=== PATIENT | female | born 1940 | race Hispanic/Latino ===

== ENCOUNTER 2017-04-22 16:48 | Inpatient (IN) | payer MEDICARE, OTHER ==
--- NOTE | 2017-04-22 17:26 | RAD ---
PROCEDURE: CHEST RADIOGRAPH, 1 VIEW HISTORY: SOB COMPARISON: Comparison is made to 08/06/2016 FINDINGS: LUNGS: No evidence of new infiltrate or consolidation in the lungs PLEURA: No pneumothorax or pleural fluid seen. CARDIOVASCULAR: Normal. OSSEOUS STRUCTURES: No significant abnormalities. VISUALIZED UPPER ABDOMEN: Normal. OTHER FINDINGS: None. IMPRESSION: No active disease.
[2017-04-22 17:28] LABS: BASO % 0.3 % (0.0-2.0); EOS % 0.3 % (0.0-4.0); HEMOGLOBIN 12.5 g/dL (11.0-16.0); LYMPH # 1.1 K/uL (1.0-4.3); LYMPH % 18.1 % (20.0-40.0); MEAN CORPUSCULAR HEMOGLOBIN 31.9 pg (27.0-31.0); MEAN CORPUSCULAR HGB CONC 33.5 g/dL (33.0-37.0); MEAN PLATELET VOLUME 7.6 fL (7.2-11.7); MONO # 0.4 K/uL (0.0-0.8); MONO % 7.1 % (0.0-10.0); NEUT # 4.6 K/uL (1.8-7.0); NEUT % 74.2 % (50.0-75.0); RBC 3.92 Mil/uL (3.80-5.20); RED CELL DISTRIBUTION WIDTH 12.5 % (11.5-14.5); WHITE BLOOD COUNT 6.3 K/uL (4.8-10.8)
[2017-04-22 17:33] LABS: MEAN CELL VOLUME 95.2 fL (81.0-99.0)
[2017-04-22 17:39] LABS: GFR AFRICAN-AMERICAN > 60; GFR NON-AFRICAN AMERICAN > 60
[2017-04-22 17:40] LABS: ALB/GLOB RATIO 1.5 (1.0-2.1); ALT/SGPT 25 U/L (9-52); AST/SGOT 21 U/L (14-36); BLOOD UREA NITROGEN 20 mg/dL (7-17); CALCIUM 9.2 mg/dl (8.6-10.4)
[2017-04-22 17:40] LABS: SQUAMOUS EPITHIAL 5 /hpf (0-5); URINE BACTERIA MOD (<OCC)
[2017-04-22 17:41] LABS: URINE BILIRUBIN NEGATIVE (NEGATIVE); URINE CLARITY Hazy (Clear); URINE COLOR YELLOW (YELLOW); URINE GLUCOSE (UA) NEGATIVE (Normal)
[2017-04-22 17:42] LABS: URINE BLOOD SMALL (NEGATIVE); URINE LEUKOCYTE ESTERASE MODERATE Leu/uL (Negative); URINE NITRATE POSITIVE (NEGATIVE); URINE PROTEIN NEGATIVE (NEGATIVE); URINE UROBILINOGEN 0.2 mg/dL (0.2-1.0)
[2017-04-22 17:48] LABS: PARTIAL THROMBOPLASTIN TIME 32 SECONDS (21-34); PROTHROMBIN TIME 10.8 SECONDS (9.7-12.2)
[2017-04-22 17:49] LABS: B-TYPE NATRIURETIC PEPTIDE 110 pg/mL (0-900)
[2017-04-22 17:56] LABS: D DIMER < 200 ng/mlDDU (0-243)
--- NOTE | 2017-04-22 18:23 | C.PDOC ---
History Of Present Illness 76 year old female who presents to the ER with a complaint of palpitations overnight. Patient states she believed she was having a heart attack. Patient reports a Hx of paroxysmal a-fib and takes rate controlling medication but no anticoagulation medication. 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 Time Seen by Provider: 04/22/17 17:01 Chief Complaint (Nursing): Palpitations History Per: Patient History/Exam Limitations: no limitations Onset/Duration Of Symptoms: Hrs Current Symptoms Are (Timing): Still Present Associated Symptoms: denies: Chest Pain, Dyspnea, Dizziness, Headache Quality Of Symptoms: Asymptomatic Exacerbating Factor(s): Pos: None Recent travel outside of the [place]: No Past Medical History Reviewed: Historical Data, Nursing Documentation, Vital Signs Vital Signs: Last Vital Signs Temp 97.4 F L 04/22/17 18:51 Pulse 84 04/22/17 18:51 Resp 16 04/22/17 18:51 BP 147/73 04/22/17 18:51 Pulse Ox 97 04/22/17 18:51 - Medical History PMH: Arthritis, Cardia Arrhythmia ("Fast" - unsure DX - had ablation), HTN Surgical History: Cholecystectomy (1996) - [facility] Procedures EXCISION OF STOMACH, ENDO, DIAGN (04/03/16) INSPECTION OF LOWER INTESTINAL TRACT, ENDO (04/03/16) TRANSFUSE NONAUT RED BLOOD CELLS IN PERIPH VEIN, PERC (04/03/16) Family History: States: Unknown Family Hx - Social History Hx Tobacco Use: No Hx Alcohol Use: No Hx Substance Use: No - Immunization History Hx Tetanus Toxoid Vaccination: Yes Hx Influenza Vaccination: No Hx Pneumococcal Vaccination: Yes (2013) Review Of Systems Constitutional: Negative for: Fever, Chills Cardiovascular: Positive for: Palpitations Gastrointestinal: Negative for: Nausea, Vomiting, Diarrhea Physical Exam - Physical Exam Appears: Non-toxic, No Acute Distress Skin: Normal Color, Warm, Dry Head: Atraumatic, Normacephalic Oral Mucosa: Moist Chest: Symmetrical, No Tenderness Cardiovascular: Rhythm Regular, No Murmur Respiratory: Normal Breath Sounds, No Rales, No Rhonchi, No Wheezing Gastrointestinal/Abdominal: Soft, No Tenderness Neurological/Psych: Oriented x3, Normal Speech, Normal Cognition ED Course And Treatment - Laboratory Results Result Diagrams: 04/22/17 17:25 04/22/17 17:25 Lab Interpretation: Normal (d-dimer, trop, bnp neg.) ECG: Interpreted By Me ECG Rhythm: Sinus Rhythm ECG Interpretation: Normal Rate From EC O2 Sat by Pulse Oximetry: 96 Pulse Ox Interpretation: Normal - Radiology CXR: Interpreted by Me CXR Interpretation: Yes: No Acute Disease Progress Note: macrobid for UTI, Cardizem PO for suppression of palps. Reevaluation Time: 18:21 Reassessment Condition: Improved - Physician Consult Information Outcome Of Conversation: 1819: d/w Dr. 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 Medical Decision Making Medical Decision Making: palps overnight, ? PAF NSR and not tachy in ED Cardizem started. not anticuagulated for PAF, defer to cardio prn, but no AF now. Disposition Doctor Will See Patient In The: Hospital Counseled Patient/Family Regarding: Studies Performed, Diagnosis - Disposition Disposition: HOSPITALIZED Disposition Time: 18:24 Condition: GOOD - Clinical Impression Clinical Impression: Palpitations, UTI (urinary tract infection) - Scribe Statement The provider has reviewed the documentation as recorded by the Scribralph Clifton All medical record entries made by the Scribe were at my direction and personally dictated by me. I have reviewed the chart and agree that the record accurately reflects my personal performance of the history, physical exam, medical decision making, and the department course for this patient. I have also personally directed, reviewed, and agree with the discharge instructions and disposition.
--- NOTE | 2017-04-22 20:11 | CP.PCM.HP ---
Present on Admission - Present on Admission Any Indicators Present on Admission: No Past Patient History - Past Medical History & Family History Past Medical History?: Yes - Past Social History Smoking Status: Former Smoker - CARDIAC Hx Cardia Arrhythmia: Yes ("Fast" - unsure DX - had ablation) Hx Hypertension: Yes - PULMONARY Hx Respiratory Disorders: No - NEUROLOGICAL Hx Neurological Disorder: No - HEENT Hx HEENT Problems: No - RENAL Hx Chronic Kidney Disease: No - ENDOCRINE/METABOLIC Hx Endocrine Disorders: No - HEMATOLOGICAL/ONCOLOGICAL Hx Blood Disorders: No - INTEGUMENTARY Hx Dermatological Problems: No - MUSCULOSKELETAL/RHEUMATOLOGICAL Hx Arthritis: Yes - GASTROINTESTINAL Hx Gastrointestinal Disorders: No - GENITOURINARY/GYNECOLOGICAL Hx Genitourinary Disorders: No - PSYCHIATRIC Hx Substance Use: No - SURGICAL HISTORY Hx Cholecystectomy: Yes (1996) - ANESTHESIA Hx Anesthesia: Yes Hx Anesthesia Reactions: No Hx Malignant Hyperthermia: No Meds Allergies/Adverse Reactions: Allergies Allergy/AdvReac Type Severity Reaction Status Date / Time Penicillins Allergy RASH Verified 08/06/16 19:46 Results - Vital Signs Recent Vital Signs: Last Vital Signs Temp 97.8 F 04/22/17 19:57 Pulse 74 04/22/17 19:57 Resp 16 04/22/17 19:57 BP 163/73 H 04/22/17 19:57 Pulse Ox 95 04/22/17 19:57 - Labs Result Diagrams: 04/22/17 17:25 04/22/17 17:25
[2017-04-23 02:32] LABS: CK-MB 0.33 ng/mL (0.0-3.38)
[2017-04-23] MEDS: Pantoprazole 40 mg EC Tab PO SCH (09:18)
[2017-04-23] MEDS: Enoxaparin 40 mg Syringe SC SCH (09:19)
--- NOTE | 2017-04-23 11:42 | CP.PCM.PN ---
Subjective - Date & Time of Evaluation Date of Evaluation: 04/23/17 Time of Evaluation: 13:00 - Subjective Subjective: clinically same Objective - Vital Signs/Intake and Output Vital Signs (last 24 hours): Temp Pulse Resp BP Pulse Ox 97.7 F 85 18 153/69 H 94 L 04/23/17 09:02 04/23/17 09:02 04/23/17 09:02 04/23/17 09:02 04/23/17 09:02 - Medications Medications: Current Medications Acetaminophen (Tylenol 325mg Tab) 650 mg PO Q6 PRN PRN Reason: Pain, Mild (1-3) Last Admin: 04/23/17 11:30 Dose: 650 mg Aspirin (Aspirin) 325 mg PO DAILY [facility] Last Admin: 04/23/17 09:18 Dose: 325 mg Clopidogrel Bisulfate (Plavix) 75 mg PO DAILY [facility] Last Admin: 04/23/17 09:18 Dose: 75 mg Enoxaparin Sodium (Lovenox) 40 mg SC DAILY [facility] Last Admin: 04/23/17 09:19 Dose: 40 mg Pantoprazole Sodium (Protonix Ec Tab) 40 mg PO DAILY [facility] Last Admin: 04/23/17 09:18 Dose: 40 mg - Labs Labs: PT 10.8 SECONDS (9.7-12.2) 04/22/17 17:25 INR 1.0 04/22/17 17:25 APTT 32 SECONDS (21-34) 04/22/17 17:25 - Constitutional Appears: Well - Head Exam Head Exam: ATRAUMATIC, NORMAL INSPECTION, NORMOCEPHALIC - Eye Exam Eye Exam: EOMI, Normal appearance, PERRL Pupil Exam: NORMAL ACCOMODATION, PERRL - ENT Exam ENT Exam: Mucous Membranes Moist, Normal Exam - Neck Exam Neck Exam: Full ROM, Normal Inspection. absent: Lymphadenopathy - Respiratory Exam Respiratory Exam: Decreased Breath Sounds - GI/Abdominal Exam GI & Abdominal Exam: Soft, Diminished Bowel Sounds - Rectal Exam Rectal Exam: Deferred
[2017-04-23 12:10] LABS: CK-MB 0.27 ng/mL (0.0-3.38)
--- NOTE | 2017-04-23 13:26 | CARD ---
APPROVED REPORT EKG Measurement Heart [id number] <Conclusion> Normal sinus rhythm Normal ECG
[2017-04-23 14:02] LABS: BASO % 0.6 % (0.0-2.0); EOS % 0.4 % (0.0-4.0); HEMOGLOBIN 12.2 g/dL (11.0-16.0); LYMPH # 1.6 K/uL (1.0-4.3); LYMPH % 31.8 % (20.0-40.0); MEAN CELL VOLUME 96.1 fL (81.0-99.0); MEAN CORPUSCULAR HEMOGLOBIN 31.7 pg (27.0-31.0); MEAN PLATELET VOLUME 8.5 fL (7.2-11.7); MONO # 0.4 K/uL (0.0-0.8); MONO % 7.7 % (0.0-10.0); NEUT # 3.1 K/uL (1.8-7.0); NEUT % 59.5 % (50.0-75.0); RBC 3.84 Mil/uL (3.80-5.20); WHITE BLOOD COUNT 5.1 K/uL (4.8-10.8)
[2017-04-23 14:10] LABS: ALB/GLOB RATIO 1.4 (1.0-2.1); ALBUMIN 3.7 g/dL (3.5-5.0); ALT/SGPT 22 U/L (9-52); AST/SGOT 20 U/L (14-36); BLOOD UREA NITROGEN 18 mg/dL (7-17); CALCIUM 8.9 mg/dl (8.6-10.4); GFR AFRICAN-AMERICAN > 60; GFR NON-AFRICAN AMERICAN > 60
[2017-04-23] MEDS: Ciprofloxacin 400mg/200ml D5W 400 MG/200 ML BAG IVPB SCH (14:16)
[2017-04-23 15:40] VITALS: RESP 20
--- NOTE | 2017-04-23 15:40 | CP.PCM.CON ---
History of Present Illness - History of Present Illness History of Present Illness: CARDIOLOGY CONSULT NOTE Reason for consult: palpitations HPI: Patient is a 76 year old woman with history of probable SVT s/p ablation at [facility] 2-3 years ago (was not told anticoagulation was required so AFib or AFlutter is unlikely) who was in usual state of health until yesterday eventing whe she had severe sudden onset palpitations lasting for a few hours on the day of the admission yesterday. It was associated with dizziness. No syncope, SOB, chest pain. Her palpitations resolved by the time she arrived to the hospital. EKG showed sinus rhythm with otherwise normal tracing. She feels well now. Cardiology now consulted PMH: Probable SVT s/p ablation at [facility] 2-3 yrs ago, HTN, arthritis Surgical Hx: cholecystectomy ROS: as described in HPI, otherwise negative SH: no tobacc, no etoh, no drugs FH: no premature CAD or SCD Review of Systems - Review of Systems All systems: reviewed and no additional remarkable complaints except - Cardiovascular Cardiovascular: Palpitations Past Patient History - Past Medical History & Family History Past Medical History?: Yes - Past Social History Smoking Status: Former Smoker - CARDIAC Hx Hypertension: Yes - PULMONARY Hx Respiratory Disorders: No - NEUROLOGICAL Hx Neurological Disorder: No - HEENT Hx HEENT Problems: No - RENAL Hx Chronic Kidney Disease: No - ENDOCRINE/METABOLIC Hx Endocrine Disorders: No - HEMATOLOGICAL/ONCOLOGICAL Hx Blood Disorders: No - INTEGUMENTARY Hx Dermatological Problems: No - MUSCULOSKELETAL/RHEUMATOLOGICAL Hx Arthritis: Yes - GASTROINTESTINAL Hx Gastrointestinal Disorders: No - GENITOURINARY/GYNECOLOGICAL Hx Genitourinary Disorders: No - PSYCHIATRIC Hx Psychophysiologic Disorder: No Hx Substance Use: No - SURGICAL HISTORY Hx Surgeries: Yes Hx Cholecystectomy: Yes (1996) - ANESTHESIA Hx Anesthesia: Yes Hx Anesthesia Reactions: No Hx Malignant Hyperthermia: No Has any member of the family had a problem w/ anesthesia?: No Meds Allergies/Adverse Reactions: Allergies Allergy/AdvReac Type Severity Reaction Status Date / Time Penicillins Allergy RASH Verified 08/06/16 19:46 - Medications Medications: Current Medications Acetaminophen (Tylenol 325mg Tab) 650 mg PO Q6 PRN PRN Reason: Pain, Mild (1-3) Last Admin: 04/23/17 11:30 Dose: 650 mg Aspirin (Aspirin) 325 mg PO DAILY [facility] Last Admin: 04/23/17 09:18 Dose: 325 mg Clopidogrel Bisulfate (Plavix) 75 mg PO DAILY [facility] Last Admin: 04/23/17 09:18 Dose: 75 mg Enoxaparin Sodium (Lovenox) 40 mg SC DAILY [facility] Last Admin: 04/23/17 09:19 Dose: 40 mg Ciprofloxacin (Cipro 400mg/200ml Dsw) 400 mg in 200 mls @ 133 mls/hr IVPB Q12H [facility] Last Admin: 04/23/17 14:16 Dose: 133 mls/hr Pantoprazole Sodium (Protonix Ec Tab) 40 mg PO DAILY [facility] Last Admin: 04/23/17 09:18 Dose: 40 mg Physical Exam - Constitutional Appears: Well - Head Exam Head Exam: ATRAUMATIC - Eye Exam Eye Exam: Normal appearance - ENT Exam ENT Exam: Mucous Membranes Moist - Neck Exam Neck exam: Positive for: Normal Inspection - Respiratory Exam Respiratory Exam: Clear to Auscultation Bilateral, NORMAL BREATHING PATTERN - Cardiovascular Exam Cardiovascular Exam: REGULAR RHYTHM, +S2 - GI/Abdominal Exam GI & Abdominal Exam: Soft. absent: Tenderness - Extremities Exam Extremities exam: Negative for: pedal edema - Neurological Exam Neurological exam: Oriented x3 - Psychiatric Exam Psychiatric exam: Normal Affect - Skin Skin Exam: Warm Results - Vital Signs Recent Vital Signs: Last Vital Signs Temp 97.7 F 04/23/17 09:02 Pulse 85 04/23/17 09:02 Resp 18 04/23/17 09:02 BP 153/69 H 04/23/17 09:02 Pulse Ox 94 L 04/23/17 09:02 - Labs Result Diagrams: 04/23/17 13:44 04/23/17 13:44 Labs: Laboratory Results - last 24 hr 04/23/17 04/23/17 04/23/17 11:23 13:44 13:44 WBC 5.1 RBC 3.84 Hgb 12.2 Hct 36.9 MCV 96.1 MCH 31.7 H MCHC 33.0 RDW 13.0 Plt Count 222 MPV 8.5 Neut % (Auto) 59.5 Lymph % (Auto) 31.8 Alcorn % (Auto) 7.7 Eos % (Auto) 0.4 Baso % (Auto) 0.6 Neut # 3.1 Lymph # 1.6 Alcorn # 0.4 Eos # 0.0 Baso # 0.0 Sodium 136 Potassium 3.7 Chloride 101 Carbon Dioxide 23 Anion Gap 16 BUN 18 H Creatinine 0.8 Est GFR ( Amer) > 60 Est GFR (Non-Af Amer) > 60 Random Glucose 107 H Calcium 8.9 Total Bilirubin 0.6 AST 20 ALT 22 Alkaline Phosphatase 78 Total Creatine Kinase 38 CK-MB (Mass) 0.27 Troponin I, Quant < 0.0120 Total Protein 6.4 Albumin 3.7 Globulin 2.7 Albumin/Globulin Ratio 1.4 - Impressions Impression: sinus rhythm, normal tracing Assessment & Plan - Assessment and Plan (Free Text) Assessment: 1. Palpitations -- Now resolved. May represent SVT, especially since she has a history of it. Currently in sinus. Plan: * Patient needs echo and event monitor for 1 month, which can be done as an outpatient * Start Toprol XL 25mg daily Cardiovascularly stable for discharge Will follow up with me as outpatient in 1-2 weeks for further cardiac workup
[2017-04-23] MEDS: Metoprolol Succinate 25 mg XL Tab PO SCH (17:54)
[2017-04-24] MEDS: Ciprofloxacin 400mg/200ml D5W 400 MG/200 ML BAG IVPB SCH ×2 (00:28→11:12)
[2017-04-24 07:03] LABS: BASO % 0.6 % (0.0-2.0); EOS # 0.1 K/uL (0.0-0.7); EOS % 1.4 % (0.0-4.0); HEMOGLOBIN 11.9 g/dL (11.0-16.0); LYMPH # 1.8 K/uL (1.0-4.3); LYMPH % 27.3 % (20.0-40.0); MEAN CELL VOLUME 96.2 fL (81.0-99.0); MEAN CORPUSCULAR HEMOGLOBIN 31.6 pg (27.0-31.0); MEAN CORPUSCULAR HGB CONC 32.8 g/dL (33.0-37.0); MONO # 0.5 K/uL (0.0-0.8); MONO % 7.2 % (0.0-10.0); NEUT # 4.1 K/uL (1.8-7.0); NEUT % 63.5 % (50.0-75.0); RBC 3.79 Mil/uL (3.80-5.20); WHITE BLOOD COUNT 6.5 K/uL (4.8-10.8)
[2017-04-24 07:27] LABS: ALBUMIN 3.5 g/dL (3.5-5.0)
[2017-04-24 07:29] LABS: GFR AFRICAN-AMERICAN > 60; GFR NON-AFRICAN AMERICAN > 60
[2017-04-24 07:30] LABS: ALB/GLOB RATIO 1.5 (1.0-2.1); ALT/SGPT 23 U/L (9-52); AST/SGOT 17 U/L (14-36); BLOOD UREA NITROGEN 13 mg/dL (7-17)
[2017-04-24] MEDS: Pantoprazole 40 mg EC Tab PO SCH (09:50)
[2017-04-24] MEDS: Metoprolol Succinate 25 mg XL Tab PO SCH (09:50)
[2017-04-24] MEDS: Enoxaparin 40 mg Syringe SC SCH (09:50)
--- NOTE | 2017-04-24 12:28 | CP.PCM.PN ---
Subjective - Date & Time of Evaluation Date of Evaluation: 04/24/17 Time of Evaluation: 14:20 - Subjective Subjective: clinically same Objective - Vital Signs/Intake and Output Vital Signs (last 24 hours): Temp Pulse Resp BP Pulse Ox 97.5 F L 72 20 160/78 H 96 04/24/17 08:24 04/24/17 08:24 04/24/17 08:24 04/24/17 08:24 04/24/17 08:24 Intake and Output: 04/24/17 04/24/17 06:59 18:59 Intake Total 350 200 Balance 350 200 - Medications Medications: Current Medications Acetaminophen (Tylenol 325mg Tab) 650 mg PO Q6 PRN PRN Reason: Pain, Mild (1-3) Last Admin: 04/24/17 08:12 Dose: 650 mg Aspirin (Aspirin) 325 mg PO DAILY [facility] Last Admin: 04/24/17 09:50 Dose: 325 mg Clopidogrel Bisulfate (Plavix) 75 mg PO DAILY [facility] Last Admin: 04/24/17 09:50 Dose: 75 mg Enoxaparin Sodium (Lovenox) 40 mg SC DAILY [facility] Last Admin: 04/24/17 09:50 Dose: 40 mg Ciprofloxacin (Cipro 400mg/200ml Dsw) 400 mg in 200 mls @ 133 mls/hr IVPB Q12H [facility] Last Admin: 04/24/17 11:12 Dose: 133 mls/hr Metoprolol Succinate (Toprol Xl) 25 mg PO DAILY [facility] Last Admin: 04/24/17 09:50 Dose: 25 mg Pantoprazole Sodium (Protonix Ec Tab) 40 mg PO DAILY [facility] Last Admin: 04/24/17 09:50 Dose: 40 mg - Labs Labs: 04/24/17 06:54 04/24/17 06:54 PT 10.8 SECONDS (9.7-12.2) 04/22/17 17:25 INR 1.0 04/22/17 17:25 APTT 32 SECONDS (21-34) 04/22/17 17:25 - Constitutional Appears: Well - Head Exam Head Exam: ATRAUMATIC, NORMAL INSPECTION, NORMOCEPHALIC - Eye Exam Eye Exam: EOMI, Normal appearance, PERRL Pupil Exam: NORMAL ACCOMODATION, PERRL - ENT Exam ENT Exam: Mucous Membranes Moist, Normal Exam - Neck Exam Neck Exam: Full ROM, Normal Inspection. absent: Lymphadenopathy - Respiratory Exam Respiratory Exam: Decreased Breath Sounds - Cardiovascular Exam Cardiovascular Exam: REGULAR RHYTHM, +S1, +S2 - GI/Abdominal Exam GI & Abdominal Exam: Soft, Diminished Bowel Sounds - Rectal Exam Rectal Exam: Deferred
--- NOTE | 2017-04-24 14:48 | CP.PCM.PN ---
Subjective - Date & Time of Evaluation Date of Evaluation: 04/24/17 Time of Evaluation: 14:45 - Subjective Subjective: PT SEEN AND EXAMINED BY DR Soumya ERWIN, DENIES ANY CHEST PAIN, SOB, PALPITATION, DIZZINESS OR ANY OTHER COMPLAINTS, RESP EASY AND UNLABORED, NAD. Objective - Vital Signs/Intake and Output Vital Signs (last 24 hours): Temp Pulse Resp BP Pulse Ox 97.5 F L 72 20 160/78 H 96 04/24/17 08:24 04/24/17 08:24 04/24/17 08:24 04/24/17 08:24 04/24/17 08:24 Intake and Output: 04/24/17 04/24/17 06:59 18:59 Intake Total 350 200 Balance 350 200 - Medications Medications: Current Medications Acetaminophen (Tylenol 325mg Tab) 650 mg PO Q6 PRN PRN Reason: Pain, Mild (1-3) Last Admin: 04/24/17 08:12 Dose: 650 mg Aspirin (Aspirin) 325 mg PO DAILY [facility] Last Admin: 04/24/17 09:50 Dose: 325 mg Clopidogrel Bisulfate (Plavix) 75 mg PO DAILY [facility] Last Admin: 04/24/17 09:50 Dose: 75 mg Enoxaparin Sodium (Lovenox) 40 mg SC DAILY [facility] Last Admin: 04/24/17 09:50 Dose: 40 mg Ciprofloxacin (Cipro 400mg/200ml Dsw) 400 mg in 200 mls @ 133 mls/hr IVPB Q12H [facility] Last Admin: 04/24/17 11:12 Dose: 133 mls/hr Metoprolol Succinate (Toprol Xl) 25 mg PO DAILY [facility] Last Admin: 04/24/17 09:50 Dose: 25 mg Pantoprazole Sodium (Protonix Ec Tab) 40 mg PO DAILY [facility] Last Admin: 04/24/17 09:50 Dose: 40 mg - Labs Labs: 04/24/17 06:54 04/24/17 06:54 PT 10.8 SECONDS (9.7-12.2) 04/22/17 17:25 INR 1.0 04/22/17 17:25 APTT 32 SECONDS (21-34) 04/22/17 17:25 Assessment and Plan - Assessment and Plan (Free Text) Plan: 76 Y/O FEMALE WITH PMHX SVT S/P ABLATION AT [facility] 2-3 YRS AGO, HTN, ARTHRITIS ADMITTED FOR PALPITATIONS ASSOCIATED W/DIZZINESS EKG NSR, PLAPITATION -RESOLVED SEEN BY CARDIOLOGY ECHO AND EVENT MONITOR FOR 1 MONTH - OUTPT PER CARDIOLOGY STARTED TOPROL XL 25 MG PO DAILY F/U WITH CARDIOLOGY IN THE OFFICE IN 1-2 WEEKS RETURN TO ED IF ANY WORSENING S/S
[2017-04-24 15:45] VITALS: BP 155/71; PULSE 61; TEMP 98.1; O2SAT 95
== END 2017-04-24 18:42 | disposition home or self-care (01) | DRG 309 ==
LOC: C.ER 16:48 → C.9E 18:16 → C.6T 18:40 → OBSVTOIN 04-23 10:21
PROVIDERS: ADMIT Internal Medicine Nephrology; ATTEND Internal Medicine Nephrology
DX: I47.1 Supraventricular tachycardia (principal); N39.0 Urinary tract infection, site not specified; I10 Essential (primary) hypertension; Z87.891 Personal history of nicotine dependence; M19.90 Unspecified osteoarthritis, unspecified site; Z90.49 Acquired absence of other specified parts of digestive tract

== ENCOUNTER 2017-07-01 10:39 | Emergency (ER) | payer MEDICARE ==
--- NOTE | 2017-07-01 11:05 | C.PDOC ---
History Of Present Illness Patient is a 76 y/o female who presents to the ED with a complaint of a recurring right upper extremity tremor for the past 3 days. Patient experienced similar symptoms approximately 2 years ago; diagnosed as resting Parkinsons. Patient admits current tremor is worse than prior and describes it as constant but resolves with right hand use. Patient notes not taking HTN medication this morning due to experiencing nausea; patient also experiences questionable headache. No other physical complaints at this time. RECUR RUE TREMOR X 3 DAYS. HO PRIOR SIM SX 2 YRS AGO, DX "RESTING PARKINSONS". CURRENT TREMOR WORSE THAN PRIOR, CONSTANT BUT RESOLVES W RUE HAND USE. +NAUSEA. ?GARCIA. NO OTHER ASSOC SX PS DIDNT TAKE HTN MEDS THIS MORNING DUE TO NAUSEA EXAM NAD NEURO +RESTING TREMOR RUE, RESOLVES W INTENTION. 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 Time Seen by Provider: 07/01/17 10:48 Chief Complaint (Nursing): Upper Extremity Problem/Injury History Per: Patient History/Exam Limitations: no limitations Onset/Duration Of Symptoms: Days (3 days) Current Symptoms Are (Timing): Still Present Recent travel outside of the [place]: No Past Medical History Reviewed: Historical Data, Nursing Documentation, Vital Signs Vital Signs: Last Vital Signs Temp 98.0 F 07/01/17 10:45 Pulse 51 L 07/01/17 12:06 Resp 19 07/01/17 12:06 BP 179/89 H 07/01/17 12:06 Pulse Ox 96 07/01/17 12:06 - Medical History PMH: Arthritis, Cardia Arrhythmia ("Fast" - unsure DX - had ablation), HTN, Parkinson's Disease (Resting Parkinson's) Denies: Chronic Kidney Disease Surgical History: Cholecystectomy (1996) - [facility] Procedures EXCISION OF STOMACH, ENDO, DIAGN (04/03/16) INSPECTION OF LOWER INTESTINAL TRACT, ENDO (04/03/16) TRANSFUSE NONAUT RED BLOOD CELLS IN PERIPH VEIN, PERC (04/03/16) Family History: States: Unknown Family Hx - Social History Hx Tobacco Use: No Hx Alcohol Use: No Hx Substance Use: No - Immunization History Hx Tetanus Toxoid Vaccination: Yes Hx Influenza Vaccination: No Hx Pneumococcal Vaccination: Yes (2013) Review Of Systems Constitutional: Negative for: Fever, Chills Gastrointestinal: Positive for: Nausea Musculoskeletal: Positive for: Other (tremor to right upper extremity ) Neurological: Positive for: Headache (questionable) Physical Exam - Physical Exam Appears: Well, Non-toxic, No Acute Distress Skin: Normal Color, Warm, Dry Head: Atraumatic, Normacephalic Oral Mucosa: Moist Chest: Symmetrical Cardiovascular: Rhythm Regular, No Murmur Respiratory: Normal Breath Sounds, No Rales, No Rhonchi, No Wheezing Gastrointestinal/Abdominal: Soft, No Tenderness Neurological/Psych: Oriented x3, Normal Speech, Normal Cognition, Other ( positive resting tremor RUE; resolves with intention. No focal deficits. ) ED Course And Treatment - Laboratory Results Result Diagrams: 07/01/17 11:25 07/01/17 11:25 ECG: Interpreted By Me, Viewed By Me ECG Rhythm: Sinus Rhythm Rate From EC (bpm) O2 Sat by Pulse Oximetry: 96 (room air) Pulse Ox Interpretation: Normal Progress Note: CT head, EKG, and blood work ordered; Lopressor and Zofran administered. Reevaluation Time: 12:41 Reassessment Condition: Improved Disposition Counseled Patient/Family Regarding: Studies Performed, Diagnosis, Need For Followup - Disposition Referrals: David Brown MD [Staff Provider] - Disposition: HOME/ ROUTINE Disposition Time: 12:41 Condition: IMPROVED Instructions: Tremors (ED) Forms: [facility] (Uzbek) - Clinical Impression Clinical Impression: Resting tremor - Scribe Statement The provider has reviewed the documentation as recorded by the Scribe Dana Arechiga All medical record entries made by the Scribe were at my direction and personally dictated by me. I have reviewed the chart and agree that the record accurately reflects my personal performance of the history, physical exam, medical decision making, and the department course for this patient. I have also personally directed, reviewed, and agree with the discharge instructions and disposition.
[2017-07-01] MEDS ORDERED: Metoprolol Succinate 25 mg XL Tab PO ONE (11:09)
[2017-07-01] MEDS ORDERED: Metoprolol 1 mg/ml Inj IVP ONE ×2 (11:10→11:29)
[2017-07-01 11:29] LABS: BASO % 1.1 % (0.0-2.0); EOS % 0.4 % (0.0-4.0); HEMATOCRIT 37.6 % (34.0-47.0); LYMPH % 25.4 % (20.0-40.0); MEAN CORPUSCULAR HEMOGLOBIN 32.7 pg (27.0-31.0); MEAN CORPUSCULAR HGB CONC 33.7 g/dL (33.0-37.0); MEAN PLATELET VOLUME 7.8 fL (7.2-11.7); MONO # 0.4 K/uL (0.0-0.8); MONO % 9.2 % (0.0-10.0); NRBC % 0.1 % (0.0-2.0); RED CELL DISTRIBUTION WIDTH 14.4 % (11.5-14.5)
[2017-07-01 11:36] LABS: CHLORIDE 107 mmol/L (98-107); POTASSIUM 3.7 mmol/L (3.6-5.2); SODIUM 139 mmol/L (132-148)
[2017-07-01 11:39] LABS: CARBON DIOXIDE 21 mmol/L (22-30); GFR AFRICAN-AMERICAN > 60
[2017-07-01 11:40] LABS: BLOOD UREA NITROGEN 15 mg/dL (7-17); CALCIUM 8.4 mg/dl (8.6-10.4); GLUCOSE,RANDOM 87 mg/dL (65-105)
--- NOTE | 2017-07-01 12:16 | CT ---
PROCEDURE: CT HEAD WITHOUT CONTRAST. HISTORY: Right upper extremity tremor COMPARISON: CT scan dated 07/04/2016. TECHNIQUE: Axial computed tomography images were obtained through the head/brain without intravenous contrast. Radiation dose: Total exam DLP = 960 mGy-cm. This CT exam was performed using one or more of the following dose reduction techniques: Automated exposure control, adjustment of the mA and/or kV according to patient size, and/or use of iterative reconstruction technique. FINDINGS: HEMORRHAGE: No intracranial hemorrhage. BRAIN: Scattered focal lucencies in the subcortical and periventricular white matter suggestive for chronic microvascular ischemic change. Focal hypodensity in the left external capsule may represent chronic lacunar infarct as this was noted on the prior study. VENTRICLES: Unremarkable. No hydrocephalus. CALVARIUM: Unremarkable. PARANASAL SINUSES: Unremarkable as visualized. No significant inflammatory changes. MASTOID AIR CELLS: Unremarkable as visualized. No inflammatory changes. OTHER FINDINGS: Intracranial vascular calcifications. IMPRESSION: No acute intracranial abnormality. Chronic microvascular ischemic changes. Additional findings as above. If focal neurologic deficit persists, consider MRI.
[2017-07-01 13:01] VITALS: BP 154/68; PULSE 117; RESP 18; TEMP 98.1; O2SAT 95
== END 2017-07-01 13:17 | disposition home or self-care (01) ==
LOC: C.ER 10:39
DX: R25.1 Tremor, unspecified (principal)
CPT/HCPCS: 70450; 80048; 85025; 96374; 96375; 99285; J2405

== ENCOUNTER 2017-08-28 01:52 | Inpatient (IN) | payer MEDICARE ==
[2017-08-28 01:52] VITALS: BMI 22.6
[2017-08-28] MEDS ORDERED: Morphine 4 MG/ML VIAL IV ONE (02:21)
--- NOTE | 2017-08-28 02:21 | C.PDOC ---
History Of Present Illness patient states she tripped and fell coming out of the bathroom . denies LOC and remembers the event. No cp/palpitations. C/o of dull, throbbing right hip pain - HPI Time Seen by Provider: 08/28/17 02:21 Chief Complaint (Nursing): Trauma Past Medical History Reviewed: Historical Data, Nursing Documentation, Vital Signs Vital Signs: Last Vital Signs Temp 97.6 F 08/28/17 01:58 Pulse 56 L 08/28/17 01:58 Resp 20 08/28/17 01:58 BP 115/66 08/28/17 01:58 Pulse Ox 95 08/28/17 03:22 - Medical History PMH: Arthritis, Cardia Arrhythmia ("Fast" - unsure DX - had ablation), HTN, Parkinson's Disease (Resting Parkinson's), Seizures Denies: Chronic Kidney Disease Surgical History: Cholecystectomy (1996) - [facility] Procedures EXCISION OF STOMACH, ENDO, DIAGN (04/03/16) INSPECTION OF LOWER INTESTINAL TRACT, ENDO (04/03/16) TRANSFUSE NONAUT RED BLOOD CELLS IN PERIPH VEIN, PERC (04/03/16) Family History: States: No Known Family Hx - Social History Hx Tobacco Use: No Hx Alcohol Use: No Hx Substance Use: No - Immunization History Hx Tetanus Toxoid Vaccination: Yes Hx Influenza Vaccination: Yes Hx Pneumococcal Vaccination: Yes (2013) Review Of Systems Constitutional: Negative for: Fever, Chills Eyes: Negative for: Redness ENT: Negative for: Throat Pain Cardiovascular: Negative for: Chest Pain Respiratory: Negative for: Shortness of Breath Gastrointestinal: Negative for: Nausea, Vomiting, Abdominal Pain Genitourinary: Negative for: Dysuria Musculoskeletal: Positive for: Other (r hip pain). Negative for: Back Pain Skin: Negative for: Rash Neurological: Positive for: Other (resting tremor). Negative for: Weakness Psych: Negative for: Anxiety Physical Exam - Physical Exam Appears: Non-toxic Skin: Warm, Dry Head: Normacephalic Eye(s): bilateral: Normal Inspection Oral Mucosa: Moist Neck: Supple Chest: Symmetrical Cardiovascular: Rhythm Regular Respiratory: No Rales, No Rhonchi, No Wheezing Gastrointestinal/Abdominal: Soft, No Tenderness, No Distention Back: No CVA Tenderness Extremity: Tenderness (r hip), No Calf Tenderness, No Swelling Extremity: Right: Bony Point Tenderness (hip), Bilateral: Normal Color And Temperature Pulses: Left Dorsalis Pedis: Normal, Right Dorsalis Pedis: Normal Neurological/Psych: Oriented x3, Normal Speech, Normal Cognition, Other ( resting tremor) Gait: Unable To Assess ED Course And Treatment - Laboratory Results Result Diagrams: 08/28/17 02:33 08/28/17 02:33 ECG: Interpreted By Me, Viewed By Me ECG Rhythm: Sinus Rhythm (56), Nonspecific Changes O2 Sat by Pulse Oximetry: 95 Pulse Ox Interpretation: Normal - Radiology CXR: Interpreted by Me, Viewed By Me CXR Interpretation: No: Infiltrates, Fracture, Cardiomegaly, Pnemothorax Disposition Discussed With Dr.: Jann Morfin Comment: accepted the pt on his service and took over the care at 4:16 AM Doctor Will See Patient In The: Hospital Counseled Patient/Family Regarding: Studies Performed, Diagnosis - Disposition Disposition: HOSPITALIZED Disposition Time: 02:21 Condition: FAIR Forms: [facility] [employer] ([place]zeri) - POA Present On Arrival: Falls Or Trauma - Clinical Impression Clinical Impression: Fall, Intertrochanteric fracture of right femur Decision To Admit - Pt Status Changed To: Hospital Disposition Of: Inpatient - Admit Certification Admit to Inpatient:: After my assessment, the patient will require hospitalization for at least two midnights. This is because of the severity of symptoms shown, intensity of services needed, and/or the medical risk in this patient being treated as an outpatient. - InPatient: Physician Admission Certification: I certify that this patient requires 2 or more midnights of care for the following reason:: After my assessment, the patient will require hospitalization for at least two midnights. This is because of the severity of symptoms shown, intensity of services needed, and/or the medical risk in this patient being treated as an outpatient. - . Bed Request Type: Regular Admitting Physician: Jann Morfin Patient Diagnosis: Fall, Intertrochanteric fracture of right femur
[2017-08-28] MEDS ORDERED: Morphine 4 MG/ML VIAL ONE ×2 (02:33→07:00)
[2017-08-28 02:36] LABS: BASO # 0.1 K/uL (0.0-0.2); BASO % 0.5 % (0.0-2.0); EOS # 0.1 K/uL (0.0-0.7); EOS % 0.6 % (0.0-4.0); LYMPH # 1.3 K/uL (1.0-4.3); MEAN CELL VOLUME 95.2 fL (81.0-99.0); MEAN CORPUSCULAR HGB CONC 33.6 g/dL (33.0-37.0); MEAN PLATELET VOLUME 8.4 fL (7.2-11.7); MONO # 0.9 K/uL (0.0-0.8); MONO % 7.6 % (0.0-10.0); RED CELL DISTRIBUTION WIDTH 13.5 % (11.5-14.5); WHITE BLOOD COUNT 11.2 K/uL (4.8-10.8)
[2017-08-28 02:58] LABS: ALB/GLOB RATIO 1.7 (1.0-2.1); ALKALINE PHOSPHATASE 71 U/L (38-126); ALT/SGPT 30 U/L (9-52); AST/SGOT 23 U/L (14-36); BILIRUBIN,TOTAL 0.7 mg/dL (0.2-1.3); BLOOD UREA NITROGEN 17 mg/dL (7-17); CALCIUM 9.2 mg/dl (8.6-10.4); CARBON DIOXIDE 21 mmol/L (22-30); CHLORIDE 100 mmol/L (98-107); GFR AFRICAN-AMERICAN > 60; GLUCOSE,RANDOM 94 mg/dL (65-105); POTASSIUM 3.4 mmol/L (3.6-5.2); SODIUM 133 mmol/L (132-148); TOTAL PROTEIN 6.6 g/dL (6.3-8.3)
[2017-08-28] MEDS ORDERED: Oxycodone/Acetaminophen 5/325 mg Tab PO PRN (04:14)
[2017-08-28] MEDS ORDERED: Oxycodone/Acetaminophen 5/325 mg Tab ONE (06:11)
--- NOTE | 2017-08-28 08:33 | RAD ---
PROCEDURE: HISTORY: fall, r hip pain COMPARISON: 08/03/2017 TECHNIQUE: AP view of the pelvis and applicable frog leg views obtained. FINDINGS: There is an interval complete fracture of the right femoral neck with mild proximal migration of the distal fracture fragment. . Femoral head head remains in the acetabulum. Left hip arthroplasty and inferior lumbar senescent changes are similar. IMPRESSION: Interval right femoral neck fracture. ER physician aware -patient admitted
--- NOTE | 2017-08-28 08:40 | RAD ---
PROCEDURE: CHEST RADIOGRAPH, 1 VIEW HISTORY: Shortness of breath COMPARISON: None available. FINDINGS: LUNGS: Mild venous congestion. Right hilar prominence. Patchy increased markings in the medial right infrahilar region and left lung base. Clinical correlation. Upper lobe granulomatous changes. PLEURA: No pneumothorax or pleural fluid seen. CARDIOVASCULAR: Calcification at the aortic knob. OSSEOUS STRUCTURES: No significant abnormalities. VISUALIZED UPPER ABDOMEN: Normal. OTHER FINDINGS: None. IMPRESSION: Mild venous congestion. Right hilar prominence. Patchy increased markings in the medial right infrahilar region and left lung base. Clinical correlation. Upper lobe granulomatous changes.
[2017-08-28] MEDS: Carbidopa/Levodopa 25/250 PO SCH ×3 (10:37→17:26)
[2017-08-28] MEDS: Pantoprazole 40 mg EC Tab PO SCH (10:38)
[2017-08-28] MEDS: Morphine 4 MG/ML VIAL SC PRN ×3 (12:19→21:25)
--- NOTE | 2017-08-28 13:24 | CP.PCM.CON ---
History of Present Illness - History of Present Illness History of Present Illness: Ortho consultation Dr. eMndosa 77F fell at home going to bathroom and complains of right hip pain. She says she had surgery on her left hip 5 years ago but she doesnt remember where or the surgeon. She denies pain in other extremities at this time, denies neck or back pain. Denies CP/SOB. Past Patient History - Infectious Disease Hx of Infectious Diseases: None - Tetanus Immunizations Tetanus Immunization: Unknown - Past Medical History & Family History Past Medical History?: Yes - Past Social History Smoking Status: Former Smoker - CARDIAC Hx Atrial Fibrillation: Yes Hx Cardia Arrhythmia: Yes ("Fast" - unsure DX - had ablation) Hx Hypertension: Yes - PULMONARY Hx Respiratory Disorders: No Hx Pneumonia: Yes - NEUROLOGICAL HX Cerebrovascular Accident: Yes (pt states "mini stroke") Hx Parkinson's Disease: Yes (Resting Parkinson's) Hx Seizures: Yes - HEENT Hx HEENT Problems: No Hx Cataracts: Yes (B/L) - RENAL Hx Chronic Kidney Disease: No - ENDOCRINE/METABOLIC Hx Endocrine Disorders: No - HEMATOLOGICAL/ONCOLOGICAL Hx Blood Disorders: No - INTEGUMENTARY Hx Dermatological Problems: No - MUSCULOSKELETAL/RHEUMATOLOGICAL Hx Falls: Yes - GASTROINTESTINAL Hx Gastrointestinal Disorders: No Hx Constipation: Yes - GENITOURINARY/GYNECOLOGICAL Hx Genitourinary Disorders: No Hx Urinary Tract Infection: Yes - PSYCHIATRIC Hx Substance Use: No - SURGICAL HISTORY Hx Cholecystectomy: Yes (1996) Hx Open Reduction Internal Fixation: Yes (left hip) - ANESTHESIA Hx Anesthesia: Yes Hx Anesthesia Reactions: No Hx Malignant Hyperthermia: No Has any member of the family had a problem w/ anesthesia?: No Meds Allergies/Adverse Reactions: Allergies Allergy/AdvReac Type Severity Reaction Status Date / Time Penicillins Allergy RASH Verified 08/02/17 15:01 - Medications Medications: Current Medications Amlodipine Besylate (Norvasc) 10 mg PO DAILY [facility] Last Admin: 08/28/17 10:38 Dose: 10 mg Carbidopa/Levodopa (Sinemet) 1 tab PO TID [facility] Last Admin: 08/28/17 10:37 Dose: 1 tab Docusate Sodium (Colace) 100 mg PO TID [facility] Last Admin: 08/28/17 10:37 Dose: 100 mg Heparin Sodium (Porcine) (Heparin) 5,000 units SC Q8 [facility] Last Admin: 08/28/17 06:06 Dose: 5,000 units Levetiracetam (Keppra) 500 mg PO BID [facility] Last Admin: 08/28/17 10:38 Dose: 500 mg Metoprolol Tartrate (Lopressor) 25 mg PO BID [facility] Last Admin: 08/28/17 10:38 Dose: 25 mg Morphine Sulfate (Morphine) 4 mg SC Q6 PRN PRN Reason: Pain, moderate (4-7) Last Admin: 08/28/17 12:19 Dose: 4 mg Pantoprazole Sodium (Protonix Ec Tab) 40 mg PO DAILY [facility] Last Admin: 08/28/17 10:38 Dose: 40 mg Physical Exam - Constitutional Appears: Well, No Acute Distress - Extremities Exam Additional comments: full AROM BUE/LLE without pain no swelling deformity discoloration RLE: +ROM ankle/toes, sensation intact +DP/PT pulses, calves soft NT neg homans - Neurological Exam Neurological exam: Alert Additional comments: oriented to person only - Psychiatric Exam Psychiatric exam: Normal Affect, Normal Mood - Skin Skin Exam: Dry, Intact, Normal Color, Warm Results - Vital Signs Recent Vital Signs: Last Vital Signs Temp 98.3 F 08/28/17 08:38 Pulse 69 08/28/17 08:38 Resp 18 08/28/17 08:38 BP 150/68 08/28/17 10:38 Pulse Ox 96 08/28/17 08:38 - Labs Result Diagrams: 08/28/17 02:33 08/28/17 02:33 Labs: Laboratory Results - last 24 hr 08/28/17 08/28/17 08/28/17 02:33 02:33 02:33 WBC 11.2 H D RBC 4.41 Hgb 14.1 Hct 42.0 MCV 95.2 MCH 32.0 H MCHC 33.6 RDW 13.5 Plt Count 251 MPV 8.4 Neut % (Auto) 79.3 H Lymph % (Auto) 12.0 L Hitchcock % (Auto) 7.6 Eos % (Auto) 0.6 Baso % (Auto) 0.5 Neut # 8.9 H Lymph # 1.3 Hitchcock # 0.9 H Eos # 0.1 Baso # 0.1 PT 11.2 INR 1.0 APTT 30 Sodium 133 Potassium 3.4 L Chloride 100 Carbon Dioxide 21 L Anion Gap 16 BUN 17 Creatinine 0.7 Est GFR ( Amer) > 60 Est GFR (Non-Af Amer) > 60 Random Glucose 94 Calcium 9.2 Total Bilirubin 0.7 AST 23 ALT 30 Alkaline Phosphatase 71 Total Protein 6.6 Albumin 4.2 Globulin 2.4 Albumin/Globulin Ratio 1.7 Blood Type Antibody Screen 08/28/17 05:50 WBC RBC Hgb Hct MCV MCH MCHC RDW Plt Count MPV Neut % (Auto) Lymph % (Auto) Hitchcock % (Auto) Eos % (Auto) Baso % (Auto) Neut # Lymph # Hitchcock # Eos # Baso # PT INR APTT Sodium Potassium Chloride Carbon Dioxide Anion Gap BUN Creatinine Est GFR ( Amer) Est GFR (Non-Af Amer) Random Glucose Calcium Total Bilirubin AST ALT Alkaline Phosphatase Total Protein Albumin Globulin Albumin/Globulin Ratio Blood Type O POSITIVE Antibody Screen Negative Assessment & Plan (1) Displaced fracture of right femoral neck Assessment and Plan: Will need hemiarthroplasty vs total replacement when medically optimized, plan for 08/29 pm attempted to call son, no answer patient currently not oriented to place or time, but gives history of fall f/u u/a type and cross NPO heparin held after 2pm dose in anticipation for OR tomorrow f/u labs d/w Dr. Mendosa, agrees with above Status: Acute
--- NOTE | 2017-08-28 13:39 | CP.PCM.HP ---
History of Present Illness - History of Present Illness History of Present Illness: COMPREHENSIVE HISTORY & PHYSICAL EXAM [facility]PI [facility] FELL AND SUSTAIANED R. HIP FX. H/O LEFT HIP FX FEW YEARS AGO CURRENTLY IN PAIN , R. HIP PAST HIST. HTN/PARKINSONS DISEASE /CARDIAC ARRYTHMIA /ANXIETY PERSONAL HIST: Smoking. N Alcohol. N Allergy N Travel_- . FAMILY HIST : ROS : Constitutional: Negative for weight change, chills, night sweats PAIN R HIP Eyes: Negative for redness, swelling, itching, discharge, vision changes, blurry vision, double vision, glaucoma, cataracts, Ears: Negative for hearing loss, ringing, , tinnitus, vertigo Nose: Negative for rhinorrhea, stuffiness, sniffing, itching, postnasal drip, discoloration, nasal congestion and epistaxis. Throat: Negative for throat clearing, sore throat, hoarseness, difficulty swallowing and difficulty speaking. Respiratory: Negative for cough, , sputum production, chest tightness, wheezing, pleuritic chest pain ,daytime somnolence, chronic cough, hemoptysis, snoring at night, Cardiovascular: Negative for chest pain, palpitations, orthopnea, PND, Edema of legs, leg cramps, angina, claudication, , irregular heartbeat, Neurology: Negative for irritability, muscle weakness, numbness and tingling, seizures, tremors, migraines, slurred speech, syncope, memory loss, mood changes , recurrent headaches Gastrointestinal: Negative for difficulty swallowing, diarrhea, constipation, black stools, rectal bleeding, nausea, flatulence, reflux, poor appetite, changes in bowel habits, abdominal pain Genitourinary: Negative for frequent urination, hematuria, discharge, incontinence, urinary retention, frequent UTI, Psychiatric: Negative for depression, anxiety/panic, suicidal tendencies, Musculoskeletal: Negative for swollen joints, back pain, , neck pain, morning stiffness of joints, . Skin: Negative for rash, ulcers, itching, dry skin and pigmented lesions. P/E: Constitutional: Appears stated age and in no apparent distress. Head: Normocephalic. Ears: External ear canals patent without inflammation. Tympanic membranes intact with normal light reflex and landmark. Eyes: Pupils are central, bilaterally equal, symmetrical and reacts to light with normal movements and no icterus or pallor. Nose: External nares are patent. Mucosa is pink Mouth-Throat: Good general appearance and condition. No post-pharyngeal/oropharyngeal erythema and tonsillar hypertrophy. Good dental hygiene. Neck-Lymphatic: Neck is supple with normal ROM, no thyromegaly, lymph nodes or masses. JVD is normal with no carotid bruit. Lungs: Clear to percussion and auscultation with bilateral normal air entry. Cardiovascular: S1 and S2 are normal with no murmurs, gallops and rub. GI Exam: No hepatomegaly. Abdomen is soft and non-tender. No Organomegaly , masses or hernias are evident and bowel sounds are normal and active. Neurology: Higher function and all cranial nerves intact, with no gross motor or sensory deficit. Superficial and deep reflexes are normal with downwards planters. No cerebellar deficit with normal gait. Musculoskeletal PAINFUL RESTRICETED ROM R. HIP WITH SHORETENING Extremities: Homans sign absent. Intact pulses with no pitting edema, calf tenderness or skin color changes. Skin: No rash, eruptions or abnormal skin pigmentation LAB/RADIOLOGY: ASSESMENT : R. HIP FX ACUTE HTN PARKINSONS DISEASE PLAN: SEE ORDERS Present on Admission - Present on Admission Any Indicators Present on Admission: No Past Patient History - Infectious Disease Hx of Infectious Diseases: None - Tetanus Immunizations Tetanus Immunization: Unknown - Past Medical History & Family History Past Medical History?: Yes - Past Social History Smoking Status: Former Smoker - CARDIAC Hx Atrial Fibrillation: Yes Hx Cardia Arrhythmia: Yes ("Fast" - unsure DX - had ablation) Hx Hypertension: Yes - PULMONARY Hx Respiratory Disorders: No Hx Pneumonia: Yes - NEUROLOGICAL HX Cerebrovascular Accident: Yes (pt states "mini stroke") Hx Parkinson's Disease: Yes (Resting Parkinson's) Hx Seizures: Yes - HEENT Hx HEENT Problems: No Hx Cataracts: Yes (B/L) - RENAL Hx Chronic Kidney Disease: No - ENDOCRINE/METABOLIC Hx Endocrine Disorders: No - HEMATOLOGICAL/ONCOLOGICAL Hx Blood Disorders: No - INTEGUMENTARY Hx Dermatological Problems: No - MUSCULOSKELETAL/RHEUMATOLOGICAL Hx Falls: Yes - GASTROINTESTINAL Hx Gastrointestinal Disorders: No Hx Constipation: Yes - GENITOURINARY/GYNECOLOGICAL Hx Genitourinary Disorders: No Hx Urinary Tract Infection: Yes - PSYCHIATRIC Hx Substance Use: No - SURGICAL HISTORY Hx Cholecystectomy: Yes (1996) Hx Open Reduction Internal Fixation: Yes (left hip) - ANESTHESIA Hx Anesthesia: Yes Hx Anesthesia Reactions: No Hx Malignant Hyperthermia: No Has any member of the family had a problem w/ anesthesia?: No Meds Allergies/Adverse Reactions: Allergies Allergy/AdvReac Type Severity Reaction Status Date / Time Penicillins Allergy RASH Verified 08/02/17 15:01 Results - Vital Signs Recent Vital Signs: Last Vital Signs Temp 98.3 F 08/28/17 08:38 Pulse 69 08/28/17 08:38 Resp 18 08/28/17 08:38 BP 150/68 08/28/17 10:38 Pulse Ox 96 08/28/17 08:38 - Labs Result Diagrams: 08/28/17 02:33 08/28/17 02:33 Labs: Laboratory Results - last 24 hr 08/28/17 08/28/17 08/28/17 02:33 02:33 02:33 WBC 11.2 H D RBC 4.41 Hgb 14.1 Hct 42.0 MCV 95.2 MCH 32.0 H MCHC 33.6 RDW 13.5 Plt Count 251 MPV 8.4 Neut % (Auto) 79.3 H Lymph % (Auto) 12.0 L Waldo % (Auto) 7.6 Eos % (Auto) 0.6 Baso % (Auto) 0.5 Neut # 8.9 H Lymph # 1.3 Waldo # 0.9 H Eos # 0.1 Baso # 0.1 PT 11.2 INR 1.0 APTT 30 Sodium 133 Potassium 3.4 L Chloride 100 Carbon Dioxide 21 L Anion Gap 16 BUN 17 Creatinine 0.7 Est GFR ( Amer) > 60 Est GFR (Non-Af Amer) > 60 Random Glucose 94 Calcium 9.2 Total Bilirubin 0.7 AST 23 ALT 30 Alkaline Phosphatase 71 Total Protein 6.6 Albumin 4.2 Globulin 2.4 Albumin/Globulin Ratio 1.7 Blood Type Antibody Screen 08/28/17 05:50 WBC RBC Hgb Hct MCV MCH MCHC RDW Plt Count MPV Neut % (Auto) Lymph % (Auto) Waldo % (Auto) Eos % (Auto) Baso % (Auto) Neut # Lymph # Waldo # Eos # Baso # PT INR APTT Sodium Potassium Chloride Carbon Dioxide Anion Gap BUN Creatinine Est GFR ( Amer) Est GFR (Non-Af Amer) Random Glucose Calcium Total Bilirubin AST ALT Alkaline Phosphatase Total Protein Albumin Globulin Albumin/Globulin Ratio Blood Type O POSITIVE Antibody Screen Negative
--- NOTE | 2017-08-28 16:22 | CT ---
PROCEDURE: CT right hip HISTORY: right hip fracture COMPARISON: Not available TECHNIQUE: 2.5 mm contiguous axial sections were acquired through the right hip. Sagittal and coronal images were reformatted from the axial scan. FINDINGS: There is an oblique hazy cervical fracture of the right femoral neck. There is impaction of the fracture with mild superior migration of the proximal component along the femoral head. The femoral head is normally situated in the acetabulum. There is no other fracture identified. There is no pelvic fracture appreciated. There is no surrounding hematoma evident. IMPRESSION: Displaced right femoral neck fracture with impaction and proximal migration of the distal fragment no dislocation. No additional fracture.
--- NOTE | 2017-08-28 19:31 | CP.PCM.PN ---
Subjective - Date & Time of Evaluation Date of Evaluation: 08/28/17 Time of Evaluation: 19:30 - Subjective Subjective: AFTER REVIEWING CURRENT LABS AND IMAGING PATIENT IS MEDICALLY CLEARED FOR R. HIP SURGERY Objective - Vital Signs/Intake and Output Vital Signs (last 24 hours): Temp Pulse Resp BP Pulse Ox 98.3 F 69 18 128/51 L 96 08/28/17 08:38 08/28/17 08:38 08/28/17 08:38 08/28/17 17:26 08/28/17 08:38 Intake and Output: 08/28/17 08/28/17 11:59 23:59 Intake Total 120 Balance 120 - Medications Medications: Current Medications Amlodipine Besylate (Norvasc) 10 mg PO DAILY [facility] Carbidopa/Levodopa (Sinemet) 1 tab PO TID [facility] Last Admin: 08/28/17 17:26 Dose: 1 tab Docusate Sodium (Colace) 100 mg PO TID [facility] Last Admin: 08/28/17 17:26 Dose: 100 mg Heparin Sodium (Porcine) (Heparin) 5,000 units SC Q8 [facility] Last Admin: 08/28/17 14:15 Dose: 5,000 units Levetiracetam (Keppra) 500 mg PO BID [facility] Last Admin: 08/28/17 17:26 Dose: 500 mg Metoprolol Tartrate (Lopressor) 25 mg PO BID [facility] Last Admin: 08/28/17 17:26 Dose: 25 mg Morphine Sulfate (Morphine) 4 mg SC Q6 PRN PRN Reason: Pain, moderate (4-7) Last Admin: 08/28/17 17:33 Dose: 4 mg Pantoprazole Sodium (Protonix Ec Tab) 40 mg PO DAILY [facility] Last Admin: 08/28/17 10:38 Dose: 40 mg - Labs Labs: 08/28/17 02:33 08/28/17 02:33 PT 11.2 SECONDS (9.7-12.2) 08/28/17 02:33 INR 1.0 08/28/17 02:33 APTT 30 SECONDS (21-34) 08/28/17 02:33
--- NOTE | 2017-08-28 19:40 | CARD ---
APPROVED REPORT EKG Measurement Heart [id number] <Conclusion> Sinus bradycardia Septal infarct, age undetermined Abnormal ECG
--- NOTE | 2017-08-28 22:32 | CT ---
EXAM: CT Head Without Intravenous Contrast CLINICAL HISTORY: 77 years old, female; Injury or trauma; Fall; Initial encounter; Abrasion; Head, generalized; Additional info: R/O stroke TECHNIQUE: Axial computed tomography images of the head/brain without intravenous contrast. All CT scans at this facility use one or more dose reduction techniques, viz.: automated exposure control; ma/kV adjustment per patient size (including targeted exams where dose is matched to indication; i.e. head); or iterative reconstruction technique. Coronal and sagittal reformatted images were created and reviewed. COMPARISON: No relevant prior studies available. FINDINGS: Limitations: Motion artifact - mild. Brain: [id number] atrophy. No definite intracranial hemorrhage. No mass. Few scattered foci of decreased attenuation within periventricular/subcortical white matter. No definite edema. Ventricles: No hydrocephalus. Bones/joints: No acute fracture. Soft tissues: Unremarkable. Sinuses: No acute sinusitis. Mastoid air cells: No mastoid effusion. Orbits: Unremarkable as visualized. IMPRESSION: 1. No definite intracranial hemorrhage. 2. Nonspecific white matter changes. Acute infarction may be CT occult within first 24 hours. If a focal deficit persists, consider followup CT or MRI for further evaluation. 3. Incidental/non-acute findings are described above.
[2017-08-29 06:36] LABS: HEMATOCRIT 42.1 % (34.0-47.0); MEAN CELL VOLUME 95.1 fL (81.0-99.0); MEAN CORPUSCULAR HEMOGLOBIN 31.8 pg (27.0-31.0); MEAN CORPUSCULAR HGB CONC 33.4 g/dL (33.0-37.0); MEAN PLATELET VOLUME 8.9 fL (7.2-11.7); RED CELL DISTRIBUTION WIDTH 13.6 % (11.5-14.5)
[2017-08-29 06:57] LABS: BLOOD UREA NITROGEN 19 mg/dL (7-17); CALCIUM 8.8 mg/dl (8.6-10.4); CARBON DIOXIDE 21 mmol/L (22-30); CHLORIDE 100 mmol/L (98-107); GFR AFRICAN-AMERICAN > 60; GLUCOSE,RANDOM 92 mg/dL (65-105); POTASSIUM 4.1 mmol/L (3.6-5.2); SODIUM 133 mmol/L (132-148)
[2017-08-29] MEDS: Pantoprazole 40 mg EC Tab PO SCH (10:14)
[2017-08-29] MEDS: Carbidopa/Levodopa 25/250 PO SCH ×3 (10:14→22:24)
--- NOTE | 2017-08-29 10:53 | CP.PCM.PN ---
Subjective - Date & Time of Evaluation Date of Evaluation: 08/29/17 Time of Evaluation: 10:56 - Subjective Subjective: Patient comlainint of pain per RN, morphine IV ordrered Objective - Vital Signs/Intake and Output Vital Signs (last 24 hours): Temp Pulse Resp BP Pulse Ox 99.2 F 69 18 145/76 96 08/29/17 00:00 08/28/17 08:38 08/28/17 08:38 08/29/17 10:10 08/28/17 08:38 Intake and Output: 08/29/17 08/29/17 06:59 18:59 Intake Total 480 Output Total 0 Balance 480 - Medications Medications: Current Medications Amlodipine Besylate (Norvasc) 10 mg PO DAILY [facility] Last Admin: 08/29/17 10:10 Dose: 10 mg Carbidopa/Levodopa (Sinemet) 1 tab PO TID [facility] Last Admin: 08/29/17 10:14 Dose: Not Given Docusate Sodium (Colace) 100 mg PO TID [facility] Last Admin: 08/29/17 10:13 Dose: Not Given Heparin Sodium (Porcine) (Heparin) 5,000 units SC Q8 [facility] Last Admin: 08/28/17 14:15 Dose: 5,000 units Levetiracetam (Keppra) 750 mg PO BID [facility] Last Admin: 08/29/17 10:10 Dose: 750 mg Metoprolol Tartrate (Lopressor) 25 mg PO BID [facility] Last Admin: 08/29/17 10:10 Dose: 25 mg Morphine Sulfate (Morphine) 4 mg SC Q6 PRN PRN Reason: Pain, moderate (4-7) Last Admin: 08/28/17 21:25 Dose: 4 mg Morphine Sulfate (Morphine) 2 mg IVP Q6H PRN PRN Reason: Pain, severe (8-10) Pantoprazole Sodium (Protonix Ec Tab) 40 mg PO DAILY [facility] Last Admin: 08/29/17 10:14 Dose: Not Given - Labs Labs: 08/29/17 06:25 08/29/17 06:26 PT 11.2 SECONDS (9.7-12.2) 08/28/17 02:33 INR 1.0 08/28/17 02:33 APTT 30 SECONDS (21-34) 08/28/17 02:33 Assessment and Plan (1) Displaced fracture of right femoral neck Assessment & Plan: CT reviewed, no fracture hematoma evident. Xray appearance is unusual for acute fracture and ?subacute appearance. CT scan is consistent with this being subacute fracture. Patient has multiple recent falls, and last admission she had right hip xrays that are negative for obvious fracture, but suspect possibly fractured at that time (08/03/2017). 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 Sifuentes, agrees with above Status: Acute Radiology Interpretation - Radiology Interpretation #2 Interpretation: atient Name / ID : NATALIA ALLEN / [id number] Exam Date : 08/28/2017 15:36:35 ( Approved ) Study Comment : Sex / Age : F / 77Y Creator : Lauryn Padilla Dictator : Davonte Pires MD Steel Pan Form Placing Supervisor : Picking Machine Operator : Davonte Pires MD Approver2 : Report Date : 08/28/2017 15:49:48 My Comment : PROCEDURE: CT right hip HISTORY: right hip fracture COMPARISON: Not available TECHNIQUE: 2.5 mm contiguous axial sections were acquired through the right hip. Sagittal and coronal images were reformatted from the axial scan. FINDINGS: There is an oblique hazy cervical fracture of the right femoral neck. There is impaction of the fracture with mild superior migration of the proximal component along the femoral head. The femoral head is normally situated in the acetabulum. There is no other fracture identified. There is no pelvic fracture appreciated. There is no surrounding hematoma evident. IMPRESSION: Displaced right femoral neck fracture with impaction and proximal migration of the distal fragment no dislocation. No additional fracture.
--- NOTE | 2017-08-29 12:00 | CON ---
DATE: 08/29/2017 ATTENDING PHYSICIAN: Jann Morfin MD. LOCATION: The patient's room number, ICU bed 5. REASON FOR THE CONSULTATION: Uncontrolled tremor. CHIEF COMPLAINT: The patient was brought into [facility] following a fall at home. From neurological point of view, I was called in to evaluate her for further management on her Parkinson disease. HISTORY OF PRESENT ILLNESS: Ms. Mee Noel is a 77-year-old right-handed female, who is known to me from the previous admission, been involved on her change in mental status and Parkinson disease. During her workup, the patient did show posterior reversible cerebral encephalopathy syndrome, been resolved completely with MRI prior to the discharge and during her workup, the patient also showed evidence of abnormal EEG, been started on levetiracetam and increased her Sinemet dose for her Parkinson management. This current admission, from the fall, she broke her right intertrochanteric region. The patient is scheduled to have a surgery today. PAST MEDICAL HISTORY: Posterior reversible encephalopathy syndrome, history of atrial fibrillation, hypertension, dyslipidemia, Parkinson disease, seizures. PERSONAL HISTORY: Denies smoking or alcohol use. REVIEW OF SYSTEMS: Twelve-point systems had been reviewed. From neuro, abnormal arm movements. MEDICATION: Colace, heparin, Keppra, Lopressor, morphine, Norvasc, Protonix, carbidopa and levodopa. PHYSICAL EXAMINATION: VITAL SIGNS: Blood pressure 148/80, mean arterial pressure of 102, respiratory rate 16, temperature afebrile. NECK: Supple. No carotid bruit. HEART: Sounds irregular. EXTREMITIES: 1+ pitting edema. NEUROLOGICAL: Mental status examination: She is awake, alert, oriented to person, place and time. Speech is clear. Naming, repetition, fluency, comprehension all within normal. CRANIAL NERVE EXAMINATION: Visual field intact. Pupils react to light. Extraocular movement normal. No nystagmus. No facial sensory deficit. No facial asymmetry. Hearing is normal. Tongue is midline. Good gag. MOTOR EXAMINATION: She could be able to move both upper extremities against the gravity. Right arm shows a resting tremor, which is increased with her anxiety level. She was not able to move her both lower extremities. Right leg is pain restricted due to this fracture; however, she does not want to move her left leg. Tone is slightly increased on her left side. Coordination: Mild dysmetria on her left side on [id number]. Gait deferred at this time. WORKUP: CT of the head is requested. X-rays showed intertrochanteric fractures. BLOOD WORKUP: WBC 9.0, hemoglobin 14.1, hematocrit 42.9, platelet 257, PT 11.2, INR 1.0, PTT 38. Sodium 133, potassium 4.1, chloride 100, bicarbonate is 21, BUN 19, creatinine 0.7, GFR more than 60. CONCLUSION: Ms. Mee Noel had been presenting with status post fall-induced greater trochanteric fracture on the right side with history of Parkinson disease and seizures. RECOMMENDATION: 1. I would like to do the CT of the head without contrast to rule out any acute process prior to the surgery. 2. Keppra dose can be increased to 750 mg twice a day. 3. Continue Sinemet dose for now as recommended. Didier Mares MD
[2017-08-29 12:17] LABS: RBC URINE 13 /hpf (0-3); URINE BILIRUBIN NEGATIVE (NEGATIVE); URINE BLOOD 2+ (NEGATIVE); URINE COLOR Yellow (YELLOW); URINE GLUCOSE (UA) NORMAL (Normal); URINE KETONE 2+ mg/dL (NEGATIVE); URINE LEUKOCYTE ESTERASE NEG Leu/uL (Negative); URINE PROTEIN NEGATIVE (NEGATIVE); URINE UROBILINOGEN NORMAL mg/dL (0.2-1.0); WBC URINE 2 /hpf (0-5)
[2017-08-29] MEDS ORDERED: Bacitracin 150,000 UNIT in Sodium Chloride 0.9% Irrig 3,000 ML IR SCH (13:02)
[2017-08-29] MEDS ORDERED: Thrombin Topical 20,000 Intl Units Spray Kit TOP ONE (13:11)
[2017-08-29] MEDS ORDERED: Bacitracin Ointment 30 GM TUBE ONE (13:11)
[2017-08-29] MEDS ORDERED: Absorbable Gelatin Sponge Size 100 ONE (13:11)
[2017-08-29] MEDS ORDERED: Vancomycin 1 gm/D5W 200 ml 0 GM/0 ML BAG IVPB ONE (13:11)
--- NOTE | 2017-08-29 14:00 | CP.PCM.PN ---
Subjective - Date & Time of Evaluation Date of Evaluation: 08/29/17 Time of Evaluation: 13:53 - Subjective Subjective: FOR OR ? TODAY VS STABLE P/E SAME Objective - Vital Signs/Intake and Output Vital Signs (last 24 hours): Temp Pulse Resp BP Pulse Ox 98.8 F 82 18 137/68 98 08/29/17 12:00 08/29/17 12:00 08/29/17 12:00 08/29/17 12:00 08/29/17 12:00 Intake and Output: 08/29/17 08/29/17 11:59 23:59 Intake Total 580 Output Total 800 Balance -220 - Medications Medications: Current Medications Amlodipine Besylate (Norvasc) 10 mg PO DAILY [facility] Last Admin: 08/29/17 10:10 Dose: 10 mg Carbidopa/Levodopa (Sinemet) 1 tab PO TID [facility] Last Admin: 08/29/17 10:14 Dose: Not Given Docusate Sodium (Colace) 100 mg PO TID [facility] Last Admin: 08/29/17 10:13 Dose: Not Given Heparin Sodium (Porcine) (Heparin) 5,000 units SC Q8 [facility] Last Admin: 08/28/17 14:15 Dose: 5,000 units Bacitracin 150,000 unit/ (Sodium Chloride) 3,000 mls @ 3,000 mls/hr IR .Q1H [facility] Stop: 08/29/17 14:01 Levetiracetam (Keppra) 750 mg PO BID [facility] Last Admin: 08/29/17 10:10 Dose: 750 mg Metoprolol Tartrate (Lopressor) 25 mg PO BID [facility] Last Admin: 08/29/17 10:10 Dose: 25 mg Morphine Sulfate (Morphine) 4 mg SC Q6 PRN PRN Reason: Pain, moderate (4-7) Last Admin: 08/28/17 21:25 Dose: 4 mg Morphine Sulfate (Morphine) 2 mg IVP Q6H PRN PRN Reason: Pain, severe (8-10) Last Admin: 08/29/17 10:53 Dose: 2 mg Pantoprazole Sodium (Protonix Ec Tab) 40 mg PO DAILY [facility] Last Admin: 08/29/17 10:14 Dose: Not Given - Labs Labs: 08/29/17 06:25 08/29/17 06:26 PT 11.2 SECONDS (9.7-12.2) 08/28/17 02:33 INR 1.0 08/28/17 02:33 APTT 30 SECONDS (21-34) 08/28/17 02:33
[2017-08-29] MEDS ORDERED: Propofol 10 mg/ml Inj (20 ML) ONE (16:15)
[2017-08-29] MEDS ORDERED: Rocuronium 10 mg/ml (10 ml) ONE (16:23)
[2017-08-29] MEDS ORDERED: Phenylephrine 10 mg/ml Inj ONE (16:23)
[2017-08-29] MEDS ORDERED: Clindamycin 600mg/50ml NS 600 MG/50 ML BAG IVPB ONE (17:09)
[2017-08-29] MEDS ORDERED: Lactated Ringer's 1,000 ML IV ONE (18:40)
[2017-08-29] MEDS ORDERED: Sodium Chloride 0.9% 1,000 ML IV ONE (19:20)
[2017-08-29 19:22] LABS: HEMATOCRIT 37.2 % (34.0-47.0); MEAN CORPUSCULAR HEMOGLOBIN 31.5 pg (27.0-31.0); MEAN CORPUSCULAR HGB CONC 32.8 g/dL (33.0-37.0); MEAN PLATELET VOLUME 8.5 fL (7.2-11.7); RED CELL DISTRIBUTION WIDTH 13.5 % (11.5-14.5); WHITE BLOOD COUNT 12.1 K/uL (4.8-10.8)
[2017-08-29] MEDS ORDERED: Neostigmine Methylsulfate 3mg/3ml Syringe IV ONE (20:04)
--- NOTE | 2017-08-29 20:06 | PCM.SURG1 ---
Surgeon's Initial Post Op Note - Surgeon's Notes Surgeon: Deisy Mendosa MD Car Painter: Douglas KIM Type of Anesthesia: General Endo Anesthesia Administered By: Dr. Mayo Pre-Operative Diagnosis: Right hip femoral neck fx, displaced Operative Findings: same Post-Operative Diagnosis: same Operation Performed: Right total hip replacement, femoral neck osteotomy, arthrotomy, synovectomy, release iliopsoas tendon, autograft bone graft, computer navigation Specimen/Specimens Removed: femoral head Estimated Blood Loss: EBL {In ML}: 450 Blood Products Given: PRBC Drains Used: No Drains Post-Op Condition: Fair Date of Surgery/Procedure: 08/29/17 Time of Surgery/Procedure: 20:09
[2017-08-29] MEDS ORDERED: HYDROmorphone 0.5 mg/0.5 ml ISec IVP PRN (20:56)
[2017-08-29] MEDS: Sodium Chloride 0.9% 1,000 ML IV SCH (21:50)
--- NOTE | 2017-08-29 23:31 | CP.PCM.CON ---
History of Present Illness - History of Present Illness History of Present Illness: 77 F with h/o parkinson's disease, recent PRES, h/o seizures, htn was admitted to the hospital after a fall and fracture right femoral neck on 08/28, patient transferred to ICU post right total hip replacement for close post op monitoring. Approximate blood loss reported to me is about 450ml, patient received 2 units prbc, about 3.5lit of fluids, perioperative clindamycin, patient extubated in the recovery room, now sleeping, pleasantly confused knows in hospital for hip surgery but not the name of the place, not in distress and maintained vital signs. PMH/PSH as above, h/o left total hip replacement, arrhythmias Meds reviewed Allergies PCN Family history not contributory Social No h/o current smoking, alcohol, or drugs Review of Systems - Review of Systems All systems: reviewed and no additional remarkable complaints except (HPI) Past Patient History - Infectious Disease Hx of Infectious Diseases: None - Tetanus Immunizations Tetanus Immunization: Unknown - Past Medical History & Family History Past Medical History?: Yes - Past Social History Smoking Status: Former Smoker Alcohol: None Home Situation {Lives}: Long-Term - CARDIAC Hx Atrial Fibrillation: Yes Hx Cardia Arrhythmia: Yes ("Fast" - unsure DX - had ablation) Hx Hypertension: Yes - PULMONARY Hx Respiratory Disorders: No Hx Pneumonia: Yes - NEUROLOGICAL HX Cerebrovascular Accident: Yes (pt states "mini stroke") Hx Parkinson's Disease: Yes (Resting Parkinson's) Hx Seizures: Yes - HEENT Hx HEENT Problems: No Hx Cataracts: Yes (B/L) - RENAL Hx Chronic Kidney Disease: No - ENDOCRINE/METABOLIC Hx Endocrine Disorders: No - HEMATOLOGICAL/ONCOLOGICAL Hx Blood Disorders: No - INTEGUMENTARY Hx Dermatological Problems: No - MUSCULOSKELETAL/RHEUMATOLOGICAL Hx Falls: Yes - GASTROINTESTINAL Hx Gastrointestinal Disorders: No Hx Constipation: Yes - GENITOURINARY/GYNECOLOGICAL Hx Genitourinary Disorders: No Hx Urinary Tract Infection: Yes - PSYCHIATRIC Hx Substance Use: No - SURGICAL HISTORY Hx Cholecystectomy: Yes (1996) Hx Open Reduction Internal Fixation: Yes (left hip) - ANESTHESIA Hx Anesthesia: Yes Hx Anesthesia Reactions: No Hx Malignant Hyperthermia: No Has any member of the family had a problem w/ anesthesia?: No Meds Allergies/Adverse Reactions: Allergies Allergy/AdvReac Type Severity Reaction Status Date / Time Penicillins Allergy RASH Verified 08/02/17 15:01 - Medications Medications: Current Medications Amlodipine Besylate (Norvasc) 10 mg PO DAILY [facility] Last Admin: 08/29/17 10:10 Dose: 10 mg Carbidopa/Levodopa (Sinemet) 1 tab PO TID [facility] Last Admin: 08/29/17 22:24 Dose: 1 tab Docusate Sodium (Colace) 100 mg PO TID [facility] Last Admin: 08/29/17 22:24 Dose: 100 mg Enoxaparin Sodium (Lovenox) 40 mg SC Q24H [facility] Sodium Chloride (Sodium Chloride 0.9%) 1,000 mls @ 80 mls/hr IV .[id number] [facility] Last Admin: 08/29/17 21:50 Dose: 0 mls Levetiracetam (Keppra) 750 mg PO BID [facility] Last Admin: 08/29/17 22:24 Dose: 750 mg Metoprolol Tartrate (Lopressor) 25 mg PO BID [facility] Last Admin: 08/29/17 22:24 Dose: 25 mg Morphine Sulfate (Morphine) 4 mg SC Q6 PRN PRN Reason: Pain, moderate (4-7) Last Admin: 08/28/17 21:25 Dose: 4 mg Morphine Sulfate (Morphine) 2 mg IVP Q6H PRN PRN Reason: Pain, severe (8-10) Last Admin: 08/29/17 10:53 Dose: 2 mg Oxycodone/Acetaminophen (Percocet 5/325 Mg Tab) 1 tab PO Q4 PRN PRN Reason: Pain, Mild (1-3) Stop: 09/01/17 20:11 Pantoprazole Sodium (Protonix Ec Tab) 40 mg PO DAILY [facility] Last Admin: 08/29/17 10:14 Dose: Not Given Physical Exam - Additional Findings Additional findings: * HEENT about 4mm pupils reactive * Neck supple * CVS Regular * PA soft, nt, bs present, has azul, clear urine * Ext right hip dressing at the site of the surg, on xray raiza seen, b/l total hip replacement, peripheral pulses 1+ b/l * 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 Results - Vital Signs Recent Vital Signs: Last Vital Signs Temp 98.5 F 08/29/17 21:50 Pulse 71 08/29/17 22:06 Resp 17 08/29/17 22:06 BP 159/64 H 08/29/17 22:24 Pulse Ox 97 08/29/17 22:06 - Labs Result Diagrams: 08/29/17 19:18 08/29/17 06:26 Labs: Laboratory Results - last 24 hr 08/28/17 08/29/17 08/29/17 16:31 06:25 06:26 WBC 9.0 RBC 4.42 Hgb 14.1 Hct 42.1 MCV 95.1 MCH 31.8 H MCHC 33.4 RDW 13.6 Plt Count 227 MPV 8.9 Sodium 133 Potassium 4.1 Chloride 100 Carbon Dioxide 21 L Anion Gap 16 BUN 19 H Creatinine 0.7 Est GFR ( Amer) > 60 Est GFR (Non-Af Amer) > 60 Random Glucose 92 Calcium 8.8 Urine Color Urine Clarity Urine pH Ur Specific Randall Urine Protein Urine Glucose (UA) Urine Ketones Urine Blood Urine Nitrate Urine Bilirubin Urine Urobilinogen Ur Leukocyte Esterase Urine WBC (Auto) Urine RBC (Auto) Ur Squamous Epith Cells Blood Type O POSITIVE Antibody Screen Negative 08/29/17 08/29/17 12:04 19:18 WBC 12.1 H RBC 3.87 Hgb 12.2 Hct 37.2 MCV 96.0 MCH 31.5 H MCHC 32.8 L RDW 13.5 Plt Count 206 MPV 8.5 Sodium Potassium Chloride Carbon Dioxide Anion Gap BUN Creatinine Est GFR ( Amer) Est GFR (Non-Af Amer) Random Glucose Calcium Urine Color Yellow Urine Clarity Clear Urine pH 5.0 Ur Specific Randall 1.023 Urine Protein Negative Urine Glucose (UA) Normal Urine Ketones 2+ H Urine Blood 2+ H Urine Nitrate Negative Urine Bilirubin Negative Urine Urobilinogen Normal Ur Leukocyte Esterase Neg Urine WBC (Auto) 2 Urine RBC (Auto) 13 H Ur Squamous Epith Cells 3 Blood Type Antibody Screen Assessment & Plan - Assessment and Plan (Free Text) Assessment: * S/p right total hip replacement, after femoral neck fracture, about 450ml blood loss, 2units prbc * H/o parkinson's disease * H/o HTN * Recent h/o PRES * Seizure disorder Plan: * Supportive care * continuation of perioperative abx as per the surg team * DVT prophylaxis lovenox 40mg ordered from tomorrow * Pain control * Continue rest of the meds * See orders for detail.
[2017-08-30] MEDS: Oxycodone/Acetaminophen 5/325 mg Tab PO PRN (04:06)
[2017-08-30 06:33] LABS: HEMATOCRIT 37.1 % (34.0-47.0); MEAN CELL VOLUME 93.7 fL (81.0-99.0); MEAN CORPUSCULAR HEMOGLOBIN 31.8 pg (27.0-31.0); MEAN PLATELET VOLUME 9.4 fL (7.2-11.7); RED CELL DISTRIBUTION WIDTH 14.5 % (11.5-14.5); WHITE BLOOD COUNT 11.4 K/uL (4.8-10.8)
[2017-08-30 06:36] LABS: BLOOD UREA NITROGEN 17 mg/dL (7-17); CALCIUM 7.9 mg/dl (8.6-10.4); CARBON DIOXIDE 23 mmol/L (22-30); CHLORIDE 103 mmol/L (98-107); GFR AFRICAN-AMERICAN > 60; GLUCOSE,RANDOM 100 mg/dL (65-105); POTASSIUM 3.8 mmol/L (3.6-5.2); SODIUM 132 mmol/L (132-148)
[2017-08-30] MEDS: Sodium Chloride 0.9% 1,000 ML IV SCH ×2 (07:00→21:21)
[2017-08-30] MEDS: Carbidopa/Levodopa 25/250 PO SCH ×3 (09:55→17:49)
[2017-08-30] MEDS: Pantoprazole 40 mg EC Tab PO SCH (09:55)
--- NOTE | 2017-08-30 10:14 | RAD ---
PROCEDURE: AP pelvis and oblique right hip x-ray HISTORY: s/p right THR pt in PACU COMPARISON: Comparison is made to the previous study dated 08/28/2017 TECHNIQUE: AP view of the pelvis and oblique view of the right hip were obtained. FINDINGS: The patient is status post total right hip replacement/ arthroplasty since the previous exam due to previously seen right femoral neck fracture. The hardware are seen at appropriate position. No other significant interval change noted. IMPRESSION: Status post right hip arthroplasty since the previous exam.
--- NOTE | 2017-08-30 12:38 | CP.CCUPN ---
CCU Subjective - Physician Review Subjective (Free Text): 08/30/17 12:37 Patient seen and examiend at bedside. Patient s/p right total hip replacement admitted to ICU for 08/28. CCU Objective - Vital Signs / Intake & Output Vital Signs (Last 4 hours): Vital Signs Pulse Resp BP Pulse Ox 08/30/17 11:24 74 16 137/61 08/30/17 11:08 77 20 123/58 L 90 L 08/30/17 11:03 70 21 128/53 L 88 L 08/30/17 11:00 72 19 89 L 08/30/17 10:03 75 23 118/47 L 95 08/30/17 10:00 74 20 94 L 08/30/17 09:56 128/56 L 08/30/17 09:03 87 21 128/56 L 95 08/30/17 09:00 90 22 95 Intake and Output (Last 8hrs): Intake & Output 08/29/17 08/30/17 08/30/17 22:59 06:59 14:59 Intake Total 2650 990 850 Output Total 325 345 Balance 2325 645 850 Intake: IV 2000 Intake, IV Amount 640 400 Left Hand 640 400 Oral 350 450 Blood Product 650 Output: Urine 325 345 Urethral (Collado) 345 Other: # Voids Urine, Voided 0 # Bowel Movements 0 - Medications Active Medications: Active Medications Generic Name Dose Route Start Last Admin Trade Name Freq PRN Reason Stop Dose Admin Amlodipine Besylate 10 mg 08/29/17 10:00 08/30/17 09:56 Norvasc PO 10 mg DAILY [facility] Administration Carbidopa/Levodopa 1 tab 08/28/17 10:00 08/30/17 09:55 Sinemet PO 1 tab TID [facility] Administration Docusate Sodium 100 mg 08/28/17 10:00 08/30/17 09:56 Colace PO 100 mg TID [facility] Administration Enoxaparin Sodium 40 mg 08/30/17 20:15 Lovenox SC Q24H [facility] Sodium Chloride 1,000 mls @ 80 mls/hr 08/29/17 20:15 08/30/17 07:00 Sodium Chloride 0.9% IV 80 mls/hr .[id number] [facility] Administration Levetiracetam 750 mg 08/29/17 10:00 08/30/17 09:56 Keppra PO 750 mg BID [facility] Administration Metoprolol Tartrate 25 mg 08/28/17 10:00 08/30/17 09:56 Lopressor PO 25 mg BID [facility] Administration Morphine Sulfate 4 mg 08/28/17 06:53 08/28/17 21:25 Morphine SC 4 mg Q6 PRN Administration Pain, moderate (4-7) Morphine Sulfate 2 mg 08/29/17 10:42 08/30/17 08:39 Morphine IVP 2 mg Q6H PRN Administration Pain, severe (8-10) Oxycodone/Acetaminophen 1 tab 08/29/17 20:10 08/30/17 04:06 Percocet 5/325 Mg Tab PO 09/01/17 20:11 1 tab Q4 PRN Administration Pain, Mild (1-3) Pantoprazole Sodium 40 mg 08/28/17 10:00 08/30/17 09:55 Protonix Ec Tab PO 40 mg DAILY [facility] Administration - Patient Studies Lab Studies: Lab Studies 08/30/17 08/30/17 08/29/17 Range/Units 06:16 06:16 19:18 WBC 11.4 H 12.1 H (4.8-10.8) K/uL RBC 3.96 3.87 (3.80-5.20) Mil/uL Hgb 12.6 12.2 (11.0-16.0) g/dL Hct 37.1 37.2 (34.0-47.0) % MCV 93.7 D 96.0 (81.0-99.0) fL MCH 31.8 H 31.5 H (27.0-31.0) pg MCHC 34.0 32.8 L (33.0-37.0) g/dL RDW 14.5 13.5 (11.5-14.5) % Plt Count 177 206 (130-400) K/uL MPV 9.4 8.5 (7.2-11.7) fL Sodium 132 (132-148) mmol/L Potassium 3.8 (3.6-5.2) mmol/L Chloride 103 (98-107) mmol/L Carbon Dioxide 23 (22-30) mmol/L Anion Gap 10 (10-20) BUN 17 (7-17) mg/dL Creatinine 0.6 L (0.7-1.2) mg/dL Est GFR ( Amer) > 60 Est GFR (Non-Af Amer) > 60 Random Glucose 100 (65-105) mg/dL Calcium 7.9 L (8.6-10.4) mg/dl Blood Type Antibody Screen 08/28/17 Range/Units 16:31 WBC (4.8-10.8) K/uL RBC (3.80-5.20) Mil/uL Hgb (11.0-16.0) g/dL Hct (34.0-47.0) % MCV (81.0-99.0) fL MCH (27.0-31.0) pg MCHC (33.0-37.0) g/dL RDW (11.5-14.5) % Plt Count (130-400) K/uL MPV (7.2-11.7) fL Sodium (132-148) mmol/L Potassium (3.6-5.2) mmol/L Chloride (98-107) mmol/L Carbon Dioxide (22-30) mmol/L Anion Gap (10-20) BUN (7-17) mg/dL Creatinine (0.7-1.2) mg/dL Est GFR ( Amer) Est GFR (Non-Af Amer) Random Glucose (65-105) mg/dL Calcium (8.6-10.4) mg/dl Blood Type O POSITIVE Antibody Screen Negative Laboratory Results - last 24 hr 08/28/17 08/29/17 08/30/17 16:31 19:18 06:16 WBC 12.1 H 11.4 H RBC 3.87 3.96 Hgb 12.2 12.6 Hct 37.2 37.1 MCV 96.0 93.7 D MCH 31.5 H 31.8 H MCHC 32.8 L 34.0 RDW 13.5 14.5 Plt Count 206 177 MPV 8.5 9.4 Sodium Potassium Chloride Carbon Dioxide Anion Gap BUN Creatinine Est GFR ( Amer) Est GFR (Non-Af Amer) Random Glucose Calcium Blood Type O POSITIVE Antibody Screen Negative 08/30/17 06:16 WBC RBC Hgb Hct MCV MCH MCHC RDW Plt Count MPV Sodium 132 Potassium 3.8 Chloride 103 Carbon Dioxide 23 Anion Gap 10 BUN 17 Creatinine 0.6 L Est GFR ( Amer) > 60 Est GFR (Non-Af Amer) > 60 Random Glucose 100 Calcium 7.9 L Blood Type Antibody Screen Critical Care Progress Note - Nutrition Nutrition: Nutrition Category Date Time Status Heart Healthy Diet [DIET] Diets 08/29/17 Dinner Active Assessment/Plan - Assessment and Plan (Free Text) Plan: 77 F with h/o parkinson's disease, h/o PRES, h/o seizures, htn was admitted to the hospital after a fall and fracture right femoral neck on 08/28, patient transferred to ICU post right total hip replacement for close post op monitoring. Patient POD #1. -Hemodynamically stable. -please restart patient's home medications -incentive spirometry -PT/OT -continue DVT/PUD ppx
--- NOTE | 2017-08-30 16:02 | CP.PCM.PN ---
Subjective - Date & Time of Evaluation Date of Evaluation: 08/30/17 Time of Evaluation: 15:59 - Subjective Subjective: CHART REVIEWED S/P R HIP SURGERY POST OP ORDERS AWAITING NEURO Objective - Vital Signs/Intake and Output Vital Signs (last 24 hours): Temp Pulse Resp BP Pulse Ox 98.2 F 73 21 130/47 L 97 08/30/17 12:00 08/30/17 15:03 08/30/17 15:03 08/30/17 15:03 08/30/17 12:00 Intake and Output: 08/30/17 08/30/17 11:59 23:59 Intake Total 1660 320 Output Total 295 Balance 1365 320 - Medications Medications: Current Medications Amlodipine Besylate (Norvasc) 10 mg PO DAILY [facility] Last Admin: 08/30/17 09:56 Dose: 10 mg Carbidopa/Levodopa (Sinemet) 1 tab PO TID [facility] Last Admin: 08/30/17 13:32 Dose: 1 tab Docusate Sodium (Colace) 100 mg PO TID [facility] Last Admin: 08/30/17 13:32 Dose: 100 mg Enoxaparin Sodium (Lovenox) 40 mg SC Q24H [facility] Sodium Chloride (Sodium Chloride 0.9%) 1,000 mls @ 80 mls/hr IV .[id number] [facility] Last Admin: 08/30/17 07:00 Dose: 80 mls/hr Levetiracetam (Keppra) 750 mg PO BID [facility] Last Admin: 08/30/17 09:56 Dose: 750 mg Metoprolol Tartrate (Lopressor) 25 mg PO BID [facility] Last Admin: 08/30/17 09:56 Dose: 25 mg Morphine Sulfate (Morphine) 4 mg SC Q6 PRN PRN Reason: Pain, moderate (4-7) Last Admin: 08/28/17 21:25 Dose: 4 mg Morphine Sulfate (Morphine) 2 mg IVP Q6H PRN PRN Reason: Pain, severe (8-10) Last Admin: 08/30/17 08:39 Dose: 2 mg Oxycodone/Acetaminophen (Percocet 5/325 Mg Tab) 1 tab PO Q4 PRN PRN Reason: Pain, Mild (1-3) Stop: 09/01/17 20:11 Last Admin: 08/30/17 04:06 Dose: 1 tab Pantoprazole Sodium (Protonix Ec Tab) 40 mg PO DAILY [facility] Last Admin: 08/30/17 09:55 Dose: 40 mg - Labs Labs: 08/30/17 06:16 08/30/17 06:16 PT 11.2 SECONDS (9.7-12.2) 08/28/17 02:33 INR 1.0 08/28/17 02:33 APTT 30 SECONDS (21-34) 08/28/17 02:33
[2017-08-30] MEDS: Enoxaparin 40 mg Syringe SC SCH (21:21)
[2017-08-31] MEDS: Oxycodone/Acetaminophen 5/325 mg Tab PO PRN ×2 (03:46→20:59)
[2017-08-31 07:02] LABS: BLOOD UREA NITROGEN 15 mg/dL (7-17); CALCIUM 7.8 mg/dl (8.6-10.4); CARBON DIOXIDE 22 mmol/L (22-30); CHLORIDE 102 mmol/L (98-107); GFR AFRICAN-AMERICAN > 60; GLUCOSE,RANDOM 93 mg/dL (65-105); POTASSIUM 3.4 mmol/L (3.6-5.2); SODIUM 132 mmol/L (132-148)
[2017-08-31 08:21] LABS: LYMPH # 1.2 K/uL (1.0-4.3); WHITE BLOOD COUNT 9.7 K/uL (4.8-10.8)
[2017-08-31 08:31] LABS: BASO % 0.2 % (0.0-2.0); EOS % 0.1 % (0.0-4.0); HEMATOCRIT 29.9 % (34.0-47.0); LYMPH % 12.2 % (20.0-40.0); MEAN CELL VOLUME 93.8 fL (81.0-99.0); MEAN CORPUSCULAR HEMOGLOBIN 32.2 pg (27.0-31.0); MEAN CORPUSCULAR HGB CONC 34.3 g/dL (33.0-37.0); MEAN PLATELET VOLUME 9.1 fL (7.2-11.7); MONO # 1.3 K/uL (0.0-0.8); MONO % 13.3 % (0.0-10.0); RED CELL DISTRIBUTION WIDTH 14.2 % (11.5-14.5)
--- NOTE | 2017-08-31 10:23 | EEG ---
DATE: 08/29/17 This is a 16-channel electroencephalogram of awake and drowsy adult. During the study, photic stimulation was performed, hyperventilation was not performed. The resting electroencephalogram consists of diffuse 3 to 4 Hz high-amplitude theta activities noted superimposed with persistent muscle artifact. There is high-amplitude delta activity superimposed with low theta activities noted in bilateral cortical leads. The photic stimulation did not evoke driving response noted at 2 to 20 Hz. There is a rhythmic movement artifact noted mostly on left cortical leads. IMPRESSION: This is an abnormal electroencephalogram because of persistent slowing throughout the record suggestive of bilateral cerebral dysfunction. This is probably secondary to metabolic, vascular or degenerative process. However, during the study, neither electroencephalographic, paroxysmal activities nor focal slowing noted. Didier Mares MD
[2017-08-31] MEDS: Carbidopa/Levodopa 25/250 PO SCH ×3 (10:59→19:43)
[2017-08-31] MEDS: Pantoprazole 40 mg EC Tab PO SCH (11:00)
--- NOTE | 2017-08-31 12:14 | RAD ---
PROCEDURE: Intraoperative Fluoroscopy. HISTORY: RIGHT HIP FX FINDINGS: Fluoroscopic assistance was provided. 17.6 seconds fluoroscopy time utilized during this procedure. Radiation dose = 0.64 mGy
--- NOTE | 2017-08-31 13:39 | CP.PCM.PN ---
Subjective - Date & Time of Evaluation Date of Evaluation: 08/31/17 Time of Evaluation: 13:37 - Subjective Subjective: CHIEF COMPLAINTS TODAY : POST OP PAIN ROS. HEENT : N. Resp : No cough, wheezing ,pleuritic CP ,or hemoptysis Cardio : No anginal CP, PND, orthopnea, palpitation GI : No abd.pain, n/v ,diarrhea or GI bleeding . TRIM CARPENTER : No headache, vertigo, focal deficit. Musculoskel R. HIP PAIN Derm : No rash Psych : Normal affect. Ext : No swelling ,calf pain PE. Pt. is alert awake in no distress. V.S As noted in the chart Head ,ear nose,throat and eyes : Normal. Neck : Supple with normal carotids. Lungs: Clear air entry. Heart : S1 & S2 normal with S4. No murmur. Abd : Soft non tender with normal bowel sounds. Neuro : Moves all ext. with no localized deficit. Ext : No edema with intact pulses.Non tender calves R. HIP POST OP Derm : No rashes or decubitus ulcer. LABS/RADIOLOGY: LABS N ASSESSMENT/PLAN : CONT POST OP MANAGEMENT Objective - Vital Signs/Intake and Output Vital Signs (last 24 hours): Temp Pulse Resp BP Pulse Ox 98.2 F 87 24 148/51 L 94 L 08/31/17 12:00 08/31/17 12:03 08/31/17 12:03 08/31/17 12:03 08/31/17 12:03 Intake and Output: 08/31/17 08/31/17 11:59 23:59 Intake Total 1350 80 Output Total 950 50 Balance 400 30 - Medications Medications: Current Medications Amlodipine Besylate (Norvasc) 10 mg PO DAILY [facility] Last Admin: 08/31/17 11:00 Dose: 10 mg Carbidopa/Levodopa (Sinemet) 1 tab PO TID [facility] Last Admin: 08/31/17 10:59 Dose: 1 tab Docusate Sodium (Colace) 100 mg PO TID [facility] Last Admin: 08/31/17 11:00 Dose: 100 mg Enoxaparin Sodium (Lovenox) 40 mg SC Q24H [facility] Last Admin: 08/30/17 21:21 Dose: 40 mg Levetiracetam (Keppra) 750 mg PO BID [facility] Last Admin: 08/31/17 11:00 Dose: 750 mg Metoprolol Tartrate (Lopressor) 25 mg PO BID [facility] Last Admin: 08/31/17 10:59 Dose: 25 mg Morphine Sulfate (Morphine) 4 mg SC Q6 PRN PRN Reason: Pain, moderate (4-7) Last Admin: 08/28/17 21:25 Dose: 4 mg Morphine Sulfate (Morphine) 2 mg IVP Q6H PRN PRN Reason: Pain, severe (8-10) Last Admin: 08/31/17 09:30 Dose: 2 mg Oxycodone/Acetaminophen (Percocet 5/325 Mg Tab) 1 tab PO Q4 PRN PRN Reason: Pain, Mild (1-3) Stop: 09/01/17 20:11 Last Admin: 08/31/17 03:46 Dose: 1 tab Pantoprazole Sodium (Protonix Ec Tab) 40 mg PO DAILY [facility] Last Admin: 08/31/17 11:00 Dose: 40 mg - Labs Labs: 08/31/17 07:34 08/31/17 06:36 PT 11.2 SECONDS (9.7-12.2) 08/28/17 02:33 INR 1.0 08/28/17 02:33 APTT 30 SECONDS (21-34) 08/28/17 02:33
--- NOTE | 2017-08-31 15:37 | CP.CCUPN ---
<Zana Burrows - Last Filed: 08/31/17 15:34> CCU Subjective - Physician Review Subjective (Free Text): PGY1 ICU progress note for Dr. Anderson Patient seen and examined at bedside this morning. No acute events overnight. Patient is resting comfortably in no acute distress. s/p right total him replacement. Patient reports her pain is well controlled. Patient reports she has still not had a bowel movement. CCU Objective - Vital Signs / Intake & Output Vital Signs (Last 4 hours): Vital Signs Temp Pulse Resp BP Pulse Ox 08/31/17 15:03 84 23 127/40 L 93 L 08/31/17 14:03 74 19 138/41 L 97 08/31/17 13:03 81 22 127/61 94 L 08/31/17 12:03 87 24 148/51 L 94 L 08/31/17 12:00 98.2 F 100 Intake and Output (Last 8hrs): Intake & Output 08/31/17 08/31/17 08/31/17 06:59 14:59 22:59 Intake Total 710 960 80 Output Total 1100 50 Balance 710 -140 30 Weight 152 lb 8 oz Intake: Intake, IV Amount 610 560 80 Left Hand 610 560 80 Oral 100 400 Output: Urine 1100 50 2-way Urethral 1100 50 Other: # Voids Urine, Voided 0 # Bowel Movements 0 0 - Physical Exam Extroacular Muscles: Positive for: EOMI Mouth: Positive for: Moist Mucous Membranes Respiratory/Chest: Positive for: Clear to Auscultation, Good Air Exchange. Negative for: Respiratory Distress, Accessory Muscle Use Cardiovascular: Positive for: Regular Rate and Rhythm Lower Extremity: Positive for: Neurovascularly Intact, Capillary Refill < 2 s, Other (right hip fracture, dressing in place, c/d/i) Neurological: Positive for: Speech Normal Psychiatric: Positive for: Alert - Medications Active Medications: Active Medications Generic Name Dose Route Start Last Admin Trade Name Freq PRN Reason Stop Dose Admin Amlodipine Besylate 10 mg 08/29/17 10:00 08/31/17 11:00 Norvasc PO 10 mg DAILY [facility] Administration Carbidopa/Levodopa 1 tab 08/28/17 10:00 08/31/17 10:59 Sinemet PO 1 tab TID [facility] Administration Docusate Sodium 100 mg 08/28/17 10:00 08/31/17 11:00 Colace PO 100 mg TID [facility] Administration Enoxaparin Sodium 40 mg 08/30/17 20:15 08/30/17 21:21 Lovenox SC 40 mg Q24H [facility] Administration Levetiracetam 750 mg 08/29/17 10:00 08/31/17 11:00 Keppra PO 750 mg BID [facility] Administration Metoprolol Tartrate 25 mg 08/28/17 10:00 08/31/17 10:59 Lopressor PO 25 mg BID [facility] Administration Morphine Sulfate 4 mg 08/28/17 06:53 08/28/17 21:25 Morphine SC 4 mg Q6 PRN Administration Pain, moderate (4-7) Morphine Sulfate 2 mg 08/29/17 10:42 08/31/17 09:30 Morphine IVP 2 mg Q6H PRN Administration Pain, severe (8-10) Oxycodone/Acetaminophen 1 tab 08/29/17 20:10 08/31/17 03:46 Percocet 5/325 Mg Tab PO 09/01/17 20:11 1 tab Q4 PRN Administration Pain, Mild (1-3) Pantoprazole Sodium 40 mg 08/28/17 10:00 08/31/17 11:00 Protonix Ec Tab PO 40 mg DAILY [facility] Administration - Patient Studies Lab Studies: Lab Studies 08/31/17 08/31/17 Range/Units 07:34 06:36 WBC 9.7 (4.8-10.8) K/uL RBC 3.18 L (3.80-5.20) Mil/uL Hgb 10.3 L D (11.0-16.0) g/dL Hct 29.9 L (34.0-47.0) % MCV 93.8 (81.0-99.0) fL MCH 32.2 H (27.0-31.0) pg MCHC 34.3 (33.0-37.0) g/dL RDW 14.2 (11.5-14.5) % Plt Count 151 (130-400) K/uL MPV 9.1 (7.2-11.7) fL Neut % (Auto) 74.2 (50.0-75.0) % Lymph % (Auto) 12.2 L (20.0-40.0) % Bleckley % (Auto) 13.3 H (0.0-10.0) % Eos % (Auto) 0.1 (0.0-4.0) % Baso % (Auto) 0.2 (0.0-2.0) % Neut # 7.2 H (1.8-7.0) K/uL Lymph # 1.2 (1.0-4.3) K/uL Bleckley # 1.3 H (0.0-0.8) K/uL Eos # 0.0 (0.0-0.7) K/uL Baso # 0.0 (0.0-0.2) K/uL Sodium 132 (132-148) mmol/L Potassium 3.4 L (3.6-5.2) mmol/L Chloride 102 (98-107) mmol/L Carbon Dioxide 22 (22-30) mmol/L Anion Gap 12 (10-20) BUN 15 (7-17) mg/dL Creatinine 0.6 L (0.7-1.2) mg/dL Est GFR ( Amer) > 60 Est GFR (Non-Af Amer) > 60 Random Glucose 93 (65-105) mg/dL Calcium 7.8 L (8.6-10.4) mg/dl Laboratory Results - last 24 hr 08/31/17 08/31/17 06:36 07:34 WBC 9.7 RBC 3.18 L Hgb 10.3 L D Hct 29.9 L MCV 93.8 MCH 32.2 H MCHC 34.3 RDW 14.2 Plt Count 151 MPV 9.1 Neut % (Auto) 74.2 Lymph % (Auto) 12.2 L Bleckley % (Auto) 13.3 H Eos % (Auto) 0.1 Baso % (Auto) 0.2 Neut # 7.2 H Lymph # 1.2 Bleckley # 1.3 H Eos # 0.0 Baso # 0.0 Sodium 132 Potassium 3.4 L Chloride 102 Carbon Dioxide 22 Anion Gap 12 BUN 15 Creatinine 0.6 L Est GFR ( Amer) > 60 Est GFR (Non-Af Amer) > 60 Random Glucose 93 Calcium 7.8 L Review of Systems - Review of Systems All systems: reviewed and no additional remarkable complaints except (as per HPI ) Critical Care Progress Note - Nutrition Nutrition: Nutrition Category Date Time Status Heart Healthy Diet [DIET] Diets 08/29/17 Dinner Active Assessment/Plan - Assessment and Plan (Free Text) Assessment: 77 F with h/o parkinson's disease, h/o PRES, h/o seizures, htn was admitted to the hospital after a fall and fracture right femoral neck on 08/28, patient transferred to ICU post right total hip replacement for close post op monitoring. Patient POD #2 Plan: MSK: s/p right total hip replacement pain management per ortho PT/OT Prophylactic care: GI: protonix 40mg PO daily DVT: lovenox 40mg SC daily Dulcolax 10mg [place], Lactulose 20gm Patient stable. Follow ortho recs Case discussed with Dr. Justin Burrows PGY1 <Luis Angel Anderson - Last Filed: 09/01/17 06:41> CCU Objective - Vital Signs / Intake & Output Vital Signs (Last 4 hours): Vital Signs Temp Pulse Resp BP Pulse Ox 09/01/17 06:03 83 18 117/38 L 93 L 09/01/17 06:00 87 22 95 09/01/17 05:03 82 18 105/41 L 92 L 09/01/17 05:00 82 22 91 L 09/01/17 04:03 79 20 128/41 L 93 L 09/01/17 04:00 97.9 F 74 18 124/58 L 91 L 09/01/17 03:03 75 18 124/58 L 93 L 09/01/17 03:00 80 18 93 L Intake and Output (Last 8hrs): Intake & Output 08/31/17 08/31/17 09/01/17 14:59 22:59 06:59 Intake Total 960 720 100 Output Total 1100 375 345 Balance -140 345 -245 Intake: Intake, IV Amount 560 320 Left Hand 560 320 Oral 400 400 100 Output: Urine 1100 375 345 2-way Urethral 1100 375 345 Other: # Bowel Movements 0 1 - Medications Active Medications: Active Medications Generic Name Dose Route Start Last Admin Trade Name Freq PRN Reason Stop Dose Admin Amlodipine Besylate 10 mg 08/29/17 10:00 08/31/17 11:00 Norvasc PO 10 mg DAILY [facility] Administration Carbidopa/Levodopa 1 tab 08/28/17 10:00 08/31/17 19:43 Sinemet PO 1 tab TID [facility] Administration Docusate Sodium 100 mg 08/28/17 10:00 08/31/17 19:42 Colace PO 100 mg TID [facility] Administration Enoxaparin Sodium 40 mg 08/30/17 20:15 08/31/17 20:57 Lovenox SC 40 mg Q24H [facility] Administration Levetiracetam 750 mg 08/29/17 10:00 08/31/17 19:41 Keppra PO 750 mg BID [facility] Administration Metoprolol Tartrate 25 mg 08/28/17 10:00 08/31/17 19:42 Lopressor PO 25 mg BID [facility] Administration Morphine Sulfate 4 mg 08/28/17 06:53 08/28/17 21:25 Morphine SC 4 mg Q6 PRN Administration Pain, moderate (4-7) Morphine Sulfate 2 mg 08/29/17 10:42 08/31/17 09:30 Morphine IVP 2 mg Q6H PRN Administration Pain, severe (8-10) Oxycodone/Acetaminophen 1 tab 08/29/17 20:10 09/01/17 05:24 Percocet 5/325 Mg Tab PO 09/01/17 20:11 1 tab Q4 PRN Administration Pain, Mild (1-3) Pantoprazole Sodium 40 mg 08/28/17 10:00 08/31/17 11:00 Protonix Ec Tab PO 40 mg DAILY [facility] Administration - Patient Studies Lab Studies: Lab Studies 09/01/17 08/31/17 08/31/17 Range/Units 06:26 07:34 06:36 WBC 8.8 9.7 (4.8-10.8) K/uL RBC 3.12 L 3.18 L (3.80-5.20) Mil/uL Hgb 9.9 L 10.3 L D (11.0-16.0) g/dL Hct 29.1 L 29.9 L (34.0-47.0) % MCV 93.1 93.8 (81.0-99.0) fL MCH 31.7 H 32.2 H (27.0-31.0) pg MCHC 34.0 34.3 (33.0-37.0) g/dL RDW 14.2 14.2 (11.5-14.5) % Plt Count 162 151 (130-400) K/uL MPV 8.4 9.1 (7.2-11.7) fL Neut % (Auto) 77.9 H 74.2 (50.0-75.0) % Lymph % (Auto) 11.1 L 12.2 L (20.0-40.0) % Bleckley % (Auto) 10.0 13.3 H (0.0-10.0) % Eos % (Auto) 0.8 0.1 (0.0-4.0) % Baso % (Auto) 0.2 0.2 (0.0-2.0) % Neut # 6.8 7.2 H (1.8-7.0) K/uL Lymph # 1.0 1.2 (1.0-4.3) K/uL Bleckley # 0.9 H 1.3 H (0.0-0.8) K/uL Eos # 0.1 0.0 (0.0-0.7) K/uL Baso # 0.0 0.0 (0.0-0.2) K/uL Sodium 132 (132-148) mmol/L Potassium 3.4 L (3.6-5.2) mmol/L Chloride 102 (98-107) mmol/L Carbon Dioxide 22 (22-30) mmol/L Anion Gap 12 (10-20) BUN 15 (7-17) mg/dL Creatinine 0.6 L (0.7-1.2) mg/dL Est GFR ( Amer) > 60 Est GFR (Non-Af Amer) > 60 Random Glucose 93 (65-105) mg/dL Calcium 7.8 L (8.6-10.4) mg/dl Laboratory Results - last 24 hr 08/31/17 08/31/17 09/01/17 06:36 07:34 06:26 WBC 9.7 8.8 RBC 3.18 L 3.12 L Hgb 10.3 L D 9.9 L Hct 29.9 L 29.1 L MCV 93.8 93.1 MCH 32.2 H 31.7 H MCHC 34.3 34.0 RDW 14.2 14.2 Plt Count 151 162 MPV 9.1 8.4 Neut % (Auto) 74.2 77.9 H Lymph % (Auto) 12.2 L 11.1 L Bleckley % (Auto) 13.3 H 10.0 Eos % (Auto) 0.1 0.8 Baso % (Auto) 0.2 0.2 Neut # 7.2 H 6.8 Lymph # 1.2 1.0 Bleckley # 1.3 H 0.9 H Eos # 0.0 0.1 Baso # 0.0 0.0 Sodium 132 Potassium 3.4 L Chloride 102 Carbon Dioxide 22 Anion Gap 12 BUN 15 Creatinine 0.6 L Est GFR ( Amer) > 60 Est GFR (Non-Af Amer) > 60 Random Glucose 93 Calcium 7.8 L Critical Care Progress Note - Nutrition Nutrition: Nutrition Category Date Time Status Heart Healthy Diet [DIET] Diets 08/29/17 Dinner Active Assessment/Plan - Assessment and Plan (Free Text) Plan: Patient seen and examined with above resident. I agree with his documentation. Patient remains hemodynamically stable. -stable for down grade
--- NOTE | 2017-08-31 16:53 | CP.PCM.PN ---
Subjective - Date & Time of Evaluation Date of Evaluation: 08/31/17 Time of Evaluation: 11:00 - Subjective Subjective: Patient denies pain in her hip currently. Denies CP/SOB/dizziness. Objective - Vital Signs/Intake and Output Vital Signs (last 24 hours): Temp Pulse Resp BP Pulse Ox 98.4 F 72 21 122/39 L 95 08/31/17 16:00 08/31/17 16:03 08/31/17 16:03 08/31/17 16:03 08/31/17 16:03 Intake and Output: 08/31/17 08/31/17 06:59 18:59 Intake Total 1230 1120 Output Total 1200 Balance 1230 -80 - Medications Medications: Current Medications Amlodipine Besylate (Norvasc) 10 mg PO DAILY [facility] Last Admin: 08/31/17 11:00 Dose: 10 mg Carbidopa/Levodopa (Sinemet) 1 tab PO TID [facility] Last Admin: 08/31/17 14:00 Dose: 1 tab Docusate Sodium (Colace) 100 mg PO TID [facility] Last Admin: 08/31/17 14:00 Dose: 100 mg Enoxaparin Sodium (Lovenox) 40 mg SC Q24H [facility] Last Admin: 08/30/17 21:21 Dose: 40 mg Levetiracetam (Keppra) 750 mg PO BID [facility] Last Admin: 08/31/17 11:00 Dose: 750 mg Metoprolol Tartrate (Lopressor) 25 mg PO BID [facility] Last Admin: 08/31/17 10:59 Dose: 25 mg Morphine Sulfate (Morphine) 4 mg SC Q6 PRN PRN Reason: Pain, moderate (4-7) Last Admin: 08/28/17 21:25 Dose: 4 mg Morphine Sulfate (Morphine) 2 mg IVP Q6H PRN PRN Reason: Pain, severe (8-10) Last Admin: 08/31/17 09:30 Dose: 2 mg Oxycodone/Acetaminophen (Percocet 5/325 Mg Tab) 1 tab PO Q4 PRN PRN Reason: Pain, Mild (1-3) Stop: 09/01/17 20:11 Last Admin: 08/31/17 03:46 Dose: 1 tab Pantoprazole Sodium (Protonix Ec Tab) 40 mg PO DAILY [facility] Last Admin: 08/31/17 11:00 Dose: 40 mg - Labs Labs: 08/31/17 07:34 08/31/17 06:36 PT 11.2 SECONDS (9.7-12.2) 08/28/17 02:33 INR 1.0 08/28/17 02:33 APTT 30 SECONDS (21-34) 08/28/17 02:33 - Extremities Exam Additional comments: RLE: dressing no obvious drainage. Thigh soft, mild swelling. +ROM ankle/toes, sensation intact, +DP/PT pulses calves soft NT neg homans Assessment and Plan (1) Displaced fracture of right femoral neck Assessment & Plan: POD#2 s/p right THR anterior -PT/OT -VTE proph -OOB -d/c planning -ortho stable -d/w Dr. Mendosa, agrees with above Status: Acute
[2017-08-31] MEDS: Enoxaparin 40 mg Syringe SC SCH (20:57)
[2017-09-01] MEDS: Oxycodone/Acetaminophen 5/325 mg Tab PO PRN ×2 (05:24→18:56)
[2017-09-01 06:29] LABS: BASO % 0.2 % (0.0-2.0); EOS # 0.1 K/uL (0.0-0.7); EOS % 0.8 % (0.0-4.0); HEMATOCRIT 29.1 % (34.0-47.0); LYMPH % 11.1 % (20.0-40.0); MEAN CELL VOLUME 93.1 fL (81.0-99.0); MEAN CORPUSCULAR HEMOGLOBIN 31.7 pg (27.0-31.0); MEAN PLATELET VOLUME 8.4 fL (7.2-11.7); MONO # 0.9 K/uL (0.0-0.8); RED CELL DISTRIBUTION WIDTH 14.2 % (11.5-14.5); WHITE BLOOD COUNT 8.8 K/uL (4.8-10.8)
[2017-09-01 06:48] LABS: ALB/GLOB RATIO 1.3 (1.0-2.1); ALKALINE PHOSPHATASE 53 U/L (38-126); ALT/SGPT 21 U/L (9-52); AST/SGOT 22 U/L (14-36); BILIRUBIN,TOTAL 0.9 mg/dL (0.2-1.3); BLOOD UREA NITROGEN 13 mg/dL (7-17); CARBON DIOXIDE 23 mmol/L (22-30); CHLORIDE 100 mmol/L (98-107); GFR AFRICAN-AMERICAN > 60; GLUCOSE,RANDOM 98 mg/dL (65-105); POTASSIUM 3.4 mmol/L (3.6-5.2); SODIUM 131 mmol/L (132-148); TOTAL PROTEIN 5.1 g/dL (6.3-8.3)
[2017-09-01] MEDS ORDERED: Magnesium Sulfate 1 gm in D5W 1 GM/100 ML BAG IVPB ONE (07:53)
--- NOTE | 2017-09-01 07:56 | CP.PCM.PN ---
Subjective - Date & Time of Evaluation Date of Evaluation: 09/01/17 Time of Evaluation: 07:54 - Subjective Subjective: NO acute events overnight. flow sheet reveal no BM, potassium low, kidney function normal. Pain controlled Objective - Vital Signs/Intake and Output Vital Signs (last 24 hours): Temp Pulse Resp BP Pulse Ox 97.9 F 83 18 117/38 L 93 L 09/01/17 04:00 09/01/17 06:03 09/01/17 06:03 09/01/17 06:03 09/01/17 06:03 Intake and Output: 09/01/17 09/01/17 06:59 18:59 Intake Total 500 Output Total 520 Balance -20 - Medications Medications: Current Medications Amlodipine Besylate (Norvasc) 10 mg PO DAILY [facility] Last Admin: 08/31/17 11:00 Dose: 10 mg Carbidopa/Levodopa (Sinemet) 1 tab PO TID [facility] Last Admin: 08/31/17 19:43 Dose: 1 tab Docusate Sodium (Colace) 100 mg PO TID [facility] Last Admin: 08/31/17 19:42 Dose: 100 mg Enoxaparin Sodium (Lovenox) 40 mg SC Q24H [facility] Last Admin: 08/31/17 20:57 Dose: 40 mg Magnesium Sulfate/Dextrose (Magnesium Sulfate 1 Gm/100 Ml D5w) 1 gm in 100 mls @ 200 mls/hr IVPB ONCE ONE Stop: 09/01/17 08:22 Levetiracetam (Keppra) 750 mg PO BID [facility] Last Admin: 08/31/17 19:41 Dose: 750 mg Metoprolol Tartrate (Lopressor) 25 mg PO BID [facility] Last Admin: 08/31/17 19:42 Dose: 25 mg Oxycodone/Acetaminophen (Percocet 5/325 Mg Tab) 1 tab PO Q4 PRN PRN Reason: Pain, Mild (1-3) Stop: 09/01/17 20:11 Last Admin: 09/01/17 05:24 Dose: 1 tab Pantoprazole Sodium (Protonix Ec Tab) 40 mg PO DAILY [facility] Last Admin: 08/31/17 11:00 Dose: 40 mg Potassium Chloride (K-Dur 20 Meq Er Tab) 40 meq PO Q6 [facility] Stop: 09/01/17 18:01 - Labs Labs: 09/01/17 06:26 09/01/17 06:26 PT 11.2 SECONDS (9.7-12.2) 08/28/17 02:33 INR 1.0 08/28/17 02:33 APTT 30 SECONDS (21-34) 08/28/17 02:33 - Constitutional Appears: Well - Head Exam Head Exam: NORMAL INSPECTION - Respiratory Exam Respiratory Exam: Clear to Ausculation Bilateral, NORMAL BREATHING PATTERN. absent: Rhonchi, Wheezes - Cardiovascular Exam Cardiovascular Exam: REGULAR RHYTHM - GI/Abdominal Exam GI & Abdominal Exam: Normal Bowel Sounds - Extremities Exam Extremities Exam: Normal Capillary Refill - Neurological Exam Neurological Exam: Alert, Awake, Oriented x3 Assessment and Plan - Assessment and Plan (Free Text) Plan: 77 F with h/o parkinson's disease, h/o PRES, h/o seizures, htn was admitted to the hospital after a fall and fracture right femoral neck on 08/28, patient transferred to ICU post right total hip replacement for close post op monitoring. Patient POD #3 Plan: MSK: s/p right total hip replacement pain management per ortho PT/OT Continue all other home medications Prophylactic care: GI: protonix 40mg PO daily DVT: lovenox 40mg SC daily Dulcolax 10mg ND, Lactulose 20gm Patient stable. Follow ortho recs downgrade to tele
[2017-09-01] MEDS: Pantoprazole 40 mg EC Tab PO SCH (11:37)
[2017-09-01] MEDS: Potassium Chloride 20 mEq ER Tab PO SCH ×2 (11:38→18:54)
[2017-09-01] MEDS: Carbidopa/Levodopa 25/250 PO SCH ×3 (11:39→18:55)
--- NOTE | 2017-09-01 14:35 | CP.PCM.PN ---
Subjective - Date & Time of Evaluation Date of Evaluation: 09/01/17 Time of Evaluation: 14:35 - Subjective Subjective: CHIEF COMPLAINTS TODAY : POST OP PAIN ROS. HEENT : N. Resp : No cough, wheezing ,pleuritic CP ,or hemoptysis Cardio : No anginal CP, PND, orthopnea, palpitation GI : No abd.pain, n/v ,diarrhea or GI bleeding . [employer] : No headache, vertigo, focal deficit. Musculoskel R. HIP PAIN Derm : No rash Psych : Normal affect. Ext : No swelling ,calf pain PE. Pt. is alert awake in no distress. V.S As noted in the chart Head ,ear nose,throat and eyes : Normal. Neck : Supple with normal carotids. Lungs: Clear air entry. Heart : S1 & S2 normal with S4. No murmur. Abd : Soft non tender with normal bowel sounds. Neuro : Moves all ext. with no localized deficit. Ext : No edema with intact pulses.Non tender calves R. HIP POST OP Derm : No rashes or decubitus ulcer. LABS/RADIOLOGY: LABS N ASSESSMENT/PLAN : CONT POST OP MANAGEMENT Objective - Vital Signs/Intake and Output Vital Signs (last 24 hours): Temp Pulse Resp BP Pulse Ox 98.4 F 82 14 217/128 H 98 09/01/17 12:00 09/01/17 13:05 09/01/17 13:05 09/01/17 13:05 09/01/17 12:00 Intake and Output: 09/01/17 09/01/17 11:59 23:59 Intake Total 100 400 Output Total 305 200 Balance -205 200 - Medications Medications: Current Medications Amlodipine Besylate (Norvasc) 10 mg PO DAILY [facility] Last Admin: 09/01/17 11:36 Dose: 10 mg Carbidopa/Levodopa (Sinemet) 1 tab PO TID [facility] Last Admin: 09/01/17 14:05 Dose: 1 tab Docusate Sodium (Colace) 100 mg PO TID [facility] Last Admin: 09/01/17 14:05 Dose: 100 mg Enoxaparin Sodium (Lovenox) 40 mg SC Q24H [facility] Last Admin: 08/31/17 20:57 Dose: 40 mg Levetiracetam (Keppra) 750 mg PO BID [facility] Last Admin: 09/01/17 11:36 Dose: 750 mg Metoprolol Tartrate (Lopressor) 25 mg PO BID [facility] Last Admin: 09/01/17 11:38 Dose: 25 mg Oxycodone/Acetaminophen (Percocet 5/325 Mg Tab) 1 tab PO Q4 PRN PRN Reason: Pain, Mild (1-3) Stop: 09/01/17 20:11 Last Admin: 09/01/17 05:24 Dose: 1 tab Pantoprazole Sodium (Protonix Ec Tab) 40 mg PO DAILY [facility] Last Admin: 09/01/17 11:37 Dose: 40 mg Potassium Chloride (K-Dur 20 Meq Er Tab) 40 meq PO Q6 [facility] Stop: 09/01/17 18:01 Last Admin: 09/01/17 11:38 Dose: 40 meq Potassium Chloride (K-Dur 20 Meq Er Tab) 20 meq PO ONCE ONE Stop: 09/02/17 10:46 - Labs Labs: 09/01/17 06:26 09/01/17 06:26 PT 11.2 SECONDS (9.7-12.2) 08/28/17 02:33 INR 1.0 08/28/17 02:33 APTT 30 SECONDS (21-34) 08/28/17 02:33
[2017-09-01] MEDS: Enoxaparin 40 mg Syringe SC SCH (20:19)
[2017-09-01] MEDS ORDERED: Oxycodone/Acetaminophen 5/325 mg Tab PO ONE (23:32)
[2017-09-02] MEDS: Carbidopa/Levodopa 25/250 PO SCH ×3 (09:43→19:11)
[2017-09-02] MEDS: Pantoprazole 40 mg EC Tab PO SCH (09:44)
[2017-09-02] MEDS ORDERED: Potassium Chloride 20 mEq ER Tab PO ONE (10:45)
--- NOTE | 2017-09-02 12:05 | CP.PCM.PN ---
Subjective - Date & Time of Evaluation Date of Evaluation: 09/02/17 Time of Evaluation: 11:55 - Subjective Subjective: S- minimnal post op discomfort s/p R THR Objective - Vital Signs/Intake and Output Vital Signs (last 24 hours): Temp Pulse Resp BP Pulse Ox 98.2 F 88 18 115/75 94 L 09/02/17 08:00 09/02/17 08:04 09/02/17 08:04 09/02/17 09:42 09/02/17 08:04 Intake and Output: 09/02/17 09/02/17 06:59 18:59 Intake Total 900 0 Output Total 500 30 Balance 400 -30 - Medications Medications: Current Medications Amlodipine Besylate (Norvasc) 10 mg PO DAILY [facility] Last Admin: 09/02/17 09:47 Dose: 10 mg Carbidopa/Levodopa (Sinemet) 1 tab PO TID [facility] Last Admin: 09/02/17 09:43 Dose: 1 tab Docusate Sodium (Colace) 100 mg PO TID [facility] Last Admin: 09/02/17 09:42 Dose: 100 mg Enoxaparin Sodium (Lovenox) 40 mg SC Q24H [facility] Last Admin: 09/01/17 20:19 Dose: 40 mg Levetiracetam (Keppra) 750 mg PO BID [facility] Last Admin: 09/02/17 09:42 Dose: 750 mg Metoprolol Tartrate (Lopressor) 25 mg PO BID [facility] Last Admin: 09/02/17 09:42 Dose: 25 mg Pantoprazole Sodium (Protonix Ec Tab) 40 mg PO DAILY [facility] Last Admin: 09/02/17 09:44 Dose: 40 mg - Labs Labs: 09/01/17 06:26 09/01/17 06:26 PT 11.2 SECONDS (9.7-12.2) 08/28/17 02:33 INR 1.0 08/28/17 02:33 APTT 30 SECONDS (21-34) 08/28/17 02:33 - Additional Findings Additional findings: Objective stance/gait- deferred R knee immobilizer intact N/V intact dressing sry and intacty orthopedically stable Assessment and Plan - Assessment and Plan (Free Text) Assessment: A- s/p R THR P- weight bearing to tolerance with walker orthopedically stable
--- NOTE | 2017-09-02 16:39 | CP.PCM.PN ---
Subjective - Date & Time of Evaluation Date of Evaluation: 09/02/17 Time of Evaluation: 16:39 - Subjective Subjective: the Objective - Vital Signs/Intake and Output Vital Signs (last 24 hours): Temp Pulse Resp BP Pulse Ox 98.1 F 76 20 126/47 L 92 L 09/02/17 12:00 09/02/17 13:03 09/02/17 13:03 09/02/17 13:03 09/02/17 13:03 Intake and Output: 09/02/17 09/02/17 11:59 23:59 Intake Total 200 Output Total 450 80 Balance -250 -80 - Medications Medications: Current Medications Amlodipine Besylate (Norvasc) 10 mg PO DAILY [facility] Last Admin: 09/02/17 09:47 Dose: 10 mg Carbidopa/Levodopa (Sinemet) 1 tab PO TID [facility] Last Admin: 09/02/17 14:21 Dose: 1 tab Docusate Sodium (Colace) 100 mg PO TID [facility] Last Admin: 09/02/17 14:21 Dose: 100 mg Enoxaparin Sodium (Lovenox) 40 mg SC Q24H [facility] Last Admin: 09/01/17 20:19 Dose: 40 mg Levetiracetam (Keppra) 750 mg PO BID [facility] Last Admin: 09/02/17 09:42 Dose: 750 mg Metoprolol Tartrate (Lopressor) 25 mg PO BID [facility] Last Admin: 09/02/17 09:42 Dose: 25 mg Pantoprazole Sodium (Protonix Ec Tab) 40 mg PO DAILY [facility] Last Admin: 09/02/17 09:44 Dose: 40 mg - Labs Labs: 09/01/17 06:26 09/01/17 06:26 PT 11.2 SECONDS (9.7-12.2) 08/28/17 02:33 INR 1.0 08/28/17 02:33 APTT 30 SECONDS (21-34) 08/28/17 02:33
--- NOTE | 2017-09-02 16:57 | PN ---
DATE: 09/02/2017 NEUROLOGICAL PROBLEM: Parkinson's disease with seizures,status post posterior reversible encephalopathy syndrome, status post right hip surgery. PHYSICAL EXAMINATION: VITAL SIGNS: Blood pressure 115/75, mean arterial pressure of 80, respiratory rate of 16, temperature afebrile. The patient is more awake, alert, oriented to person, place and time. No confusion. Speech is normal. Mild resting tremor noted on the right side. Rest of the examination is unchanged. He is complaining of right hip pain from the surgery. RECOMMENDATION: Continue the present management and levetiracetam as recommended. The patient will be followed closely with you. Didier Mares MD
[2017-09-02] MEDS: Enoxaparin 40 mg Syringe SC SCH (20:48)
[2017-09-03] MEDS: Oxycodone/Acetaminophen 5/325 mg Tab PO PRN ×2 (01:23→11:08)
--- NOTE | 2017-09-03 09:24 | PN ---
DATE: 08/31/2017 NEUROLOGICAL PROBLEM: Status post fall, Parkinson disease and possible seizures. PHYSICAL EXAMINATION: VITAL SIGNS: Blood pressure 148/55, mean arterial pressure of 83, respiratory rate 16, temperature afebrile. NEUROLOGIC: The patient is more awake, alert, oriented to person, place and time. She is anxiously waiting for her son to be seen. The patient did undergo surgical fixation for her intratrochanteric fracture. The patient does show resting tremor, which can be stopped voluntarily by her own. ASSESSMENT AND PLAN: Continue with the current management. No further workup is needed. Her electroencephalogram is reviewed. No acute paroxysmal activities or focal slowing noted. The patient is tolerating well with Keppra 750 mg twice a day. Didier Mares MD
[2017-09-03] MEDS: Pantoprazole 40 mg EC Tab PO SCH (11:04)
[2017-09-03] MEDS: Carbidopa/Levodopa 25/250 PO SCH ×3 (11:10→17:39)
--- NOTE | 2017-09-03 11:11 | CP.PCM.PN ---
Subjective - Date & Time of Evaluation Date of Evaluation: 09/03/17 Time of Evaluation: 11:09 - Subjective Subjective: Patient awake and alert, more oriented today. She asks me to come back in 10 min as she in on the phone regarding bills. Admits to hip pain. Objective - Vital Signs/Intake and Output Vital Signs (last 24 hours): Temp Pulse Resp BP Pulse Ox 98.7 F 76 20 132/64 96 09/03/17 08:00 09/03/17 08:00 09/03/17 08:00 09/03/17 11:04 09/03/17 08:00 Intake and Output: 09/03/17 09/03/17 06:59 18:59 Intake Total 450 120 Output Total 410 40 Balance 40 80 - Medications Medications: Current Medications Amlodipine Besylate (Norvasc) 10 mg PO DAILY [facility] Last Admin: 09/03/17 11:04 Dose: 10 mg Carbidopa/Levodopa (Sinemet) 1 tab PO TID [facility] Last Admin: 09/02/17 19:11 Dose: 1 tab Docusate Sodium (Colace) 100 mg PO TID [facility] Last Admin: 09/03/17 11:04 Dose: 100 mg Enoxaparin Sodium (Lovenox) 40 mg SC Q24H [facility] Last Admin: 09/02/17 20:48 Dose: 40 mg Levetiracetam (Keppra) 750 mg PO BID [facility] Last Admin: 09/03/17 11:03 Dose: 750 mg Metoprolol Tartrate (Lopressor) 25 mg PO BID [facility] Last Admin: 09/03/17 11:04 Dose: 25 mg Oxycodone/Acetaminophen (Percocet 5/325 Mg Tab) 1 tab PO Q4H PRN PRN Reason: Pain, moderate (4-7) Stop: 09/05/17 19:45 Last Admin: 09/03/17 01:23 Dose: 1 tab Pantoprazole Sodium (Protonix Ec Tab) 40 mg PO DAILY [facility] Last Admin: 09/03/17 11:04 Dose: 40 mg - Labs Labs: 09/01/17 06:26 09/01/17 06:26 PT 11.2 SECONDS (9.7-12.2) 08/28/17 02:33 INR 1.0 08/28/17 02:33 APTT 30 SECONDS (21-34) 08/28/17 02:33 - Extremities Exam Additional comments: right hip: scant drainage on dressing. +ROM ankle/toes,s ensation intact calves soft NT neg homans +DP/PT Pulses Assessment and Plan (1) Displaced fracture of right femoral neck Assessment & Plan: POD# 5 s/p right THR -ortho stable -d/c planning -VTE proph -PT/OT encourage OOB -d/w Dr. Mendosa, agrees with above Status: Acute
--- NOTE | 2017-09-03 12:54 | CP.PCM.PN ---
Subjective - Date & Time of Evaluation Date of Evaluation: 09/03/17 Time of Evaluation: 12:54 - Subjective Subjective: CHIEF COMPLAINTS TODAY : POST OP PAIN ROS. HEENT : N. Resp : No cough, wheezing ,pleuritic CP ,or hemoptysis Cardio : No anginal CP, PND, orthopnea, palpitation GI : No abd.pain, n/v ,diarrhea or GI bleeding . [employer] : No headache, vertigo, focal deficit. Musculoskel R. HIP PAIN Derm : No rash Psych : Normal affect. Ext : No swelling ,calf pain PE. Pt. is alert awake in no distress. V.S As noted in the chart Head ,ear nose,throat and eyes : Normal. Neck : Supple with normal carotids. Lungs: Clear air entry. Heart : S1 & S2 normal with S4. No murmur. Abd : Soft non tender with normal bowel sounds. Neuro : Moves all ext. with no localized deficit. Ext : No edema with intact pulses.Non tender calves R. HIP POST OP Derm : No rashes or decubitus ulcer. LABS/RADIOLOGY: LABS N ASSESSMENT/PLAN : CONT POST OP MANAGEMENT NEURO F/U Objective - Vital Signs/Intake and Output Vital Signs (last 24 hours): Temp Pulse Resp BP Pulse Ox 98.7 F 76 20 132/64 96 09/03/17 08:00 09/03/17 08:00 09/03/17 08:00 09/03/17 11:04 09/03/17 08:00 Intake and Output: 09/03/17 09/03/17 11:59 23:59 Intake Total 420 Output Total 310 Balance 110 - Medications Medications: Current Medications Amlodipine Besylate (Norvasc) 10 mg PO DAILY [facility] Last Admin: 09/03/17 11:04 Dose: 10 mg Carbidopa/Levodopa (Sinemet) 1 tab PO TID [facility] Last Admin: 09/02/17 19:11 Dose: 1 tab Docusate Sodium (Colace) 100 mg PO TID [facility] Last Admin: 09/03/17 11:04 Dose: 100 mg Enoxaparin Sodium (Lovenox) 40 mg SC Q24H [facility] Last Admin: 09/02/17 20:48 Dose: 40 mg Levetiracetam (Keppra) 750 mg PO BID [facility] Last Admin: 09/03/17 11:03 Dose: 750 mg Metoprolol Tartrate (Lopressor) 25 mg PO BID [facility] Last Admin: 09/03/17 11:04 Dose: 25 mg Oxycodone/Acetaminophen (Percocet 5/325 Mg Tab) 1 tab PO Q4H PRN PRN Reason: Pain, moderate (4-7) Stop: 09/05/17 19:45 Last Admin: 09/03/17 11:08 Dose: 1 tab Pantoprazole Sodium (Protonix Ec Tab) 40 mg PO DAILY [facility] Last Admin: 09/03/17 11:04 Dose: 40 mg - Labs Labs: 09/01/17 06:26 09/01/17 06:26 PT 11.2 SECONDS (9.7-12.2) 08/28/17 02:33 INR 1.0 08/28/17 02:33 APTT 30 SECONDS (21-34) 08/28/17 02:33
--- NOTE | 2017-09-03 15:57 | CP.PCM.PN ---
Subjective - Date & Time of Evaluation Date of Evaluation: 09/03/17 Time of Evaluation: 15:55 - Subjective Subjective: PT CLEARED FOR D/C BY ORTHO TEAM. DRESSING TO AFFECTED HIP TO BE REMOVED ON SUNDAY PER MIHAELA KOENIG AND PT TO F/U WITH DR. FAJARDO IN OFFICE 1 WEEK FROM SUNDAY (BY 09/14/17). PER DR. ELIZABETH HUFF TO D/C TODAY TO [facility] AND HE WILL FOLLOW PT THERE. D/C DISCUSSED W MUD ANALYSIS WELL LO[employer]ING [employer] PEGGY. [facility] TO ARRANGE TRANSPORT. NO FURTHER ORDERS. Objective - Vital Signs/Intake and Output Vital Signs (last 24 hours): Temp Pulse Resp BP Pulse Ox 98 F 70 25 H 116/49 L 94 L 09/03/17 12:00 09/03/17 14:00 09/03/17 14:00 09/03/17 14:03 09/03/17 14:00 Intake and Output: 09/03/17 09/03/17 06:59 18:59 Intake Total 450 720 Output Total 410 40 Balance 40 680 - Medications Medications: Current Medications Amlodipine Besylate (Norvasc) 10 mg PO DAILY [facility] Last Admin: 09/03/17 11:04 Dose: 10 mg Carbidopa/Levodopa (Sinemet) 1 tab PO TID [facility] Last Admin: 09/03/17 13:36 Dose: 1 tab Docusate Sodium (Colace) 100 mg PO TID [facility] Last Admin: 09/03/17 13:34 Dose: Not Given Enoxaparin Sodium (Lovenox) 40 mg SC Q24H [facility] Last Admin: 09/02/17 20:48 Dose: 40 mg Levetiracetam (Keppra) 750 mg PO BID [facility] Last Admin: 09/03/17 11:03 Dose: 750 mg Metoprolol Tartrate (Lopressor) 25 mg PO BID [facility] Last Admin: 09/03/17 11:04 Dose: 25 mg Oxycodone/Acetaminophen (Percocet 5/325 Mg Tab) 1 tab PO Q4H PRN PRN Reason: Pain, moderate (4-7) Stop: 09/05/17 19:45 Last Admin: 09/03/17 11:08 Dose: 1 tab Pantoprazole Sodium (Protonix Ec Tab) 40 mg PO DAILY [facility] Last Admin: 09/03/17 11:04 Dose: 40 mg - Labs Labs: 09/01/17 06:26 09/01/17 06:26 PT 11.2 SECONDS (9.7-12.2) 08/28/17 02:33 INR 1.0 08/28/17 02:33 APTT 30 SECONDS (21-34) 08/28/17 02:33
[2017-09-03 18:06] VITALS: RESP 24
[2017-09-03 19:51] VITALS: BP 117/49; PULSE 80; TEMP 98.5; O2SAT 96
--- NOTE | 2017-09-06 02:43 | OP ---
PROCEDURE DATE: 08/29/2017 PREOPERATIVE DIAGNOSES: 1. Displaced Garden 4 right femoral neck fracture. 2. Pre-existing osteoarthritis. POSTOPERATIVE DIAGNOSES: 1. Right Garden 4 subcapital displaced femoral neck fracture. 2. Primary osteoarthritis. PROCEDURES: 1. Right total hip replacement. 2. Femoral neck osteotomy. 3. Arthrotomy and synovectomy. 4. Release of the psoas tendon. 5. Autograft and bone graft. 6. Computer navigation. SURGEON: Cody Mendosa MD TERRESTRIAL ECOLOGIST: 1. Latoya Dahl PA-C 2. Elisa Alexander, harjit registered nursing first coat sander. TYPE OF ANESTHESIA: Spinal and general anesthesia. ANESTHESIA ADMINISTERED BY: Dr. Ramos. COMPLICATIONS: None. DRAINS USED: No drains. BLOOD LOSS: 450 mL. POSTOPERATIVE CONDITION: Fair. OPERATIVE INDICATIONS: The patient is a 77-year-old woman who sustained a displaced femoral neck fracture in a fall. The patient presents with a displaced femoral neck fracture on the right, displaced Garden 4 with evidence of pre-existing osteoarthritis. Pros, cons, risks, and benefits of the surgical approach were discussed with the patient's son and with the patient the possibility of mechanical failure, infection, thromboembolic disease, delayed time to recurrent walking, nerve injury, leg length inequality discussed. The patient can no longer withstand the discomfort. Both the patient and her son consented to the procedure. OPERATIVE PROCEDURE: After having obtained informed consent in the above fashion and after having identified the side, site, and procedure and a critical pause/time-out and after the satisfactory induction of the anesthetic, the patient identified as Mee Noel in the MS position, the right lower extremity was prepped and free-draped in the usual fashion for lower extremity surgery. The left iliac crest was prepped and draped as well for computer navigation. The possibility of mechanical failure, infection, thromboembolic disease, secondary or tertiary surgery have been discussed. So, after having obtained informed consent, after the satisfactory induction of the anesthetic and after having identified, the side, site, and procedure and a critical pause/time-out, the patient identified as Mee Noel in the supine position, the MS traction is placed and a right lower extremity was prepped and re-draped in the usual fashion for anterior approach for right hip replacement and arthroplasty. Under the surgeon's direction, the fluoroscope was positioned, video images were generated, and therapeutic decisions were made therefrom. This having been accomplished, attention is turned to the left iliac crest, 2 stab wounds were placed, the pins were inserted and the navigation in camera, optical accelerometer was placed. This having been accomplished, attention was now turned to the left hip and incision, described superficial to the tensor fascia femoris muscle, one fingerbreadth distal to the ASIS, three fingerbreadths posterior. The skin incision is carried down through the skin and subcutaneous tissue. The fascia was divided. The tensor fascia femoris muscle was taken down from the fascia. The Medacta retractor was placed. The posterior aspect of the rectus femoris muscle was developed and the rectractor was placed deeper superficial to the hip capsule. The fascia was divided. The lateral femoral circumflex vessels were identified and they are carefully controlled. At this point in time, a capsulotomy is accomplished based medially at the trochanter and this is elevated intact. At this point in time, the femoral neck osteotomy is accomplished. Using the oscillating saw, verification of position is offered on image intensification views. The femoral neck is removed from the acetabulum. The Jordon retractor was placed and reaming is carried out sequentially to the appropriate sized reamer. At this point in time, the position is approximately 40 degrees of abduction, 40 degrees of anteversion, and this position is found to be acceptable. Trying to accomplish at this point in time, autograft, bone grafting to the acetabulum was accomplished. The autograft denuded of articular cartilage is used to autograft the acetabulum. The appropriate size of Medacta acetabular component is inserted. Again at this point in time, computer navigation assures abduction of approximately 40 to 42 degrees and anteversion of 20 degrees. Attention was turned to the femur. At this point in time, the femoral releases were accomplished, the tibiofibular ligament, iliofemoral ligament and ischiofemoral ligament. The femur is developed. Iliopsoas tendon is released. The canal was found. Sequential reaming is accomplished. The appropriate size broach is used to trial and this having been accomplished, the definitive prosthesis is placed with the appropriate size, dual mobility outer bearing and fitted to the acetabular shell. The wound was thoroughly irrigated. The construct had been assembled. The hip is reduced. The wound is thoroughly irrigated. Hemostasis is controlled with the Aquamantys. Closure of the fascia is with 0 Quill, followed by 2-0 Vicryl and raiza. compression dressing is applied. The pins were removed from the contralateral iliac crest and the incisions were closed with Vicryl and nylon. Compression dressing is applied. Verification of the position is offered on image intensification views and found to be acceptable. Compression dressing is applied. PROCEDURES: 1. Right total hip replacement, arthroplasty, anterior approach. 2. Femoral neck osteotomy. 3. Release of the psoas tendon. 4. Autograft and bone graft. 5. Computer navigation. Cody Mendosa MD
== END 2017-09-03 19:00 | DRG 470 ==
LOC: C.ER 01:52 → C.9E 04:14 → C.9I 08:24
PROVIDERS: ADMIT Internal Medicine Cardiovascular Disease; ATTEND Internal Medicine Cardiovascular Disease
PROC: 30233N1 Transfusion of Nonautologous Red Blood Cells into Peripheral Vein, Percutaneous Approach (ICD-10-PCS; 2017-08-29)
PROC: 0SU90BZ Supplement Right Hip Joint with Resurfacing Device, Open Approach (ICD-10-PCS; 2017-08-29)
PROC: 0LNJ0ZZ Release Right Hip Tendon, Open Approach (ICD-10-PCS; 2017-08-29)
PROC: 0QS604Z Reposition Right Upper Femur with Internal Fixation Device, Open Approach (ICD-10-PCS; 2017-08-29)
PROC: 0QR407Z Replacement of Right Acetabulum with Autologous Tissue Substitute, Open Approach (ICD-10-PCS; principal; 2017-08-29 15:00)
DX: S72.011A Unspecified intracapsular fracture of right femur, initial encounter for closed fracture (principal); M16.11 Unilateral primary osteoarthritis, right hip; G20 Parkinson's disease; I48.91 Unspecified atrial fibrillation; G40.909 Epilepsy, unspecified, not intractable, without status epilepticus; Z96.642 Presence of left artificial hip joint; I10 Essential (primary) hypertension; F41.9 Anxiety disorder, unspecified; E78.5 Hyperlipidemia, unspecified; Z79.899 Other long term (current) drug therapy; W01.0XXA Fall on same level from slipping, tripping and stumbling without subsequent striking against object, initial encounter; Y92.121 Bathroom in nursing home as the place of occurrence of the external cause; Z86.73 Personal history of transient ischemic attack (TIA), and cerebral infarction without residual deficits; Z91.81 History of falling; Z87.01 Personal history of pneumonia (recurrent); Z87.440 Personal history of urinary (tract) infections; Z87.891 Personal history of nicotine dependence; Z90.49 Acquired absence of other specified parts of digestive tract

== ENCOUNTER 2017-10-25 21:57 | Inpatient (IN) | payer MEDICARE ==
[2017-10-25 21:57] VITALS: BMI 22.6
--- NOTE | 2017-10-25 22:48 | C.PDOC ---
History Of Present Illness 77 y/o F [place] for feeling of R hip dislocation. Patient states she had surgery to repair her hip 1 month ago. She states she was in bed reaching for something and felt her hip give way. She reports a dull pain in that area now that radiates down the leg. She denies actual trauma or injury. Denies numbness or weakness. Time Seen by Provider: 10/25/17 22:41 Chief Complaint (Nursing): Hip Pain Past Medical History Vital Signs: Last Vital Signs Temp 97.8 F 10/25/17 22:11 Pulse 60 10/25/17 22:11 Resp 16 10/25/17 22:11 BP 154/71 H 10/25/17 22:11 Pulse Ox 97 10/25/17 22:50 - Medical History PMH: Anxiety, Arthritis, Atrial Fibrillation, Cardia Arrhythmia ("Fast" - unsure DX - had ablation), Fractures (Left hip fx repair 5 years ago), HTN, Parkinson's Disease (Resting Parkinson's), Pneumonia, Seizures Denies: Chronic Kidney Disease Surgical History: Cholecystectomy (1996) - [facility] Procedures EXCISION OF STOMACH, ENDO, DIAGN (04/03/16) INSPECTION OF LOWER INTESTINAL TRACT, ENDO (04/03/16) RELEASE RIGHT HIP TENDON, OPEN APPROACH (08/28/17) REPLACEMENT OF R ACETABULUM WITH AUTOL SUB, OPEN APPROACH (08/28/17) REPOSITION RIGHT UPPER FEMUR WITH INT FIX, OPEN APPROACH (08/28/17) SUPPLEMENT RIGHT HIP JOINT WITH RESURF DEV, OPEN APPROACH (08/28/17) TRANSFUSE NONAUT RED BLOOD CELLS IN PERIPH VEIN, PERC (08/28/17) Family History: States: Unknown Family Hx - Social History Hx Tobacco Use: No Hx Alcohol Use: No Hx Substance Use: No - Immunization History Hx Tetanus Toxoid Vaccination: Yes Hx Influenza Vaccination: Yes Hx Pneumococcal Vaccination: Yes (2013) Review Of Systems Except As Marked, All Systems Reviewed And Found Negative. Constitutional: Negative for: Fever Cardiovascular: Negative for: Chest Pain Physical Exam - Physical Exam Additional Physical Exam Comments: Constitutional: No acute distress. Head: Normocephalic. Atraumatic. Eyes: PERRL. ENT: Moist mucous membranes. Neck: Supple. Cardiovascular: L DP and PT pulses 2+. Chest: No tenderness. Respiratory: No accessory muscle use. GI: Soft. Nontender. Back: No midline tenderness. Musculoskeletal: Tenderness over R hip. Skin: Well healed surgical incision overlying R hip. Neurologic: Alert, no focal deficit. Sensation to light touch intact in R leg. Moves digits and ankle. ED Course And Treatment O2 Sat by Pulse Oximetry: 97 Medical Decision Making Medical Decision Making: Dr. Morfin accepts patient to his service. Dr. Mendosa consult placed. He recommends CT of hip as well. Disposition Discussed With : Cody Mendosa III Doctor Will See Patient In The: Hospital - Disposition Disposition: HOSPITALIZED Disposition Time: 00:12 Condition: STABLE Forms: [employer] (Estonian) - Clinical Impression Clinical Impression: Dislocation of hip joint prosthesis
[2017-10-25] MEDS ORDERED: Morphine 4 MG/ML VIAL ONE (23:04)
[2017-10-25] MEDS ORDERED: Enoxaparin 40 mg Syringe SC SCH (23:45)
[2017-10-26 01:03] LABS: BASO # 0.1 K/uL (0.0-0.2); BASO % 0.6 % (0.0-2.0); EOS # 0.1 K/uL (0.0-0.7); EOS % 0.6 % (0.0-4.0); HEMOGLOBIN 11.3 g/dL (11.0-16.0); LYMPH # 1.9 K/uL (1.0-4.3); LYMPH % 20.1 % (20.0-40.0); MEAN CELL VOLUME 89.8 fL (81.0-99.0); MEAN CORPUSCULAR HEMOGLOBIN 29.7 pg (27.0-31.0); MEAN CORPUSCULAR HGB CONC 33.1 g/dL (33.0-37.0); MEAN PLATELET VOLUME 7.8 fL (7.2-11.7); MONO # 0.9 K/uL (0.0-0.8); MONO % 9.2 % (0.0-10.0); NEUT # 6.7 K/uL (1.8-7.0); NEUT % 69.5 % (50.0-75.0); RBC 3.8 Mil/uL (3.80-5.20); RED CELL DISTRIBUTION WIDTH 15.6 % (11.5-14.5); WHITE BLOOD COUNT 9.6 K/uL (4.8-10.8)
[2017-10-26 01:11] LABS: INR 1.1; PROTHROMBIN TIME 12.1 SECONDS (9.7-12.2)
[2017-10-26 01:25] LABS: ALBUMIN 3.5 g/dL (3.5-5.0); ALT/SGPT 12 U/L (9-52); AST/SGOT 13 U/L (14-36); BLOOD UREA NITROGEN 22 mg/dL (7-17); CALCIUM 9.1 mg/dl (8.6-10.4); GFR AFRICAN-AMERICAN > 60; GFR NON-AFRICAN AMERICAN > 60
[2017-10-26 01:32] LABS: ALB/GLOB RATIO 1.3 (1.0-2.1)
--- NOTE | 2017-10-26 03:27 | CT ---
EXAM: CT Right Lower Extremity Without Intravenous Contrast, Hip CLINICAL HISTORY: 77 years old, female; Pain; Hip; Right; Patient HX: 08-28-17; Additional info: Dislocated hip TECHNIQUE: Axial computed tomography images of the right hip without intravenous contrast. All CT scans at this facility use one or more dose reduction techniques, viz.: automated exposure control; ma/kV adjustment per patient size (including targeted exams where dose is matched to indication; i.e. head); or iterative reconstruction technique. Coronal and sagittal reformatted images were created and reviewed. COMPARISON: CT - HIP WITHOUT CONTRAST RIGHT 2017-08-28 15:36 FINDINGS: Bones/joints: RIGHT hip arthroplasty. No acute fracture. Posterior dislocation of femoral component from acetabular cup. Degenerative changes of lower lumbar spine and sacroiliac joints. Mild heterotopic ossification about right hip joint. Soft tissues: Mild stranding within subcutaneous tissues of right thigh/hip. Vasculature: Atherosclerotic disease of visualized arteries. IMPRESSION: 1. Dislocation of prosthesis. 2. Incidental/non-acute findings are described above.
[2017-10-26] MEDS: Oxycodone/Acetaminophen 5/325 mg Tab PO PRN ×3 (05:30→18:39)
[2017-10-26] MEDS ORDERED: Oxycodone/Acetaminophen 5/325 mg Tab ONE (05:31)
--- NOTE | 2017-10-26 08:05 | CP.PCM.CON ---
History of Present Illness - History of Present Illness History of Present Illness: ID: 77 yo female sonny known to my practice CC: dislocated R THR HPI- 77 yo female now several wks s/p successfula nnd stable R THR presents after getting out of bed at nursing facility last PM without help and by her own admission "twisting her leg" on reentering bed- pt noted pop and discomfort R THR presents to ER at [facility] withdislocated r thr Past Patient History - Infectious Disease Hx of Infectious Diseases: None - Tetanus Immunizations Tetanus Immunization: Unknown - Past Medical History & Family History Past Medical History?: Yes - Past Social History Smoking Status: Former Smoker - CARDIAC Hx Atrial Fibrillation: Yes Hx Cardia Arrhythmia: Yes ("Fast" - unsure DX - had ablation) Hx Hypertension: Yes - PULMONARY Hx Pneumonia: Yes - NEUROLOGICAL Hx Parkinson's Disease: Yes (Resting Parkinson's) Hx Seizures: Yes - HEENT Hx HEENT Problems: No Hx Cataracts: Yes (B/L) - RENAL Hx Chronic Kidney Disease: No - ENDOCRINE/METABOLIC Hx Endocrine Disorders: No - HEMATOLOGICAL/ONCOLOGICAL Hx Blood Disorders: No - INTEGUMENTARY Hx Dermatological Problems: No - MUSCULOSKELETAL/RHEUMATOLOGICAL Hx Arthritis: Yes Hx Fractures: Yes (Left hip fx repair 5 years ago) - GASTROINTESTINAL Hx Gastrointestinal Disorders: No Hx Constipation: Yes - GENITOURINARY/GYNECOLOGICAL Hx Genitourinary Disorders: No Hx Urinary Tract Infection: Yes - PSYCHIATRIC Hx Anxiety: Yes Hx Substance Use: No - SURGICAL HISTORY Hx Cholecystectomy: Yes (1996) - ANESTHESIA Hx Anesthesia: Yes Hx Anesthesia Reactions: No Hx Malignant Hyperthermia: No Meds Allergies/Adverse Reactions: Allergies Allergy/AdvReac Type Severity Reaction Status Date / Time Penicillins Allergy RASH Verified 10/25/17 22:18 - Medications Medications: Current Medications Amlodipine Besylate (Norvasc) 10 mg PO DAILY [facility] Carbidopa/Levodopa (Sinemet) 1 tab PO TID [facility] Docusate Sodium (Colace) 100 mg PO TID [facility] Enoxaparin Sodium (Lovenox) 40 mg SC DAILY [facility] Levetiracetam (Keppra) 750 mg PO BID [facility] Metoprolol Tartrate (Lopressor) 25 mg PO BID [facility] Oxycodone/Acetaminophen (Percocet 5/325 Mg Tab) 1 tab PO Q4H PRN PRN Reason: Pain, moderate (4-7) Stop: 10/28/17 23:57 Last Admin: 10/26/17 05:30 Dose: 1 tab Pantoprazole Sodium (Protonix Ec Tab) 40 mg PO DAILY [facility] Physical Exam - Additional Findings Additional findings: Musculoskekltal exam strance/gait- defrred pt with shortening and rexternal rotation R lower ext N/V intact no gross deficits Results - Vital Signs Recent Vital Signs: Last Vital Signs Temp 98.2 F 10/26/17 07:12 Pulse 65 10/26/17 07:12 Resp 16 10/26/17 07:12 BP 167/78 H 10/26/17 07:12 Pulse Ox 95 10/26/17 07:12 - Labs Result Diagrams: 10/26/17 00:58 10/26/17 00:58 Labs: Laboratory Results - last 24 hr 10/26/17 10/26/17 10/26/17 00:58 00:58 00:58 WBC 9.6 RBC 3.80 Hgb 11.3 Hct 34.1 MCV 89.8 D MCH 29.7 MCHC 33.1 RDW 15.6 H Plt Count 283 D MPV 7.8 Neut % (Auto) 69.5 Lymph % (Auto) 20.1 [place]umpkin % (Auto) 9.2 Eos % (Auto) 0.6 Baso % (Auto) 0.6 Neut # 6.7 Lymph # 1.9 [place]kin # 0.9 H Eos # 0.1 Baso # 0.1 PT 12.1 INR 1.1 APTT 30 Sodium 135 Potassium 3.8 Chloride 103 Carbon Dioxide 28 Anion Gap 9 L BUN 22 H Creatinine 0.6 L Est GFR ( Amer) > 60 Est GFR (Non-Af Amer) > 60 Random Glucose 97 Calcium 9.1 Total Bilirubin 0.4 AST 13 L D ALT 12 Alkaline Phosphatase 81 Total Protein 6.1 L Albumin 3.5 D Globulin 2.6 Albumin/Globulin Ratio 1.3 Blood Type Antibody Screen 10/26/17 00:58 WBC RBC Hgb Hct MCV MCH MCHC RDW Plt Count MPV Neut % (Auto) Lymph % (Auto) [place]kin % (Auto) Eos % (Auto) Baso % (Auto) Neut # Lymph # [place]kin # Eos # Baso # PT INR APTT Sodium Potassium Chloride Carbon Dioxide Anion Gap BUN Creatinine Est GFR ( Amer) Est GFR (Non-Af Amer) Random Glucose Calcium Total Bilirubin AST ALT Alkaline Phosphatase Total Protein Albumin Globulin Albumin/Globulin Ratio Blood Type O POSITIVE Antibody Screen Negative - Impressions Impression: Xray/- dislocated R dual mobility THR CT confirmatory- acceptqable position of construct Assessment & Plan - Assessment and Plan (Free Text) Assessment: A- dislocated R THR P to OR for closed possible Open reduction dislocated R THR- meeical/cardiologic clearance to be obtained
--- NOTE | 2017-10-26 08:28 | RAD ---
HISTORY: hip dislocation COMPARISON: Portable chest 08/28/2017. FINDINGS: LUNGS: No active pulmonary disease. PLEURA: No significant pleural effusion identified, no pneumothorax apparent. CARDIOVASCULAR: Cardiomediastinal silhouette appears stable. No pulmonary vascular derangement identified. OSSEOUS STRUCTURES: No significant abnormalities. VISUALIZED UPPER ABDOMEN: Normal. OTHER FINDINGS: None. IMPRESSION: No interval acute cardiopulmonary is appreciable.
[2017-10-26] MEDS: Pantoprazole 40 mg EC Tab PO SCH (10:48)
[2017-10-26] MEDS: Enoxaparin 40 mg Syringe SC SCH ×2 (10:48→12:07)
[2017-10-26] MEDS: Carbidopa/Levodopa 25/250 PO SCH ×3 (10:55→18:38)
--- NOTE | 2017-10-26 11:36 | RAD ---
PROCEDURE: Pelvis right hip HISTORY: felt dislocation, s/p hip surgery COMPARISON: 08/29/[address] plain [address]ographs[address] 2017. [address] pelvis right hip confirming in these findings TECHNIQUE: Standard protocol for this study/examination. FINDINGS: Dislocated right prosthesis. The femoral component is displaced and dislocated superiorly relative to the acetabular cup component. This represents a new finding compared to the prior study. IMPRESSION: Acute dislocation of the femoral component of the right hip prosthesis.
--- NOTE | 2017-10-26 13:27 | CP.PCM.HP ---
History of Present Illness - History of Present Illness History of Present Illness: COMPREHENSIVE HISTORY & PHYSICAL EXAM HPI PT READMITTED WITH DISLOCATION OF R THR DONE RECENTLY AT CURRENTLY IN REHAB PT WAS PERFORMING WELL ON HER PT WITH NO COMPLAINTS ON THE DAY OF ADMISSION , PT. WAS TRYING TO GET BACK IN THE BED AND OVER TWISTED THE R HIP JOINT AND HEARD A 'POP;. ER PT HAD DISLOCATED HEAD OF PROSTHESIS FROM THE SOCKET PT IS ADMITTED FOR FURTHER SURGICAL CORRECTION PAST HIST. HAS MEDICAL ISSUES , BUT STABLE ON MEDS . NO CAD/AR PERSONAL HIST: Smoking. N Alcohol. N Allergy N Travel_- . FAMILY HIST : ROS : Constitutional: Negative for weight change, chills, night sweats, Eyes: Negative for redness, swelling, itching, discharge, vision changes, blurry vision, double vision, glaucoma, cataracts, Ears: Negative for hearing loss, ringing, , tinnitus, vertigo Nose: Negative for rhinorrhea, stuffiness, sniffing, itching, postnasal drip, discoloration, nasal congestion and epistaxis. Throat: Negative for throat clearing, sore throat, hoarseness, difficulty swallowing and difficulty speaking. Respiratory: Negative for cough, , sputum production, chest tightness, wheezing, pleuritic chest pain ,daytime somnolence, chronic cough, hemoptysis, snoring at night, Cardiovascular: Negative for chest pain, palpitations, orthopnea, PND, Edema of legs, leg cramps, angina, claudication, , irregular heartbeat, Neurology: Negative for irritability, muscle weakness, numbness and tingling, seizures, tremors, migraines, slurred speech, syncope, memory loss, mood changes , recurrent headaches Gastrointestinal: Negative for difficulty swallowing, diarrhea, constipation, black stools, rectal bleeding, nausea, flatulence, reflux, poor appetite, changes in bowel habits, abdominal pain Genitourinary: Negative for frequent urination, hematuria, discharge, incontinence, urinary retention, frequent UTI, Psychiatric: Negative for depression, anxiety/panic, suicidal tendencies, Musculoskeletal: R. HIP PAIN Skin: Negative for rash, ulcers, itching, dry skin and pigmented lesions. P/E: Constitutional: Appears stated age and in no apparent distress. Head: Normocephalic. Ears: External ear canals patent without inflammation. Tympanic membranes intact with normal light reflex and landmark. Eyes: Pupils are central, bilaterally equal, symmetrical and reacts to light with normal movements and no icterus or pallor. Nose: External nares are patent. Mucosa is pink Mouth-Throat: Good general appearance and condition. No post-pharyngeal/oropharyngeal erythema and tonsillar hypertrophy. Good dental hygiene. Neck-Lymphatic: Neck is supple with normal ROM, no thyromegaly, lymph nodes or masses. JVD is normal with no carotid bruit. Lungs: Clear to percussion and auscultation with bilateral normal air entry. Cardiovascular: S1 and S2 are normal with no murmurs, gallops and rub. GI Exam: No hepatomegaly. Abdomen is soft and non-tender. No Organomegaly , masses or hernias are evident and bowel sounds are normal and active. Neurology: Higher function and all cranial nerves intact, with no gross motor or sensory deficit. Superficial and deep reflexes are normal with downwards planters. No cerebellar deficit with normal gait. Musculoskeletal: R. HIP HAS RESTRICTED AND PAINFUL ROM WITH INTACT NEURO- VASCULAR BUNDLE Extremities: Homans sign absent. Intact pulses with no pitting edema, calf tenderness or skin color changes. Skin: No rash, eruptions or abnormal skin pigmentation LAB/RADIOLOGY: ASSESMENT : DISLOCATION OF PROSTHETIC HEAD , R. HIP WITH RECENT R. HIP REPLACEMENT HTN PARKINSON DISEASE COPD PLAN: PT. IS MEDICALLY STABLE FOR ORTHOPEDIC SURGERY TO CORRECT THE DISLOCATION OF R. HIP Present on Admission - Present on Admission Any Indicators Present on Admission: No Past Patient History - Infectious Disease Hx of Infectious Diseases: None - Tetanus Immunizations Tetanus Immunization: Unknown - Past Medical History & Family History Past Medical History?: Yes - Past Social History Smoking Status: Former Smoker - CARDIAC Hx Atrial Fibrillation: Yes Hx Cardia Arrhythmia: Yes ("Fast" - unsure DX - had ablation) Hx Hypertension: Yes - PULMONARY Hx Pneumonia: Yes - NEUROLOGICAL Hx Parkinson's Disease: Yes (Resting Parkinson's) Hx Seizures: Yes - HEENT Hx HEENT Problems: No Hx Cataracts: Yes (B/L) - RENAL Hx Chronic Kidney Disease: No - ENDOCRINE/METABOLIC Hx Endocrine Disorders: No - HEMATOLOGICAL/ONCOLOGICAL Hx Blood Disorders: No Hx Blood Transfusion Reaction: Yes - INTEGUMENTARY Hx Dermatological Problems: No - MUSCULOSKELETAL/RHEUMATOLOGICAL Hx Falls: No - GASTROINTESTINAL Hx Gastrointestinal Disorders: No Hx Constipation: Yes - GENITOURINARY/GYNECOLOGICAL Hx Genitourinary Disorders: No Hx Urinary Tract Infection: Yes - PSYCHIATRIC Hx Substance Use: No - SURGICAL HISTORY Hx Cholecystectomy: Yes (1996) - ANESTHESIA Hx Anesthesia: Yes Hx Anesthesia Reactions: No Hx Malignant Hyperthermia: No Meds Allergies/Adverse Reactions: Allergies Allergy/AdvReac Type Severity Reaction Status Date / Time Penicillins Allergy RASH Verified 10/25/17 22:18 Results - Vital Signs Recent Vital Signs: Last Vital Signs Temp 98.2 F 10/26/17 07:12 Pulse 65 10/26/17 07:12 Resp 16 10/26/17 07:12 BP 167/78 H 10/26/17 10:50 Pulse Ox 95 10/26/17 07:12 - Labs Result Diagrams: 10/26/17 00:58 10/26/17 00:58 Labs: Laboratory Results - last 24 hr 10/26/17 10/26/17 10/26/17 00:58 00:58 00:58 WBC 9.6 RBC 3.80 Hgb 11.3 Hct 34.1 MCV 89.8 D MCH 29.7 MCHC 33.1 RDW 15.6 H Plt Count 283 D MPV 7.8 Neut % (Auto) 69.5 Lymph % (Auto) 20.1 Bartholomew % (Auto) 9.2 Eos % (Auto) 0.6 Baso % (Auto) 0.6 Neut # 6.7 Lymph # 1.9 Bartholomew # 0.9 H Eos # 0.1 Baso # 0.1 PT 12.1 INR 1.1 APTT 30 Sodium 135 Potassium 3.8 Chloride 103 Carbon Dioxide 28 Anion Gap 9 L BUN 22 H Creatinine 0.6 L Est GFR ( Amer) > 60 Est GFR (Non-Af Amer) > 60 Random Glucose 97 Calcium 9.1 Total Bilirubin 0.4 AST 13 L D ALT 12 Alkaline Phosphatase 81 Total Protein 6.1 L Albumin 3.5 D Globulin 2.6 Albumin/Globulin Ratio 1.3 Blood Type Antibody Screen 10/26/17 00:58 WBC RBC Hgb Hct MCV MCH MCHC RDW Plt Count MPV Neut % (Auto) Lymph % (Auto) Bartholomew % (Auto) Eos % (Auto) Baso % (Auto) Neut # Lymph # Bartholomew # Eos # Baso # PT INR APTT Sodium Potassium Chloride Carbon Dioxide Anion Gap BUN Creatinine Est GFR ( Amer) Est GFR (Non-Af Amer) Random Glucose Calcium Total Bilirubin AST ALT Alkaline Phosphatase Total Protein Albumin Globulin Albumin/Globulin Ratio Blood Type O POSITIVE Antibody Screen Negative
[2017-10-26 17:59] LABS: SQUAMOUS EPITHIAL 4 /hpf (0-5); URINE BACTERIA RARE (<OCC); URINE BILIRUBIN NEGATIVE (NEGATIVE); URINE BLOOD 2+ (NEGATIVE); URINE CLARITY Hazy (Clear); URINE COLOR Yellow (YELLOW); URINE GLUCOSE (UA) NORMAL (Normal); URINE NITRATE NEGATIVE (NEGATIVE); URINE PROTEIN 1+ mg/dL (NEGATIVE); URINE UROBILINOGEN NORMAL mg/dL (0.2-1.0)
[2017-10-26 18:10] LABS: URINE LEUKOCYTE ESTERASE 3+ Leu/uL (Negative)
[2017-10-26] MEDS ORDERED: Promethazine DM 6.25 mg-15 mg/5 ml Syrup PO PRN (20:37)
[2017-10-27] MEDS: Oxycodone/Acetaminophen 5/325 mg Tab PO PRN ×3 (05:27→22:15)
[2017-10-27] MEDS ORDERED: Propofol 10 mg/ml Inj (20 ML) ONE (08:10)
[2017-10-27] MEDS ORDERED: Morphine 1 mg/ml preservative-free Inj(Duramorph) ONE (08:48)
[2017-10-27] MEDS ORDERED: Lactated Ringer's 1,000 ML IV ONE ×3 (08:55→12:12)
[2017-10-27] MEDS ORDERED: Midazolam 2 MG/2 ML VIAL ONE (08:56)
[2017-10-27] MEDS ORDERED: Clindamycin 600mg/50ml NS 600 MG/50 ML BAG IVPB ONE (08:57)
[2017-10-27] MEDS ORDERED: Bacitracin 150,000 UNIT in Sodium Chloride 0.9% Irrig 3,000 ML IR SCH (09:00)
[2017-10-27] MEDS: Pantoprazole 40 mg EC Tab PO SCH (10:39)
[2017-10-27] MEDS: Carbidopa/Levodopa 25/250 PO SCH ×3 (10:39→17:22)
[2017-10-27 10:57] LABS: HEMOGLOBIN 10.9 g/dL (11.0-16.0); MEAN CELL VOLUME 90.3 fL (81.0-99.0); MEAN CORPUSCULAR HEMOGLOBIN 29.5 pg (27.0-31.0); MEAN CORPUSCULAR HGB CONC 32.7 g/dL (33.0-37.0); MEAN PLATELET VOLUME 8.2 fL (7.2-11.7); RBC 3.7 Mil/uL (3.80-5.20); WHITE BLOOD COUNT 9.2 K/uL (4.8-10.8)
[2017-10-27] MEDS ORDERED: Rocuronium 10 mg/ml (10 ml) ONE (11:31)
[2017-10-27] MEDS ORDERED: Phenylephrine 10 mg/ml Inj ONE (11:31)
[2017-10-27] MEDS ORDERED: Bacitracin 500 Units/gm Oint Foilpak UD ONE (11:48)
[2017-10-27] MEDS ORDERED: ceFAZolin IV 1 gm in Dextrose 50 ML IVPB SCH (12:15)
[2017-10-27] MEDS ORDERED: HYDROmorphone 0.5 mg/0.5 ml ISec IVP PRN (12:17)
--- NOTE | 2017-10-27 13:51 | RAD ---
PROCEDURE: Right Hip Radiographs. HISTORY: s/p revision THR COMPARISON: 10/25/2017 FINDINGS: BONES: No acute fracture. JOINTS: Status post revision right total hip replacement. Femoral head component normally situated in the acetabular cup. SOFT TISSUES: Expected postoperative changes OTHER FINDINGS: None. IMPRESSION: Right THR
[2017-10-27] MEDS ORDERED: Clindamycin 300 MG in Sodium Chloride 0.9% 50 ML IVPB SCH (14:00)
[2017-10-27 14:05] VITALS: RESP 20
--- NOTE | 2017-10-27 14:49 | CP.PCM.PN ---
Subjective - Date & Time of Evaluation Date of Evaluation: 10/27/17 Time of Evaluation: 14:43 - Subjective Subjective: CHIEF COMPLAINTS TODAY : R. HIP CLOSED REDUCTION ROS. HEENT : N. Resp : No cough, wheezing ,pleuritic CP ,or hemoptysis Cardio : No anginal CP, PND, orthopnea, palpitation GI : No abd.pain, n/v ,diarrhea or GI bleeding . 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 Musculoskel : No joint swelling , R. HIP PAIN Derm : No rash Psych : Normal affect. Ext : No swelling ,calf pain PE. Pt. is alert awake in no distress. V.S As noted in the chart Head ,ear nose,throat and eyes : Normal. Neck : Supple with normal carotids. Lungs: Clear air entry. Heart : S1 & S2 normal with S4. No murmur. Abd : Soft non tender with normal bowel sounds. Neuro : Moves all ext. with no localized deficit. Ext : No edema with intact pulses.Non tender calves R. HIP POST OP Derm : No rashes or decubitus ulcer. LABS/RADIOLOGY: ASSESSMENT/PLAN : CONT POST OP ORDERS Objective - Vital Signs/Intake and Output Vital Signs (last 24 hours): Temp Pulse Resp BP Pulse Ox 98.7 F 57 L 20 121/61 96 10/27/17 14:03 10/27/17 14:03 10/27/17 14:03 10/27/17 14:03 10/27/17 14:03 Intake and Output: 10/27/17 10/27/17 11:59 23:59 Output Total 300 Balance -300 - Medications Medications: Current Medications Amlodipine Besylate (Norvasc) 10 mg PO DAILY [facility] Last Admin: 10/27/17 10:39 Dose: Not Given Carbidopa/Levodopa (Sinemet) 1 tab PO TID [facility] Last Admin: 10/27/17 13:21 Dose: Not Given Docusate Sodium (Colace) 100 mg PO TID [facility] Last Admin: 10/27/17 13:20 Dose: Not Given Enoxaparin Sodium (Lovenox) 40 mg SC DAILY [facility] Last Admin: 10/26/17 12:07 Dose: Not Given Enoxaparin Sodium (Lovenox) 40 mg SC DAILY [facility] Clindamycin Phosphate 300 mg/ (Sodium Chloride) 52 mls @ 100 mls/hr IVPB Q6H [facility] Stop: 10/27/17 20:32 Levetiracetam (Keppra) 750 mg PO BID [facility] Last Admin: 10/27/17 10:38 Dose: Not Given Metoprolol Tartrate (Lopressor) 25 mg PO BID [facility] Last Admin: 10/27/17 10:38 Dose: Not Given Oxycodone/Acetaminophen (Percocet 5/325 Mg Tab) 1 tab PO Q4H PRN PRN Reason: Pain, moderate (4-7) Stop: 10/28/17 23:57 Last Admin: 10/27/17 05:27 Dose: 1 tab Pantoprazole Sodium (Protonix Ec Tab) 40 mg PO DAILY [facility] Last Admin: 10/27/17 10:39 Dose: Not Given Promethazine HCl/Dextromethorphan (Phenergan Dm Syrup) 5 ml PO TID PRN PRN Reason: Cough Zolpidem Tartrate (Ambien) 5 mg PO HS PRN PRN Reason: Insomnia Last Admin: 10/26/17 22:36 Dose: 5 mg - Labs Labs: 10/27/17 10:49 10/26/17 00:58 PT 12.1 SECONDS (9.7-12.2) 10/26/17 00:58 INR 1.1 10/26/17 00:58 APTT 30 SECONDS (21-34) 10/26/17 00:58
[2017-10-27 15:29] LABS: FLUID TYPE SYNOVIAL FLUID
[2017-10-27 16:54] LABS: SF GROSS APPEARANCE BLOODY (CLEAR)
[2017-10-27 17:12] LABS: SYNOVIAL FLUID MONO/MACROPHAGE 7 % (0-0)
[2017-10-27] MEDS: Clindamycin 300 MG in Sodium Chloride 0.9% 50 ML IVPB SCH ×2 (17:18→22:09)
--- NOTE | 2017-10-28 00:09 | CARD ---
APPROVED REPORT EKG Measurement Heart [id number] MS [id number] <Conclusion> Normal sinus rhythm Septal infarct, age undetermined Abnormal ECG
[2017-10-28] MEDS: Oxycodone/Acetaminophen 5/325 mg Tab PO PRN ×4 (04:34→17:33)
--- NOTE | 2017-10-28 08:51 | RAD ---
PROCEDURE: Intraoperative fluoroscopy HISTORY: DISLOCATED RT. HIP COMPARISON: Not available TECHNIQUE: Intraoperative fluoroscopy was provided for reduction of right hip dislocation. . Total time of fluoroscopy was 23.9 seconds. FINDINGS: Multiple fluoroscopic spot films are submitted. IMPRESSION: Fluoroscopy provided
[2017-10-28] MEDS: Pantoprazole 40 mg EC Tab PO SCH (09:14)
[2017-10-28] MEDS: Carbidopa/Levodopa 25/250 PO SCH ×3 (09:18→17:33)
[2017-10-28] MEDS: Enoxaparin 40 mg Syringe SC SCH (09:19)
--- NOTE | 2017-10-28 12:17 | CP.PCM.PN ---
Subjective - Date & Time of Evaluation Date of Evaluation: 10/28/17 Time of Evaluation: 12:16 - Subjective Subjective: CHIEF COMPLAINTS TODAY : R. HIP REVISION ROS. HEENT : N. Resp : No cough, wheezing ,pleuritic CP ,or hemoptysis Cardio : No anginal CP, PND, orthopnea, palpitation GI : No abd.pain, n/v ,diarrhea or GI bleeding . 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 Musculoskel : No joint swelling , R. HIP PAIN Derm : No rash Psych : Normal affect. Ext : No swelling ,calf pain PE. Pt. is alert awake in no distress. V.S As noted in the chart Head ,ear nose,throat and eyes : Normal. Neck : Supple with normal carotids. Lungs: Clear air entry. Heart : S1 & S2 normal with S4. No murmur. Abd : Soft non tender with normal bowel sounds. Neuro : Moves all ext. with no localized deficit. Ext : No edema with intact pulses.Non tender calves R. HIP POST OP Derm : No rashes or decubitus ulcer. LABS/RADIOLOGY: ASSESSMENT/PLAN : CONT POST OP ORDERS Objective - Vital Signs/Intake and Output Vital Signs (last 24 hours): Temp Pulse Resp BP Pulse Ox 98.8 F 88 20 123/71 95 10/28/17 07:50 10/28/17 07:50 10/28/17 07:50 10/28/17 09:13 10/28/17 07:50 Intake and Output: 10/28/17 10/28/17 11:59 23:59 Output Total 375 Balance -375 - Medications Medications: Current Medications Amlodipine Besylate (Norvasc) 10 mg PO DAILY [facility] Last Admin: 10/28/17 11:34 Dose: 10 mg Carbidopa/Levodopa (Sinemet) 1 tab PO TID [facility] Last Admin: 10/28/17 09:18 Dose: 1 tab Docusate Sodium (Colace) 100 mg PO TID [facility] Last Admin: 10/28/17 09:13 Dose: 100 mg Enoxaparin Sodium (Lovenox) 40 mg SC DAILY [facility] Last Admin: 10/26/17 12:07 Dose: Not Given Enoxaparin Sodium (Lovenox) 40 mg SC DAILY [facility] Last Admin: 10/28/17 09:19 Dose: 40 mg Levetiracetam (Keppra) 750 mg PO BID [facility] Last Admin: 10/28/17 09:14 Dose: 750 mg Metoprolol Tartrate (Lopressor) 25 mg PO BID [facility] Last Admin: 10/28/17 09:13 Dose: 25 mg Oxycodone/Acetaminophen (Percocet 5/325 Mg Tab) 1 tab PO Q4H PRN PRN Reason: Pain, moderate (4-7) Stop: 10/28/17 23:57 Last Admin: 10/28/17 08:45 Dose: 1 tab Pantoprazole Sodium (Protonix Ec Tab) 40 mg PO DAILY [facility] Last Admin: 10/28/17 09:14 Dose: 40 mg Promethazine HCl/Dextromethorphan (Phenergan Dm Syrup) 5 ml PO TID PRN PRN Reason: Cough Zolpidem Tartrate (Ambien) 5 mg PO HS PRN PRN Reason: Insomnia Last Admin: 10/26/17 22:36 Dose: 5 mg - Labs Labs: 10/27/17 10:49 10/26/17 00:58 PT 12.1 SECONDS (9.7-12.2) 10/26/17 00:58 INR 1.1 10/26/17 00:58 APTT 30 SECONDS (21-34) 10/26/17 00:58
[2017-10-29] MEDS: Oxycodone/Acetaminophen 5/325 mg Tab PO PRN ×4 (00:22→18:48)
[2017-10-29] MEDS ORDERED: Oxycodone/Acetaminophen 5/325 mg Tab PO STA (04:39)
[2017-10-29] MEDS: Pantoprazole 40 mg EC Tab PO SCH (09:57)
[2017-10-29] MEDS: Carbidopa/Levodopa 25/250 PO SCH ×3 (09:57→18:05)
[2017-10-29] MEDS: Enoxaparin 40 mg Syringe SC SCH (10:00)
--- NOTE | 2017-10-29 13:22 | CP.PCM.PN ---
Subjective - Date & Time of Evaluation Date of Evaluation: 10/29/17 Time of Evaluation: 13:22 - Subjective Subjective: CHIEF COMPLAINTS TODAY : R. HIP REVISION ROS. HEENT : N. Resp : No cough, wheezing ,pleuritic CP ,or hemoptysis Cardio : No anginal CP, PND, orthopnea, palpitation GI : No abd.pain, n/v ,diarrhea or GI bleeding . 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 Musculoskel : No joint swelling , R. HIP PAIN Derm : No rash Psych : Normal affect. Ext : No swelling ,calf pain PE. Pt. is alert awake in no distress. V.S As noted in the chart Head ,ear nose,throat and eyes : Normal. Neck : Supple with normal carotids. Lungs: Clear air entry. Heart : S1 & S2 normal with S4. No murmur. Abd : Soft non tender with normal bowel sounds. Neuro : Moves all ext. with no localized deficit. Ext : No edema with intact pulses.Non tender calves R. HIP POST OP Derm : No rashes or decubitus ulcer. LABS/RADIOLOGY: ASSESSMENT/PLAN : CONT POST OP ORDERS RETURN TO [facility] Objective - Vital Signs/Intake and Output Vital Signs (last 24 hours): Temp Pulse Resp BP Pulse Ox 98.8 F 100 H 20 143/66 96 10/29/17 08:42 10/29/17 08:42 10/29/17 08:42 10/29/17 09:57 10/29/17 08:42 Intake and Output: 10/29/17 10/29/17 11:59 23:59 Output Total 550 Balance -550 - Medications Medications: Current Medications Amlodipine Besylate (Norvasc) 10 mg PO DAILY [facility] Last Admin: 10/29/17 09:57 Dose: 10 mg Carbidopa/Levodopa (Sinemet) 1 tab PO TID [facility] Last Admin: 10/29/17 09:57 Dose: 1 tab Docusate Sodium (Colace) 100 mg PO TID [facility] Last Admin: 10/29/17 09:57 Dose: 100 mg Enoxaparin Sodium (Lovenox) 40 mg SC DAILY [facility] Last Admin: 10/26/17 12:07 Dose: Not Given Enoxaparin Sodium (Lovenox) 40 mg SC DAILY [facility] Last Admin: 10/29/17 10:00 Dose: 40 mg Levetiracetam (Keppra) 750 mg PO BID [facility] Last Admin: 10/29/17 09:58 Dose: 750 mg Metoprolol Tartrate (Lopressor) 25 mg PO BID [facility] Last Admin: 10/29/17 09:57 Dose: 25 mg Oxycodone/Acetaminophen (Percocet 5/325 Mg Tab) 1 tab PO Q4H PRN PRN Reason: Pain, moderate (4-7) Stop: 11/01/17 09:01 Last Admin: 10/29/17 09:57 Dose: 1 tab Pantoprazole Sodium (Protonix Ec Tab) 40 mg PO DAILY [facility] Last Admin: 10/29/17 09:57 Dose: 40 mg Promethazine HCl/Dextromethorphan (Phenergan Dm Syrup) 5 ml PO TID PRN PRN Reason: Cough Zolpidem Tartrate (Ambien) 5 mg PO HS PRN PRN Reason: Insomnia Last Admin: 10/26/17 22:36 Dose: 5 mg - Labs Labs: 10/27/17 10:49 10/26/17 00:58 PT 12.1 SECONDS (9.7-12.2) 10/26/17 00:58 INR 1.1 10/26/17 00:58 APTT 30 SECONDS (21-34) 10/26/17 00:58
--- NOTE | 2017-10-29 14:42 | CP.PCM.PN ---
Subjective - Date & Time of Evaluation Date of Evaluation: 10/29/17 Time of Evaluation: 14:40 - Subjective Subjective: Patient states pain is well controlled in hip, much better now that hip is back in place. Denies numbness/tingling (new tingling, she has some baseline numbness in foot due to back injury per patient). Objective - Vital Signs/Intake and Output Vital Signs (last 24 hours): Temp Pulse Resp BP Pulse Ox 98.8 F 100 H 20 143/66 96 10/29/17 08:42 10/29/17 08:42 10/29/17 08:42 10/29/17 09:57 10/29/17 08:42 Intake and Output: 10/29/17 10/29/17 06:59 18:59 Intake Total 480 250 Output Total 1150 200 Balance -670 50 - Medications Medications: Current Medications Amlodipine Besylate (Norvasc) 10 mg PO DAILY [facility] Last Admin: 10/29/17 09:57 Dose: 10 mg Carbidopa/Levodopa (Sinemet) 1 tab PO TID [facility] Last Admin: 10/29/17 13:39 Dose: 1 tab Docusate Sodium (Colace) 100 mg PO TID [facility] Last Admin: 10/29/17 13:39 Dose: 100 mg Enoxaparin Sodium (Lovenox) 40 mg SC DAILY [facility] Last Admin: 10/26/17 12:07 Dose: Not Given Enoxaparin Sodium (Lovenox) 40 mg SC DAILY [facility] Last Admin: 10/29/17 10:00 Dose: 40 mg Levetiracetam (Keppra) 750 mg PO BID [facility] Last Admin: 10/29/17 09:58 Dose: 750 mg Metoprolol Tartrate (Lopressor) 25 mg PO BID [facility] Last Admin: 10/29/17 09:57 Dose: 25 mg Oxycodone/Acetaminophen (Percocet 5/325 Mg Tab) 1 tab PO Q4H PRN PRN Reason: Pain, moderate (4-7) Stop: 11/01/17 09:01 Last Admin: 10/29/17 09:57 Dose: 1 tab Pantoprazole Sodium (Protonix Ec Tab) 40 mg PO DAILY [facility] Last Admin: 10/29/17 09:57 Dose: 40 mg Promethazine HCl/Dextromethorphan (Phenergan Dm Syrup) 5 ml PO TID PRN PRN Reason: Cough Zolpidem Tartrate (Ambien) 5 mg PO HS PRN PRN Reason: Insomnia Last Admin: 10/26/17 22:36 Dose: 5 mg - Labs Labs: 10/27/17 10:49 10/26/17 00:58 PT 12.1 SECONDS (9.7-12.2) 10/26/17 00:58 INR 1.1 10/26/17 00:58 APTT 30 SECONDS (21-34) 10/26/17 00:58 - Extremities Exam Additional comments: right hip: dressing changed. Incision intact, dry, no erythema, mild swelling to thigh, soft. +ROM ankle/toes, sensation intact, calves soft NT neg homans Assessment and Plan (1) Dislocation of hip joint prosthesis Assessment & Plan: POD#2 s/p open reduction of dislocation -ortho stable for d/c to rehab hip abduction pillow in bed PWB dressing change daily f/u Dr. Mendosa 7-10 days call for appointment VTE proph d/w Dr. Mendosa, agrees with above Status: Acute
--- NOTE | 2017-10-29 15:56 | CP.PCM.PN ---
Subjective - Date & Time of Evaluation Date of Evaluation: 10/29/17 Time of Evaluation: 15:55 - Subjective Subjective: PT SEEN AND CLEARED BY ORTHO. FOR F/U WITH ORTHO INTHE OFFICE IN 7-[address] JOHNSON TO D/C TODAY TO [facility]. DR. JOHNSON TO FOLLOW PT THERE. PT'S SON ALREADY WAITING FOR HER AT [facility]. SW TO ARRANGE TRANSPORTATION. NO FURTHER ORDERS. Objective - Vital Signs/Intake and Output Vital Signs (last 24 hours): Temp Pulse Resp BP Pulse Ox 98.8 F 100 H 20 143/66 96 10/29/17 08:42 10/29/17 08:42 10/29/17 08:42 10/29/17 09:57 10/29/17 08:42 Intake and Output: 10/29/17 10/29/17 06:59 18:59 Intake Total 480 250 Output Total 1150 200 Balance -670 50 - Medications Medications: Current Medications Amlodipine Besylate (Norvasc) 10 mg PO DAILY [facility] Last Admin: 10/29/17 09:57 Dose: 10 mg Carbidopa/Levodopa (Sinemet) 1 tab PO TID [facility] Last Admin: 10/29/17 13:39 Dose: 1 tab Docusate Sodium (Colace) 100 mg PO TID [facility] Last Admin: 10/29/17 13:39 Dose: 100 mg Enoxaparin Sodium (Lovenox) 40 mg SC DAILY [facility] Last Admin: 10/26/17 12:07 Dose: Not Given Enoxaparin Sodium (Lovenox) 40 mg SC DAILY [facility] Last Admin: 10/29/17 10:00 Dose: 40 mg Levetiracetam (Keppra) 750 mg PO BID [facility] Last Admin: 10/29/17 09:58 Dose: 750 mg Metoprolol Tartrate (Lopressor) 25 mg PO BID [facility] Last Admin: 10/29/17 09:57 Dose: 25 mg Oxycodone/Acetaminophen (Percocet 5/325 Mg Tab) 1 tab PO Q4H PRN PRN Reason: Pain, moderate (4-7) Stop: 11/01/17 09:01 Last Admin: 10/29/17 14:52 Dose: 1 tab Pantoprazole Sodium (Protonix Ec Tab) 40 mg PO DAILY [facility] Last Admin: 10/29/17 09:57 Dose: 40 mg Promethazine HCl/Dextromethorphan (Phenergan Dm Syrup) 5 ml PO TID PRN PRN Reason: Cough Zolpidem Tartrate (Ambien) 5 mg PO HS PRN PRN Reason: Insomnia Last Admin: 10/26/17 22:36 Dose: 5 mg - Labs Labs: 10/27/17 10:49 10/26/17 00:58 PT 12.1 SECONDS (9.7-12.2) 10/26/17 00:58 INR 1.1 10/26/17 00:58 APTT 30 SECONDS (21-34) 10/26/17 00:58
[2017-10-29 16:57] VITALS: PULSE 90; TEMP 98.3; O2SAT 95
--- NOTE | 2017-10-29 17:41 | PCM.SURG1 ---
Surgeon's Initial Post Op Note - Surgeon's Notes Surgeon: Navya Search Consultant: Sam.podiatry resident 1/ D JULIO Alexander Type of Anesthesia: General Endo, Spinal Anesthesia Administered By: DR Cesario Noel Pre-Operative Diagnosis: Dislocated R THR-pt responsibility in event in Nursing facility Operative Findings: as above Post-Operative Diagnosis: as above Operation Performed: Revision THR- 1 component. open reduction dislocated R THR. athrotomy/excision scar. release ilioposas tendon. excsionm skin, subcutaneous tissue and muscle Specimen/Specimens Removed: femoral head/scar/skin/subcutaneous tissue/muscle Estimated Blood Loss: EBL {In ML}: 125 Blood Products Given: N/A Drains Used: No Drains Post-Op Condition: Good Date of Surgery/Procedure: 10/27/17 Time of Surgery/Procedure: 09:55
[2017-10-29 18:05] VITALS: BP 110/64
--- NOTE | 2017-10-30 13:42 | CP.PCM.DIS ---
Provider - Provider Date of Admission: 10/26/17 00:03 Attending physician: Jann Morfin MD Time Spent in preparation of Discharge (in minutes): 35 Hospital Course - Lab Results Lab Results: Micro Results 10/27/17 19:00 Hip - Right Gram Stain - Final 10/27/17 19:00 Hip - Right Wound Culture - Preliminary No growth. 10/27/17 19:00 Hip - Right Gram Stain - Final 10/27/17 19:00 Hip - Right Wound Culture - Preliminary No growth. 10/27/17 19:00 Hip - Right Gram Stain - Final 10/27/17 19:00 Hip - Right Wound Culture - Preliminary No growth. 10/27/17 19:00 Hip - Right Gram Stain - Final 10/27/17 19:00 Hip - Right Wound Culture - Preliminary No growth. 10/27/17 19:00 Hip - Right Gram Stain - Final 10/27/17 19:00 Hip - Right Wound Culture - Preliminary No growth. 10/27/17 19:00 Hip - Right Gram Stain - Final 10/27/17 19:00 Hip - Right Wound Culture - Preliminary No growth. 10/27/17 19:00 Hip - Right Gram Stain - Final 10/27/17 19:00 Hip - Right Wound Culture - Preliminary No growth. 10/27/17 19:00 Body Fluid - Hip-Right Gram Stain - Final 10/27/17 19:00 Body Fluid - Hip-Right Body Fluid Culture - Preliminary NO GROWTH AFTER 3 DAYS 10/29/17 Unknown Other: Please Indicate Gram Stain - Final Most Recent Lab Values WBC 9.2 K/uL (4.8-10.8) 10/27/17 10:49 RBC 3.70 Mil/uL (3.80-5.20) L 10/27/17 10:49 Hgb 10.9 g/dL (11.0-16.0) L 10/27/17 10:49 Hct 33.4 % (34.0-47.0) L 10/27/17 10:49 MCV 90.3 fL (81.0-99.0) 10/27/17 10:49 MCH 29.5 pg (27.0-31.0) 10/27/17 10:49 MCHC 32.7 g/dL (33.0-37.0) L 10/27/17 10:49 RDW 16.0 % (11.5-14.5) H 10/27/17 10:49 Plt Count 272 K/uL (130-400) 10/27/17 10:49 MPV 8.2 fL (7.2-11.7) 10/27/17 10:49 Neut % (Auto) 69.5 % (50.0-75.0) 10/26/17 00:58 Lymph % (Auto) 20.1 % (20.0-40.0) 10/26/17 00:58 [place] % (Auto) 9.2 % (0.0-10.0) 10/26/17 00:58 Eos % (Auto) 0.6 % (0.0-4.0) 10/26/17 00:58 Baso % (Auto) 0.6 % (0.0-2.0) 10/26/17 00:58 Neut # 6.7 K/uL (1.8-7.0) 10/26/17 00:58 Lymph # 1.9 K/uL (1.0-4.3) 10/26/17 00:58 [place] # 0.9 K/uL (0.0-0.8) H 10/26/17 00:58 Eos # 0.1 K/uL (0.0-0.7) 10/26/17 00:58 Baso # 0.1 K/uL (0.0-0.2) 10/26/17 00:58 PT 12.1 SECONDS (9.7-12.2) 10/26/17 00:58 INR 1.1 10/26/17 00:58 APTT 30 SECONDS (21-34) 10/26/17 00:58 Sodium 135 mmol/L (132-148) 10/26/17 00:58 Potassium 3.8 mmol/L (3.6-5.2) 10/26/17 00:58 Chloride 103 mmol/L (98-107) 10/26/17 00:58 Carbon Dioxide 28 mmol/L (22-30) 10/26/17 00:58 Anion Gap 9 (10-20) L 10/26/17 00:58 BUN 22 mg/dL (7-17) H 10/26/17 00:58 Creatinine 0.6 mg/dL (0.7-1.2) L 10/26/17 00:58 Est GFR ( Amer) > 60 10/26/17 00:58 Est GFR (Non-Af Amer) > 60 10/26/17 00:58 Random Glucose 97 mg/dL (65-105) 10/26/17 00:58 Calcium 9.1 mg/dl (8.6-10.4) 10/26/17 00:58 Total Bilirubin 0.4 mg/dL (0.2-1.3) 10/26/17 00:58 AST 13 U/L (14-36) L D 10/26/17 00:58 ALT 12 U/L (9-52) 10/26/17 00:58 Alkaline Phosphatase 81 U/L (38-126) 10/26/17 00:58 Total Protein 6.1 g/dL (6.3-8.3) L 10/26/17 00:58 Albumin 3.5 g/dL (3.5-5.0) D 10/26/17 00:58 Globulin 2.6 gm/dL (2.2-3.9) 10/26/17 00:58 Albumin/Globulin Ratio 1.3 (1.0-2.1) 10/26/17 00:58 Urine Color Yellow (YELLOW) 10/26/17 17:41 Urine Clarity Hazy (Clear) 10/26/17 17:41 Urine pH 7.0 (5.0-8.0) 10/26/17 17:41 Ur Specific [place] 1.016 (1.003-1.030) 10/26/17 17:41 Urine Protein 1+ mg/dL (NEGATIVE) H 10/26/17 17:41 Urine Glucose (UA) Normal mg/dL (Normal) 10/26/17 17:41 Urine Ketones Negative mg/dL (NEGATIVE) 10/26/17 17:41 Urine Blood 2+ (NEGATIVE) H 10/26/17 17:41 Urine Nitrate Negative (NEGATIVE) 10/26/17 17:41 Urine Bilirubin Negative (NEGATIVE) 10/26/17 17:41 Urine Urobilinogen Normal mg/dL (0.2-1.0) 10/26/17 17:41 Ur Leukocyte Esterase 3+ Luciano/uL (Negative) H 10/26/17 17:41 Urine WBC (Auto) 137 /hpf (0-5) H 10/26/17 17:41 Urine RBC (Auto) 21 /hpf (0-3) H 10/26/17 17:41 Ur Squamous Epith Cells 4 /hpf (0-5) 10/26/17 17:41 Urine Bacteria Rare (<OCC) 10/26/17 17:41 Urine Yeast (Budding) Rare /hpf (NEGATIVE) H 10/26/17 17:41 Fluid Type Synovial fluid 10/27/17 15:28 Synovial WBC 8.0 /mm3 (0.0-150.0) 10/27/17 15:28 Synovial RBC 62324.0 /mm3 (0.0-0.0) H 10/27/17 15:28 Synovial Neutrophils 86.0 % (0-0) H 10/27/17 15:28 Synovial Lymphocytes 7.0 % (0-0) H 10/27/17 15:28 Synov Monos/Macrophage 7 % (0-0) H 10/27/17 15:28 Synovial Fluid Comment TEST NOT PERFORMED 10/27/17 15:28 Blood Type O POSITIVE 10/27/17 08:26 Antibody Screen Negative 10/27/17 08:26 - Hospital Course Hospital Course: PT READMITTED WITH DISLOCATION OF R THR DONE RECENTLY AT CURRENTLY IN REHAB PT WAS PERFORMING WELL ON HER PT WITH NO COMPLAINTS ON THE DAY OF ADMISSION , PT. WAS TRYING TO GET BACK IN THE BED AND OVER TWISTED THE R HIP JOINT AND HEARD A 'POP;. ER PT HAD DISLOCATED HEAD OF PROSTHESIS FROM THE SOCKET PT IS ADMITTED FOR FURTHER SURGICAL CORRECTION PT WENT FOR REVISION OF RHIP PLACEMENT AND `NO ISSUES POST OP TRANSFERRED TO [facility] Discharge Plan - Discharge Medications Prescriptions: Ondansetron ODT [Zofran ODT] 4 mg PO Q6 PRN 30 Days odt PRN Reason: Nausea/Vomiting - Follow Up Plan Condition: STABLE Disposition: HOME/ ROUTINE Instructions: Pain Management After Surgery (DC), Hip Dislocation (GEN), Hip Abduction Pillow (DC) Additional Instructions: -PLACE UNDER THE SERVICE OF DR. MORFIN WHILE AT [facility]---CALL UPON ARRIVAL FOR ADMITTING ORDERS. -CONTINUE MEDICATIONS PER THE MED REC FORM. -PER ORTHOPEDICS: hip abduction pillow in bed Partial Weight bearing RLE dressing to right hip to be changed daily Please arrange for follow up appt with Dr. Mendosa in 7-10 days in the office, call for appointment and arrange transportation Continue VTE prophylaxis -PHYSICAL THERAPY TOLERATED. -HIGH RISK FOR FALLS! PLEASE MONITOR PT PER FACILITY PROTOCOL. -FOR FURTHER ORDERS, CONTACT DR. MORFIN'S OFFICE. Referrals: Cody Mendosa III, MD [Staff Provider] - Jann Morfin MD [Family Provider] -
--- NOTE | 2017-10-31 09:40 | OP ---
PROCEDURE DATE: 10/27/2017 PREOPERATIVE DIAGNOSES: Dislocated right total hip replacement because of no attention at the nursing facility. The patient got out of bed on her own, dislocated her hip on returning to bed. POSTOPERATIVE DIAGNOSIS: Dislocated stable right total hip replacement. PROCEDURE: 1. Revision total hip replacement, one component. 2. Arthrotomy, open reduction of the dislocated hip. 3. Arthrotomy, synovectomy. 4. Excision of skin and subcutaneous tissue and muscle. SURGEON: Cody Mendosa MD MAINFRAME SYSTEMS PROGRAMMER: Elisa Alexander, certified registered nursing family law legal assistant. TYPE OF ANESTHESIA: Spinal and general anesthesia. COMPLICATIONS: No complications. DRAINS: No drains. OPERATIVE INDICATIONS: Mee Noel is a woman who approximately 6 weeks ago underwent successful total hip replacement and arthroplasty. The patient was doing quite well and was seen in a postoperative visit, the hip was stable. The patient was having no pain. The patient got up while in the nursing facility in the middle of the night without supervision and tried to get back in bed, twisted the hip and violently dislocated. The patient presents to [facility]. Medical clearance was obtained from . The pros, cons, risks and benefits of the aforementioned procedure were discussed. Possibility of mechanical failure, infection, thromboembolic disease, secondary or tertiary surgery was discussed. The patient can no longer withstand the discomfort, wished the surgery to be accomplished. Possibility of secondary or tertiary surgery was discussed. DESCRIPTION OF PROCEDURE: After having obtained informed consent, after having identified side, site, and procedure and critical pause/time-out, after the satisfactory induction of the anesthetic, the patient identified as Mee Noel in the supine position with all bony prominence well padded. The patient was placed in the [facility] traction. Under the surgeon's direction, the fluoroscope was positioned, video images were generated, therapeutic decisions were made therefrom. After sterilely prepping and draping, after having identified the side, site and procedure, critical pause/time-out, the initial incision was extended one fingerbreadths proximally, two fingerbreadths distally. The skin incision was carried down through the skin and subcutaneous tissue and a bit of muscle and ellipse of skin was removed. The fascia was again identified. The fascia on the tensor fascia femoris was divided. The tensor fascia femoris was brought down. From the investing fascia, the Kristian Medacta retractor was placed. The posterior aspect of the rectus femoris was identified. The Medacta retractor was placed deeper in that plane. The fascia was again identified and the hip was found to be dislocated. The hip was button holed on muscle and scar from the total hip replacement. At this point, some arthrotomy and excision scar and some muscle was accomplished. The arthrotomy of the hip joint was accomplished. The hip was exposed. The head was removed and trialling was accomplished with the +3.5 head. This having been accomplished, it was decided that the revision will be accomplished to the standard head. The femoral component was revised with the aforementioned head. After thorough arthrotomy and debridement, release of the iliopsoas tendon, the hip was again reduced and found to be stable in all planes. The wound was thoroughly irrigated. Hemostasis controlled with the Aquamantys and with a FloSeal. The closure was in layers, 0 Quill for the facia. On the tensor fascia femoris, 0 Quill. [place] for skin. Compression dressing was applied and again verification of position was offered on image intensification views and confirmed postoperatively with excellent position of the reduction and revision. OPERATIVE PROCEDURE: 1. Revision, total hip replacement, one component. 2. Arthrotomy, excision scar. 3. Open reduction of the dislocated hip replacement. 4. Release of iliopsoas tendon. 5. Excision of skin and subcutaneous tissue and muscle. SECOND ORIENTAL MEDICINE PRACTITIONER: Sam podiatric resident. Cody Mendosa MD
== END 2017-10-29 20:45 | DRG 468 ==
LOC: C.ER 21:57 → C.9E 10-26 00:03 → C.6T 10-26 08:19
PROVIDERS: ADMIT Internal Medicine Cardiovascular Disease; ATTEND Internal Medicine Cardiovascular Disease
PROC: 0QS60ZZ Reposition Right Upper Femur, Open Approach (ICD-10-PCS; 2017-10-27)
PROC: 0SWR0JZ Revision of Synthetic Substitute in Right Hip Joint, Femoral Surface, Open Approach (ICD-10-PCS; principal; 2017-10-27 08:30)
DX: T84.020A Dislocation of internal right hip prosthesis, initial encounter (principal); G20 Parkinson's disease; I48.91 Unspecified atrial fibrillation; J44.9 Chronic obstructive pulmonary disease, unspecified; I10 Essential (primary) hypertension; Z90.49 Acquired absence of other specified parts of digestive tract; Y83.8 Other surgical procedures as the cause of abnormal reaction of the patient, or of later complication, without mention of misadventure at the time of the procedure; Z87.891 Personal history of nicotine dependence; M19.90 Unspecified osteoarthritis, unspecified site; F41.9 Anxiety disorder, unspecified

== ENCOUNTER 2017-11-13 18:34 | Inpatient (IN) | payer MEDICARE ==
[2017-11-13 18:34] VITALS: BMI 22.6
--- NOTE | 2017-11-13 19:23 | C.PDOC ---
History Of Present Illness 77 year old female presents to the ER with a complaint of palpitations. Patient states she felt like her heart was racing along with some chest heaviness. Patient is currently speaking in complete sentences; denies fever, chills, nausea, or vomiting. Time Seen by Provider: 11/13/17 19:22 Chief Complaint (Nursing): Palpitations History Per: Patient History/Exam Limitations: no limitations Onset/Duration Of Symptoms: Hrs Current Symptoms Are (Timing): Still Present Severity: Moderate Pain Scale Rating Of: 4 Quality: Other (Heaviness) Associated Symptoms: denies: Nausea, Dyspnea, Diaphoresis, Syncope Modifying Factors: None Exacerbating Factors: None Alleviating Factors: None Recent travel outside of the [place]: No Additional History Per: Patient Past Medical History Reviewed: Historical Data, Nursing Documentation, Vital Signs Vital Signs: Last Vital Signs Temp 97.9 F 11/13/17 18:38 Pulse 61 11/13/17 18:38 Resp 18 11/13/17 18:38 BP 135/69 11/13/17 18:38 Pulse Ox 97 11/13/17 19:36 - Medical History PMH: Anxiety, Arthritis, Atrial Fibrillation, Cardia Arrhythmia ("Fast" - unsure DX - had ablation), Fractures (Left hip fx repair 5 years ago), HTN, Parkinson's Disease (Resting Parkinson's), Pneumonia, Seizures Surgical History: Cholecystectomy (1996) - [facility] Procedures EXCISION OF STOMACH, ENDO, DIAGN (04/03/16) INSPECTION OF LOWER INTESTINAL TRACT, ENDO (04/03/16) RELEASE RIGHT HIP TENDON, OPEN APPROACH (08/28/17) REPLACEMENT OF R ACETABULUM WITH AUTOL SUB, OPEN APPROACH (08/28/17) REPOSITION RIGHT UPPER FEMUR WITH INT FIX, OPEN APPROACH (08/28/17) REPOSITION RIGHT UPPER FEMUR, OPEN APPROACH (10/26/17) REVISION OF SYNTH SUB IN R HIP JT, FEMORAL, OPEN APPROACH (10/26/17) SUPPLEMENT RIGHT HIP JOINT WITH RESURF DEV, OPEN APPROACH (08/28/17) TRANSFUSE NONAUT RED BLOOD CELLS IN PERIPH VEIN, PERC (08/28/17) Family History: States: Unknown Family Hx - Social History Hx Tobacco Use: No Hx Alcohol Use: No Hx Substance Use: No - Immunization History Hx Tetanus Toxoid Vaccination: Yes Hx Influenza Vaccination: Yes Hx Pneumococcal Vaccination: Yes (2014) Review Of Systems Constitutional: Negative for: Fever, Chills Eyes: Negative for: Redness ENT: Negative for: Throat Pain Cardiovascular: Positive for: Chest Pain (Heaviness), Palpitations Respiratory: Negative for: Shortness of Breath Gastrointestinal: Negative for: Nausea, Vomiting Genitourinary: Negative for: Dysuria Musculoskeletal: Negative for: Back Pain Skin: Negative for: Rash Neurological: Negative for: Weakness Psych: Negative for: Anxiety Physical Exam - Physical Exam Appears: Non-toxic, No Acute Distress Skin: Warm, Dry Head: Normacephalic Eye(s): bilateral: Normal Inspection Oral Mucosa: Moist Neck: Supple Chest: Symmetrical, No Tenderness Cardiovascular: Rhythm Regular Respiratory: No Rales, No Rhonchi, No Wheezing Gastrointestinal/Abdominal: Soft, No Tenderness Back: Normal Inspection Extremity: No Tenderness Extremity: Bilateral: Atraumatic Pulses: Left Dorsalis Pedis: Normal, Right Dorsalis Pedis: Normal Neurological/Psych: Oriented x3 Gait: Unable To Assess ED Course And Treatment - Laboratory Results Result Diagrams: 11/13/17 19:29 11/13/17 19:29 ECG: Interpreted By Me, Viewed By Me ECG Rhythm: Sinus Rhythm (62), Nonspecific Changes O2 Sat by Pulse Oximetry: 97 (Room air) Pulse Ox Interpretation: Normal - Radiology CXR: Interpreted by Me, Viewed By Me Progress Note: EKG, blood work, CXR, and urinalysis ordered. Disposition Discussed With : Jann Morfin Comment: accepted the pt on his service and took over the care at 8:49 pM Doctor Will See Patient In The: Hospital Counseled Patient/Family Regarding: Studies Performed, Diagnosis - Disposition Disposition: HOSPITALIZED Disposition Time: 19:23 Condition: FAIR Forms: [facility] (Tanzanian) - POA Present On Arrival: Poor Glycemic Control - Clinical Impression Clinical Impression: Anemia, Palpitations, Chest pain - Scribe Statement The provider has reviewed the documentation as recorded by the Scribe Amos Clifton All medical record entries made by the Scribe were at my direction and personally dictated by me. I have reviewed the chart and agree that the record accurately reflects my personal performance of the history, physical exam, medical decision making, and the department course for this patient. I have also personally directed, reviewed, and agree with the discharge instructions and disposition. Decision To Admit - Pt Status Changed To: Hospital Disposition Of: Inpatient - Admit Certification Admit to Inpatient:: After my assessment, the patient will require hospitalization for at least two midnights. This is because of the severity of symptoms shown, intensity of services needed, and/or the medical risk in this patient being treated as an outpatient. - InPatient: Physician Admission Certification: I certify that this patient requires 2 or more midnights of care for the following reason:: After my assessment, the patient will require hospitalization for at least two midnights. This is because of the severity of symptoms shown, intensity of services needed, and/or the medical risk in this patient being treated as an outpatient. - . Bed Request Type: Telemetry Admitting Physician: Jann Morfin Patient Diagnosis: Anemia, Palpitations, Chest pain
[2017-11-13 19:34] LABS: BASO # 0.1 K/uL (0.0-0.2); BASO % 0.8 % (0.0-2.0); EOS # 0.1 K/uL (0.0-0.7); EOS % 0.9 % (0.0-4.0); HEMOGLOBIN 9.8 g/dL (11.0-16.0); LYMPH # 1.6 K/uL (1.0-4.3); LYMPH % 20.9 % (20.0-40.0); MEAN CORPUSCULAR HEMOGLOBIN 28.5 pg (27.0-31.0); MEAN CORPUSCULAR HGB CONC 32.7 g/dL (33.0-37.0); MEAN PLATELET VOLUME 6.9 fL (7.2-11.7); MONO # 0.8 K/uL (0.0-0.8); MONO % 10.1 % (0.0-10.0); NEUT # 5.2 K/uL (1.8-7.0); NEUT % 67.3 % (50.0-75.0); RBC 3.44 Mil/uL (3.80-5.20); RED CELL DISTRIBUTION WIDTH 16.4 % (11.5-14.5); WHITE BLOOD COUNT 7.8 K/uL (4.8-10.8)
[2017-11-13 19:37] LABS: MEAN CELL VOLUME 87.2 fL (81.0-99.0)
[2017-11-13 19:43] LABS: INR 1.1; PROTHROMBIN TIME 12.5 SECONDS (9.7-12.2)
[2017-11-13 20:06] LABS: ALB/GLOB RATIO 1.1 (1.0-2.1); ALBUMIN 3.5 g/dL (3.5-5.0); ALT/SGPT 13 U/L (9-52); AST/SGOT 16 U/L (14-36); BLOOD UREA NITROGEN 15 mg/dL (7-17); CALCIUM 8.9 mg/dl (8.6-10.4); GFR AFRICAN-AMERICAN > 60; GFR NON-AFRICAN AMERICAN > 60
[2017-11-13] MEDS ORDERED: Magnesium Hydroxide Susp 30 ml UD PO PRN (21:01)
[2017-11-13] MEDS ORDERED: ACETAMINOPHEN 500 MG PO PRN (21:01)
[2017-11-13] MEDS ORDERED: LEVETIRACETAM 750 MG PO SCH (21:15)
[2017-11-13] MEDS ORDERED: Home Med 1 UNIT (Melatonin [Melatonin] 3 MG) PO SCH (22:00)
[2017-11-13 22:07] LABS: SQUAMOUS EPITHIAL 1 /hpf (0-5); URINE BILIRUBIN NEGATIVE (NEGATIVE); URINE BLOOD 1+ (NEGATIVE); URINE CLARITY Hazy (Clear); URINE COLOR Yellow (YELLOW); URINE GLUCOSE (UA) NORMAL (Normal); URINE LEUKOCYTE ESTERASE 2+ Leu/uL (Negative); URINE NITRATE POSITIVE (NEGATIVE); URINE PROTEIN NEGATIVE (NEGATIVE); URINE UROBILINOGEN NORMAL mg/dL (0.2-1.0)
--- NOTE | 2017-11-13 22:48 | CP.PCM.HP ---
History of Present Illness - History of Present Illness History of Present Illness: COMPREHENSIVE HISTORY & PHYSICAL EXAM HPI PT IS A RESIDENT AT [facility] FOR RECENT SURGERY FOR DISPLACED LEFT HIP PROSTHESIS , DEVELOPED PALPITATION AND CHEST PRESSURE . PT WAS EVALUATED IN ER AND ADMITTED FOR FURTHER W/U PAST HIST. LEFT HIP PROSTHESIS T2DM/ASHD/PARKINSON DISEASE PERSONAL HIST: Smoking. N Alcohol. N Allergy N Travel_- . FAMILY HIST : ROS : Constitutional: Negative for weight change, chills, night sweats, fatigue and usage of assist device. Eyes: Negative for redness, swelling, itching, discharge, vision changes, blurry vision, double vision, glaucoma, cataracts, Ears: Negative for hearing loss, ringing, , tinnitus, vertigo Nose: Negative for rhinorrhea, stuffiness, sniffing, itching, postnasal drip, discoloration, nasal congestion and epistaxis. Throat: Negative for throat clearing, sore throat, hoarseness, difficulty swallowing and difficulty speaking. Respiratory: Negative for cough, chest tightness, sputum or phlegm, chronic cough, hemoptysis, wheezing, snoring at night, pleuritic chest pain and daytime somnolence. Cardiovascular: Negative forEdema of legs, leg cramps, angina, claudication, , irregular heartbeat, Neurology: Negative for irritability, muscle weakness, numbness and tingling, seizures, tremors, migraines, slurred speech, syncope, memory loss, mood changes , recurrent headaches Gastrointestinal: Negative for difficulty swallowing, diarrhea, constipation, black stools, rectal bleeding, nausea, flatulence, reflux, poor appetite, changes in bowel habits, abdominal pain Genitourinary: Negative for frequent urination, hematuria, discharge, incontinence, urinary retention, frequent UTI, Psychiatric: Negative for depression, anxiety/panic, suicidal tendencies, Musculoskeletal: Negative for swollen joints, back pain, , neck pain, morning stiffness of joints, . PAIN LEFT HIP Skin: Negative for rash, ulcers, itching, dry skin and pigmented lesions. P/E: Constitutional: Appears stated age and in no apparent distress. Head: Normocephalic. Ears: External ear canals patent without inflammation. Tympanic membranes intact with normal light reflex and landmark. Eyes: Pupils are central, bilaterally equal, symmetrical and reacts to light with normal movements and no icterus or pallor. Nose: External nares are patent. Mucosa is pink Mouth-Throat: Good general appearance and condition. No post-pharyngeal/oropharyngeal erythema and tonsillar hypertrophy. Good dental hygiene. Neck-Lymphatic: Neck is supple with normal ROM, no thyromegaly, lymph nodes or masses. JVD is normal with no carotid bruit. Lungs: Clear to percussion and auscultation with bilateral normal air entry. Cardiovascular: S1 and S2 are normal with no murmurs, gallops and rub. GI Exam: No hepatomegaly. Abdomen is soft and non-tender. No Organomegaly , masses or hernias are evident and bowel sounds are normal and active. Neurology: Higher function and all cranial nerves intact, with no gross motor or sensory deficit. Superficial and deep reflexes are normal with downwards planters. No cerebellar deficit with normal gait. Musculoskeletal: No tender spots with normal curvature of the spine with no swelling ROM LEFT HIP PAINFUL Extremities: Homans sign absent. Intact pulses with no pitting edema, calf tenderness or skin color changes. Skin: No rash, eruptions or abnormal skin pigmentation LAB/RADIOLOGY: ASSESMENT : ACS T2DM PARKINSON DISEASE PLAN SEE ORDERS Present on Admission - Present on Admission Any Indicators Present on Admission: No Past Patient History - Infectious Disease Hx of Infectious Diseases: None - Tetanus Immunizations Tetanus Immunization: Unknown - Past Medical History & Family History Past Medical History?: Yes - Past Social History Smoking Status: Former Smoker - CARDIAC Hx Atrial Fibrillation: Yes Hx Cardia Arrhythmia: Yes ("Fast" - unsure DX - had ablation) Hx Hypertension: Yes - PULMONARY Hx Pneumonia: Yes - NEUROLOGICAL Hx Parkinson's Disease: Yes (Resting Parkinson's) Hx Seizures: Yes - HEENT Hx HEENT Problems: No Hx Cataracts: Yes (B/L) - RENAL Hx Chronic Kidney Disease: No - ENDOCRINE/METABOLIC Hx Endocrine Disorders: No - HEMATOLOGICAL/ONCOLOGICAL Hx Blood Disorders: No Hx Blood Transfusion Reaction: Yes - INTEGUMENTARY Hx Dermatological Problems: No - MUSCULOSKELETAL/RHEUMATOLOGICAL Hx Arthritis: Yes Hx Fractures: Yes (Left hip fx repair 5 years ago) - GASTROINTESTINAL Hx Gastrointestinal Disorders: No Hx Constipation: Yes - GENITOURINARY/GYNECOLOGICAL Hx Genitourinary Disorders: No Hx Urinary Tract Infection: Yes - PSYCHIATRIC Hx Anxiety: Yes Hx Substance Use: No - SURGICAL HISTORY Hx Cholecystectomy: Yes (1996) - ANESTHESIA Hx Anesthesia: Yes Hx Anesthesia Reactions: No Hx Malignant Hyperthermia: No Meds Allergies/Adverse Reactions: Allergies Allergy/AdvReac Type Severity Reaction Status Date / Time Penicillins Allergy RASH Verified 10/25/17 22:18 Results - Vital Signs Recent Vital Signs: Last Vital Signs Temp 97.7 F 11/13/17 22:16 Pulse 64 11/13/17 22:16 Resp 18 11/13/17 22:16 BP 133/62 11/13/17 22:16 Pulse Ox 98 11/13/17 22:16 - Labs Result Diagrams: 11/13/17 19:29 11/13/17 19:29 Labs: Laboratory Results - last 24 hr 11/13/17 11/13/17 11/13/17 19:29 19:29 19:29 WBC 7.8 RBC 3.44 L Hgb 9.8 L Hct 30.0 L MCV 87.2 D MCH 28.5 MCHC 32.7 L RDW 16.4 H Plt Count 674 H D MPV 6.9 L Neut % (Auto) 67.3 Lymph % (Auto) 20.9 [place] % (Auto) 10.1 H Eos % (Auto) 0.9 Baso % (Auto) 0.8 Neut # (Auto) 5.2 Lymph # (Auto) 1.6 [place] # (Auto) 0.8 Eos # (Auto) 0.1 Baso # (Auto) 0.1 PT 12.5 H INR 1.1 APTT 32 Sodium 133 Potassium 3.9 Chloride 97 L Carbon Dioxide 24 Anion Gap 16 BUN 15 Creatinine 0.5 L Est GFR ( Amer) > 60 Est GFR (Non-Af Amer) > 60 Random Glucose 112 H Calcium 8.9 Total Bilirubin 0.5 AST 16 ALT 13 Alkaline Phosphatase 77 Troponin I < 0.0120 Total Protein 6.8 Albumin 3.5 Globulin 3.2 Albumin/Globulin Ratio 1.1 TSH 3rd Generation 0.78 Urine Color Urine Clarity Urine pH Ur Specific [place] Urine Protein Urine Glucose (UA) Urine Ketones Urine Blood Urine Nitrate Urine Bilirubin Urine Urobilinogen Ur Leukocyte Esterase Urine WBC (Auto) Urine RBC (Auto) Ur Squamous Epith Cells 11/13/17 22:00 WBC RBC Hgb Hct MCV MCH MCHC RDW Plt Count MPV Neut % (Auto) Lymph % (Auto) [place] % (Auto) Eos % (Auto) Baso % (Auto) Neut # (Auto) Lymph # (Auto) [place] # (Auto) Eos # (Auto) Baso # (Auto) PT INR APTT Sodium Potassium Chloride Carbon Dioxide Anion Gap BUN Creatinine Est GFR ( Amer) Est GFR (Non-Af Amer) Random Glucose Calcium Total Bilirubin AST ALT Alkaline Phosphatase Troponin I Total Protein Albumin Globulin Albumin/Globulin Ratio TSH 3rd Generation Urine Color Yellow Urine Clarity Hazy Urine pH 6.0 Ur Specific [place] 1.013 Urine Protein Negative Urine Glucose (UA) Normal Urine Ketones Negative Urine Blood 1+ H Urine Nitrate Positive H Urine Bilirubin Negative Urine Urobilinogen Normal Ur Leukocyte Esterase 2+ H Urine WBC (Auto) 22 H Urine RBC (Auto) 6 H Ur Squamous Epith Cells 1
[2017-11-13] MEDS ORDERED: Oxycodone/Acetaminophen 5/325 mg Tab ONE (23:21)
[2017-11-13] MEDS: Oxycodone/Acetaminophen 5/325 mg Tab PO PRN (23:23)
[2017-11-14] MEDS: Oxycodone/Acetaminophen 5/325 mg Tab PO PRN ×4 (03:26→18:06)
[2017-11-14] MEDS ORDERED: Oxycodone/Acetaminophen 5/325 mg Tab ONE ×3 (03:28→13:54)
[2017-11-14 04:28] LABS: CK-MB < 0.22 ng/mL (0.0-3.38)
[2017-11-14] MEDS ORDERED: Pneumococcal 23-Valent Vaccine IM ONE (04:59)
[2017-11-14] MEDS: Aspirin 325 mg EC Tablets PO SCH (09:12)
[2017-11-14] MEDS: Enoxaparin 40 mg Syringe SC SCH (09:12)
[2017-11-14] MEDS: Clotrimazole 1% Cream 15 GM TUBE TOP SCH ×2 (09:14→18:00)
[2017-11-14] MEDS ORDERED: Enoxaparin 40 mg Syringe SC SCH ×2 (10:00→18:00)
--- NOTE | 2017-11-14 10:18 | RAD ---
PROCEDURE: CHEST RADIOGRAPH, 1 VIEW HISTORY: chest pain COMPARISON: 10/26/2017 FINDINGS: LUNGS: The lungs are well inflated and clear. PLEURA: No pneumothorax or pleural fluid seen. CARDIOVASCULAR: Normal. OSSEOUS STRUCTURES: No significant abnormalities. VISUALIZED UPPER ABDOMEN: Normal. OTHER FINDINGS: None. IMPRESSION: No active pulmonary disease.
[2017-11-14 11:48] LABS: CK-MB < 0.22 ng/mL (0.0-3.38)
--- NOTE | 2017-11-14 13:29 | CP.PCM.PN ---
Subjective - Date & Time of Evaluation Date of Evaluation: 11/14/17 Time of Evaluation: 13:28 - Subjective Subjective: ALL TNI ARE NEG CT ANGIO CHEST FOR PE PT IS BED BOUND FOR 1 MONTH DUE TO FX AND DISLOCATION OF HIP Objective - Vital Signs/Intake and Output Vital Signs (last 24 hours): Temp Pulse Resp BP Pulse Ox 97.7 F 77 20 118/73 99 11/14/17 09:55 11/14/17 09:55 11/14/17 09:55 11/14/17 09:55 11/14/17 09:55 - Medications Medications: Current Medications Acetaminophen (Tylenol 325mg Tab) 650 mg PO Q4H PRN PRN Reason: Pain, Mild (1-3) Acetaminophen (Tylenol 325mg Tab) 650 mg PO Q6 PRN PRN Reason: Pain, moderate (4-7) Amlodipine Besylate (Norvasc) 10 mg PO DAILY [facility] Last Admin: 11/14/17 09:13 Dose: 10 mg Aspirin (Ecotrin) 325 mg PO DAILY [facility] Last Admin: 11/14/17 09:12 Dose: 325 mg Carbidopa/Levodopa (Sinemet) 1 tab PO TID [facility] Last Admin: 11/14/17 09:13 Dose: 1 tab Clotrimazole (Lotrimin 1%) 0 gm TOP BID [facility] Last Admin: 11/14/17 09:14 Dose: 1 % Enoxaparin Sodium (Lovenox) 40 mg SC BID [facility] Last Admin: 11/14/17 09:13 Dose: Not Given Enoxaparin Sodium (Lovenox) 40 mg SC DAILY [facility] Last Admin: 11/14/17 09:12 Dose: 40 mg Famotidine (Pepcid) 20 mg PO DAILY [facility] Last Admin: 11/14/17 09:13 Dose: 20 mg Home Med (Melatonin [Melatonin]) 3 mg PO HS [facility] Last Admin: 11/13/17 22:55 Dose: Not Given Levetiracetam (Keppra) 750 mg PO BID [facility] Last Admin: 11/14/17 09:12 Dose: 750 mg Magnesium Hydroxide (Milk Of Magnesia) 30 ml PO DAILY PRN PRN Reason: Constipation Metoprolol Tartrate (Lopressor) 25 mg PO BID [facility] Last Admin: 11/14/17 09:12 Dose: 25 mg Ondansetron HCl (Zofran Odt) 4 mg PO Q6 PRN PRN Reason: Nausea/Vomiting Oxycodone/Acetaminophen (Percocet 5/325 Mg Tab) 1 tab PO Q4 PRN PRN Reason: Pain, severe (8-10) Stop: 11/16/17 21:02 Last Admin: 11/14/17 08:10 Dose: 1 tab - Labs Labs: 11/13/17 19:29 11/13/17 19:29 PT 12.5 SECONDS (9.7-12.2) H 11/13/17 19:29 INR 1.1 11/13/17 19:29 APTT 32 SECONDS (21-34) 11/13/17 19:29
--- NOTE | 2017-11-14 13:51 | CARD ---
APPROVED REPORT EKG Measurement Heart [id number] <Conclusion> Normal sinus rhythm Normal ECG
[2017-11-14] MEDS ORDERED: Iodixanol 320 mg/ml 150 ml Bottle IV ONE (14:18)
--- NOTE | 2017-11-14 14:56 | CT ---
CTA chest PE protocol Indication: Chest pain, Rule out PE Technique: Contiguous axial images were obtained through the chest with intravenous contrast enhancement. Sagittal and coronal reconstructions were generated and reviewed. This CT exam was performed using 1 or more of the following dose reduction techniques: Automated exposure control, adjustment of the MAA and/or kV according to patient size, and/or use of iterative reconstruction technique. IV Contrast: 100 mL Visipaque IV Radiation dose (DLP): 207.13 MGy-cm. Comparison: Chest x-ray performed 11/13/17 Findings: Visualized portions of the inferior thyroid gland appear unremarkable. The mediastinal and hilar vascular structures appear grossly unremarkable. The heart appears within normal limits of size. Atherosclerotic calcifications of the aorta. No large central or segmental pulmonary embolus evident. Mild bibasilar atelectasis. No focal consolidation. No pleural effusion. No pneumothorax. No suspicious pulmonary nodules measuring greater than 5 mm. Limited visualized portions of the upper abdomen appear grossly unremarkable. Mild degenerative changes of the spine. Impression: No large central or segmental pulmonary embolus identified.
[2017-11-14] MEDS ORDERED: Home Med 1 UNIT (Melatonin [Melatonin] 3 MG) PO SCH (22:00)
[2017-11-15] MEDS: Oxycodone/Acetaminophen 5/325 mg Tab PO PRN ×3 (03:55→17:41)
[2017-11-15] MEDS: Aspirin 325 mg EC Tablets PO SCH (09:18)
[2017-11-15] MEDS: Enoxaparin 40 mg Syringe SC SCH (09:18)
[2017-11-15] MEDS: Clotrimazole 1% Cream 15 GM TUBE TOP SCH (09:18)
--- NOTE | 2017-11-15 13:47 | CP.PCM.PN ---
Subjective - Date & Time of Evaluation Date of Evaluation: 11/15/17 Time of Evaluation: 13:45 - Subjective Subjective: NO CP/PALPITATION CT CHEST NO PE TNI NEG HIP WOUND IS YEYO IBRAHIM. DISCHARGE , ON LEVONOX WILL CONSULT ORTHO . IF ANY FURTHER INTERVENTION IS NEEDED Objective - Vital Signs/Intake and Output Vital Signs (last 24 hours): Temp Pulse Resp BP Pulse Ox 98.2 F 67 20 126/58 L 97 11/15/17 08:21 11/15/17 10:00 11/15/17 08:21 11/15/17 09:18 11/15/17 08:21 Intake and Output: 11/15/17 11/15/17 11:59 23:59 Intake Total 50 Balance 50 - Medications Medications: Current Medications Acetaminophen (Tylenol 325mg Tab) 650 mg PO Q4H PRN PRN Reason: Pain, Mild (1-3) Acetaminophen (Tylenol 325mg Tab) 650 mg PO Q6 PRN PRN Reason: Pain, moderate (4-7) Last Admin: 11/15/17 04:49 Dose: 650 mg Amlodipine Besylate (Norvasc) 10 mg PO DAILY [facility] Last Admin: 11/15/17 09:18 Dose: 10 mg Aspirin (Ecotrin) 325 mg PO DAILY [facility] Last Admin: 11/15/17 09:18 Dose: 325 mg Carbidopa/Levodopa (Sinemet) 1 tab PO TID [facility] Last Admin: 11/15/17 13:44 Dose: 1 tab Clotrimazole (Lotrimin 1%) 0 gm TOP BID [facility] Last Admin: 11/15/17 09:18 Dose: 1 % Enoxaparin Sodium (Lovenox) 40 mg SC DAILY [facility] Last Admin: 11/15/17 09:18 Dose: 40 mg Enoxaparin Sodium (Lovenox) 40 mg SC BID [facility] Famotidine (Pepcid) 20 mg PO DAILY [facility] Last Admin: 11/15/17 09:18 Dose: 20 mg Home Med (Melatonin [Melatonin]) 3 mg PO HS [facility] Levetiracetam (Keppra) 750 mg PO BID [facility] Last Admin: 11/15/17 09:18 Dose: 750 mg Magnesium Hydroxide (Milk Of Magnesia) 30 ml PO DAILY PRN PRN Reason: Constipation Metoprolol Tartrate (Lopressor) 25 mg PO BID [facility] Last Admin: 11/15/17 09:18 Dose: 25 mg Ondansetron HCl (Zofran Odt) 4 mg PO Q6 PRN PRN Reason: Nausea/Vomiting Oxycodone/Acetaminophen (Percocet 5/325 Mg Tab) 1 tab PO Q4 PRN PRN Reason: Pain, severe (8-10) Stop: 11/16/17 21:02 Last Admin: 11/15/17 08:17 Dose: 1 tab - Labs Labs: 11/13/17 19:29 11/13/17 19:29 PT 12.5 SECONDS (9.7-12.2) H 11/13/17 19:29 INR 1.1 11/13/17 19:29 APTT 32 SECONDS (21-34) 11/13/17 19:29
[2017-11-15] MEDS: Vancomycin 1 gm/NS 200 ml 1 GM/200 ML BAG IVPB SCH (16:01)
--- NOTE | 2017-11-15 17:18 | RAD ---
PROCEDURE: HISTORY: s/p THR COMPARISON: 10/27/2017 TECHNIQUE: AP view of the pelvis and applicable frog leg views obtained. FINDINGS: Bilateral total hip replacements noted no hardware failure appreciated no interval fractures. [place] over right thigh inferred revision right total hip replacement. No interval change perceived L4-5 degenerative disc disease with discogenic endplate changes here. Inferior bilateral hemipelvic phleboliths -similar IMPRESSION: Postop changes -no hardware failure or interval fracture appreciated
[2017-11-16] MEDS: Oxycodone/Acetaminophen 5/325 mg Tab PO PRN ×4 (00:42→19:03)
[2017-11-16] MEDS: Vancomycin 1 gm/NS 200 ml 1 GM/200 ML BAG IVPB SCH ×2 (03:01→17:15)
[2017-11-16] MEDS: Aspirin 325 mg EC Tablets PO SCH (09:33)
[2017-11-16] MEDS: Enoxaparin 40 mg Syringe SC SCH (09:34)
[2017-11-16 11:11] LABS: HEMOGLOBIN 9.7 g/dL (11.0-16.0); MEAN CELL VOLUME 87.3 fL (81.0-99.0); MEAN CORPUSCULAR HEMOGLOBIN 28.7 pg (27.0-31.0); MEAN CORPUSCULAR HGB CONC 32.8 g/dL (33.0-37.0); MEAN PLATELET VOLUME 7.3 fL (7.2-11.7); RBC 3.4 Mil/uL (3.80-5.20); RED CELL DISTRIBUTION WIDTH 16.1 % (11.5-14.5); WHITE BLOOD COUNT 5.7 K/uL (4.8-10.8)
--- NOTE | 2017-11-16 11:16 | CP.PCM.CON ---
History of Present Illness - History of Present Illness History of Present Illness: Orthopedic consultation Dr. Mendosa 77F POD#17 s/p open reduction of prosthetic hip dislocation. THR for fx 2016. Patient states hip pain is controlled with medication. She has been toleratng PT well, still TTWB. She says there still is some drainage from incision site. Patient readmitted for palpitations. CT chest neg for PE. Patient also with UTI on admission. Review of Systems - Review of Systems All systems: reviewed and no additional remarkable complaints except Past Patient History - Infectious Disease Hx of Infectious Diseases: None - Tetanus Immunizations Tetanus Immunization: Unknown - Past Medical History & Family History Past Medical History?: Yes Past Family History: Reviewed and not pertinent - Past Social History Smoking Status: Never Smoked - CARDIAC Hx Atrial Fibrillation: Yes Hx Cardia Arrhythmia: Yes ("Fast" - unsure DX - had ablation) Hx Hypertension: Yes - PULMONARY Hx Pneumonia: Yes - NEUROLOGICAL Hx Parkinson's Disease: Yes (Resting Parkinson's) Hx Seizures: Yes - HEENT Hx HEENT Problems: No Hx Cataracts: Yes (B/L) - RENAL Hx Chronic Kidney Disease: No - ENDOCRINE/METABOLIC Hx Endocrine Disorders: No - HEMATOLOGICAL/ONCOLOGICAL Hx Blood Disorders: No Hx Blood Transfusion Reaction: Yes - INTEGUMENTARY Hx Dermatological Problems: No - MUSCULOSKELETAL/RHEUMATOLOGICAL Hx Arthritis: Yes Hx Falls: No Hx Fractures: Yes (Left hip fx repair 5 years ago) - GASTROINTESTINAL Hx Gastrointestinal Disorders: No Hx Constipation: Yes - GENITOURINARY/GYNECOLOGICAL Hx Genitourinary Disorders: No Hx Urinary Tract Infection: Yes - PSYCHIATRIC Hx Anxiety: Yes Hx Substance Use: No - SURGICAL HISTORY Hx Cholecystectomy: Yes (1996) - ANESTHESIA Hx Anesthesia: Yes Hx Anesthesia Reactions: No Hx Malignant Hyperthermia: No Meds Allergies/Adverse Reactions: Allergies Allergy/AdvReac Type Severity Reaction Status Date / Time Penicillins Allergy RASH Verified 10/25/17 22:18 - Medications Medications: Current Medications Acetaminophen (Tylenol 325mg Tab) 650 mg PO Q4H PRN PRN Reason: Pain, Mild (1-3) Last Admin: 11/16/17 03:06 Dose: 650 mg Acetaminophen (Tylenol 325mg Tab) 650 mg PO Q6 PRN PRN Reason: Pain, moderate (4-7) Last Admin: 11/15/17 04:49 Dose: 650 mg Amlodipine Besylate (Norvasc) 10 mg PO DAILY [facility] Last Admin: 11/16/17 09:36 Dose: 10 mg Aspirin (Ecotrin) 325 mg PO DAILY [facility] Last Admin: 11/16/17 09:33 Dose: 325 mg Carbidopa/Levodopa (Sinemet) 1 tab PO TID [facility] Last Admin: 11/16/17 09:33 Dose: 1 tab Enoxaparin Sodium (Lovenox) 40 mg SC DAILY [facility] Last Admin: 11/16/17 09:34 Dose: 40 mg Famotidine (Pepcid) 20 mg PO DAILY [facility] Last Admin: 11/16/17 09:33 Dose: 20 mg Vancomycin/Sodium Chloride (Vancomycin 1 Gm/Ns 200 Ml) 1 gm in 200 mls @ 133.333 mls/hr IVPB Q12H [facility] Stop: 11/20/17 16:01 Last Admin: 11/16/17 03:01 Dose: 133.333 mls/hr Levetiracetam (Keppra) 750 mg PO BID [facility] Last Admin: 11/16/17 09:33 Dose: 750 mg Magnesium Hydroxide (Milk Of Magnesia) 30 ml PO DAILY PRN PRN Reason: Constipation Metoprolol Tartrate (Lopressor) 25 mg PO BID [facility] Last Admin: 11/16/17 09:34 Dose: 25 mg Ondansetron HCl (Zofran Odt) 4 mg PO Q6 PRN PRN Reason: Nausea/Vomiting Oxycodone/Acetaminophen (Percocet 5/325 Mg Tab) 1 tab PO Q4 PRN PRN Reason: Pain, severe (8-10) Stop: 11/16/17 21:02 Last Admin: 11/16/17 11:05 Dose: 1 tab Physical Exam - Constitutional Appears: Well, No Acute Distress Additional comments: sitting on EOB - Extremities Exam Additional comments: Right hip: two small 3mm granulomas at incision line noted. small amount of serous drainage from same areas. Incision intact. Still mild ecchymosis, no erythema. No pain with hip ROM. +ROM ankle/toes,s ensation intact +DP/PT pulses calves soft NT neg homans Results - Vital Signs Recent Vital Signs: Last Vital Signs Temp 97.6 F 11/16/17 08:09 Pulse 66 11/16/17 09:35 Resp 20 11/16/17 08:09 BP 121/62 02/09/18 09:35 Pulse Ox 98 11/16/17 08:09 - Labs Result Diagrams: 11/16/17 10:45 11/13/17 19:29 - Impressions Impression: Patient Name / ID : NATALIA ALLEN / [id number] Exam Date : 11/15/2017 14:50:54 ( Approved ) Study Comment : Sex / Age : F / 77Y Creator : Lin Coello Dictator : Lin Coello Patrol Sergeant : Mapping Technician : Lin Coello Approver2 : Report Date : 11/15/2017 17:12:11 My Comment : PROCEDURE: HISTORY: s/p THR COMPARISON: 10/27/2017 TECHNIQUE: AP view of the pelvis and applicable frog leg views obtained. FINDINGS: Bilateral total hip replacements noted no hardware failure appreciated no interval fractures. Gloria over right thigh inferred revision right total hip replacement. No interval change perceived L4-5 degenerative disc disease with discogenic endplate changes here. Inferior bilateral hemipelvic phleboliths -similar IMPRESSION: Postop changes -no hardware failure or interval fracture appreciated Assessment & Plan (1) Suture granuloma Assessment and Plan: vanco as per Dr. Mendosa betadine wet to dry dressing changes daily cont PWB/PT/OT eval VTE proph will monitor Status: Acute (2) UTI (urinary tract infection) Assessment and Plan: on admission gram neg rods awaiting C&S, defer to medical team Status: Acute
[2017-11-16 11:29] LABS: BLOOD UREA NITROGEN 13 mg/dL (7-17); CALCIUM 8.7 mg/dl (8.6-10.4); GFR AFRICAN-AMERICAN > 60; GFR NON-AFRICAN AMERICAN > 60
--- NOTE | 2017-11-16 13:43 | CP.PCM.PN ---
Subjective - Date & Time of Evaluation Date of Evaluation: 11/16/17 Time of Evaluation: 13:41 - Subjective Subjective: AFEBRILE MILD PAIN IN WOUND NO CP P/E SAME URINE , GM -VE RODS , ISOLATION PENDING ON IV VANCO Objective - Vital Signs/Intake and Output Vital Signs (last 24 hours): Temp Pulse Resp BP Pulse Ox 97.6 F 66 20 121/62 98 11/16/17 08:09 11/16/17 09:35 11/16/17 08:09 11/16/17 09:35 11/16/17 08:09 - Medications Medications: Current Medications Acetaminophen (Tylenol 325mg Tab) 650 mg PO Q4H PRN PRN Reason: Pain, Mild (1-3) Last Admin: 11/16/17 03:06 Dose: 650 mg Acetaminophen (Tylenol 325mg Tab) 650 mg PO Q6 PRN PRN Reason: Pain, moderate (4-7) Last Admin: 11/15/17 04:49 Dose: 650 mg Amlodipine Besylate (Norvasc) 10 mg PO DAILY [facility] Last Admin: 11/16/17 09:36 Dose: 10 mg Aspirin (Ecotrin) 325 mg PO DAILY [facility] Last Admin: 11/16/17 09:33 Dose: 325 mg Carbidopa/Levodopa (Sinemet) 1 tab PO TID [facility] Last Admin: 11/16/17 13:15 Dose: 1 tab Enoxaparin Sodium (Lovenox) 40 mg SC DAILY [facility] Last Admin: 11/16/17 09:34 Dose: 40 mg Famotidine (Pepcid) 20 mg PO DAILY [facility] Last Admin: 11/16/17 09:33 Dose: 20 mg Vancomycin/Sodium Chloride (Vancomycin 1 Gm/Ns 200 Ml) 1 gm in 200 mls @ 133.333 mls/hr IVPB Q12H [facility] Stop: 11/20/17 16:01 Last Admin: 11/16/17 03:01 Dose: 133.333 mls/hr Levetiracetam (Keppra) 750 mg PO BID [facility] Last Admin: 11/16/17 09:33 Dose: 750 mg Magnesium Hydroxide (Milk Of Magnesia) 30 ml PO DAILY PRN PRN Reason: Constipation Metoprolol Tartrate (Lopressor) 25 mg PO BID [facility] Last Admin: 11/16/17 09:34 Dose: 25 mg Ondansetron HCl (Zofran Odt) 4 mg PO Q6 PRN PRN Reason: Nausea/Vomiting Oxycodone/Acetaminophen (Percocet 5/325 Mg Tab) 1 tab PO Q4 PRN PRN Reason: Pain, severe (8-10) Stop: 11/16/17 21:02 Last Admin: 11/16/17 11:05 Dose: 1 tab - Labs Labs: 11/16/17 10:45 11/16/17 10:45 PT 12.5 SECONDS (9.7-12.2) H 11/13/17 19:29 INR 1.1 11/13/17 19:29 APTT 32 SECONDS (21-34) 11/13/17 19:29
--- NOTE | 2017-11-16 17:21 | CP.PCM.CON ---
History of Present Illness - History of Present Illness History of Present Illness: INFECTIOUS DISEASE CONSULT.; HPI; 77F POD#17 s/p open reduction of prosthetic hip dislocation. THR for fx 2016. Patient states hip pain is controlled with medication. She has been toleratng PT well, still TTWB. She says there still is some drainage from incision site. Patient readmitted for palpitations. CT chest neg for PE. URINE REPORTED POSITIVE FOR GRAM-NEGATIVE MYAH. INFECTIOUS DISEASE CONSULTATION REQUESTED BY PMD FOR UTI/AND RECENT DRAINAGE FROM THE INCISION SITE RIGHT HIP WOUND. PATIENT DOES ADMIT HISTORY OF RECURRENT UTIS.PRESENTLY DENIES ANY FEVER OR CHILLS. DENIES ANY INCONTINENCE. PATIENT DENIES ANY ABDOMINAL PAIN OR RENAL ANGLE PAINS. PMH: Anxiety, Arthritis, Atrial Fibrillation, Cardia Arrhythmia ("Fast" - unsure DX - had ablation), Fractures (Left hip fx repair 5 years ago), HTN, Parkinson's Disease (Resting Parkinson's), Pneumonia, Seizures Surgical History: Cholecystectomy (1996) - [facility] Procedures EXCISION OF STOMACH, ENDO, DIAGN (04/03/16) INSPECTION OF LOWER INTESTINAL TRACT, ENDO (04/03/16) RELEASE RIGHT HIP TENDON, OPEN APPROACH (08/28/17) REPLACEMENT OF R ACETABULUM WITH AUTOL SUB, OPEN APPROACH (08/28/17) REPOSITION RIGHT UPPER FEMUR WITH INT FIX, OPEN APPROACH (08/28/17) REPOSITION RIGHT UPPER FEMUR, OPEN APPROACH (10/26/17) REVISION OF SYNTH SUB IN R HIP JT, FEMORAL, OPEN APPROACH (10/26/17) SUPPLEMENT RIGHT HIP JOINT WITH RESURF DEV, OPEN APPROACH (08/28/17) TRANSFUSE NONAUT RED BLOOD CELLS IN PERIPH VEIN, PERC (08/28/17) Family History: States: Unknown Family Hx - Social History Hx Tobacco Use: No Hx Alcohol Use: No Hx Substance Use: No - Immunization History Hx Tetanus Toxoid Vaccination: Yes Hx Influenza Vaccination: Yes Hx Pneumococcal Vaccination: Yes (2013) ALLERGY; PCN. Review of Systems - Constitutional Constitutional: absent: Chills, Fever - Cardiovascular Cardiovascular: absent: Chest Pain - Respiratory Respiratory: absent: Cough, Hemoptysis - Gastrointestinal Gastrointestinal: absent: Abdominal Pain - Genitourinary Genitourinary: Freq UTI. absent: Difficulty Urinating - Musculoskeletal Musculoskeletal: absent: Back Pain - Neurological Neurological: absent: Headaches - Hematologic/Lymphatic Hematologic: As Per HPI. absent: Easy Bleeding Past Patient History - Infectious Disease Hx of Infectious Diseases: None - Tetanus Immunizations Tetanus Immunization: Unknown - Past Medical History & Family History Past Medical History?: Yes Past Family History: Reviewed and not pertinent - Past Social History Smoking Status: Never Smoked - CARDIAC Hx Cardiac Disorders: Yes Hx Hypertension: Yes - PULMONARY Hx Pneumonia: Yes - NEUROLOGICAL Hx Parkinson's Disease: Yes (Resting Parkinson's) Hx Seizures: Yes - HEENT Hx HEENT Problems: No Hx Cataracts: Yes (B/L) - RENAL Hx Chronic Kidney Disease: No - ENDOCRINE/METABOLIC Hx Endocrine Disorders: No - HEMATOLOGICAL/ONCOLOGICAL Hx Blood Disorders: No Hx Blood Transfusion Reaction: Yes - INTEGUMENTARY Hx Dermatological Problems: No - MUSCULOSKELETAL/RHEUMATOLOGICAL Hx Arthritis: Yes - GASTROINTESTINAL Hx Gastrointestinal Disorders: No Hx Constipation: Yes - GENITOURINARY/GYNECOLOGICAL Hx Genitourinary Disorders: No Hx Urinary Tract Infection: Yes - PSYCHIATRIC Hx Anxiety: Yes Hx Substance Use: No - SURGICAL HISTORY Hx Cholecystectomy: Yes (1996) - ANESTHESIA Hx Anesthesia: Yes Hx Anesthesia Reactions: No Hx Malignant Hyperthermia: No Meds Allergies/Adverse Reactions: Allergies Allergy/AdvReac Type Severity Reaction Status Date / Time Penicillins Allergy RASH Verified 10/25/17 22:18 - Medications Medications: Current Medications Acetaminophen (Tylenol 325mg Tab) 650 mg PO Q4H PRN PRN Reason: Pain, Mild (1-3) Last Admin: 11/16/17 03:06 Dose: 650 mg Acetaminophen (Tylenol 325mg Tab) 650 mg PO Q6 PRN PRN Reason: Pain, moderate (4-7) Last Admin: 11/15/17 04:49 Dose: 650 mg Amlodipine Besylate (Norvasc) 10 mg PO DAILY [facility] Last Admin: 11/16/17 09:36 Dose: 10 mg Aspirin (Ecotrin) 325 mg PO DAILY [facility] Last Admin: 11/16/17 09:33 Dose: 325 mg Carbidopa/Levodopa (Sinemet) 1 tab PO TID [facility] Last Admin: 11/16/17 13:15 Dose: 1 tab Enoxaparin Sodium (Lovenox) 40 mg SC DAILY [facility] Last Admin: 11/16/17 09:34 Dose: 40 mg Famotidine (Pepcid) 20 mg PO DAILY [facility] Last Admin: 11/16/17 09:33 Dose: 20 mg Vancomycin/Sodium Chloride (Vancomycin 1 Gm/Ns 200 Ml) 1 gm in 200 mls @ 133.333 mls/hr IVPB Q12H [facility] Stop: 11/20/17 16:01 Last Admin: 11/16/17 17:15 Dose: 133.333 mls/hr Levetiracetam (Keppra) 750 mg PO BID [facility] Last Admin: 11/16/17 09:33 Dose: 750 mg Magnesium Hydroxide (Milk Of Magnesia) 30 ml PO DAILY PRN PRN Reason: Constipation Metoprolol Tartrate (Lopressor) 25 mg PO BID [facility] Last Admin: 11/16/17 09:34 Dose: 25 mg Ondansetron HCl (Zofran Odt) 4 mg PO Q6 PRN PRN Reason: Nausea/Vomiting Oxycodone/Acetaminophen (Percocet 5/325 Mg Tab) 1 tab PO Q4 PRN PRN Reason: Pain, severe (8-10) Stop: 11/16/17 21:02 Last Admin: 11/16/17 11:05 Dose: 1 tab Physical Exam - Constitutional Appears: No Acute Distress - Head Exam Head Exam: NORMAL INSPECTION - Eye Exam Eye Exam: EOMI, PERRL - ENT Exam ENT Exam: Normal Oropharynx - Neck Exam Neck exam: Positive for: Normal Inspection - Respiratory Exam Respiratory Exam: Clear to Auscultation Bilateral - Cardiovascular Exam Cardiovascular Exam: REGULAR RHYTHM, +S1, +S2 - GI/Abdominal Exam GI & Abdominal Exam: Normal Bowel Sounds, Soft - Extremities Exam Extremities exam: Positive for: tenderness (RT HIP INCISION SITE WHICH IS 5 INCHES LONG. Heriberto IN POSITION. eRYTHEMA INCISION SITE WITH SERO- SANGUINOUS DRAINAGE.), pedal pulses present. Negative for: calf tenderness, pedal edema - Neurological Exam Neurological exam: Alert, CN II-XII Intact, Oriented x3 - Psychiatric Exam Psychiatric exam: Normal Mood - Skin Skin Exam: Normal Color, Warm Results - Vital Signs Recent Vital Signs: Last Vital Signs Temp 97.8 F 11/16/17 16:00 Pulse 64 11/16/17 16:00 Resp 18 11/16/17 16:00 BP 119/56 L 11/16/17 16:00 Pulse Ox 95 11/16/17 16:00 - Labs Result Diagrams: 11/16/17 10:45 11/16/17 10:45 Labs: Laboratory Results - last 24 hr 11/16/17 11/16/17 10:45 10:45 WBC 5.7 RBC 3.40 L Hgb 9.7 L Hct 29.7 L MCV 87.3 MCH 28.7 MCHC 32.8 L RDW 16.1 H Plt Count 522 H D MPV 7.3 Sodium 135 Potassium 3.6 Chloride 99 Carbon Dioxide 29 Anion Gap 10 BUN 13 Creatinine 0.6 L Est GFR ( Amer) > 60 Est GFR (Non-Af Amer) > 60 Random Glucose 99 Calcium 8.7 - Imaging and Cardiology CT scan - chest Status: Report reviewed by me (see report negative for PE.) Assessment & Plan (1) UTI (urinary tract infection) Status: Acute (2) Suture granuloma Status: Acute (3) Chest pain Status: Acute (4) Dislocation of hip joint prosthesis Status: Acute - Assessment and Plan (Free Text) Plan: pancultures. esr. crp. BLOOD CULTURES 2 SETS BEFORE STARTING NEW ANTIBIOTIC. 11/16/17 REPEAT ua AND URINE CULTURES CLEAN-CATCH. 11/16/17. Continue IV vancomycin 1 g every [address] Keen. 11/14/17 Follow-up Vanco trough level in a.m. prior to the next dose and keep between 10 and 20 Add IV Azactam 1 g every 12 hourly for gram-negative coverage.11/16/17. FOLLOW-UP BLOOD WORKS AND WOUND CULTURE REPORT WHICH IS REPORTED NEGATIVE FOR 24 HOURS. WOUND CARE PER ORTHOPEDIC. WILL FOLLOW ALONG WITH YOU. tHANK YOU.
[2017-11-16] MEDS: Aztreonam 1 GM in Sodium Chloride 0.9% 100 ML IVPB SCH (22:09)
[2017-11-16 23:13] LABS: SQUAMOUS EPITHIAL < 1 /hpf (0-5); URINE BILIRUBIN NEGATIVE (NEGATIVE); URINE BLOOD 1+ (NEGATIVE); URINE CLARITY Clear (Clear); URINE COLOR Yellow (YELLOW); URINE GLUCOSE (UA) NORMAL (Normal); URINE LEUKOCYTE ESTERASE NEG Leu/uL (Negative); URINE NITRATE NEGATIVE (NEGATIVE); URINE PROTEIN NEGATIVE (NEGATIVE); URINE UROBILINOGEN NORMAL mg/dL (0.2-1.0)
[2017-11-17] MEDS: Oxycodone/Acetaminophen 5/325 mg Tab PO PRN ×5 (02:15→22:17)
[2017-11-17] MEDS: Vancomycin 1 gm/NS 200 ml 1 GM/200 ML BAG IVPB SCH ×2 (03:28→15:59)
[2017-11-17 03:45] LABS: HEMOGLOBIN 9.5 g/dL (11.0-16.0); MEAN CELL VOLUME 86.5 fL (81.0-99.0); MEAN CORPUSCULAR HGB CONC 32.4 g/dL (33.0-37.0); RBC 3.4 Mil/uL (3.80-5.20); RED CELL DISTRIBUTION WIDTH 16.3 % (11.5-14.5); WHITE BLOOD COUNT 6.8 K/uL (4.8-10.8)
[2017-11-17 03:55] LABS: BLOOD UREA NITROGEN 15 mg/dL (7-17); CALCIUM 8.8 mg/dl (8.6-10.4); GFR AFRICAN-AMERICAN > 60; GFR NON-AFRICAN AMERICAN > 60
[2017-11-17] MEDS: Aztreonam 1 GM in Sodium Chloride 0.9% 100 ML IVPB SCH ×2 (07:38→20:30)
[2017-11-17] MEDS: Aspirin 325 mg EC Tablets PO SCH (09:53)
[2017-11-17] MEDS: Enoxaparin 40 mg Syringe SC SCH (09:59)
[2017-11-17] MEDS ORDERED: Potassium Chloride 20 mEq ER Tab PO ONE (12:00)
--- NOTE | 2017-11-17 13:27 | CP.PCM.PN ---
Subjective - Date & Time of Evaluation Date of Evaluation: 11/17/17 Time of Evaluation: 13:27 - Subjective Subjective: AFEBRILE. DENIES MUCH PAIN FROM RT HIP SITE FEELING BETTER, STILL +VE DRAINAGE RT HIP SUTURE LINE/WITH CELLULITUS AROUND THE SUTURE LINE. LABS NOTED; BLOOD CULTURE 11/16/17 1:2 SETS +VE SCN ? CONTAMINANT. REPEAT URINE CULTURE -VE GROWTH. VANC. TROUGH 11/17/17 11.7 OK. PT HAS NO FOLY. PT NOT INCONTINENT. Objective - Vital Signs/Intake and Output Vital Signs (last 24 hours): Temp Pulse Resp BP Pulse Ox 98.0 F 60 20 122/67 98 11/17/17 08:31 11/17/17 08:31 11/17/17 08:31 11/17/17 09:57 11/17/17 08:31 - Medications Medications: Current Medications Acetaminophen (Tylenol 325mg Tab) 650 mg PO Q4H PRN PRN Reason: Pain, Mild (1-3) Last Admin: 11/16/17 03:06 Dose: 650 mg Acetaminophen (Tylenol 325mg Tab) 650 mg PO Q6 PRN PRN Reason: Pain, moderate (4-7) Last Admin: 11/15/17 04:49 Dose: 650 mg Amlodipine Besylate (Norvasc) 10 mg PO DAILY [facility] Last Admin: 11/17/17 09:53 Dose: 10 mg Aspirin (Ecotrin) 325 mg PO DAILY [facility] Last Admin: 11/17/17 09:53 Dose: 325 mg Carbidopa/Levodopa (Sinemet) 1 tab PO TID [facility] Last Admin: 11/17/17 09:53 Dose: 1 tab Enoxaparin Sodium (Lovenox) 40 mg SC DAILY [facility] Last Admin: 11/17/17 09:59 Dose: 40 mg Famotidine (Pepcid) 20 mg PO DAILY [facility] Last Admin: 11/17/17 09:53 Dose: 20 mg Vancomycin/Sodium Chloride (Vancomycin 1 Gm/Ns 200 Ml) 1 gm in 200 mls @ 133.333 mls/hr IVPB Q12H [facility] Stop: 11/20/17 16:01 Last Admin: 11/17/17 03:28 Dose: 133.333 mls/hr Aztreonam 1 gm/ Sodium (Chloride) 100 mls @ 200 mls/hr IVPB Q12H [facility] Last Admin: 11/17/17 07:38 Dose: 200 mls/hr Levetiracetam (Keppra) 750 mg PO BID [facility] Last Admin: 11/17/17 09:53 Dose: 750 mg Magnesium Hydroxide (Milk Of Magnesia) 30 ml PO DAILY PRN PRN Reason: Constipation Metoprolol Tartrate (Lopressor) 25 mg PO BID [facility] Last Admin: 11/17/17 09:57 Dose: 25 mg Ondansetron HCl (Zofran Odt) 4 mg PO Q6 PRN PRN Reason: Nausea/Vomiting Oxycodone/Acetaminophen (Percocet 5/325 Mg Tab) 1 tab PO Q4H PRN PRN Reason: Pain, severe (8-10) Stop: 11/19/17 23:59 Last Admin: 11/17/17 11:04 Dose: 1 tab - Labs Labs: 11/17/17 03:42 11/17/17 03:42 PT 12.5 SECONDS (9.7-12.2) H 11/13/17 19:29 INR 1.1 11/13/17 19:29 APTT 32 SECONDS (21-34) 11/13/17 19:29 - Constitutional Appears: No Acute Distress - Head Exam Head Exam: NORMAL INSPECTION - Eye Exam Eye Exam: EOMI, PERRL - ENT Exam ENT Exam: Normal Oropharynx - Neck Exam Neck Exam: Normal Inspection - Respiratory Exam Respiratory Exam: Clear to Ausculation Bilateral - Cardiovascular Exam Cardiovascular Exam: REGULAR RHYTHM, +S1, +S2 - Extremities Exam Extremities Exam: Normal Capillary Refill. absent: Calf Tenderness, Pedal Edema - Neurological Exam Neurological Exam: Awake, Normal Gait (AMBULATES WITH HELP.), Oriented x3 - Psychiatric Exam Psychiatric exam: Normal Mood - Skin Skin Exam: Normal Color, Warm Assessment and Plan (1) UTI (urinary tract infection) Status: Acute (2) Suture granuloma Status: Acute (3) Chest pain Status: Acute (4) Dislocation of hip joint prosthesis Status: Acute - Assessment and Plan (Free Text) Plan: Continue IV vancomycin 1 g every 12 hourly 11/14/17 -DAY 4 X TOTAL OF 3WKS/ DEPENDNG ON HEALING. Follow-up Vanco trough levels and keep between 10 and 20 LWC PER ORTHO. on IV Azactam 1 g every 12 hourly for gram-negative coverage.11/16/17.-2day
--- NOTE | 2017-11-17 14:06 | CP.PCM.PN ---
Subjective - Date & Time of Evaluation Date of Evaluation: 11/17/17 Time of Evaluation: 14:05 - Subjective Subjective: AFEBRILEM ,LESS PAIN IN HIP, IF C/S OF WOUND IS NEG , RT [place] NO FURTHER CP Objective - Vital Signs/Intake and Output Vital Signs (last 24 hours): Temp Pulse Resp BP Pulse Ox 98.0 F 60 20 122/67 98 11/17/17 08:31 11/17/17 08:31 11/17/17 08:31 11/17/17 09:57 11/17/17 08:31 - Medications Medications: Current Medications Acetaminophen (Tylenol 325mg Tab) 650 mg PO Q4H PRN PRN Reason: Pain, Mild (1-3) Last Admin: 11/16/17 03:06 Dose: 650 mg Acetaminophen (Tylenol 325mg Tab) 650 mg PO Q6 PRN PRN Reason: Pain, moderate (4-7) Last Admin: 11/15/17 04:49 Dose: 650 mg Amlodipine Besylate (Norvasc) 10 mg PO DAILY [facility] Last Admin: 11/17/17 09:53 Dose: 10 mg Aspirin (Ecotrin) 325 mg PO DAILY [facility] Last Admin: 11/17/17 09:53 Dose: 325 mg Carbidopa/Levodopa (Sinemet) 1 tab PO TID [facility] Last Admin: 11/17/17 13:51 Dose: 1 tab Enoxaparin Sodium (Lovenox) 40 mg SC DAILY [facility] Last Admin: 11/17/17 09:59 Dose: 40 mg Famotidine (Pepcid) 20 mg PO DAILY [facility] Last Admin: 11/17/17 09:53 Dose: 20 mg Vancomycin/Sodium Chloride (Vancomycin 1 Gm/Ns 200 Ml) 1 gm in 200 mls @ 133.333 mls/hr IVPB Q12H [facility] Stop: 11/20/17 16:01 Last Admin: 11/17/17 03:28 Dose: 133.333 mls/hr Aztreonam 1 gm/ Sodium (Chloride) 100 mls @ 200 mls/hr IVPB Q12H [facility] Last Admin: 11/17/17 07:38 Dose: 200 mls/hr Levetiracetam (Keppra) 750 mg PO BID [facility] Last Admin: 11/17/17 09:53 Dose: 750 mg Magnesium Hydroxide (Milk Of Magnesia) 30 ml PO DAILY PRN PRN Reason: Constipation Metoprolol Tartrate (Lopressor) 25 mg PO BID [facility] Last Admin: 11/17/17 09:57 Dose: 25 mg Ondansetron HCl (Zofran Odt) 4 mg PO Q6 PRN PRN Reason: Nausea/Vomiting Oxycodone/Acetaminophen (Percocet 5/325 Mg Tab) 1 tab PO Q4H PRN PRN Reason: Pain, severe (8-10) Stop: 11/19/17 23:59 Last Admin: 11/17/17 11:04 Dose: 1 tab - Labs Labs: 11/17/17 03:42 11/17/17 03:42 PT 12.5 SECONDS (9.7-12.2) H 11/13/17 19:29 INR 1.1 11/13/17 19:29 APTT 32 SECONDS (21-34) 11/13/17 19:29
[2017-11-18] MEDS: Vancomycin 1 gm/NS 200 ml 1 GM/200 ML BAG IVPB SCH ×2 (03:10→16:16)
[2017-11-18] MEDS: Oxycodone/Acetaminophen 5/325 mg Tab PO PRN ×4 (03:27→23:16)
[2017-11-18] MEDS: Enoxaparin 40 mg Syringe SC SCH (09:33)
[2017-11-18] MEDS: Aspirin 325 mg EC Tablets PO SCH (09:36)
[2017-11-18] MEDS: Aztreonam 1 GM in Sodium Chloride 0.9% 100 ML IVPB SCH ×2 (11:50→20:00)
--- NOTE | 2017-11-18 15:34 | CP.PCM.PN ---
Subjective - Date & Time of Evaluation Date of Evaluation: 11/18/17 Time of Evaluation: 15:33 - Subjective Subjective: BLOOD CULTURE IS POS FOR STAPH COAGULASE NEG INPRESENCE OF RECENT POSTHESIS , IT COULD BE SIGNIFICANT FINDING WILL D/W ID Objective - Vital Signs/Intake and Output Vital Signs (last 24 hours): Temp Pulse Resp BP Pulse Ox 98.3 F 65 20 115/59 L 93 L 11/17/17 23:45 11/18/17 09:00 11/17/17 23:45 11/17/17 23:45 11/17/17 23:45 - Medications Medications: Current Medications Acetaminophen (Tylenol 325mg Tab) 650 mg PO Q4H PRN PRN Reason: Pain, Mild (1-3) Last Admin: 11/16/17 03:06 Dose: 650 mg Acetaminophen (Tylenol 325mg Tab) 650 mg PO Q6 PRN PRN Reason: Pain, moderate (4-7) Last Admin: 11/15/17 04:49 Dose: 650 mg Amlodipine Besylate (Norvasc) 10 mg PO DAILY [facility] Last Admin: 11/18/17 09:36 Dose: 10 mg Aspirin (Ecotrin) 325 mg PO DAILY [facility] Last Admin: 11/18/17 09:36 Dose: 325 mg Carbidopa/Levodopa (Sinemet) 1 tab PO TID [facility] Last Admin: 11/18/17 14:16 Dose: 1 tab Enoxaparin Sodium (Lovenox) 40 mg SC DAILY [facility] Last Admin: 11/18/17 09:33 Dose: 40 mg Famotidine (Pepcid) 20 mg PO DAILY [facility] Last Admin: 11/18/17 09:36 Dose: 20 mg Vancomycin/Sodium Chloride (Vancomycin 1 Gm/Ns 200 Ml) 1 gm in 200 mls @ 133.333 mls/hr IVPB Q12H [facility] Stop: 11/20/17 16:01 Last Admin: 11/18/17 03:10 Dose: 133.333 mls/hr Aztreonam 1 gm/ Sodium (Chloride) 100 mls @ 200 mls/hr IVPB Q12H [facility] Last Admin: 11/18/17 11:50 Dose: 200 mls/hr Levetiracetam (Keppra) 750 mg PO BID [facility] Last Admin: 11/18/17 09:35 Dose: 750 mg Magnesium Hydroxide (Milk Of Magnesia) 30 ml PO DAILY PRN PRN Reason: Constipation Metoprolol Tartrate (Lopressor) 25 mg PO BID [facility] Last Admin: 11/18/17 09:37 Dose: Not Given Ondansetron HCl (Zofran Odt) 4 mg PO Q6 PRN PRN Reason: Nausea/Vomiting Oxycodone/Acetaminophen (Percocet 5/325 Mg Tab) 1 tab PO Q4H PRN PRN Reason: Pain, severe (8-10) Stop: 11/19/17 23:59 Last Admin: 11/18/17 08:03 Dose: 1 tab - Labs Labs: 11/17/17 03:42 11/17/17 03:42 PT 12.5 SECONDS (9.7-12.2) H 11/13/17 19:29 INR 1.1 11/13/17 19:29 APTT 32 SECONDS (21-34) 11/13/17 19:29
[2017-11-19] MEDS: Vancomycin 1 gm/NS 200 ml 1 GM/200 ML BAG IVPB SCH ×2 (03:07→17:36)
[2017-11-19] MEDS: Oxycodone/Acetaminophen 5/325 mg Tab PO PRN ×4 (03:44→22:51)
[2017-11-19] MEDS: Aztreonam 1 GM in Sodium Chloride 0.9% 100 ML IVPB SCH (08:25)
[2017-11-19] MEDS: Aspirin 325 mg EC Tablets PO SCH (10:06)
[2017-11-19] MEDS: Enoxaparin 40 mg Syringe SC SCH (10:07)
[2017-11-19 11:55] LABS: BASO % 0.7 % (0.0-2.0); EOS # 0.1 K/uL (0.0-0.7); HEMOGLOBIN 10.4 g/dL (11.0-16.0); LYMPH % 16.1 % (20.0-40.0); MEAN CELL VOLUME 86.4 fL (81.0-99.0); MEAN CORPUSCULAR HEMOGLOBIN 27.7 pg (27.0-31.0); MEAN PLATELET VOLUME 7.6 fL (7.2-11.7); MONO # 0.5 K/uL (0.0-0.8); MONO % 7.9 % (0.0-10.0); NEUT # 4.7 K/uL (1.8-7.0); NEUT % 74.3 % (50.0-75.0); NRBC % 0.1 % (0.0-2.0); RBC 3.77 Mil/uL (3.80-5.20); RED CELL DISTRIBUTION WIDTH 16.6 % (11.5-14.5); WHITE BLOOD COUNT 6.3 K/uL (4.8-10.8)
[2017-11-19 12:34] LABS: ALB/GLOB RATIO 1.2 (1.0-2.1); ALBUMIN 3.7 g/dL (3.5-5.0); ALT/SGPT 15 U/L (9-52); AST/SGOT 13 U/L (14-36); BLOOD UREA NITROGEN 15 mg/dL (7-17); CALCIUM 9.1 mg/dl (8.6-10.4); GFR AFRICAN-AMERICAN > 60; GFR NON-AFRICAN AMERICAN > 60
--- NOTE | 2017-11-19 13:38 | CP.PCM.PN ---
Subjective - Date & Time of Evaluation Date of Evaluation: 11/19/17 Time of Evaluation: 13:38 - Subjective Subjective: afebrile. No new complaints Right hip suture line still with drainage-serous discharge Events noted. SEEN BY ORTHO.DR LEONARD. CT RIGHT HIP ORDERED- RESULTS NOTED. RIGHT HIP WITH ABSCESS/FLUID COLLECTION WITH GAS NOTED WITHIN THE RIGHT HIP JOINT SPACE DISCHARGED HELD CONTINUE iv VANCOMYCIN 1 G EVERY 12 HOURLY.11/14/17 ADD IV Flagyl 500 mg every 8 hourly for anaerobic coverage.11/19/17 Continue IV Azactam 1 g every 12 hourly.-11/16/17. PT SCHEDULED FOR OR ON Sunday11/21/[address] ARELLANO (ORTHO ) Objective - Vital Signs/Intake and Output Vital Signs (last 24 hours): Temp Pulse Resp BP Pulse Ox 98.1 F 64 20 150/71 97 11/19/17 08:03 11/19/17 12:03 11/19/17 08:03 11/19/17 10:07 11/19/17 08:03 - Medications Medications: Current Medications Acetaminophen (Tylenol 325mg Tab) 650 mg PO Q4H PRN PRN Reason: Pain, Mild (1-3) Last Admin: 11/16/17 03:06 Dose: 650 mg Acetaminophen (Tylenol 325mg Tab) 650 mg PO Q6 PRN PRN Reason: Pain, moderate (4-7) Last Admin: 11/15/17 04:49 Dose: 650 mg Amlodipine Besylate (Norvasc) 10 mg PO DAILY [facility] Last Admin: 11/19/17 10:06 Dose: 10 mg Aspirin (Ecotrin) 325 mg PO DAILY [facility] Last Admin: 11/19/17 10:06 Dose: 325 mg Carbidopa/Levodopa (Sinemet) 1 tab PO TID [facility] Last Admin: 11/19/17 10:06 Dose: 1 tab Enoxaparin Sodium (Lovenox) 40 mg SC DAILY [facility] Last Admin: 11/19/17 10:07 Dose: 40 mg Famotidine (Pepcid) 20 mg PO DAILY [facility] Last Admin: 11/19/17 10:06 Dose: 20 mg Vancomycin/Sodium Chloride (Vancomycin 1 Gm/Ns 200 Ml) 1 gm in 200 mls @ 133.333 mls/hr IVPB Q12H [facility] Stop: 11/20/17 16:01 Last Admin: 11/19/17 03:07 Dose: 133.333 mls/hr Aztreonam 1 gm/ Sodium (Chloride) 100 mls @ 200 mls/hr IVPB Q12H [facility] Last Admin: 11/19/17 08:25 Dose: 200 mls/hr Levetiracetam (Keppra) 750 mg PO BID [facility] Last Admin: 11/19/17 10:05 Dose: 750 mg Magnesium Hydroxide (Milk Of Magnesia) 30 ml PO DAILY PRN PRN Reason: Constipation Metoprolol Tartrate (Lopressor) 25 mg PO BID [facility] Last Admin: 11/19/17 10:07 Dose: 25 mg Ondansetron HCl (Zofran Odt) 4 mg PO Q6 PRN PRN Reason: Nausea/Vomiting Oxycodone/Acetaminophen (Percocet 5/325 Mg Tab) 1 tab PO Q4H PRN PRN Reason: Pain, severe (8-10) Stop: 11/19/17 23:59 Last Admin: 11/19/17 08:25 Dose: 1 tab - Labs Labs: 11/19/17 11:43 11/19/17 11:43 PT 12.5 SECONDS (9.7-12.2) H 11/13/17 19:29 INR 1.1 11/13/17 19:29 APTT 32 SECONDS (21-34) 11/13/17 19:29 - Constitutional Appears: No Acute Distress - Head Exam Head Exam: NORMAL INSPECTION - Eye Exam Eye Exam: EOMI, PERRL - ENT Exam ENT Exam: Normal Oropharynx - Neck Exam Neck Exam: Normal Inspection - Respiratory Exam Respiratory Exam: Clear to Ausculation Bilateral - GI/Abdominal Exam GI & Abdominal Exam: Soft, Normal Bowel Sounds - Extremities Exam Extremities Exam: absent: Calf Tenderness, Pedal Edema (rt. HIP SUTURE LINE + MANUEL[place]O +VE SEROUS DRAINAGE /AND ERYTHEMA AROUND SUTRE LINE.) - Neurological Exam Neurological Exam: Awake, CN II-XII Intact, Oriented x3 - Psychiatric Exam Psychiatric exam: Normal Mood - Skin Skin Exam: Normal Color, Warm Assessment and Plan (1) Abscess and cellulitis of gluteal region Status: Acute (2) UTI (urinary tract infection) Status: Acute (3) Chest pain Status: Acute (4) Dislocation of hip joint prosthesis Status: Acute - Assessment and Plan (Free Text) Plan: CT RIGHT HIP ORDERED- RESULTS NOTED.11/19/17 RIGHT HIP WITH ABSCESS/FLUID COLLECTION WITH GAS NOTED WITHIN THE RIGHT HIP JOINT SPACE DISCHARGED HELD CONTINUE iv VANCOMYCIN 1 G EVERY 12 HOURLY.11/14/17 ADD IV Flagyl 500 mg every 8 hourly for anaerobic coverage.11/19/17 Continue IV Azactam 1 g every 12 hourly.-11/16/17 LWC PER ORTHO. PT SCHEDULED FOR OR ON Sunday11/21/[address] ARELLANO (ORTHO )
--- NOTE | 2017-11-19 14:04 | CP.PCM.PN ---
Subjective - Date & Time of Evaluation Date of Evaluation: 11/19/17 Time of Evaluation: 14:03 - Subjective Subjective: AMBULATING AFEBRILE MILD DISCHARGE FROM WOUND BC. POS IV VANCO+AZACTAM Objective - Vital Signs/Intake and Output Vital Signs (last 24 hours): Temp Pulse Resp BP Pulse Ox 98.1 F 64 20 150/71 97 11/19/17 08:03 11/19/17 12:03 11/19/17 08:03 11/19/17 10:07 11/19/17 08:03 - Medications Medications: Current Medications Acetaminophen (Tylenol 325mg Tab) 650 mg PO Q4H PRN PRN Reason: Pain, Mild (1-3) Last Admin: 11/16/17 03:06 Dose: 650 mg Acetaminophen (Tylenol 325mg Tab) 650 mg PO Q6 PRN PRN Reason: Pain, moderate (4-7) Last Admin: 11/15/17 04:49 Dose: 650 mg Amlodipine Besylate (Norvasc) 10 mg PO DAILY [facility] Last Admin: 11/19/17 10:06 Dose: 10 mg Aspirin (Ecotrin) 325 mg PO DAILY [facility] Last Admin: 11/19/17 10:06 Dose: 325 mg Carbidopa/Levodopa (Sinemet) 1 tab PO TID [facility] Last Admin: 11/19/17 14:02 Dose: 1 tab Enoxaparin Sodium (Lovenox) 40 mg SC DAILY [facility] Last Admin: 11/19/17 10:07 Dose: 40 mg Famotidine (Pepcid) 20 mg PO DAILY [facility] Last Admin: 11/19/17 10:06 Dose: 20 mg Vancomycin/Sodium Chloride (Vancomycin 1 Gm/Ns 200 Ml) 1 gm in 200 mls @ 133.333 mls/hr IVPB Q12H [facility] Stop: 11/20/17 16:01 Last Admin: 11/19/17 03:07 Dose: 133.333 mls/hr Aztreonam 1 gm/ Sodium (Chloride) 100 mls @ 200 mls/hr IVPB Q12H [facility] Last Admin: 11/19/17 08:25 Dose: 200 mls/hr Levetiracetam (Keppra) 750 mg PO BID [facility] Last Admin: 11/19/17 10:05 Dose: 750 mg Magnesium Hydroxide (Milk Of Magnesia) 30 ml PO DAILY PRN PRN Reason: Constipation Metoprolol Tartrate (Lopressor) 25 mg PO BID [facility] Last Admin: 11/19/17 10:07 Dose: 25 mg Ondansetron HCl (Zofran Odt) 4 mg PO Q6 PRN PRN Reason: Nausea/Vomiting Oxycodone/Acetaminophen (Percocet 5/325 Mg Tab) 1 tab PO Q4H PRN PRN Reason: Pain, severe (8-10) Stop: 11/19/17 23:59 Last Admin: 11/19/17 14:02 Dose: 1 tab - Labs Labs: 11/19/17 11:43 11/19/17 11:43 PT 12.5 SECONDS (9.7-12.2) H 11/13/17 19:29 INR 1.1 11/13/17 19:29 APTT 32 SECONDS (21-34) 11/13/17 19:29
--- NOTE | 2017-11-19 16:06 | CP.PCM.PN ---
Subjective - Date & Time of Evaluation Date of Evaluation: 11/19/17 Time of Evaluation: 15:59 - Subjective Subjective: PT SEEN AND EXAMINED TODAY, RESPIRATION EASY AND UNLABORED. NAD Objective - Vital Signs/Intake and Output Vital Signs (last 24 hours): Temp Pulse Resp BP Pulse Ox 98 F 67 18 130/66 97 11/19/17 15:17 11/19/17 15:17 11/19/17 15:17 11/19/17 15:17 11/19/17 15:17 - Medications Medications: Current Medications Acetaminophen (Tylenol 325mg Tab) 650 mg PO Q4H PRN PRN Reason: Pain, Mild (1-3) Last Admin: 11/16/17 03:06 Dose: 650 mg Acetaminophen (Tylenol 325mg Tab) 650 mg PO Q6 PRN PRN Reason: Pain, moderate (4-7) Last Admin: 11/15/17 04:49 Dose: 650 mg Amlodipine Besylate (Norvasc) 10 mg PO DAILY [facility] Last Admin: 11/19/17 10:06 Dose: 10 mg Aspirin (Ecotrin) 325 mg PO DAILY [facility] Last Admin: 11/19/17 10:06 Dose: 325 mg Carbidopa/Levodopa (Sinemet) 1 tab PO TID [facility] Last Admin: 11/19/17 14:02 Dose: 1 tab Enoxaparin Sodium (Lovenox) 40 mg SC DAILY [facility] Last Admin: 11/19/17 10:07 Dose: 40 mg Famotidine (Pepcid) 20 mg PO DAILY [facility] Last Admin: 11/19/17 10:06 Dose: 20 mg Vancomycin/Sodium Chloride (Vancomycin 1 Gm/Ns 200 Ml) 1 gm in 200 mls @ 133.333 mls/hr IVPB Q12H [facility] Stop: 11/20/17 16:01 Last Admin: 11/19/17 03:07 Dose: 133.333 mls/hr Levetiracetam (Keppra) 750 mg PO BID [facility] Last Admin: 11/19/17 10:05 Dose: 750 mg Magnesium Hydroxide (Milk Of Magnesia) 30 ml PO DAILY PRN PRN Reason: Constipation Metoprolol Tartrate (Lopressor) 25 mg PO BID [facility] Last Admin: 11/19/17 10:07 Dose: 25 mg Ondansetron HCl (Zofran Odt) 4 mg PO Q6 PRN PRN Reason: Nausea/Vomiting Oxycodone/Acetaminophen (Percocet 5/325 Mg Tab) 1 tab PO Q4H PRN PRN Reason: Pain, severe (8-10) Stop: 11/19/17 23:59 Last Admin: 11/19/17 14:02 Dose: 1 tab - Labs Labs: 11/19/17 11:43 11/19/17 11:43 PT 12.5 SECONDS (9.7-12.2) H 11/13/17 19:29 INR 1.1 11/13/17 19:29 APTT 32 SECONDS (21-34) 11/13/17 19:29 Assessment and Plan - Assessment and Plan (Free Text) Plan: LEFT HIP - CONTINUED DRAINAGE, PT SEEN BY ORTHO, WILL NEED I & D, OR FOR SUNDAY DISCHARGE CANCELLED AT THIS TIME
--- NOTE | 2017-11-19 17:04 | CP.PCM.PN ---
Subjective - Date & Time of Evaluation Date of Evaluation: 11/19/17 Time of Evaluation: 16:30 - Subjective Subjective: Patient offers no new complaints. Objective - Vital Signs/Intake and Output Vital Signs (last 24 hours): Temp Pulse Resp BP Pulse Ox 98 F 72 18 130/66 97 11/19/17 15:17 11/19/17 16:04 11/19/17 15:17 11/19/17 15:17 11/19/17 15:17 - Medications Medications: Current Medications Acetaminophen (Tylenol 325mg Tab) 650 mg PO Q4H PRN PRN Reason: Pain, Mild (1-3) Last Admin: 11/16/17 03:06 Dose: 650 mg Acetaminophen (Tylenol 325mg Tab) 650 mg PO Q6 PRN PRN Reason: Pain, moderate (4-7) Last Admin: 11/15/17 04:49 Dose: 650 mg Amlodipine Besylate (Norvasc) 10 mg PO DAILY [facility] Last Admin: 11/19/17 10:06 Dose: 10 mg Aspirin (Ecotrin) 325 mg PO DAILY [facility] Last Admin: 11/19/17 10:06 Dose: 325 mg Carbidopa/Levodopa (Sinemet) 1 tab PO TID [facility] Last Admin: 11/19/17 14:02 Dose: 1 tab Enoxaparin Sodium (Lovenox) 40 mg SC DAILY [facility] Last Admin: 11/19/17 10:07 Dose: 40 mg Famotidine (Pepcid) 20 mg PO DAILY [facility] Last Admin: 11/19/17 10:06 Dose: 20 mg Vancomycin/Sodium Chloride (Vancomycin 1 Gm/Ns 200 Ml) 1 gm in 200 mls @ 133.333 mls/hr IVPB Q12H [facility] Stop: 11/20/17 16:01 Last Admin: 11/19/17 03:07 Dose: 133.333 mls/hr Levetiracetam (Keppra) 750 mg PO BID [facility] Last Admin: 11/19/17 10:05 Dose: 750 mg Magnesium Hydroxide (Milk Of Magnesia) 30 ml PO DAILY PRN PRN Reason: Constipation Metoprolol Tartrate (Lopressor) 25 mg PO BID [facility] Last Admin: 11/19/17 10:07 Dose: 25 mg Ondansetron HCl (Zofran Odt) 4 mg PO Q6 PRN PRN Reason: Nausea/Vomiting Oxycodone/Acetaminophen (Percocet 5/325 Mg Tab) 1 tab PO Q4H PRN PRN Reason: Pain, severe (8-10) Stop: 11/19/17 23:59 Last Admin: 11/19/17 14:02 Dose: 1 tab - Labs Labs: 11/19/17 11:43 11/19/17 11:43 PT 12.5 SECONDS (9.7-12.2) H 11/13/17 19:29 INR 1.1 11/13/17 19:29 APTT 32 SECONDS (21-34) 11/13/17 19:29 - Extremities Exam Additional comments: left hip: continued serosang drainage at this time, able to express significant amount of thick cloudy serosang drainage from proximal aspect of wound raiza intact +DP pulse calves soft NT neg homans sensation itnact Assessment and Plan (1) Postoperative wound infection of right hip Assessment & Plan: d/w Dr. Mendosa will need I&D CT scan ordered plan for OR sunday pending optimization d/c cancelled ID appreciated PICC in place Status: Acute (2) UTI (urinary tract infection) Status: Acute
--- NOTE | 2017-11-19 17:07 | RAD ---
HISTORY: verify right PICC COMPARISON: Chest x-ray performed 11/13/17 TECHNIQUE: Chest, one view. FINDINGS: Right-sided PICC extends to the cavoatrial junction. LUNGS: No focal consolidation. Please note that chest x-ray has limited sensitivity for the detection of pulmonary masses. PLEURA: No significant pleural effusion identified. No definite pneumothorax . CARDIOVASCULAR: Heart size appears top normal. Atherosclerotic calcifications of the aorta. OSSEOUS STRUCTURES: Mild degenerative changes. VISUALIZED UPPER ABDOMEN: Unremarkable. OTHER FINDINGS: None. IMPRESSION: Right-sided PICC extends expected location of the cavoatrial junction.
[2017-11-19] MEDS ORDERED: Iodixanol 320 MG/ML 100 ML BOTTLE IV ONE (17:19)
--- NOTE | 2017-11-19 20:51 | CT ---
EXAM: CT Right Lower Extremity With Intravenous Contrast, Hip EXAM DATE/TIME: Exam ordered 11/19/2017 5:03 PM CLINICAL HISTORY: 77 years old, female; Condition or disease; Other: Abscess; Additional info: Right hip wound drainage R/O abscess TECHNIQUE: Axial computed tomography images of the right hip with intravenous contrast. All CT scans at this facility use one or more dose reduction techniques, viz.: automated exposure control; ma/kV adjustment per patient size (including targeted exams where dose is matched to indication; i.e. head); or iterative reconstruction technique. Coronal and sagittal reformatted images were created and reviewed. CONTRAST: 100 mL of visipaque 320 administered intravenously. COMPARISON: CT - HIP WITHOUT CONTRAST RIGHT 2017-10-26 02:55 FINDINGS: Bones/joints: There is a fluid collection that communicates with the right hip joint measuring approximately 4.4 x 4.6 x 12.3 cm.. Gas is noted within the right hip joint space. Degenerative changes are noted of the lumbar spine. No acute fracture. No dislocation. Soft tissues: There is artifact which degrades images of the proximal thighs and inferior pelvis. Inflammatory stranding is noted within the soft tissues the lateral to the right hip. Bowel: A moderate to large amount of stool is seen in the colon. No mucosal thickening. IMPRESSION: Abscess noted in the soft tissues overlying the right hip which communicates with the right hip joint. Ultrasound would be useful in guiding diagnostic and/or therapeutic interventions particularly in light of the artifact generated by the hip prosthesis
[2017-11-20] MEDS: metroNIDAZOLE IV 500 mg/100 ml 500 MG/100 ML BAG IVPB SCH ×4 (01:16→22:44)
[2017-11-20] MEDS: Aztreonam 1 GM in Sodium Chloride 0.9% 100 ML IVPB SCH ×2 (02:34→12:32)
[2017-11-20] MEDS: Vancomycin 1 gm/NS 200 ml 1 GM/200 ML BAG IVPB SCH ×2 (04:00→21:32)
[2017-11-20] MEDS: Oxycodone/Acetaminophen 5/325 mg Tab PO PRN ×3 (04:05→21:03)
[2017-11-20 06:40] LABS: BASO % 0.7 % (0.0-2.0); EOS # 0.1 K/uL (0.0-0.7); EOS % 2.3 % (0.0-4.0); HEMOGLOBIN 9.4 g/dL (11.0-16.0); LYMPH # 1.2 K/uL (1.0-4.3); LYMPH % 21.8 % (20.0-40.0); MEAN CELL VOLUME 85.3 fL (81.0-99.0); MEAN CORPUSCULAR HEMOGLOBIN 27.8 pg (27.0-31.0); MEAN CORPUSCULAR HGB CONC 32.7 g/dL (33.0-37.0); MEAN PLATELET VOLUME 7.2 fL (7.2-11.7); MONO # 0.6 K/uL (0.0-0.8); MONO % 10.5 % (0.0-10.0); NEUT # 3.7 K/uL (1.8-7.0); NEUT % 64.7 % (50.0-75.0); RBC 3.37 Mil/uL (3.80-5.20); WHITE BLOOD COUNT 5.7 K/uL (4.8-10.8)
[2017-11-20 06:56] LABS: BLOOD UREA NITROGEN 14 mg/dL (7-17); GFR AFRICAN-AMERICAN > 60; GFR NON-AFRICAN AMERICAN > 60
--- NOTE | 2017-11-20 08:19 | CP.PCM.PN ---
Subjective - Date & Time of Evaluation Date of Evaluation: 11/20/17 Time of Evaluation: 07:15 - Subjective Subjective: S- pt with painless minimal wound drainage/NO complaints of pauin on ROM R hip Objective - Vital Signs/Intake and Output Vital Signs (last 24 hours): Temp Pulse Resp BP Pulse Ox 98.3 F 61 20 115/58 L 96 11/19/17 23:40 11/20/17 03:48 11/19/17 23:40 11/19/17 23:40 11/19/17 23:40 - Medications Medications: Current Medications Acetaminophen (Tylenol 325mg Tab) 650 mg PO Q4H PRN PRN Reason: Pain, Mild (1-3) Last Admin: 11/16/17 03:06 Dose: 650 mg Acetaminophen (Tylenol 325mg Tab) 650 mg PO Q6 PRN PRN Reason: Pain, moderate (4-7) Last Admin: 11/15/17 04:49 Dose: 650 mg Amlodipine Besylate (Norvasc) 10 mg PO DAILY [facility] Last Admin: 11/19/17 10:06 Dose: 10 mg Aspirin (Ecotrin) 325 mg PO DAILY [facility] Last Admin: 11/19/17 10:06 Dose: 325 mg Carbidopa/Levodopa (Sinemet) 1 tab PO TID [facility] Last Admin: 11/19/17 17:48 Dose: 1 tab Enoxaparin Sodium (Lovenox) 40 mg SC DAILY [facility] Last Admin: 11/19/17 10:07 Dose: 40 mg Famotidine (Pepcid) 20 mg PO DAILY [facility] Last Admin: 11/19/17 10:06 Dose: 20 mg Vancomycin/Sodium Chloride (Vancomycin 1 Gm/Ns 200 Ml) 1 gm in 200 mls @ 133.333 mls/hr IVPB Q12H [facility] Stop: 11/20/17 16:01 Last Admin: 11/20/17 04:00 Dose: 133.333 mls/hr Metronidazole (Flagyl) 500 mg in 100 mls @ 100 mls/hr IVPB Q8 [facility] Last Admin: 11/20/17 06:11 Dose: 100 mls/hr Aztreonam 1 gm/ Sodium (Chloride) 100 mls @ 100 mls/hr IVPB Q12H [facility] Last Admin: 11/20/17 02:34 Dose: 100 mls/hr Levetiracetam (Keppra) 750 mg PO BID [facility] Last Admin: 11/19/17 17:48 Dose: 750 mg Magnesium Hydroxide (Milk Of Magnesia) 30 ml PO DAILY PRN PRN Reason: Constipation Metoprolol Tartrate (Lopressor) 25 mg PO BID [facility] Last Admin: 11/19/17 17:49 Dose: 25 mg Ondansetron HCl (Zofran Odt) 4 mg PO Q6 PRN PRN Reason: Nausea/Vomiting Oxycodone/Acetaminophen (Percocet 5/325 Mg Tab) 1 tab PO Q4H PRN PRN Reason: Pain, severe (8-10) Stop: 11/23/17 00:21 Last Admin: 11/20/17 04:05 Dose: 1 tab - Labs Labs: 11/20/17 06:24 11/20/17 06:24 PT 12.5 SECONDS (9.7-12.2) H 11/13/17 19:29 INR 1.1 11/13/17 19:29 APTT 32 SECONDS (21-34) 11/13/17 19:29 - Skin Additional comments: Objective exam systemic- wnl pt oriented, somewhat anxious at time of eval i nprescence of nurese Leandra - Additional Findings Additional findings: Objective stance/gait defrred pt OOB in chair, comfortable at time of eval dressing chend wound with redness, secondary to skin rxn to betadibne no active drainage ABSOLUTELY 0 PAIN ON PASSIVE ROM OF R HIP - no clinical evidence for dep sepsis Assessment and Plan - Assessment and Plan (Free Text) Assessment: A- superficiasl drainage s/p R THR CT scan reviewed- disagree with certainty of deep abscess in R hip P- to, OR for I+D- possibility of later explant of prostheiss discussed- since operation is still in periop period, would at this point I+D wound, insert abio impregnated beads and treat with wound vac and 6 wks IV abios
[2017-11-20] MEDS: Enoxaparin 40 mg Syringe SC SCH (09:39)
[2017-11-20] MEDS: Aspirin 325 mg EC Tablets PO SCH (09:39)
--- NOTE | 2017-11-20 13:47 | CP.PCM.PN ---
Subjective - Date & Time of Evaluation Date of Evaluation: 11/20/17 Time of Evaluation: 13:46 - Subjective Subjective: DISCHARGE WAS HELD CT HIP SHOWED POSSIBLE COLLECTION ? ABSCESS PT FOR OR FOR I&D AFEBRILE P/E REMAINS SAME Objective - Vital Signs/Intake and Output Vital Signs (last 24 hours): Temp Pulse Resp BP Pulse Ox 99.2 F 62 20 134/62 97 11/20/17 08:00 11/20/17 08:46 11/20/17 08:00 11/20/17 09:40 11/20/17 08:00 - Medications Medications: Current Medications Acetaminophen (Tylenol 325mg Tab) 650 mg PO Q4H PRN PRN Reason: Pain, Mild (1-3) Last Admin: 11/16/17 03:06 Dose: 650 mg Acetaminophen (Tylenol 325mg Tab) 650 mg PO Q6 PRN PRN Reason: Pain, moderate (4-7) Last Admin: 11/15/17 04:49 Dose: 650 mg Amlodipine Besylate (Norvasc) 10 mg PO DAILY [facility] Last Admin: 11/20/17 09:38 Dose: 10 mg Aspirin (Ecotrin) 325 mg PO DAILY [facility] Last Admin: 11/20/17 09:39 Dose: Not Given Carbidopa/Levodopa (Sinemet) 1 tab PO TID [facility] Last Admin: 11/20/17 09:38 Dose: 1 tab Enoxaparin Sodium (Lovenox) 40 mg SC DAILY [facility] Last Admin: 11/20/17 09:39 Dose: Not Given Famotidine (Pepcid) 20 mg PO DAILY [facility] Last Admin: 11/20/17 09:39 Dose: Not Given Vancomycin/Sodium Chloride (Vancomycin 1 Gm/Ns 200 Ml) 1 gm in 200 mls @ 133.333 mls/hr IVPB Q12H [facility] Stop: 11/20/17 16:01 Last Admin: 11/20/17 04:00 Dose: 133.333 mls/hr Metronidazole (Flagyl) 500 mg in 100 mls @ 100 mls/hr IVPB Q8 [facility] Last Admin: 11/20/17 06:11 Dose: 100 mls/hr Aztreonam 1 gm/ Sodium (Chloride) 100 mls @ 100 mls/hr IVPB Q12H [facility] Last Admin: 11/20/17 12:32 Dose: 100 mls/hr Levetiracetam (Keppra) 750 mg PO BID [facility] Last Admin: 11/20/17 09:38 Dose: 750 mg Magnesium Hydroxide (Milk Of Magnesia) 30 ml PO DAILY PRN PRN Reason: Constipation Metoprolol Tartrate (Lopressor) 25 mg PO BID [facility] Last Admin: 11/20/17 09:40 Dose: 25 mg Ondansetron HCl (Zofran Inj) 4 mg IVP Q6H PRN PRN Reason: Nausea/Vomiting Last Admin: 11/20/17 12:33 Dose: 4 mg Oxycodone/Acetaminophen (Percocet 5/325 Mg Tab) 1 tab PO Q4H PRN PRN Reason: Pain, severe (8-10) Stop: 11/23/17 00:21 Last Admin: 11/20/17 09:38 Dose: 1 tab - Labs Labs: 11/20/17 06:24 11/20/17 06:24 PT 12.5 SECONDS (9.7-12.2) H 11/13/17 19:29 INR 1.1 11/13/17 19:29 APTT 32 SECONDS (21-34) 11/13/17 19:29
--- NOTE | 2017-11-20 23:02 | CP.PCM.PN ---
Subjective - Date & Time of Evaluation Date of Evaluation: 11/20/17 Time of Evaluation: 23:02 - Subjective Subjective: afebrile. No new complaints Right hip suture line still with drainage-serous discharge CT RIGHT HIP ORDERED- RESULTS NOTED. RIGHT HIP WITH ABSCESS/FLUID COLLECTION WITH GAS NOTED WITHIN THE RIGHT HIP JOINT SPACE LABS REVIEWED; CONTINUE iv VANCOMYCIN 1 G EVERY 12 HOURLY.11/14/17 ADD IV Flagyl 500 mg every 8 hourly for anaerobic coverage.11/19/17 Continue IV Azactam 1 g every 12 hourly.-11/16/17. PT SCHEDULED FOR OR ON Sunday11/21/[address] ARELLANO (ORTHO ) Objective - Vital Signs/Intake and Output Vital Signs (last 24 hours): Temp Pulse Resp BP Pulse Ox 97.9 F 62 18 127/70 98 11/20/17 15:42 11/20/17 16:00 11/20/17 15:42 11/20/17 17:49 11/20/17 15:42 - Medications Medications: Current Medications Acetaminophen (Tylenol 325mg Tab) 650 mg PO Q4H PRN PRN Reason: Pain, Mild (1-3) Last Admin: 11/16/17 03:06 Dose: 650 mg Acetaminophen (Tylenol 325mg Tab) 650 mg PO Q6 PRN PRN Reason: Pain, moderate (4-7) Last Admin: 11/15/17 04:49 Dose: 650 mg Amlodipine Besylate (Norvasc) 10 mg PO DAILY [facility] Last Admin: 11/20/17 09:38 Dose: 10 mg Aspirin (Ecotrin) 325 mg PO DAILY [facility] Last Admin: 11/20/17 09:39 Dose: Not Given Carbidopa/Levodopa (Sinemet) 1 tab PO TID [facility] Last Admin: 11/20/17 17:48 Dose: 1 tab Enoxaparin Sodium (Lovenox) 40 mg SC DAILY [facility] Last Admin: 11/20/17 09:39 Dose: Not Given Famotidine (Pepcid) 20 mg PO DAILY [facility] Last Admin: 11/20/17 09:39 Dose: Not Given Metronidazole (Flagyl) 500 mg in 100 mls @ 100 mls/hr IVPB Q8 [facility] Last Admin: 11/20/17 22:44 Dose: 100 mls/hr Aztreonam 1 gm/ Sodium (Chloride) 100 mls @ 100 mls/hr IVPB Q12H [facility] Last Admin: 11/20/17 12:32 Dose: 100 mls/hr Levetiracetam (Keppra) 750 mg PO BID [facility] Last Admin: 11/20/17 17:48 Dose: 750 mg Magnesium Hydroxide (Milk Of Magnesia) 30 ml PO DAILY PRN PRN Reason: Constipation Metoprolol Tartrate (Lopressor) 25 mg PO BID [facility] Last Admin: 11/20/17 17:49 Dose: 25 mg Ondansetron HCl (Zofran Inj) 4 mg IVP Q6H PRN PRN Reason: Nausea/Vomiting Last Admin: 11/20/17 12:33 Dose: 4 mg Oxycodone/Acetaminophen (Percocet 5/325 Mg Tab) 1 tab PO Q4H PRN PRN Reason: Pain, severe (8-10) Stop: 11/23/17 00:21 Last Admin: 11/20/17 21:03 Dose: 1 tab - Labs Labs: 11/20/17 06:24 11/20/17 06:24 PT 12.5 SECONDS (9.7-12.2) H 11/13/17 19:29 INR 1.1 11/13/17 19:29 APTT 32 SECONDS (21-34) 11/13/17 19:29 - Constitutional Appears: No Acute Distress - Head Exam Head Exam: NORMAL INSPECTION - Eye Exam Eye Exam: EOMI, PERRL - ENT Exam ENT Exam: Normal Oropharynx - Neck Exam Neck Exam: Normal Inspection - Respiratory Exam Respiratory Exam: Clear to Ausculation Bilateral - Cardiovascular Exam Cardiovascular Exam: REGULAR RHYTHM, +S1, +S2 - GI/Abdominal Exam GI & Abdominal Exam: Soft, Normal Bowel Sounds - Extremities Exam Extremities Exam: Pedal Edema (RT HIP WOUND +VE DRESSING +VE DRAINAGE ). absent : Calf Tenderness - Neurological Exam Neurological Exam: Alert, Awake, CN II-XII Intact, Oriented x3 - Psychiatric Exam Psychiatric exam: Normal Mood - Skin Skin Exam: Normal Color, Warm Assessment and Plan (1) Abscess and cellulitis of gluteal region Assessment & Plan: CONTINUE iv VANCOMYCIN 1 G EVERY 12 HOURLY.11/14/17 ADD IV Flagyl 500 mg every 8 hourly for anaerobic coverage.11/19/17 Continue IV Azactam 1 g every 12 hourly.-11/16/17 LWC PER ORTHO. PT SCHEDULED FOR OR ON Sunday11/21/[address] ARELLANO (ORTHO ) FOR APPROPRIATE CULTURES BACTERIAL,FUNGAL AND AFB. Status: Acute (2) UTI (urinary tract infection) Status: Acute (3) Chest pain Status: Acute (4) Dislocation of hip joint prosthesis Status: Acute
[2017-11-21] MEDS: Aztreonam 1 GM in Sodium Chloride 0.9% 100 ML IVPB SCH ×3 (00:41→23:49)
[2017-11-21] MEDS: Oxycodone/Acetaminophen 5/325 mg Tab PO PRN ×2 (03:04→10:32)
[2017-11-21] MEDS: metroNIDAZOLE IV 500 mg/100 ml 500 MG/100 ML BAG IVPB SCH ×3 (05:25→21:11)
[2017-11-21] MEDS: Aspirin 325 mg EC Tablets PO SCH (09:57)
--- NOTE | 2017-11-21 13:27 | CP.PCM.PN ---
Subjective - Date & Time of Evaluation Date of Evaluation: 11/21/17 Time of Evaluation: 13:26 - Subjective Subjective: PT WAITING FOR OR ON IV AB IF SURGERY IS NOT NEEDED PT WILL GO BACK TO [facility] Objective - Vital Signs/Intake and Output Vital Signs (last 24 hours): Temp Pulse Resp BP Pulse Ox 98.6 F 73 20 119/65 96 11/21/17 08:00 11/21/17 08:00 11/21/17 08:00 11/21/17 09:55 11/21/17 08:00 - Medications Medications: Current Medications Acetaminophen (Tylenol 325mg Tab) 650 mg PO Q4H PRN PRN Reason: Pain, Mild (1-3) Last Admin: 11/16/17 03:06 Dose: 650 mg Acetaminophen (Tylenol 325mg Tab) 650 mg PO Q6 PRN PRN Reason: Pain, moderate (4-7) Last Admin: 11/15/17 04:49 Dose: 650 mg Amlodipine Besylate (Norvasc) 10 mg PO DAILY [facility] Last Admin: 11/21/17 09:55 Dose: 10 mg Aspirin (Ecotrin) 325 mg PO DAILY [facility] Last Admin: 11/21/17 09:57 Dose: Not Given Carbidopa/Levodopa (Sinemet) 1 tab PO TID [facility] Last Admin: 11/21/17 09:55 Dose: 1 tab Enoxaparin Sodium (Lovenox) 40 mg SC DAILY [facility] Last Admin: 11/20/17 09:39 Dose: Not Given Famotidine (Pepcid) 20 mg PO DAILY [facility] Last Admin: 11/21/17 09:55 Dose: 20 mg Metronidazole (Flagyl) 500 mg in 100 mls @ 100 mls/hr IVPB Q8 [facility] Last Admin: 11/21/17 05:25 Dose: 100 mls/hr Aztreonam 1 gm/ Sodium (Chloride) 100 mls @ 100 mls/hr IVPB Q12H [facility] Last Admin: 11/21/17 12:09 Dose: 100 mls/hr Levetiracetam (Keppra) 750 mg PO BID [facility] Last Admin: 11/21/17 09:55 Dose: 750 mg Magnesium Hydroxide (Milk Of Magnesia) 30 ml PO DAILY PRN PRN Reason: Constipation Metoprolol Tartrate (Lopressor) 25 mg PO BID [facility] Last Admin: 11/21/17 09:55 Dose: 25 mg Ondansetron HCl (Zofran Inj) 4 mg IVP Q6H PRN PRN Reason: Nausea/Vomiting Last Admin: 11/20/17 12:33 Dose: 4 mg Oxycodone/Acetaminophen (Percocet 5/325 Mg Tab) 1 tab PO Q4H PRN PRN Reason: Pain, severe (8-10) Stop: 11/23/17 00:21 Last Admin: 11/21/17 10:32 Dose: 1 tab - Labs Labs: 11/20/17 06:24 11/20/17 06:24 PT 12.5 SECONDS (9.7-12.2) H 11/13/17 19:29 INR 1.1 11/13/17 19:29 APTT 32 SECONDS (21-34) 11/13/17 19:29
[2017-11-21] MEDS ORDERED: Bacitracin 150,000 UNIT in Sodium Chloride 0.9% Irrig 3,000 ML IR SCH ×3 (15:00→17:52)
[2017-11-21] MEDS ORDERED: Bupivacaine HCl 0.5% PF (10 ml) Inj ONE (15:45)
[2017-11-21] MEDS ORDERED: Absorbable Gelatin Sponge Size 100 ONE (15:54)
[2017-11-21] MEDS ORDERED: Thrombin Topical 5,000 Int Units Spray Kit ONE (15:54)
[2017-11-21] MEDS ORDERED: Thrombin Topical 20,000 Intl Units Spray Kit TOP ONE (15:55)
[2017-11-21] MEDS ORDERED: Morphine 1 mg/ml preservative-free Inj(Duramorph) ONE (16:13)
[2017-11-21] MEDS: Vancomycin 1 gm/NS 200 ml 1 GM/200 ML BAG IVPB SCH (16:30)
[2017-11-21] MEDS ORDERED: Propofol 10 mg/ml Inj (20 ML) ONE (16:42)
[2017-11-21] MEDS ORDERED: Vancomycin 1 g Inj ONE (17:09)
[2017-11-21] MEDS ORDERED: Rocuronium 10 mg/ml (10 ml) ONE (17:57)
[2017-11-21 18:02] LABS: FLUID TYPE SYNOVIAL FLUID
[2017-11-21 18:28] LABS: SF GROSS APPEARANCE BLOODY (CLEAR)
[2017-11-21] MEDS ORDERED: Neostigmine Methylsulfate 3mg/3ml Syringe IV ONE (18:29)
[2017-11-21 18:30] LABS: SYNOVIAL FLUID MONO/MACROPHAGE 3 % (0-0)
--- NOTE | 2017-11-21 18:35 | PCM.SURG1 ---
Surgeon's Initial Post Op Note - Surgeon's Notes Surgeon: Navya Buckle Wire Inserter: JULIO Fletcher Type of Anesthesia: General Endo, Spinal Anesthesia Administered By: DR Meade Pre-Operative Diagnosis: supeficial drainge L hip- s/p Open reduction dislocated THR. R/O deep sepsis Operative Findings: as above Post-Operative Diagnosis: as above Operation Performed: Incision drainage L HIP. removal foreign bodies (deep). insertion abio-impregnated pellets. manipulation hip under anaesthesia. excision skin/subcuataneous tissue/muscle Specimen/Specimens Removed: foreign bodies(suture)/skin/subcutaneous tissue/ muscle Estimated Blood Loss: EBL {In ML}: 35 Blood Products Given: N/A, PRBC Drains Used: No Drains, Wound Vac Post-Op Condition: Fair Date of Surgery/Procedure: 11/21/17 Time of Surgery/Procedure: 17:20 (time in room/anaesthesia induction time 1620)
[2017-11-21] MEDS ORDERED: HYDROmorphone 0.5 mg/0.5 ml ISec IVP PRN (18:58)
--- NOTE | 2017-11-21 22:34 | CP.PCM.PN ---
Subjective - Date & Time of Evaluation Date of Evaluation: 11/21/17 Time of Evaluation: 22:34 - Subjective Subjective: EVENTS NOTED. SEEN POSTOP. s/p incision drainage rt HIP. removal foreign bodies (deep). insertion abio- impregnated pellets. manipulation hip under anaesthesia. excision skin/subcuataneous tissue/muscle offers no complaints Objective - Vital Signs/Intake and Output Vital Signs (last 24 hours): Temp Pulse Resp BP Pulse Ox 97.6 F 68 18 113/58 L 95 11/21/17 20:55 11/21/17 20:55 11/21/17 20:55 11/21/17 20:55 11/21/17 20:55 Intake and Output: 11/21/17 11/22/17 18:59 06:59 Intake Total 1475 Balance 1475 - Medications Medications: Current Medications Acetaminophen (Tylenol 325mg Tab) 650 mg PO Q4H PRN PRN Reason: Pain, Mild (1-3) Last Admin: 11/16/17 03:06 Dose: 650 mg Acetaminophen (Tylenol 325mg Tab) 650 mg PO Q6 PRN PRN Reason: Pain, moderate (4-7) Last Admin: 11/15/17 04:49 Dose: 650 mg Amlodipine Besylate (Norvasc) 10 mg PO DAILY [facility] Last Admin: 11/21/17 09:55 Dose: 10 mg Aspirin (Ecotrin) 325 mg PO DAILY [facility] Last Admin: 11/21/17 09:57 Dose: Not Given Carbidopa/Levodopa (Sinemet) 1 tab PO TID [facility] Last Admin: 11/21/17 13:35 Dose: Not Given Enoxaparin Sodium (Lovenox) 40 mg SC DAILY [facility] Last Admin: 11/20/17 09:39 Dose: Not Given Famotidine (Pepcid) 20 mg PO DAILY [facility] Last Admin: 11/21/17 09:55 Dose: 20 mg Metronidazole (Flagyl) 500 mg in 100 mls @ 100 mls/hr IVPB Q8 [facility] Last Admin: 11/21/17 21:11 Dose: 100 mls/hr Aztreonam 1 gm/ Sodium (Chloride) 100 mls @ 100 mls/hr IVPB Q12H [facility] Last Admin: 11/21/17 12:09 Dose: 100 mls/hr Vancomycin/Sodium Chloride (Vancomycin 1 Gm/Ns 200 Ml) 1 gm in 200 mls @ 133.333 mls/hr IVPB Q12H [facility] Stop: 11/26/17 16:31 Last Admin: 11/21/17 16:30 Dose: Not Given Levetiracetam (Keppra) 750 mg PO BID [facility] Last Admin: 11/21/17 09:55 Dose: 750 mg Magnesium Hydroxide (Milk Of Magnesia) 30 ml PO DAILY PRN PRN Reason: Constipation Metoprolol Tartrate (Lopressor) 25 mg PO BID [facility] Last Admin: 11/21/17 09:55 Dose: 25 mg Ondansetron HCl (Zofran Inj) 4 mg IVP Q6H PRN PRN Reason: Nausea/Vomiting Last Admin: 11/20/17 12:33 Dose: 4 mg Oxycodone/Acetaminophen (Percocet 5/325 Mg Tab) 1 tab PO Q4H PRN PRN Reason: Pain, severe (8-10) Stop: 11/23/17 00:21 Last Admin: 11/21/17 10:32 Dose: 1 tab - Labs Labs: 11/20/17 06:24 11/20/17 06:24 PT 12.5 SECONDS (9.7-12.2) H 11/13/17 19:29 INR 1.1 11/13/17 19:29 APTT 32 SECONDS (21-34) 11/13/17 19:29 - Constitutional Appears: No Acute Distress - Head Exam Head Exam: NORMAL INSPECTION - Eye Exam Eye Exam: EOMI, PERRL - ENT Exam ENT Exam: Normal Oropharynx - Neck Exam Neck Exam: Normal Inspection - Respiratory Exam Respiratory Exam: Decreased Breath Sounds - Cardiovascular Exam Cardiovascular Exam: REGULAR RHYTHM, +S1, +S2 - GI/Abdominal Exam GI & Abdominal Exam: Soft, Normal Bowel Sounds - Extremities Exam Extremities Exam: absent: Calf Tenderness, Pedal Edema (RT. HIP -POST OPERATIVE. ) - Neurological Exam Neurological Exam: Awake - Psychiatric Exam Psychiatric exam: Normal Mood - Skin Skin Exam: Normal Color, Warm Assessment and Plan (1) Abscess and cellulitis of gluteal region Assessment & Plan: PT.POST OPT. 10/21/17/ CONTINUE iv VANCOMYCIN 1 G EVERY 12 HOURLY.11/14/17 ADD IV Flagyl 500 mg every 8 hourly for anaerobic coverage.11/19/17 Continue IV Azactam 1 g every 12 hourly.-2/9/18 LWC PER ORTHO. F/U VANCO LEVELS AND KEEP BETWEEN 10-20. F/U CULTURES REPEAT DONE IN OR. Status: Acute (2) UTI (urinary tract infection) Assessment & Plan: URINECULTURE REPEAT -VE. PT ON ABX. Status: Acute (3) Chest pain Status: Acute (4) Dislocation of hip joint prosthesis Status: Acute
[2017-11-22] MEDS: Oxycodone/Acetaminophen 5/325 mg Tab PO PRN ×2 (03:47→10:24)
[2017-11-22] MEDS: Vancomycin 1 gm/NS 200 ml 1 GM/200 ML BAG IVPB SCH ×2 (04:21→16:55)
[2017-11-22] MEDS: metroNIDAZOLE IV 500 mg/100 ml 500 MG/100 ML BAG IVPB SCH ×3 (06:03→21:02)
--- NOTE | 2017-11-22 08:28 | CP.PCM.PN ---
Subjective - Date & Time of Evaluation Date of Evaluation: 11/22/17 Time of Evaluation: 08:26 - Subjective Subjective: Patient states she has little pain. denies CP?SOB/dizziness Objective - Vital Signs/Intake and Output Vital Signs (last 24 hours): Temp Pulse Resp BP Pulse Ox 98.2 F 61 18 124/57 L 96 11/22/17 03:47 11/22/17 04:39 11/22/17 03:47 11/22/17 03:47 11/22/17 03:47 - Medications Medications: Current Medications Acetaminophen (Tylenol 325mg Tab) 650 mg PO Q4H PRN PRN Reason: Pain, Mild (1-3) Last Admin: 11/16/17 03:06 Dose: 650 mg Acetaminophen (Tylenol 325mg Tab) 650 mg PO Q6 PRN PRN Reason: Pain, moderate (4-7) Last Admin: 11/15/17 04:49 Dose: 650 mg Amlodipine Besylate (Norvasc) 10 mg PO DAILY [facility] Last Admin: 11/21/17 09:55 Dose: 10 mg Aspirin (Ecotrin) 325 mg PO DAILY [facility] Last Admin: 11/21/17 09:57 Dose: Not Given Carbidopa/Levodopa (Sinemet) 1 tab PO TID [facility] Last Admin: 11/21/17 18:00 Dose: Not Given Enoxaparin Sodium (Lovenox) 40 mg SC Q24H [facility] Famotidine (Pepcid) 20 mg PO DAILY [facility] Last Admin: 11/21/17 09:55 Dose: 20 mg Metronidazole (Flagyl) 500 mg in 100 mls @ 100 mls/hr IVPB Q8 [facility] Last Admin: 11/22/17 06:03 Dose: 100 mls/hr Aztreonam 1 gm/ Sodium (Chloride) 100 mls @ 100 mls/hr IVPB Q12H [facility] Last Admin: 11/21/17 23:49 Dose: 100 mls/hr Vancomycin/Sodium Chloride (Vancomycin 1 Gm/Ns 200 Ml) 1 gm in 200 mls @ 133.333 mls/hr IVPB Q12H [facility] Stop: 11/26/17 16:31 Last Admin: 11/22/17 04:21 Dose: 133.333 mls/hr Levetiracetam (Keppra) 750 mg PO BID [facility] Last Admin: 11/21/17 18:00 Dose: Not Given Magnesium Hydroxide (Milk Of Magnesia) 30 ml PO DAILY PRN PRN Reason: Constipation Metoprolol Tartrate (Lopressor) 25 mg PO BID [facility] Last Admin: 11/21/17 18:00 Dose: Not Given Ondansetron HCl (Zofran Inj) 4 mg IVP Q6H PRN PRN Reason: Nausea/Vomiting Last Admin: 11/22/17 06:05 Dose: 4 mg Oxycodone/Acetaminophen (Percocet 5/325 Mg Tab) 1 tab PO Q4H PRN PRN Reason: Pain, severe (8-10) Stop: 11/23/17 00:21 Last Admin: 11/22/17 03:47 Dose: 1 tab - Labs Labs: 11/20/17 06:24 11/20/17 06:24 PT 12.5 SECONDS (9.7-12.2) H 11/13/17 19:29 INR 1.1 11/13/17 19:29 APTT 32 SECONDS (21-34) 11/13/17 19:29 - Extremities Exam Additional comments: RLE: +ROM ankle/toes,s ensation intact +DP/PT Pulses Wound vac intact Assessment and Plan (1) Postoperative wound infection of right hip Assessment & Plan: S/p I&D/wound vac f/u cultures continue wound vac PT/OT VTE proph patient already has PICC f/u ID plan after cx d/w Dr. Mendosa, agrees with above Status: Acute (2) UTI (urinary tract infection) Status: Acute
[2017-11-22] MEDS: Aspirin 325 mg EC Tablets PO SCH (10:21)
--- NOTE | 2017-11-22 10:36 | RAD ---
PROCEDURE: HISTORY: s/p I R hip with insertion of abio impregnated COMPARISON: 11/15/2017 TECHNIQUE: AP view of the pelvis and applicable frog leg views obtained. FINDINGS: Bilateral total replacement without hardware failure or fracture appreciated. Coalescent the small 2 to 4 mm radial opacity is project over the lateral right intertrochanteric region right greater trochanter on frontal view IMPRESSION: History states interval incision and drainage of right hip with the interval insertion abio No hardware failure no fracture seen
[2017-11-22 11:44] LABS: MEAN CELL VOLUME 86.9 fL (81.0-99.0); MEAN CORPUSCULAR HEMOGLOBIN 28.6 pg (27.0-31.0); MEAN CORPUSCULAR HGB CONC 32.9 g/dL (33.0-37.0); MEAN PLATELET VOLUME 7.6 fL (7.2-11.7); RBC 3.49 Mil/uL (3.80-5.20); RED CELL DISTRIBUTION WIDTH 16.6 % (11.5-14.5); WHITE BLOOD COUNT 7.5 K/uL (4.8-10.8)
[2017-11-22 12:02] LABS: BLOOD UREA NITROGEN 17 mg/dL (7-17); CALCIUM 8.6 mg/dl (8.6-10.4); GFR AFRICAN-AMERICAN > 60; GFR NON-AFRICAN AMERICAN > 60
[2017-11-22] MEDS: Aztreonam 1 GM in Sodium Chloride 0.9% 100 ML IVPB SCH ×2 (12:17→23:31)
[2017-11-22] MEDS ORDERED: Potassium Chloride 20 mEq ER Tab PO ONE ×2 (13:15→14:22)
--- NOTE | 2017-11-22 13:24 | CP.PCM.PN ---
Subjective - Date & Time of Evaluation Date of Evaluation: 11/22/17 Time of Evaluation: 13:23 - Subjective Subjective: AFEBRILE LESS PAIN AT SURGERY SITE C/S OF WOUND STILL NEG SO FAR IV AB WILL NEED PAULETTE Objective - Vital Signs/Intake and Output Vital Signs (last 24 hours): Temp Pulse Resp BP Pulse Ox 97.7 F 74 20 118/61 95 11/22/17 09:28 11/22/17 09:28 11/22/17 09:28 11/22/17 10:24 11/22/17 09:28 - Medications Medications: Current Medications Acetaminophen (Tylenol 325mg Tab) 650 mg PO Q4H PRN PRN Reason: Pain, Mild (1-3) Last Admin: 11/16/17 03:06 Dose: 650 mg Acetaminophen (Tylenol 325mg Tab) 650 mg PO Q6 PRN PRN Reason: Pain, moderate (4-7) Last Admin: 11/15/17 04:49 Dose: 650 mg Amlodipine Besylate (Norvasc) 10 mg PO DAILY [facility] Last Admin: 11/22/17 10:21 Dose: 10 mg Aspirin (Ecotrin) 325 mg PO DAILY [facility] Last Admin: 11/22/17 10:21 Dose: 325 mg Carbidopa/Levodopa (Sinemet) 1 tab PO TID [facility] Last Admin: 11/22/17 10:21 Dose: 1 tab Enoxaparin Sodium (Lovenox) 40 mg SC Q24H [facility] Famotidine (Pepcid) 20 mg PO DAILY [facility] Last Admin: 11/22/17 10:21 Dose: 20 mg Metronidazole (Flagyl) 500 mg in 100 mls @ 100 mls/hr IVPB Q8 [facility] Last Admin: 11/22/17 06:03 Dose: 100 mls/hr Aztreonam 1 gm/ Sodium (Chloride) 100 mls @ 100 mls/hr IVPB Q12H [facility] Last Admin: 11/22/17 12:17 Dose: 100 mls/hr Vancomycin/Sodium Chloride (Vancomycin 1 Gm/Ns 200 Ml) 1 gm in 200 mls @ 133.333 mls/hr IVPB Q12H [facility] Stop: 11/26/17 16:31 Last Admin: 11/22/17 04:21 Dose: 133.333 mls/hr Levetiracetam (Keppra) 750 mg PO BID [facility] Last Admin: 11/22/17 10:21 Dose: 750 mg Magnesium Hydroxide (Milk Of Magnesia) 30 ml PO DAILY PRN PRN Reason: Constipation Metoprolol Tartrate (Lopressor) 25 mg PO BID [facility] Last Admin: 11/22/17 10:24 Dose: 25 mg Ondansetron HCl (Zofran Inj) 4 mg IVP Q6H PRN PRN Reason: Nausea/Vomiting Last Admin: 11/22/17 06:05 Dose: 4 mg Oxycodone/Acetaminophen (Percocet 5/325 Mg Tab) 1 tab PO Q4H PRN PRN Reason: Pain, severe (8-10) Stop: 11/23/17 00:21 Last Admin: 11/22/17 10:24 Dose: 1 tab - Labs Labs: 11/22/17 11:38 11/22/17 11:38 PT 12.5 SECONDS (9.7-12.2) H 11/13/17 19:29 INR 1.1 11/13/17 19:29 APTT 32 SECONDS (21-34) 11/13/17 19:29
--- NOTE | 2017-11-22 13:53 | OP ---
PROCEDURE DATE: 11/21/2017 SURGEON: Cody Mendosa MD TENONER OPERATOR: Elisa Alexander, certified registered nursing oral surgery assistant. ANESTHESIA: General endotracheal anesthesia and spinal anesthesia. ANESTHESIA ADMINISTRATED BY: Umer Meade MD PREOPERATIVE DIAGNOSES: Superficial drainage of right hip, status post open reduction internal fixation of dislocated total right hip replacement, rule out deep sepsis (the last procedure for the open reduction and revision was within the acute postoperative period). POSTOPERATIVE DIAGNOSES: Superficial drainage of right hip, status post open reduction internal fixation of dislocated total right hip replacement, rule out deep sepsis (the last procedure for the open reduction and revision was within the acute postoperative period). OPERATIVE FINDINGS: Superficial drainage, rule out deep infection. PROCEDURES: 1. Incision and drainage of right hip. 2. Removal of foreign bodies, deep. 3. Excision of skin and subcutaneous tissue, and muscle. 4. Insertion of antibiotic impregnated pellets. 5. Manipulation of the hip under anesthesia and fluoroscopy. 6. Application of wound Vac (Prevena). SPECIMEN REMOVED: Foreign bodies (suture, skin and subcutaneous tissue, and muscle). ESTIMATED BLOOD LOSS: 35 mL. BLOOD PRODUCTS GIVEN: One unit of packed red cells. ID Number [id number]. APPLICATION: Prevena wound VAC. POSTOPERATIVE CONDITION: Fair. TIME OF SURGERY: Incision time 1720; time in the room 1620. OPERATIVE PROCEDURE: After having obtained informed consent, after having identified side, site, and procedure and critical pause/time-out, after the satisfactory induction of the anesthetic, the patient was identified as Mee Noel in the supine position. The right lower extremities were prepped and free draped in usual fashion for extremity surgery. The patient had been placed in the [facility] positioner. Verification of position is offered on AP image intensification views. This having been accomplished, the right lower extremities were placed in the AMIS traction. Verification of position is offered on image intensification view. After sterilely prepping and draping, after having identified the side, site and procedure, and a critical pause/time-out, and family noted this patient is in the preoperative period, raiza are removed. Incision is extended one fingerbreadth proximally, one fingerbreadth distally. The skin incision was carried down through the skin and subcutaneous tissue, and some muscle. This having been accomplished, there is an egress of fluid. The fluid is sent for aerobic, anaerobic, AFB, and fungal cultures and staph Gram stain. This having been accomplished, the fascia superficial to the muscle of the tensor fascia femoris is opened. Foreign bodies deep into the wound are removed. The foreign bodies were sutured. This having been accomplished, the plain in the area of the tensor fascia femoris is developed. At this point in time, the deep fluid from the joint is aspirated and sent for aerobic, anaerobic, AFB, and fungal cultures. At this point in time, after having accomplished an excision of skin and subcutaneous tissue, and muscle, thorough debridement and irrigation of the wound is accomplished. Using the Pulsavac, 6 L of antibiotic impregnated solution was used to irrigate the wound down to the joint. This having been accomplished, antibiotic impregnated pellets were prepared, calcium sulfate with Vancomycin and Gentamicin. This was placed into the wound space. Insertion of antibiotic impregnated pellets accomplished at this point in time. The hip is manipulated and found to be stable. Under the surgeon's direction, again the fluoroscope is positioned. Video images were generated, therapeutic decisions were made therefrom. This having been accomplished, the specimens of foreign body, sutures, skin and subcutaneous tissue, and muscles were sent as well. Blood loss was approximately 35 mL. One unit of blood is accomplished. At this point of time, closure is accomplished with interrupted Vicryl for the fascia that is superficial to the tensor fascia femoris muscle. Hemostasis is controlled with the Aquamantys. Wound is closed with interrupted Vicryl and raiza. It should be noted that a Prevena wound VAC is applied to the wound at this point in time. The Prevena is trimmed to the size of the wound. This having been accomplished, the initial adhesive base in placed. The Prevena is placed on the top of it and the sides were sealed. The diameter in the mid aspect of the wound is cut, and the Prevena suction device is placed and secured. This having been accomplished, the Prevena is attached to suction. Compression dressing is applied. Postoperative x-rays revealed acceptable position of the construct. Elisa Alexander, was essential to the completion of the procedure. Cody Mendosa MD
--- NOTE | 2017-11-22 13:56 | CP.PCM.PN ---
Subjective - Date & Time of Evaluation Date of Evaluation: 11/22/17 Time of Evaluation: 13:56 - Subjective Subjective: AFEBRILE C/O MILD DISCOMFORT RIGHT HIP. PRESENTLY WITH A WOUND VAC. LABS REVIEWED . WOUND CULTURES ASPIRATED RIGHT HIP NEGATIVE GROWTH FOR 24 HOURS. vANCO TROUGH 8.6 SLIGHTLY LOW ( BUT PATIENT vANCO HAD DROPPED OFF THE MARS AND WAS RESTARTED ) WILL MONITOR vANCO TROUGH ON 11/24/17. Objective - Vital Signs/Intake and Output Vital Signs (last 24 hours): Temp Pulse Resp BP Pulse Ox 97.7 F 82 20 118/61 95 11/22/17 09:28 11/22/17 13:02 11/22/17 09:28 11/22/17 10:24 11/22/17 09:28 - Medications Medications: Current Medications Acetaminophen (Tylenol 325mg Tab) 650 mg PO Q4H PRN PRN Reason: Pain, Mild (1-3) Last Admin: 11/16/17 03:06 Dose: 650 mg Acetaminophen (Tylenol 325mg Tab) 650 mg PO Q6 PRN PRN Reason: Pain, moderate (4-7) Last Admin: 11/15/17 04:49 Dose: 650 mg Amlodipine Besylate (Norvasc) 10 mg PO DAILY [facility] Last Admin: 11/22/17 10:21 Dose: 10 mg Aspirin (Ecotrin) 325 mg PO DAILY [facility] Last Admin: 11/22/17 10:21 Dose: 325 mg Carbidopa/Levodopa (Sinemet) 1 tab PO TID [facility] Last Admin: 11/22/17 10:21 Dose: 1 tab Enoxaparin Sodium (Lovenox) 40 mg SC Q24H [facility] Famotidine (Pepcid) 20 mg PO DAILY [facility] Last Admin: 11/22/17 10:21 Dose: 20 mg Metronidazole (Flagyl) 500 mg in 100 mls @ 100 mls/hr IVPB Q8 [facility] Last Admin: 11/22/17 06:03 Dose: 100 mls/hr Aztreonam 1 gm/ Sodium (Chloride) 100 mls @ 100 mls/hr IVPB Q12H [facility] Last Admin: 11/22/17 12:17 Dose: 100 mls/hr Vancomycin/Sodium Chloride (Vancomycin 1 Gm/Ns 200 Ml) 1 gm in 200 mls @ 133.333 mls/hr IVPB Q12H [facility] Stop: 11/26/17 16:31 Last Admin: 11/22/17 04:21 Dose: 133.333 mls/hr Levetiracetam (Keppra) 750 mg PO BID [facility] Last Admin: 11/22/17 10:21 Dose: 750 mg Magnesium Hydroxide (Milk Of Magnesia) 30 ml PO DAILY PRN PRN Reason: Constipation Metoprolol Tartrate (Lopressor) 25 mg PO BID [facility] Last Admin: 11/22/17 10:24 Dose: 25 mg Ondansetron HCl (Zofran Inj) 4 mg IVP Q6H PRN PRN Reason: Nausea/Vomiting Last Admin: 11/22/17 06:05 Dose: 4 mg Oxycodone/Acetaminophen (Percocet 5/325 Mg Tab) 1 tab PO Q4H PRN PRN Reason: Pain, severe (8-10) Stop: 11/23/17 00:21 Last Admin: 11/22/17 10:24 Dose: 1 tab - Labs Labs: 11/22/17 11:38 11/22/17 11:38 PT 12.5 SECONDS (9.7-12.2) H 11/13/17 19:29 INR 1.1 11/13/17 19:29 APTT 32 SECONDS (21-34) 11/13/17 19:29 - Constitutional Appears: No Acute Distress - Head Exam Head Exam: NORMAL INSPECTION - Eye Exam Eye Exam: EOMI, PERRL - ENT Exam ENT Exam: Normal Oropharynx - Neck Exam Neck Exam: Normal Inspection - Respiratory Exam Respiratory Exam: Clear to Ausculation Bilateral - Cardiovascular Exam Cardiovascular Exam: REGULAR RHYTHM, +S1, +S2 - GI/Abdominal Exam GI & Abdominal Exam: Soft, Normal Bowel Sounds - Extremities Exam Extremities Exam: Normal Capillary Refill. absent: Calf Tenderness (RIGHT HIP WOUND vac IN PLACE.) - Neurological Exam Neurological Exam: Awake, CN II-XII Intact, Oriented x3 - Skin Skin Exam: Normal Color, Warm Assessment and Plan (1) Abscess and cellulitis of gluteal region Assessment & Plan: PT.POST OPT. 10/21/17/ DAY # 1 CONTINUE iv VANCOMYCIN 1 G EVERY 12 HOURLY.11/14/17 ON IV Flagyl 500 mg every 8 hourly for anaerobic coverage.11/19/17 Continue IV Azactam 1 g every 12 hourly.-11/16/17 [facility]WC PER ORTHO. F/U VANCO LEVELS AND KEEP BETWEEN 10-20ON 11/24/17 F/U CULTURES REPEAT DONE IN OR 11/21/17.. CASE DISCUSSED WITH NURSE PRACTITIONER MS CASTANEDA. PATIENT TO GET PICC LINE. fOLLOW-UP CULTURES TO ADJUST ANTIBIOTICS AND THE DURATION-MOST LIKELY 3-4 WEEKS UNLESS CULTURES POSITIVE FOR MRSA. WILL DISCUSS ALSO WITH ORTHOPEDIC CHIEF DR TURCIOS - DEEP TISSUE INFECTION VS SUPERFICIAL HYGROMA/HEMATOMA. Status: Acute (2) UTI (urinary tract infection) Assessment & Plan: REPEAT URINE CULTURES NEGATIVE GROWTH Status: Acute (3) Chest pain Status: Acute (4) Dislocation of hip joint prosthesis Status: Acute
--- NOTE | 2017-11-22 17:11 | RAD ---
PROCEDURE: HISTORY: COMPARISON: None TECHNIQUE: Total fluoroscopic time utilized during the procedure: 4.3 ; 0.57 mGy cm 2 FINDINGS: Submitted images from the current procedure: 2 Please refer to the physician's notes performing the procedure. IMPRESSION: Less than 1 hour fluoroscopic time utilized during performance of the procedure
[2017-11-22] MEDS: Enoxaparin 40 mg Syringe SC SCH (19:04)
[2017-11-22] MEDS: Morphine 4 MG/ML VIAL IVP PRN (21:44)
[2017-11-23] MEDS: Vancomycin 1 gm/NS 200 ml 1 GM/200 ML BAG IVPB SCH ×2 (03:39→16:58)
--- NOTE | 2017-11-23 05:14 | CON ---
DATE: 11/22/2017 CHIEF COMPLAINT AND REASON FOR CONSULTATION: The patient is referred by Dr. Morfin for evaluation. This patient was noted to be very paranoid, delusional, having hallucination today, stating that her son being kidnapped and thinks that people are trying to hurt her. HISTORY OF PRESENT ILLNESS: This is a case of 77-year-old female who is well known to me. I have seen her previously in the senior living. The patient was admitted at [facility] for subacute rehab. 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 The patient is referred today as the patient is extremely increasing evident psychotic symptoms, visual hallucinations, paranoia, delusions. She says she is very scared. She is on one-to-one watch because her son is being kidnapped. The patient was asking for a lot of Percocet prior to the exacerbation of symptoms, but was taking off Percocet. 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 PAST MEDICAL HISTORY: History of left hip surgery as well as right hip surgery, history of Parkinson, arthritis, atrial fibrillation, history of pneumonia, seizures. DRUG AND ALCOHOL HISTORY: Denies any. ALLERGIES: THE PATIENT IS ALLERGIC TO PENICILLIN. PSYCHOSOCIAL HISTORY: The patient, prior to transfer to the hospital, was at [facility] for subacute rehab. CURRENT MEDICATIONS: The patient was taken off Sinemet and only taking aztreonam, Flagyl, Keppra, metoprolol. The patient is given morphine 2 mg IV q. 6 p.r.n., Norvasc, Sinemet one tab p.o. t.i.d. and Tylenol. Also the patient was seen by Orthopedic. She had a recent surgical procedure in her right hip. PHYSICAL EXAMINATION: VITAL SIGNS: Temperature 97.7, pulse rate is 82, blood pressure 118/61, respirations 20, and oxygen saturation 95%. REVIEW OF SYSTEMS: GENERAL: The patient here in room, very paranoid, got suspicious, hypervigilance, stating her son has been kidnapped. She wanted to talk to her son. She was also seeing things in her room and was getting very scared. The patient also is increasingly paranoid. SKIN: No diaphoresis. HEENT: No headache. No dizziness. NECK: Supple. RESPIRATORY: No dyspnea. CARDIOVASCULAR: No chest pain. No palpitations. GASTROINTESTINAL: No nausea. No vomiting. EXTREMITIES: Complaining of pain in her right hip, was seeing for pain meds. MUSCULOSKELETAL: Feels weak. NEURO: Alert and verbal with periods of confusion. GENITOURINARY: No dysuria. MENTAL STATUS EXAMINATION: An elderly female, looks stated age, height of 5 feet and weighs 145 pounds. The patient is hypervigilance, suspicious, paranoid, in one-to-one watch. Speech is spontaneous. Affect is reactive. Mood is anxious and irritable. Thought process confused often at times. Thought content, has pronounced delusion of persecution and also having visual hallucinations. I did remember this when she was in the senior living. Whenever she takes a lot of Percocet combined with Sinemet, she goes into this episode where she becomes very psychotic and having hallucinations. The patient's issues resolves spontaneously when the Percocet is discontinued. No suicidal or homicidal ideations. Attention and memory seem to be limited. Insight and judgement is limited. Impulse control is fair at this time. IMPRESSION: Delirium as well as possible drug-induced psychosis secondary to Percocet and Sinemet. PLAN AND RECOMMENDATIONS: The patient is seen. Meds reviewed. We will continue Sinemet as ordered as the patient has Parkinson, but we will discontinue the Percocet, which was given before and then the patient may adjust the morphine p.r.n. 2 mg IV q. 4 p.r.n. if the pain gets worse, otherwise she could have plain Tylenol, to continue antibiotics as ordered. Continue treatment plan as outlined. Once the patient is medically stable, the patient may go back to [facility] for subacute rehab. Psych blum, we will just keep her off the Percocet. We will not add any antipsychotics. This patient has Parkinson. It might make her Parkinson worst. Oscar Longo MD MTDJarrett
[2017-11-23] MEDS: metroNIDAZOLE IV 500 mg/100 ml 500 MG/100 ML BAG IVPB SCH ×3 (05:30→21:11)
[2017-11-23] MEDS: Morphine 4 MG/ML VIAL IVP PRN (05:58)
[2017-11-23 07:28] LABS: HEMOGLOBIN 9.6 g/dL (11.0-16.0); MEAN CELL VOLUME 86.3 fL (81.0-99.0); MEAN CORPUSCULAR HEMOGLOBIN 27.9 pg (27.0-31.0); MEAN CORPUSCULAR HGB CONC 32.4 g/dL (33.0-37.0); MEAN PLATELET VOLUME 7.9 fL (7.2-11.7); RBC 3.44 Mil/uL (3.80-5.20); RED CELL DISTRIBUTION WIDTH 16.8 % (11.5-14.5)
[2017-11-23 07:54] LABS: BLOOD UREA NITROGEN 9 mg/dL (7-17); CALCIUM 8.6 mg/dl (8.6-10.4); GFR AFRICAN-AMERICAN > 60; GFR NON-AFRICAN AMERICAN > 60
[2017-11-23] MEDS ORDERED: Potassium Chloride 20 mEq ER Tab PO ONE (10:00)
[2017-11-23] MEDS: Aspirin 325 mg EC Tablets PO SCH (10:32)
--- NOTE | 2017-11-23 11:50 | CP.PCM.PN ---
Subjective - Date & Time of Evaluation Date of Evaluation: 11/23/17 Time of Evaluation: 11:49 - Subjective Subjective: Patient more confused today. Says she wants to leave hospital today. She was agitated overnight and was pulling at dressing. Denies CP/SOB/dizziness, complains of occasional right hip pain. Objective - Vital Signs/Intake and Output Vital Signs (last 24 hours): Temp Pulse Resp BP Pulse Ox 98.1 F 62 20 136/63 95 11/23/17 08:22 11/23/17 08:22 11/23/17 08:22 11/23/17 10:32 11/23/17 08:22 - Medications Medications: Current Medications Acetaminophen (Tylenol 325mg Tab) 650 mg PO Q4H PRN PRN Reason: Pain, Mild (1-3) Last Admin: 11/22/17 15:05 Dose: 650 mg Acetaminophen (Tylenol 325mg Tab) 650 mg PO Q6 PRN PRN Reason: Pain, moderate (4-7) Last Admin: 11/22/17 21:00 Dose: 650 mg Alprazolam (Xanax) 0.25 mg PO TID PRN PRN Reason: Anxiety Stop: 11/29/17 17:56 Last Admin: 11/22/17 18:18 Dose: 0.25 mg Amlodipine Besylate (Norvasc) 10 mg PO DAILY [facility] Last Admin: 11/23/17 10:32 Dose: 10 mg Aspirin (Ecotrin) 325 mg PO DAILY [facility] Last Admin: 11/23/17 10:32 Dose: 325 mg Carbidopa/Levodopa (Sinemet) 1 tab PO TID [facility] Last Admin: 11/23/17 10:32 Dose: 1 tab Enoxaparin Sodium (Lovenox) 40 mg SC Q24H [facility] Last Admin: 11/22/17 19:04 Dose: 40 mg Famotidine (Pepcid) 20 mg PO DAILY [facility] Last Admin: 11/23/17 10:32 Dose: 20 mg Metronidazole (Flagyl) 500 mg in 100 mls @ 100 mls/hr IVPB Q8 [facility] Last Admin: 11/23/17 05:30 Dose: 100 mls/hr Aztreonam 1 gm/ Sodium (Chloride) 100 mls @ 100 mls/hr IVPB Q12H [facility] Last Admin: 02/15/18 23:31 Dose: 100 mls/hr Vancomycin/Sodium Chloride (Vancomycin 1 Gm/Ns 200 Ml) 1 gm in 200 mls @ 133.333 mls/hr IVPB Q12H [facility] Stop: 11/26/17 16:31 Last Admin: 11/23/17 03:39 Dose: 133.333 mls/hr Levetiracetam (Keppra) 750 mg PO BID [facility] Last Admin: 11/23/17 10:32 Dose: 750 mg Magnesium Hydroxide (Milk Of Magnesia) 30 ml PO DAILY PRN PRN Reason: Constipation Metoprolol Tartrate (Lopressor) 25 mg PO BID [facility] Last Admin: 11/23/17 10:32 Dose: 25 mg Morphine Sulfate (Morphine) 2 mg IVP Q6 PRN PRN Reason: Pain, severe (8-10) Last Admin: 11/23/17 05:58 Dose: 2 mg Ondansetron HCl (Zofran Inj) 4 mg IVP Q6H PRN PRN Reason: Nausea/Vomiting Last Admin: 11/22/17 06:05 Dose: 4 mg - Labs Labs: 11/23/17 07:04 11/23/17 07:04 PT 12.5 SECONDS (9.7-12.2) H 11/13/17 19:29 INR 1.1 11/13/17 19:29 APTT 32 SECONDS (21-34) 11/13/17 19:29 Assessment and Plan (1) Postoperative wound infection of right hip Assessment & Plan: POD#2 s/p I&D, wound vac application f/u cultures d/c planning d/w Dr. Mendosa, agrees with above PT/OT VTE proph Status: Acute (2) UTI (urinary tract infection) Status: Acute
[2017-11-23] MEDS: Aztreonam 1 GM in Sodium Chloride 0.9% 100 ML IVPB SCH (11:54)
--- NOTE | 2017-11-23 13:40 | CP.PCM.PN ---
Subjective - Date & Time of Evaluation Date of Evaluation: 11/23/17 Time of Evaluation: 13:39 - Subjective Subjective: PT WAS SEEN BY PSYCH SERVICE DUE TO INCREASING CONFUSION PERCOCET D/NEMESIO WOUND HEALING , IV AB PAULETTE Objective - Vital Signs/Intake and Output Vital Signs (last 24 hours): Temp Pulse Resp BP Pulse Ox 98.1 F 62 20 136/63 95 11/23/17 08:22 11/23/17 08:22 11/23/17 08:22 11/23/17 10:32 11/23/17 08:22 - Medications Medications: Current Medications Acetaminophen (Tylenol 325mg Tab) 650 mg PO Q4H PRN PRN Reason: Pain, Mild (1-3) Last Admin: 11/22/17 15:05 Dose: 650 mg Acetaminophen (Tylenol 325mg Tab) 650 mg PO Q6 PRN PRN Reason: Pain, moderate (4-7) Last Admin: 11/22/17 21:00 Dose: 650 mg Alprazolam (Xanax) 0.25 mg PO TID PRN PRN Reason: Anxiety Stop: 11/29/17 17:56 Last Admin: 11/22/17 18:18 Dose: 0.25 mg Amlodipine Besylate (Norvasc) 10 mg PO DAILY [facility] Last Admin: 11/23/17 10:32 Dose: 10 mg Aspirin (Ecotrin) 325 mg PO DAILY [facility] Last Admin: 11/23/17 10:32 Dose: 325 mg Carbidopa/Levodopa (Sinemet) 1 tab PO TID [facility] Last Admin: 11/23/17 10:32 Dose: 1 tab Enoxaparin Sodium (Lovenox) 40 mg SC Q24H [facility] Last Admin: 11/22/17 19:04 Dose: 40 mg Famotidine (Pepcid) 20 mg PO DAILY [facility] Last Admin: 11/23/17 10:32 Dose: 20 mg Metronidazole (Flagyl) 500 mg in 100 mls @ 100 mls/hr IVPB Q8 [facility] Last Admin: 11/23/17 05:30 Dose: 100 mls/hr Aztreonam 1 gm/ Sodium (Chloride) 100 mls @ 100 mls/hr IVPB Q12H [facility] Last Admin: 11/23/17 11:54 Dose: 100 mls/hr Vancomycin/Sodium Chloride (Vancomycin 1 Gm/Ns 200 Ml) 1 gm in 200 mls @ 133.333 mls/hr IVPB Q12H [facility] Stop: 11/26/17 16:31 Last Admin: 11/23/17 03:39 Dose: 133.333 mls/hr Ketorolac Tromethamine (Toradol) 30 mg IVP Q6 PRN PRN Reason: Pain, moderate (4-7) Levetiracetam (Keppra) 750 mg PO BID [facility] Last Admin: 11/23/17 10:32 Dose: 750 mg Magnesium Hydroxide (Milk Of Magnesia) 30 ml PO DAILY PRN PRN Reason: Constipation Metoprolol Tartrate (Lopressor) 25 mg PO BID [facility] Last Admin: 11/23/17 10:32 Dose: 25 mg Ondansetron HCl (Zofran Inj) 4 mg IVP Q6H PRN PRN Reason: Nausea/Vomiting Last Admin: 11/22/17 06:05 Dose: 4 mg - Labs Labs: 11/23/17 07:04 11/23/17 07:04 PT 12.5 SECONDS (9.7-12.2) H 11/13/17 19:29 INR 1.1 11/13/17 19:29 APTT 32 SECONDS (21-34) 11/13/17 19:29
--- NOTE | 2017-11-23 16:44 | CP.PCM.PN ---
Subjective - Date & Time of Evaluation Date of Evaluation: 11/23/17 Time of Evaluation: 16:44 - Subjective Subjective: AFEBRILE, AROUSABLE C/O NAUSEA ? FLAGYL /AND ABDOMINAL DISCOMFORT. WOUND VAC - RIGHT HIP IN PLACE. LABS REVIEWED. ALL CULTURES RIGHT HIP - NEGATIVE GROWTH WITH 24 HOURS Objective - Vital Signs/Intake and Output Vital Signs (last 24 hours): Temp Pulse Resp BP Pulse Ox 97.9 F 88 20 139/65 96 11/23/17 15:21 11/23/17 15:21 11/23/17 15:21 11/23/17 15:21 11/23/17 15:21 - Medications Medications: Current Medications Acetaminophen (Tylenol 325mg Tab) 650 mg PO Q4H PRN PRN Reason: Pain, Mild (1-3) Last Admin: 11/22/17 15:05 Dose: 650 mg Acetaminophen (Tylenol 325mg Tab) 650 mg PO Q6 PRN PRN Reason: Pain, moderate (4-7) Last Admin: 11/22/17 21:00 Dose: 650 mg Alprazolam (Xanax) 0.25 mg PO TID PRN PRN Reason: Anxiety Stop: 11/29/17 17:56 Last Admin: 11/23/17 14:39 Dose: 0.25 mg Amlodipine Besylate (Norvasc) 10 mg PO DAILY [facility] Last Admin: 11/23/17 10:32 Dose: 10 mg Aspirin (Ecotrin) 325 mg PO DAILY [facility] Last Admin: 11/23/17 10:32 Dose: 325 mg Carbidopa/Levodopa (Sinemet) 1 tab PO TID [facility] Last Admin: 11/23/17 13:54 Dose: 1 tab Enoxaparin Sodium (Lovenox) 40 mg SC Q24H [facility] Last Admin: 11/22/17 19:04 Dose: 40 mg Famotidine (Pepcid) 20 mg PO DAILY [facility] Last Admin: 11/23/17 10:32 Dose: 20 mg Metronidazole (Flagyl) 500 mg in 100 mls @ 100 mls/hr IVPB Q8 [facility] Last Admin: 11/23/17 13:54 Dose: 100 mls/hr Aztreonam 1 gm/ Sodium (Chloride) 100 mls @ 100 mls/hr IVPB Q12H [facility] Last Admin: 11/23/17 11:54 Dose: 100 mls/hr Vancomycin/Sodium Chloride (Vancomycin 1 Gm/Ns 200 Ml) 1 gm in 200 mls @ 133.333 mls/hr IVPB Q12H [facility] Stop: 11/26/17 16:31 Last Admin: 11/23/17 03:39 Dose: 133.333 mls/hr Ketorolac Tromethamine (Toradol) 30 mg IVP Q6 PRN PRN Reason: Pain, moderate (4-7) Levetiracetam (Keppra) 750 mg PO BID [facility] Last Admin: 11/23/17 10:32 Dose: 750 mg Magnesium Hydroxide (Milk Of Magnesia) 30 ml PO DAILY PRN PRN Reason: Constipation Metoprolol Tartrate (Lopressor) 25 mg PO BID [facility] Last Admin: 11/23/17 10:32 Dose: 25 mg Ondansetron HCl (Zofran Inj) 4 mg IVP Q6H PRN PRN Reason: Nausea/Vomiting Last Admin: 11/22/17 06:05 Dose: 4 mg - Labs Labs: 11/23/17 07:04 11/23/17 07:04 PT 12.5 SECONDS (9.7-12.2) H 11/13/17 19:29 INR 1.1 11/13/17 19:29 APTT 32 SECONDS (21-34) 11/13/17 19:29 - Constitutional Appears: No Acute Distress - Head Exam Head Exam: NORMAL INSPECTION - Eye Exam Eye Exam: EOMI, PERRL - ENT Exam ENT Exam: Mucous Membranes Dry - Neck Exam Neck Exam: Normal Inspection - Respiratory Exam Respiratory Exam: Clear to Ausculation Bilateral - GI/Abdominal Exam GI & Abdominal Exam: Soft, Tenderness (MILD DISCOMFORT EPIGASTRIC.), Normal Bowel Sounds - Extremities Exam Extremities Exam: Tenderness (RIGHT HIP INCISION SITE AT THE SITE OF WOUND vac.) . absent: Calf Tenderness (RIGHT HIP WOUND VAC IN PLACE.) - Neurological Exam Neurological Exam: Awake - Psychiatric Exam Psychiatric exam: Normal Mood - Skin Skin Exam: Warm Assessment and Plan (1) Abscess and cellulitis of gluteal region Assessment & Plan: .POST OPT. 10/21/17/ DAY # 2 CONTINUE iv VANCOMYCIN 1 G EVERY 12 HOURLY.11/14/17 DECREASE IV Flagyl 250 mg every 8 hourly for anaerobic coverage.11/19/17 DC IV Azactam 1 g every 12 hourly.-11/16/17-DAY8 LWC PER ORTHO. F/U VANCO LEVELS AND KEEP BETWEEN 10-20ON 11/24/17 F/U CULTURES REPEAT DONE IN OR 11/21/17.. CASE DISCUSSED WITH NURSE PRACTITIONER MS CASTANEDA. PATIENT TO GET PICC LINE. fOLLOW-UP CULTURES TO ADJUST ANTIBIOTICS AND THE DURATION-MOST LIKELY 3-4 WEEKS UNLESS CULTURES POSITIVE FOR MRSA. WILL DISCUSS ALSO WITH ORTHOPEDIC CHIEF DR TURCIOS - DEEP TISSUE INFECTION VS SUPERFICIAL HYGROMA/HEMATOMA. Status: Acute (2) UTI (urinary tract infection) Status: Acute (3) Chest pain Status: Acute (4) Dislocation of hip joint prosthesis Status: Acute
[2017-11-23] MEDS: Enoxaparin 40 mg Syringe SC SCH (17:34)
--- NOTE | 2017-11-23 21:12 | PN ---
DATE: SUBJECTIVE: The patient is more lucid and more cooperative today. She was visited by her son and that we assured that her son was not kidnapped. The patient is being watched by one of the staff. Her mental status seems to be much better today, but complaining of restless leg syndrome which could be related to her medications, especially that she is taking Sinemet. The patient was actually taking Xanax to calm her down as well as the patient reports history of taking Requip in the past for restless leg syndrome. Right now, she is only taking Xanax p.r.n. VITAL SIGNS: Temperature 98.1, pulse 62, blood pressure 136/63, respirations 20, and oxygen saturation is 95%. The patient is early given morphine but became drowsy, and only taking Toradol. REVIEW OF SYSTEMS: GENERAL: The patient is more alert, lucid, oriented to place and person, calm, apologetic for her behavior, she said she does not know why it happened to her. The patient made aware that she has paradoxical reaction to Percocet and makes her more confused and developed psychotic symptoms, advised not to take it again. SKIN: No diaphoresis. HEENT: No headache. No dizziness. NECK: Supple. RESPIRATORY: No dyspnea. CARDIOVASCULAR: No chest pain. GASTROINTESTINAL: The patient is eating better. MUSCULOSKELETAL: Feels weak. EXTREMITIES: Not complaining of pain, status post surgery of hip, complaining of restless leg syndrome. NEUROLOGIC: The patient is more cognitively intact compared to before. GENITOURINARY: No dysuria. MENTAL STATUS EXAMINATION: Elderly female who looks stated age, oriented x2, confusion seems to be resolving but complaining of restless leg syndrome. Speech is spontaneous. Affect is reactive. Mood is calmer, apologetic for her behavior yesterday. Thought process coherent. Thought content, no overt paranoia. No hallucinations. No suicidal or homicidal ideation. Attention and memory seem to be fair. Insight and judgment are improving. Impulse control is fair at this time. 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 PLAN AND RECOMMENDATIONS: The patient is seen, medications reviewed. We will keep the patient off Percocet. The patient has history of developing psychotic symptoms and paradoxical reaction to it. Continue the Xanax p.r.n. Continue surgical followup. Continue with antibiotics as ordered. Once the patient is more medically stable, she can go back to [place] to continue subacute rehab. Psychwise, she is much better once the patient is off Percocet. I remember from last time, the patient usually takes a day or two before she resolves back to her normal self after taking Percocet. Oscar Longo MD [facility]TD[facility]arrett
[2017-11-24] MEDS: Vancomycin 1 gm/NS 200 ml 1 GM/200 ML BAG IVPB SCH ×2 (03:32→17:27)
[2017-11-24] MEDS: metroNIDAZOLE IV 500 mg/100 ml 250 MG in Premixed IV 1 EA IVPB SCH ×3 (05:32→21:06)
[2017-11-24] MEDS: Aspirin 325 mg EC Tablets PO SCH (09:38)
--- NOTE | 2017-11-24 14:08 | CP.PCM.PN ---
Subjective - Date & Time of Evaluation Date of Evaluation: 11/24/17 Time of Evaluation: 14:06 - Subjective Subjective: PT STILL HAS PERIODS OF CONFUSION CULTURES FROM WOUND NEG. SO FAR P/E REMAINS SAME AWAITING PAULETTE Objective - Vital Signs/Intake and Output Vital Signs (last 24 hours): Temp Pulse Resp BP Pulse Ox 98.3 F 141 H 20 128/67 97 11/24/17 08:05 11/24/17 08:05 11/24/17 08:05 11/24/17 09:39 11/24/17 08:05 Intake and Output: 11/24/17 11/24/17 11:59 23:59 Intake Total 330 Balance 330 - Medications Medications: Current Medications Acetaminophen (Tylenol 325mg Tab) 650 mg PO Q4H PRN PRN Reason: Pain, Mild (1-3) Last Admin: 11/22/17 15:05 Dose: 650 mg Acetaminophen (Tylenol 325mg Tab) 650 mg PO Q6 PRN PRN Reason: Pain, moderate (4-7) Last Admin: 11/24/17 09:41 Dose: 650 mg Alprazolam (Xanax) 0.25 mg PO TID PRN PRN Reason: Anxiety Stop: 11/29/17 17:56 Last Admin: 11/23/17 22:15 Dose: 0.25 mg Amlodipine Besylate (Norvasc) 10 mg PO DAILY [facility] Last Admin: 11/24/17 09:38 Dose: 10 mg Aspirin (Ecotrin) 325 mg PO DAILY [facility] Last Admin: 11/24/17 09:38 Dose: 325 mg Carbidopa/Levodopa (Sinemet) 1 tab PO TID [facility] Last Admin: 11/24/17 09:38 Dose: 1 tab Enoxaparin Sodium (Lovenox) 40 mg SC Q24H [facility] Last Admin: 11/23/17 17:34 Dose: 40 mg Famotidine (Pepcid) 20 mg PO DAILY [facility] Last Admin: 11/24/17 09:38 Dose: 20 mg Vancomycin/Sodium Chloride (Vancomycin 1 Gm/Ns 200 Ml) 1 gm in 200 mls @ 133.333 mls/hr IVPB Q12H [facility] Stop: 11/26/17 16:31 Last Admin: 11/24/17 03:32 Dose: 133.333 mls/hr Metronidazole 250 mg/ (Miscellaneous) 50 mls @ 100 mls/hr IVPB Q8 [facility] Last Admin: 11/24/17 05:32 Dose: 100 mls/hr Ketorolac Tromethamine (Toradol) 30 mg IVP Q6 PRN PRN Reason: Pain, moderate (4-7) Last Admin: 11/24/17 05:43 Dose: 30 mg Levetiracetam (Keppra) 750 mg PO BID [facility] Last Admin: 11/24/17 09:38 Dose: 750 mg Magnesium Hydroxide (Milk Of Magnesia) 30 ml PO DAILY PRN PRN Reason: Constipation Metoprolol Tartrate (Lopressor) 25 mg PO BID [facility] Last Admin: 11/24/17 09:39 Dose: 25 mg Ondansetron HCl (Zofran Inj) 4 mg IVP Q6H PRN PRN Reason: Nausea/Vomiting Last Admin: 11/22/17 06:05 Dose: 4 mg - Labs Labs: 11/23/17 07:04 11/23/17 07:04 PT 12.5 SECONDS (9.7-12.2) H 11/13/17 19:29 INR 1.1 11/13/17 19:29 APTT 32 SECONDS (21-34) 11/13/17 19:29
[2017-11-24] MEDS: Enoxaparin 40 mg Syringe SC SCH (17:27)
--- NOTE | 2017-11-24 19:37 | CP.PCM.PN ---
Subjective - Date & Time of Evaluation Date of Evaluation: 11/24/17 Time of Evaluation: 19:37 - Subjective Subjective: AFEBRILE, AROUSABLE PERIODS OF CONFUSION WOUND VAC - RIGHT HIP IN PLACE -DRAINING LABS REVIEWED. ALL CULTURES RIGHT HIP - NEGATIVE GROWTH TO DATE . ON IV ABX Objective - Vital Signs/Intake and Output Vital Signs (last 24 hours): Temp Pulse Resp BP Pulse Ox 98.3 F 74 20 160/72 H 97 11/24/17 16:00 11/24/17 16:00 11/24/17 16:00 11/24/17 17:27 11/24/17 16:00 - Medications Medications: Current Medications Acetaminophen (Tylenol 325mg Tab) 650 mg PO Q4H PRN PRN Reason: Pain, Mild (1-3) Last Admin: 11/22/17 15:05 Dose: 650 mg Acetaminophen (Tylenol 325mg Tab) 650 mg PO Q6 PRN PRN Reason: Pain, moderate (4-7) Last Admin: 11/24/17 09:41 Dose: 650 mg Alprazolam (Xanax) 0.25 mg PO TID PRN PRN Reason: Anxiety Stop: 11/29/17 17:56 Last Admin: 11/24/17 17:27 Dose: 0.25 mg Amlodipine Besylate (Norvasc) 10 mg PO DAILY [facility] Last Admin: 11/24/17 09:38 Dose: 10 mg Aspirin (Ecotrin) 325 mg PO DAILY [facility] Last Admin: 11/24/17 09:38 Dose: 325 mg Carbidopa/Levodopa (Sinemet) 1 tab PO TID [facility] Last Admin: 11/24/17 17:27 Dose: 1 tab Enoxaparin Sodium (Lovenox) 40 mg SC Q24H [facility] Last Admin: 11/24/17 17:27 Dose: 40 mg Famotidine (Pepcid) 20 mg PO DAILY [facility] Last Admin: 11/24/17 09:38 Dose: 20 mg Vancomycin/Sodium Chloride (Vancomycin 1 Gm/Ns 200 Ml) 1 gm in 200 mls @ 133.333 mls/hr IVPB Q12H [facility] Stop: 11/26/17 16:31 Last Admin: 11/24/17 17:27 Dose: 133.333 mls/hr Metronidazole 250 mg/ (Miscellaneous) 50 mls @ 100 mls/hr IVPB Q8 [facility] Last Admin: 11/24/17 14:25 Dose: 100 mls/hr Ketorolac Tromethamine (Toradol) 30 mg IVP Q6 PRN PRN Reason: Pain, moderate (4-7) Last Admin: 11/24/17 14:38 Dose: 30 mg Levetiracetam (Keppra) 750 mg PO BID [facility] Last Admin: 11/24/17 17:28 Dose: 750 mg Magnesium Hydroxide (Milk Of Magnesia) 30 ml PO DAILY PRN PRN Reason: Constipation Metoprolol Tartrate (Lopressor) 25 mg PO BID [facility] Last Admin: 11/24/17 17:27 Dose: 25 mg Ondansetron HCl (Zofran Inj) 4 mg IVP Q6H PRN PRN Reason: Nausea/Vomiting Last Admin: 11/22/17 06:05 Dose: 4 mg - Labs Labs: 11/23/17 07:04 11/23/17 07:04 PT 12.5 SECONDS (9.7-12.2) H 11/13/17 19:29 INR 1.1 11/13/17 19:29 APTT 32 SECONDS (21-34) 11/13/17 19:29 - Constitutional Appears: No Acute Distress - Head Exam Head Exam: NORMAL INSPECTION - Eye Exam Eye Exam: EOMI, PERRL - ENT Exam ENT Exam: Normal Oropharynx - Neck Exam Neck Exam: Normal Inspection - Respiratory Exam Respiratory Exam: Clear to Ausculation Bilateral - Cardiovascular Exam Cardiovascular Exam: REGULAR RHYTHM, +S1, +S2 - Extremities Exam Extremities Exam: Pedal Edema. absent: Calf Tenderness (RT. HIP WITH WOUND VAC. ) - Neurological Exam Neurological Exam: Altered, Awake - Psychiatric Exam Psychiatric exam: Flat Affect - Skin Skin Exam: Normal Color, Warm Assessment and Plan (1) Abscess and cellulitis of gluteal region Assessment & Plan: POST OPT. 10/21/17/ DAY # 3 CONTINUE iv VANCOMYCIN 1 G EVERY 12 HOURLY.11/14/17 DECREASE IV Flagyl 250 mg every 8 hourly for anaerobic coverage.11/19/17 LWC PER ORTHO. F/U VANCO LEVELS AND KEEP BETWEEN 10-20ON 11/24/17 F/U CULTURES REPEAT DONE IN OR 11/21/17.. CASE DISCUSSED WITH NURSE PRACTITIONER MS LIM fOLLOW-UP CULTURES TO ADJUST ANTIBIOTICS AND THE DURATION-MOST LIKELY 3-4 WEEKS UNLESS CULTURES POSITIVE FOR MRSA. WILL DISCUSS ALSO WITH ORTHOPEDIC CHIEF DR TURCIOS -? DEEP TISSUE INFECTION VS SUPERFICIAL HYGROMA/HEMATOMA. Status: Acute (2) UTI (urinary tract infection) Status: Acute (3) Chest pain Status: Acute (4) Dislocation of hip joint prosthesis Status: Acute
--- NOTE | 2017-11-24 22:12 | PN ---
DATE: SUBJECTIVE: The patient is back to her baseline, but complaining of anxiety. The patient is worried about her restless leg symptom complaint. She was seen with her son. Her son also reported he has similar reaction with his mother with Percocet. The patient is advised to stay away from Percocet. The patient became confused and psychotic. The patient is advised to take Xanax at night to help her anxiety, as well as to alleviate her restless leg syndrome. VITAL SIGNS: Temperature 98.3, pulse 67, blood pressure 160/72, respirations 20, and oxygen saturation 97%. REVIEW OF SYSTEMS: GENERAL: The patient is alert, verbal, and at this time she is seen with her son. SKIN: No diaphoresis. HEENT: No headache. No dizziness. NECK: Supple. RESPIRATORY: No dyspnea. CARDIOVASCULAR: No chest pain. GASTROINTESTINAL: The patient is eating better. EXTREMITIES: Complaining of mild pain in her right hip. MUSCULOSKELETAL: Generalized weakness. NEUROLOGIC: Alert and oriented x2. GENITOURINARY: No dysuria. MENTAL STATUS EXAMINATION: Elderly female, looks stated age, alert and oriented x2. The patient is back to her baseline. Mood is calm. Affect is reactive. Speech is spontaneous. Thought process, coherent. Thought content, the patient has no issues going back home or going to the subacute rehabilitation. She states that she will agree to go to [place] as she was there before. The patient was seen in room 406. No psychosis. No suicidal thought or ideation. Attention and memory seem to be improved. Insight and judgment improved. Impulse control is fair at this time. IMPRESSION: Delirium; metabolic encephalopathy, drug induced secondary to Percocet; history of Parkinson's disease. PLAN AND RECOMMENDATIONS: The patient is seen, medications reviewed. The patient will keep her Toradol p.r.n. She was given morphine earlier and she became more confused. She will continue on Xanax p.r.n. as ordered for anxiety. The patient is advised that if she wants the patient can take Xanax at night before she goes to bed. Ortho followup with the patient and Surgery. Once the patient is medically stable, she can go back to [place] to continue subacute rehab. Osacr Longo, MD [facility] # [id number]
[2017-11-25] MEDS: Vancomycin 1 gm/NS 200 ml 1 GM/200 ML BAG IVPB SCH ×2 (03:41→17:15)
[2017-11-25] MEDS: metroNIDAZOLE IV 500 mg/100 ml 250 MG in Premixed IV 1 EA IVPB SCH ×3 (05:49→21:10)
[2017-11-25] MEDS: Aspirin 325 mg EC Tablets PO SCH (10:55)
--- NOTE | 2017-11-25 14:50 | CP.PCM.PN ---
Subjective - Date & Time of Evaluation Date of Evaluation: 11/25/17 Time of Evaluation: 14:48 - Subjective Subjective: PERIODS OF CONFUSION PAIN SURGICAL SITE NO NARCOTICS , MOTRIN PRN WOUND HEALING , C/S NEG SO [employer] PAULETTE Objective - Vital Signs/Intake and Output Vital Signs (last 24 hours): Temp Pulse Resp BP Pulse Ox 98.4 F 62 20 117/65 95 11/25/17 08:00 11/25/17 08:00 11/25/17 08:00 11/25/17 10:56 11/25/17 08:00 Intake and Output: 11/25/17 11/25/17 11:59 23:59 Intake Total 250 Balance 250 - Medications Medications: Current Medications Acetaminophen (Tylenol 325mg Tab) 650 mg PO Q4H PRN PRN Reason: Pain, Mild (1-3) Last Admin: 11/22/17 15:05 Dose: 650 mg Acetaminophen (Tylenol 325mg Tab) 650 mg PO Q6 PRN PRN Reason: Pain, moderate (4-7) Last Admin: 11/25/17 01:36 Dose: 650 mg Alprazolam (Xanax) 0.25 mg PO Q8H [facility] Stop: 12/02/17 22:01 Amlodipine Besylate (Norvasc) 10 mg PO DAILY [facility] Last Admin: 11/25/17 10:57 Dose: 10 mg Aspirin (Ecotrin) 325 mg PO DAILY [facility] Last Admin: 11/25/17 10:55 Dose: 325 mg Carbidopa/Levodopa (Sinemet) 1 tab PO TID [facility] Last Admin: 11/25/17 14:15 Dose: 1 tab Enoxaparin Sodium (Lovenox) 40 mg SC Q24H [facility] Last Admin: 11/24/17 17:27 Dose: 40 mg Famotidine (Pepcid) 20 mg PO DAILY [facility] Last Admin: 11/25/17 10:57 Dose: 20 mg Vancomycin/Sodium Chloride (Vancomycin 1 Gm/Ns 200 Ml) 1 gm in 200 mls @ 133.333 mls/hr IVPB Q12H [facility] Stop: 11/26/17 16:31 Last Admin: 11/25/17 03:41 Dose: 133.333 mls/hr Metronidazole 250 mg/ (Miscellaneous) 50 mls @ 100 mls/hr IVPB Q8 [facility] Last Admin: 11/25/17 14:15 Dose: 100 mls/hr Levetiracetam (Keppra) 750 mg PO BID [facility] Last Admin: 11/25/17 10:56 Dose: 750 mg Magnesium Hydroxide (Milk Of Magnesia) 30 ml PO DAILY PRN PRN Reason: Constipation Metoprolol Tartrate (Lopressor) 25 mg PO BID [facility] Last Admin: 11/25/17 10:56 Dose: 25 mg Ondansetron HCl (Zofran Inj) 4 mg IVP Q6H PRN PRN Reason: Nausea/Vomiting Last Admin: 11/24/17 21:06 Dose: 4 mg - Labs Labs: 11/23/17 07:04 11/23/17 07:04 PT 12.5 SECONDS (9.7-12.2) H 11/13/17 19:29 INR 1.1 11/13/17 19:29 APTT 32 SECONDS (21-34) 11/13/17 19:29
[2017-11-25] MEDS: Enoxaparin 40 mg Syringe SC SCH (17:54)
--- NOTE | 2017-11-25 18:02 | PN ---
DATE: 11/25/2017 SUBJECTIVE: The patient is eating much better. She was seen with her son with complaint of increasing anxiety. She is very nervous. According to the son, mother is a worrier and always nervous. I told her I will put her on Xanax for anxiety to calm her down on short-term basis and the patient also was asking for morphine as I told her it made her confused. The patient can only have Tylenol for pain for now and the patient had tolerated it before. PHYSICAL EXAMINATION: VITAL SIGNS: Temperature is 98.4, pulse 62, blood pressure 117/65, respirations 20, O2 saturations 95%. REVIEW OF SYSTEMS: GENERAL: The patient is alert, verbal, oriented x3, seen with son, is oriented to place and person, almost back to baseline, looks anxious. SKIN: No diaphoresis. HEENT: No headache. No dizziness. NECK: Supple. RESPIRATORY: No dyspnea. CARDIOVASCULAR: No chest pain. GASTROINTESTINAL: She has good appetite. EXTREMITIES: Complaining of pain in her hip. The patient is status post surgery. Gait is unsteady. MUSCULOSKELETAL: Feels weak. NEUROLOGIC: Alert, oriented x2. GENITOURINARY: No dysuria. MENTAL STATUS EXAMINATION: An elderly female who looks stated age. The patient is back to baseline, oriented x3. Speech is spontaneous. Affect is reactive. Thought process, coherent. Thought content, no psychosis. The patient wants to go home, but has agreed to go to subacute rehab as stated. No psychosis. No suicidal or homicidal ideation. Attention and memory seems to be fair. Insight and judgment are limited. Impulse control is fair. IMPRESSION: History of delirium, drug induced from her Percocet as well as history of anxiety and mood disorder. PLAN AND RECOMMENDATIONS: The patient was seen and meds reviewed. Keep the patient off narcotics or Percocet. Continue to put her on Xanax 0.25 mg q.8 hours for anxiety. The patient is not having any psychotic symptoms at this time, is off Percocet. Continue treatment plan as outlined. The patient once medically stable was medically cleared. The patient can go back to [place], she was there for subacute rehab. She states she wants to go back to [facility] for a few days. Continue treatment plan as outlined. Oscar Longo MD [facility] # [id number] [facility]
[2017-11-26] MEDS: Vancomycin 1 gm/NS 200 ml 1 GM/200 ML BAG IVPB SCH ×2 (04:02→17:15)
[2017-11-26] MEDS: metroNIDAZOLE IV 500 mg/100 ml 250 MG in Premixed IV 1 EA IVPB SCH ×3 (05:23→21:34)
[2017-11-26] MEDS: Aspirin 325 mg EC Tablets PO SCH (10:25)
[2017-11-26 12:20] LABS: HEMOGLOBIN 9.8 g/dL (11.0-16.0); MEAN CELL VOLUME 86.7 fL (81.0-99.0); MEAN CORPUSCULAR HEMOGLOBIN 28.4 pg (27.0-31.0); MEAN CORPUSCULAR HGB CONC 32.8 g/dL (33.0-37.0); RBC 3.46 Mil/uL (3.80-5.20); RED CELL DISTRIBUTION WIDTH 17.2 % (11.5-14.5); WHITE BLOOD COUNT 3.4 K/uL (4.8-10.8)
[2017-11-26 12:23] LABS: BLOOD UREA NITROGEN 13 mg/dL (7-17); CALCIUM 8.2 mg/dl (8.6-10.4); GFR AFRICAN-AMERICAN > 60; GFR NON-AFRICAN AMERICAN > 60
--- NOTE | 2017-11-26 12:49 | CP.PCM.PN ---
Subjective - Date & Time of Evaluation Date of Evaluation: 11/26/17 Time of Evaluation: 12:47 - Subjective Subjective: AFEBRILE M LESS CONFUSION WOUND HEALING WITH NEG. CULTURES SO FAR FINANCIAL ISSUE WITH [facility] Objective - Vital Signs/Intake and Output Vital Signs (last 24 hours): Temp Pulse Resp BP Pulse Ox 98.1 F 66 20 118/71 95 11/26/17 08:55 11/26/17 08:55 11/26/17 08:55 11/26/17 10:26 11/25/17 23:00 Intake and Output: 11/26/17 11/26/17 11:59 23:59 Intake Total 490 Balance 490 - Medications Medications: Current Medications Acetaminophen (Tylenol 325mg Tab) 650 mg PO Q4H PRN PRN Reason: Pain, Mild (1-3) Last Admin: 11/22/17 15:05 Dose: 650 mg Acetaminophen (Tylenol 325mg Tab) 650 mg PO Q6 PRN PRN Reason: Pain, moderate (4-7) Last Admin: 11/26/17 06:07 Dose: 650 mg Alprazolam (Xanax) 0.25 mg PO DAILY [facility] Stop: 12/04/17 10:01 Alprazolam (Xanax) 0.5 mg PO HS [facility] Amlodipine Besylate (Norvasc) 10 mg PO DAILY [facility] Last Admin: 11/26/17 10:24 Dose: 10 mg Aspirin (Ecotrin) 325 mg PO DAILY [facility] Last Admin: 11/26/17 10:25 Dose: 325 mg Carbidopa/Levodopa (Sinemet) 1 tab PO TID [facility] Last Admin: 11/26/17 10:24 Dose: 1 tab Enoxaparin Sodium (Lovenox) 40 mg SC Q24H [facility] Famotidine (Pepcid) 20 mg PO DAILY [facility] Last Admin: 11/26/17 10:24 Dose: 20 mg Vancomycin/Sodium Chloride (Vancomycin 1 Gm/Ns 200 Ml) 1 gm in 200 mls @ 133.333 mls/hr IVPB Q12H [facility] Stop: 11/26/17 16:31 Last Admin: 11/26/17 04:02 Dose: 133.333 mls/hr Metronidazole 250 mg/ (Miscellaneous) 50 mls @ 100 mls/hr IVPB Q8 [facility] Last Admin: 11/26/17 05:23 Dose: 100 mls/hr Levetiracetam (Keppra) 750 mg PO BID [facility] Last Admin: 11/26/17 10:25 Dose: 750 mg Magnesium Hydroxide (Milk Of Magnesia) 30 ml PO DAILY PRN PRN Reason: Constipation Metoprolol Tartrate (Lopressor) 25 mg PO BID [facility] Last Admin: 11/26/17 10:26 Dose: 25 mg Ondansetron HCl (Zofran Inj) 4 mg IVP Q6H PRN PRN Reason: Nausea/Vomiting Last Admin: 11/24/17 21:06 Dose: 4 mg - Labs Labs: 11/26/17 11:49 11/26/17 11:49 PT 12.5 SECONDS (9.7-12.2) H 11/13/17 19:29 INR 1.1 11/13/17 19:29 APTT 32 SECONDS (21-34) 11/13/17 19:29
[2017-11-26] MEDS ORDERED: Potassium Chloride 20 mEq ER Tab PO ONE (12:53)
--- NOTE | 2017-11-26 16:12 | CP.PCM.PN ---
Subjective - Date & Time of Evaluation Date of Evaluation: 11/26/17 Time of Evaluation: 16:09 - Subjective Subjective: Patient calm and cooperative today. Much less agitated than last exam. Says hip pain is well controlled. Denies CP/SOB/dizzziness. Objective - Vital Signs/Intake and Output Vital Signs (last 24 hours): Temp Pulse Resp BP Pulse Ox 98.1 F 66 20 118/71 95 11/26/17 08:55 11/26/17 08:55 11/26/17 08:55 11/26/17 10:26 11/25/17 23:00 Intake and Output: 11/26/17 11/26/17 06:59 18:59 Intake Total 1140 50 Balance 1140 50 - Medications Medications: Current Medications Acetaminophen (Tylenol 325mg Tab) 650 mg PO Q4H PRN PRN Reason: Pain, Mild (1-3) Last Admin: 11/22/17 15:05 Dose: 650 mg Acetaminophen (Tylenol 325mg Tab) 650 mg PO Q6 PRN PRN Reason: Pain, moderate (4-7) Last Admin: 11/26/17 06:07 Dose: 650 mg Alprazolam (Xanax) 0.25 mg PO DAILY [facility] Stop: 12/04/17 10:01 Alprazolam (Xanax) 0.5 mg PO HS [facility] Amlodipine Besylate (Norvasc) 10 mg PO DAILY [facility] Last Admin: 11/26/17 10:24 Dose: 10 mg Aspirin (Ecotrin) 325 mg PO DAILY [facility] Last Admin: 11/26/17 10:25 Dose: 325 mg Carbidopa/Levodopa (Sinemet) 1 tab PO TID [facility] Last Admin: 11/26/17 13:21 Dose: 1 tab Enoxaparin Sodium (Lovenox) 40 mg SC Q24H [facility] Famotidine (Pepcid) 20 mg PO DAILY [facility] Last Admin: 11/26/17 10:24 Dose: 20 mg Vancomycin/Sodium Chloride (Vancomycin 1 Gm/Ns 200 Ml) 1 gm in 200 mls @ 133.333 mls/hr IVPB Q12H [facility] Stop: 11/26/17 16:31 Last Admin: 11/26/17 04:02 Dose: 133.333 mls/hr Metronidazole 250 mg/ (Miscellaneous) 50 mls @ 100 mls/hr IVPB Q8 [facility] Last Admin: 11/26/17 13:20 Dose: 100 mls/hr Levetiracetam (Keppra) 750 mg PO BID [facility] Last Admin: 11/26/17 10:25 Dose: 750 mg Magnesium Hydroxide (Milk Of Magnesia) 30 ml PO DAILY PRN PRN Reason: Constipation Metoprolol Tartrate (Lopressor) 25 mg PO BID [facility] Last Admin: 11/26/17 10:26 Dose: 25 mg Ondansetron HCl (Zofran Inj) 4 mg IVP Q6H PRN PRN Reason: Nausea/Vomiting Last Admin: 11/24/17 21:06 Dose: 4 mg - Labs Labs: 11/26/17 11:49 11/26/17 11:49 PT 12.5 SECONDS (9.7-12.2) H 11/13/17 19:29 INR 1.1 11/13/17 19:29 APTT 32 SECONDS (21-34) 11/13/17 19:29 - Extremities Exam Additional comments: right hip: dressing intact, +ROM ankle/toes, sensation intact calves soft NT neghomans , canister half full sang drainage Assessment and Plan (1) Postoperative wound infection of right hip Assessment & Plan: cont wound vac abx per ID cont PT VTE proph placement issues due to fact patient with limited PAULETTE days remaining d/w Dr. Mendosa, agrees with above Status: Acute (2) UTI (urinary tract infection) Status: Acute
--- NOTE | 2017-11-26 17:24 | PN ---
DATE: 11/26/2017 SUBJECTIVE: The patient is seen. The patient's mental status is back to baseline, but she is complaining of anxiety, also complaining of restless legs syndrome at night. The patient is awaiting to go for subacute rehab. She states she wants to go back to [facility], but this seems to be a problem with her subacute days left. PHYSICAL EXAMINATION: VITAL SIGNS: Temperature is 98.1, pulse 66, blood pressure 118/71, respirations 20, oxygen saturation is 95%. REVIEW OF SYSTEMS: GENERAL: She is alert and oriented x3,in close monitoring, seen in her room complaining of pain. The patient states she wants to go home, but willing to go for subacute rehab. SKIN: No diaphoresis. HEENT: No headache. No dizziness. NECK: Supple. RESPIRATORY: No dyspnea. CARDIOVASCULAR: No chest pain. GASTROINTESTINAL: She is eating well. EXTREMITIES: Complaining of pain in her hip. The patient is status post surgery. MUSCULOSKELETAL: Feels weak. NEUROLOGIC: Alert and oriented x3. The patient is back to baseline. GENITOURINARY: No dysuria. MENTAL STATUS EXAMINATION: An elderly female who looks her stated age, alert and oriented x3. The patient is anxious, especially at night, asking for something to help her relax and also to help her with the restless legs syndrome. The patient has tried Requip before, but it did not work. Speech is spontaneous. Affect is reactive. Mood is anxious. Thought process, coherent. Thought content, no psychosis. No suicidal ideations. The patient states that she wants to go home, but wants to go for subacute rehab. The patient realizes her son cannot take care of her because of her condition at this time. As stated, no psychosis. No suicidal or homicidal ideation. Attention and memory seems to be good. Insight and judgment improving. Impulse control is fair at this time. IMPRESSION: History of delirium, metabolic encephalopathy drug-induced, and diabetes much improved, history of a hip surgery, urinary tract infection. PLAN AND RECOMMENDATIONS: The patient is seen and meds reviewed. We will change her Xanax from 0.25 mg q.8 hours to 0.25 in the morning and 0.5 at night. The patient is not having any psychotic symptoms at this time. She is not having anxiety. On review of her meds, the patient is not taking any narcotic at this time and was taking Toradol. Continue treatment plan as outlined. Oscar Longo MD [facility]
[2017-11-26] MEDS: Enoxaparin 60 mg Syringe SC SCH (17:55)
--- NOTE | 2017-11-26 18:16 | CP.PCM.PN ---
Subjective - Date & Time of Evaluation Date of Evaluation: 11/26/17 Time of Evaluation: 18:16 - Subjective Subjective: AFEBRILE, AWAKE ,MORE RESPONSIVE WOUND VAC - RIGHT HIP IN PLACE -DRAINING SANGIOUS DRAINAGE LABS REVIEWED. ALL CULTURES RIGHT HIP - NEGATIVE GROWTH TO DATE . ON IV ABX Objective - Vital Signs/Intake and Output Vital Signs (last 24 hours): Temp Pulse Resp BP Pulse Ox 98.2 F 70 20 134/69 96 11/26/17 15:15 11/26/17 16:00 11/26/17 15:15 11/26/17 17:54 11/26/17 15:15 Intake and Output: 11/26/17 11/26/17 06:59 18:59 Intake Total 1140 50 Balance 1140 50 - Medications Medications: Current Medications Acetaminophen (Tylenol 325mg Tab) 650 mg PO Q4H PRN PRN Reason: Pain, Mild (1-3) Last Admin: 11/26/17 17:56 Dose: 650 mg Acetaminophen (Tylenol 325mg Tab) 650 mg PO Q6 PRN PRN Reason: Pain, moderate (4-7) Last Admin: 11/26/17 06:07 Dose: 650 mg Alprazolam (Xanax) 0.25 mg PO DAILY [facility] Stop: 12/04/17 10:01 Alprazolam (Xanax) 0.5 mg PO [facility] Amlodipine Besylate (Norvasc) 10 mg PO DAILY [facility] Last Admin: 11/26/17 10:24 Dose: 10 mg Aspirin (Ecotrin) 325 mg PO DAILY [facility] Last Admin: 11/26/17 10:25 Dose: 325 mg Carbidopa/Levodopa (Sinemet) 1 tab PO TID [facility] Last Admin: 11/26/17 17:54 Dose: 1 tab Enoxaparin Sodium (Lovenox) 40 mg SC Q24H [facility] Last Admin: 11/26/17 17:55 Dose: 40 mg Famotidine (Pepcid) 20 mg PO DAILY [facility] Last Admin: 11/26/17 10:24 Dose: 20 mg Metronidazole 250 mg/ (Miscellaneous) 50 mls @ 100 mls/hr IVPB Q8 [facility] Last Admin: 11/26/17 13:20 Dose: 100 mls/hr Levetiracetam (Keppra) 750 mg PO BID [facility] Last Admin: 11/26/17 17:54 Dose: 750 mg Magnesium Hydroxide (Milk Of Magnesia) 30 ml PO DAILY PRN PRN Reason: Constipation Metoprolol Tartrate (Lopressor) 25 mg PO BID [facility] Last Admin: 11/26/17 17:54 Dose: 25 mg Ondansetron HCl (Zofran Inj) 4 mg IVP Q6H PRN PRN Reason: Nausea/Vomiting Last Admin: 11/24/17 21:06 Dose: 4 mg - Labs Labs: 11/26/17 11:49 11/26/17 11:49 PT 12.5 SECONDS (9.7-12.2) H 11/13/17 19:29 INR 1.1 11/13/17 19:29 APTT 32 SECONDS (21-34) 11/13/17 19:29 - Constitutional Appears: No Acute Distress - Head Exam Head Exam: NORMAL INSPECTION - Eye Exam Eye Exam: EOMI, PERRL - ENT Exam ENT Exam: Normal Oropharynx - Neck Exam Neck Exam: Normal Inspection - Respiratory Exam Respiratory Exam: Clear to Ausculation Bilateral, NORMAL BREATHING PATTERN - Cardiovascular Exam Cardiovascular Exam: REGULAR RHYTHM, +S1, +S2 - GI/Abdominal Exam GI & Abdominal Exam: Soft, Normal Bowel Sounds - Extremities Exam Extremities Exam: Pedal Edema (RT.HIP +VE WOUND VAC.), Tenderness (MILD DISCOMFORT RT HIP POST OPERATIVE SITE.). absent: Calf Tenderness - Neurological Exam Neurological Exam: Awake, CN II-XII Intact, Oriented x3 - Psychiatric Exam Psychiatric exam: Normal Mood - Skin Skin Exam: Normal Color, Warm Assessment and Plan (1) Abscess and cellulitis of gluteal region Assessment & Plan: POST OPT. 10/21/17/ DAY # 5. CONTINUE iv VANCOMYCIN 1 G EVERY 12 HOURLY.11/14/17 D/C IV Flagyl 250 mg every 8 hourly .11/19/17 IN VIEW OF [facility] LWC PER ORTHO. F/U VANCO LEVELS AND KEEP BETWEEN 10-20MCG/ML IN AM AT 4PM. CASE DISCUSSED WITH STAFF .RN. Status: Acute (2) UTI (urinary tract infection) Status: Acute (3) Chest pain Status: Acute (4) Dislocation of hip joint prosthesis Status: Acute
[2017-11-27] MEDS: Vancomycin 1 gm/NS 200 ml 1 GM/200 ML BAG IVPB SCH ×2 (03:59→16:14)
[2017-11-27] MEDS: Aspirin 325 mg EC Tablets PO SCH (09:16)
--- NOTE | 2017-11-27 13:19 | CP.PCM.PN ---
Subjective - Date & Time of Evaluation Date of Evaluation: 11/27/17 Time of Evaluation: 13:17 - Subjective Subjective: NOM DISTRESS , WOUND DRAINING SERO-SANGUINEOUS IV AB PLACEMENT ISSUES P/E REMAINS SAME Objective - Vital Signs/Intake and Output Vital Signs (last 24 hours): Temp Pulse Resp BP Pulse Ox 99.1 F 77 20 116/69 95 11/27/17 08:00 11/27/17 08:06 11/27/17 08:00 11/27/17 09:21 11/27/17 08:00 Intake and Output: 11/27/17 11/27/17 11:59 23:59 Intake Total 200 Balance 200 - Medications Medications: Current Medications Acetaminophen (Tylenol 325mg Tab) 650 mg PO Q4H PRN PRN Reason: Pain, Mild (1-3) Last Admin: 11/27/17 09:16 Dose: 650 mg Acetaminophen (Tylenol 325mg Tab) 650 mg PO Q6 PRN PRN Reason: Pain, moderate (4-7) Last Admin: 11/27/17 06:26 Dose: 650 mg Alprazolam (Xanax) 0.25 mg PO DAILY [facility] Stop: 12/04/17 10:01 Last Admin: 11/27/17 09:16 Dose: 0.25 mg Alprazolam (Xanax) 0.5 mg PO HS [facility] Last Admin: 11/26/17 21:34 Dose: 0.5 mg Amlodipine Besylate (Norvasc) 10 mg PO DAILY [facility] Last Admin: 11/27/17 09:16 Dose: 10 mg Aspirin (Ecotrin) 325 mg PO DAILY [facility] Last Admin: 11/27/17 09:16 Dose: 325 mg Carbidopa/Levodopa (Sinemet) 1 tab PO TID [facility] Last Admin: 11/27/17 09:16 Dose: 1 tab Enoxaparin Sodium (Lovenox) 40 mg SC Q24H [facility] Last Admin: 11/26/17 17:55 Dose: 40 mg Famotidine (Pepcid) 20 mg PO DAILY [facility] Last Admin: 11/27/17 09:16 Dose: 20 mg Vancomycin/Sodium Chloride (Vancomycin 1 Gm/Ns 200 Ml) 1 gm in 200 mls @ 133 mls/hr IVPB Q12H [facility] Stop: 12/02/17 04:31 Last Admin: 11/27/17 03:59 Dose: 133 mls/hr Levetiracetam (Keppra) 750 mg PO BID [facility] Last Admin: 11/27/17 09:16 Dose: 750 mg Magnesium Hydroxide (Milk Of Magnesia) 30 ml PO DAILY PRN PRN Reason: Constipation Metoprolol Tartrate (Lopressor) 25 mg PO BID [facility] Last Admin: 11/27/17 09:21 Dose: 25 mg Ondansetron HCl (Zofran Inj) 4 mg IVP Q6H PRN PRN Reason: Nausea/Vomiting Last Admin: 11/24/17 21:06 Dose: 4 mg Tramadol HCl (Ultram) 50 mg PO TID PRN PRN Reason: pain, BREAKTHROUGH - Labs Labs: 11/26/17 11:49 11/26/17 11:49 PT 12.5 SECONDS (9.7-12.2) H 11/13/17 19:29 INR 1.1 11/13/17 19:29 APTT 32 SECONDS (21-34) 11/13/17 19:29
[2017-11-27] MEDS: Enoxaparin 60 mg Syringe SC SCH (18:09)
--- NOTE | 2017-11-27 19:35 | CP.PCM.PN ---
Subjective - Date & Time of Evaluation Date of Evaluation: 11/27/17 Time of Evaluation: 19:34 - Subjective Subjective: AFEBRILE, AWAKE ,MORE RESPONSIVE. OFFERS NO COMPLAINTS. WOUND VAC - RIGHT HIP IN PLACE -DRAINING SANGIOUS DRAINAG LABS ; REVIEWED; vANCO TROUGH 11/27/17 15.5 OKAY WOUND CULTURES RIGHT HIP 11/21/17. NEGATIVE FOR 4 DAYS Objective - Vital Signs/Intake and Output Vital Signs (last 24 hours): Temp Pulse Resp BP Pulse Ox 97.8 F 64 20 101/64 96 11/27/17 15:23 11/27/17 15:23 11/27/17 15:23 11/27/17 18:08 11/27/17 15:23 - Medications Medications: Current Medications Acetaminophen (Tylenol 325mg Tab) 650 mg PO Q4H PRN PRN Reason: Pain, Mild (1-3) Last Admin: 11/27/17 09:16 Dose: 650 mg Acetaminophen (Tylenol 325mg Tab) 650 mg PO Q6 PRN PRN Reason: Pain, moderate (4-7) Last Admin: 11/27/17 19:16 Dose: 650 mg Alprazolam (Xanax) 0.25 mg PO DAILY [facility] Stop: 12/04/17 10:01 Last Admin: 11/27/17 09:16 Dose: 0.25 mg Alprazolam (Xanax) 0.5 mg PO HS [facility] Last Admin: 11/26/17 21:34 Dose: 0.5 mg Amlodipine Besylate (Norvasc) 10 mg PO DAILY [facility] Last Admin: 11/27/17 09:16 Dose: 10 mg Aspirin (Ecotrin) 325 mg PO DAILY [facility] Last Admin: 11/27/17 09:16 Dose: 325 mg Carbidopa/Levodopa (Sinemet) 1 tab PO TID [facility] Last Admin: 11/27/17 18:04 Dose: 1 tab Enoxaparin Sodium (Lovenox) 40 mg SC Q24H [facility] Last Admin: 11/27/17 18:09 Dose: 40 mg Famotidine (Pepcid) 20 mg PO DAILY [facility] Last Admin: 11/27/17 09:16 Dose: 20 mg Vancomycin/Sodium Chloride (Vancomycin 1 Gm/Ns 200 Ml) 1 gm in 200 mls @ 133 mls/hr IVPB Q12H [facility] Stop: 12/02/17 04:31 Last Admin: 11/27/17 16:14 Dose: 133 mls/hr Levetiracetam (Keppra) 750 mg PO BID [facility] Last Admin: 11/27/17 18:05 Dose: 750 mg Magnesium Hydroxide (Milk Of Magnesia) 30 ml PO DAILY PRN PRN Reason: Constipation Metoprolol Tartrate (Lopressor) 25 mg PO BID [facility] Last Admin: 11/27/17 18:08 Dose: 25 mg Ondansetron HCl (Zofran Inj) 4 mg IVP Q6H PRN PRN Reason: Nausea/Vomiting Last Admin: 11/24/17 21:06 Dose: 4 mg Tramadol HCl (Ultram) 50 mg PO TID PRN PRN Reason: pain, BREAKTHROUGH Last Admin: 11/27/17 13:46 Dose: 50 mg - Labs Labs: 11/26/17 11:49 11/26/17 11:49 PT 12.5 SECONDS (9.7-12.2) H 11/13/17 19:29 INR 1.1 11/13/17 19:29 APTT 32 SECONDS (21-34) 11/13/17 19:29 - Constitutional Appears: No Acute Distress - Head Exam Head Exam: NORMAL INSPECTION - Eye Exam Eye Exam: EOMI, PERRL - ENT Exam ENT Exam: Normal Oropharynx - Neck Exam Neck Exam: Normal Inspection - Respiratory Exam Respiratory Exam: Clear to Ausculation Bilateral - Cardiovascular Exam Cardiovascular Exam: REGULAR RHYTHM, +S1, +S2 - GI/Abdominal Exam GI & Abdominal Exam: Soft, Normal Bowel Sounds - Extremities Exam Extremities Exam: Pedal Edema, Tenderness (MILD TENDERNESS RIGHT HIP WOUND vac SITE.). absent: Calf Tenderness - Psychiatric Exam Psychiatric exam: Normal Mood - Skin Skin Exam: Normal Color, Warm Assessment and Plan (1) Abscess and cellulitis of gluteal region Assessment & Plan: POST OPT. 10/21/17/ DAY # 6 CONTINUE iv VANCOMYCIN 1 G EVERY 12 HOURLY.11/14/17 ( day 14.) case to be discussed with orthopedic . to continue IV vancomycin to complete 4 weeks therapy. PATIENT WITH WOUND VAC PER ORTHO. LWC PER ORTHO. Status: Acute (2) UTI (urinary tract infection) Status: Acute (3) Chest pain Status: Acute (4) Dislocation of hip joint prosthesis Status: Acute
[2017-11-28] MEDS: Vancomycin 1 gm/NS 200 ml 1 GM/200 ML BAG IVPB SCH ×2 (04:12→17:30)
--- NOTE | 2017-11-28 06:49 | PN ---
DATE: 11/27/2017 SUBJECTIVE: The patient is seen. The patient is given Xanax. Last night she slept, but still complaining of pain. The patient is asking for stronger pain medicine. The patient is only taking Tylenol. The patient was taken off narcotics, because she developed confusion. Today she is anxious and wants stronger pain medicine, we did tell her that we can put her on tramadol for pain. The patient has been co-operative with therapy. She is anxious to go home, but willing to go to subacute rehab. PHYSICAL EXAMINATION VITAL SIGNS: Temperature 99.1, pulse 77, blood pressure 116/69, respirations 20, oxygen saturation 95% on room air. REVIEW OF SYSTEMS: GENERAL: The patient is alert, oriented x2, she is seen today with physical therapist. The patient is asking for stronger pain meds. She is not asking for Percocet anymore. SKIN: No diaphoresis. HEENT: No headache or dizziness. NECK: Supple. RESPIRATORY: No dyspnea. CARDIOPULMONARY: No chest pain. GASTROINTESTINAL: No nausea or vomiting. EXTREMITIES: Complaining of pain in her right hip as well as complaining of restlessness and what seems to be restless leg syndrome at night MUSCULOSKELETAL Feels weak. NEUROLOGIC: Alert and oriented x3. GENITOURINARY: No dysuria. MENTAL STATUS EXAMINATION: Elderly female, looked stated age, very anxious, oriented x3. Speech spontaneous. Affect is reactive. Thought process, coherent. Thought content, patient is asking for stronger pain med. No paranoia. No hallucinations. No suicidal or homicidal ideation. She is off the Percocet. Attention and memory seemed to be fair. Insight and judgment fair. Impulse control is fair. IMPRESSION: History of delirium, drug induced; as well as metabolic encephalopathy, much improved. History of hip surgery; Parkinson's disease, PLAN AND RECOMMENDATIONS: The patient is seen, medications reviewed. Continue Xanax as ordered. We will add tramadol 50 mg t.i.d. p.r.n. for pain. Continue physical therapy, ortho followup. Psych blum patient is stable to go back to the custodial for subacute rehab, once medically cleared. Oscar Longo MD [facility] # [id number]
[2017-11-28 07:05] LABS: HEMOGLOBIN 10.1 g/dL (11.0-16.0); MEAN CORPUSCULAR HEMOGLOBIN 27.9 pg (27.0-31.0); MEAN CORPUSCULAR HGB CONC 32.8 g/dL (33.0-37.0); MEAN PLATELET VOLUME 8.1 fL (7.2-11.7); RBC 3.61 Mil/uL (3.80-5.20); RED CELL DISTRIBUTION WIDTH 16.8 % (11.5-14.5); WHITE BLOOD COUNT 3.3 K/uL (4.8-10.8)
[2017-11-28 07:31] LABS: ALB/GLOB RATIO 1.2 (1.0-2.1); ALBUMIN 2.9 g/dL (3.5-5.0); ALT/SGPT 19 U/L (9-52); AST/SGOT 25 U/L (14-36); BLOOD UREA NITROGEN 8 mg/dL (7-17); CALCIUM 8.3 mg/dl (8.6-10.4); GFR AFRICAN-AMERICAN > 60; GFR NON-AFRICAN AMERICAN > 60
[2017-11-28] MEDS: Aspirin 325 mg EC Tablets PO SCH (10:47)
--- NOTE | 2017-11-28 14:02 | CP.PCM.PN ---
Subjective - Date & Time of Evaluation Date of Evaluation: 11/28/17 Time of Evaluation: 14:01 - Subjective Subjective: POST OP PAIN PERIODS OF CONFUSION , LESS OFF PERCOCET IV AB AWAITING PAULETTE Objective - Vital Signs/Intake and Output Vital Signs (last 24 hours): Temp Pulse Resp BP Pulse Ox 98.7 F 73 20 116/66 95 11/28/17 08:25 11/28/17 08:25 11/28/17 08:25 11/28/17 10:47 11/28/17 08:25 - Medications Medications: Current Medications Acetaminophen (Tylenol 325mg Tab) 650 mg PO Q4H PRN PRN Reason: Pain, Mild (1-3) Last Admin: 11/28/17 01:48 Dose: 650 mg Acetaminophen (Tylenol 325mg Tab) 650 mg PO Q6 PRN PRN Reason: Pain, moderate (4-7) Last Admin: 11/27/17 19:16 Dose: 650 mg Alprazolam (Xanax) 1 mg PO [facility] Alprazolam (Xanax) 0.5 mg PO BID PRN PRN Reason: Anxiety Amlodipine Besylate (Norvasc) 10 mg PO DAILY [facility] Last Admin: 11/28/17 10:47 Dose: 10 mg Aspirin (Ecotrin) 325 mg PO DAILY [facility] Last Admin: 11/28/17 10:47 Dose: 325 mg Carbidopa/Levodopa (Sinemet) 1 tab PO TID [facility] Last Admin: 11/28/17 13:19 Dose: 1 tab Enoxaparin Sodium (Lovenox) 40 mg SC Q24H [facility] Last Admin: 11/27/17 18:09 Dose: 40 mg Famotidine (Pepcid) 20 mg PO DAILY [facility] Last Admin: 11/28/17 10:47 Dose: 20 mg Vancomycin/Sodium Chloride (Vancomycin 1 Gm/Ns 200 Ml) 1 gm in 200 mls @ 133 mls/hr IVPB Q12H [facility] Stop: 12/02/17 04:31 Last Admin: 11/28/17 04:12 Dose: 133 mls/hr Levetiracetam (Keppra) 750 mg PO BID [facility] Last Admin: 11/28/17 10:47 Dose: 750 mg Magnesium Hydroxide (Milk Of Magnesia) 30 ml PO DAILY PRN PRN Reason: Constipation Metoprolol Tartrate (Lopressor) 25 mg PO BID [facility] Last Admin: 11/28/17 10:47 Dose: 25 mg Ondansetron HCl (Zofran Inj) 4 mg IVP Q6H PRN PRN Reason: Nausea/Vomiting Last Admin: 11/24/17 21:06 Dose: 4 mg Tramadol HCl (Ultram) 50 mg PO TID PRN PRN Reason: pain, BREAKTHROUGH Last Admin: 11/28/17 13:19 Dose: 50 mg - Labs Labs: 11/28/17 06:54 11/28/17 06:54 PT 12.5 SECONDS (9.7-12.2) H 11/13/17 19:29 INR 1.1 11/13/17 19:29 APTT 32 SECONDS (21-34) 11/13/17 19:29
--- NOTE | 2017-11-28 16:34 | CP.PCM.PN ---
Subjective - Date & Time of Evaluation Date of Evaluation: 11/28/17 Time of Evaluation: 16:31 - Subjective Subjective: Patient states she still has some pain in her hip, but pain medication helps. She denies CP/SOB/dizziness. Objective - Vital Signs/Intake and Output Vital Signs (last 24 hours): Temp Pulse Resp BP Pulse Ox 98.7 F 73 20 116/66 95 11/28/17 08:25 11/28/17 08:25 11/28/17 08:25 11/28/17 10:47 11/28/17 08:25 - Medications Medications: Current Medications Acetaminophen (Tylenol 325mg Tab) 650 mg PO Q4H PRN PRN Reason: Pain, Mild (1-3) Last Admin: 11/28/17 01:48 Dose: 650 mg Acetaminophen (Tylenol 325mg Tab) 650 mg PO Q6 PRN PRN Reason: Pain, moderate (4-7) Last Admin: 11/27/17 19:16 Dose: 650 mg Alprazolam (Xanax) 1 mg PO [facility] Alprazolam (Xanax) 0.5 mg PO BID PRN PRN Reason: Anxiety Amlodipine Besylate (Norvasc) 10 mg PO DAILY [facility] Last Admin: 11/28/17 10:47 Dose: 10 mg Aspirin (Ecotrin) 325 mg PO DAILY [facility] Last Admin: 11/28/17 10:47 Dose: 325 mg Carbidopa/Levodopa (Sinemet) 1 tab PO TID [facility] Last Admin: 11/28/17 13:19 Dose: 1 tab Enoxaparin Sodium (Lovenox) 40 mg SC Q24H [facility] Last Admin: 11/27/17 18:09 Dose: 40 mg Famotidine (Pepcid) 20 mg PO DAILY [facility] Last Admin: 11/28/17 10:47 Dose: 20 mg Vancomycin/Sodium Chloride (Vancomycin 1 Gm/Ns 200 Ml) 1 gm in 200 mls @ 133 mls/hr IVPB Q12H [facility] Stop: 12/02/17 04:31 Last Admin: 11/28/17 04:12 Dose: 133 mls/hr Levetiracetam (Keppra) 750 mg PO BID [facility] Last Admin: 11/28/17 10:47 Dose: 750 mg Magnesium Hydroxide (Milk Of Magnesia) 30 ml PO DAILY PRN PRN Reason: Constipation Metoprolol Tartrate (Lopressor) 25 mg PO BID [facility] Last Admin: 11/28/17 10:47 Dose: 25 mg Ondansetron HCl (Zofran Inj) 4 mg IVP Q6H PRN PRN Reason: Nausea/Vomiting Last Admin: 11/24/17 21:06 Dose: 4 mg Tramadol HCl (Ultram) 50 mg PO TID PRN PRN Reason: pain, BREAKTHROUGH Last Admin: 11/28/17 13:19 Dose: 50 mg - Labs Labs: 11/28/17 06:54 11/28/17 06:54 PT 12.5 SECONDS (9.7-12.2) H 11/13/17 19:29 INR 1.1 11/13/17 19:29 APTT 32 SECONDS (21-34) 11/13/17 19:29 - Extremities Exam Additional comments: wound vac no longer working. Dressing changed for wound check, still actively draining into canister. Wound no erythema no active drainage appreciated, no fluctuance. Prevena reapplied +ROM ankle/toes, sensation intact, +DP/PT pulses calves soft NT neg homans Assessment and Plan (1) Postoperative wound infection of right hip Assessment & Plan: cont wound vac cont pt/ot cont vte proph cont iv abx d/w Dr. Mendosa, agrees with above Status: Acute (2) UTI (urinary tract infection) Status: Acute
[2017-11-28] MEDS: Enoxaparin 60 mg Syringe SC SCH (17:55)
--- NOTE | 2017-11-28 18:13 | PN ---
DATE: 11/28/2017 SUBJECTIVE: The patient is seen. The patient states that she is still complaining of pain despite taking tramadol and she said that she is anxious and sleepy. The patient states that the medicines are not effective. The patient made aware that she cannot take narcotics as she becomes confused from it. Will keep her with Tramadol 50 mg p.o. t.i.d. p.r.n., but we will increase Xanax for this patient with very high anxiety level. She has been co-operative with physical therapy, still asking when she can go home or go for subacute rehab. PHYSICAL EXAMINATION VITAL SIGNS: Temperature 98.7, pulse 73, blood pressure 116/66, respirations 20, oxygen saturation is 95%. REVIEW OF SYSTEMS: GENERAL: The patient is alert, oriented x2. She is seen In her room complaining of pain, anxious, somatic. SKIN: No diaphoresis. HEENT: No headache or dizziness. NECK: Supple. RESPIRATORY: No dyspnea. CARDIOPULMONARY: No chest pain. GASTROINTESTINAL: No nausea or vomiting. EXTREMITIES: Complaining of hip pain. MUSCULOSKELETAL Feels weak. NEUROLOGIC: Alert and oriented x3. GENITOURINARY: No dysuria. MENTAL STATUS EXAMINATION: Elderly female, looked stated age, in hospital w, seen sitting at bed. The patient is very anxious, somatic. Affect is reactive. Speech is spontaneous. Thought process, coherent. Thought content, the patient wanted to change the medication. She states that the tramadol is not as effective according to the nurse when Xanax and tramadol are given together, she seems to do better. We will give her Xanax p.r.n., but will give her a higher dose of Xanax at night, so she can feel better and she is less anxious. No psychosis. No suicidal ideation. Attention and memory seems to be fair. Insight and judgment fair. Impulse control is fair. IMPRESSION: History of delirium, metabolic encephalopathy drug-induced secondary to intake of Percocet, much improved, status post hip surgery. PLAN AND RECOMMENDATIONS: The patient is seen and meds reviewed. We will change the Xanax to Xanax 0.25 mg p.o. b.i.d. p.r.n. and Xanax 1 mg at bed. Continue tramadol as ordered p.r.n. for pain. The patient is awaiting medical clearance to go for sub acute rehab to [facility] but she has limited subacute days. Again, antibiotics is ordered. Oscar Longo MD [id number]
--- NOTE | 2017-11-28 18:14 | CP.PCM.PN ---
Subjective - Date & Time of Evaluation Date of Evaluation: 11/28/17 Time of Evaluation: 18:14 - Subjective Subjective: AFEBRILE, AWAKE ,MORE RESPONSIVE. OFFERS NO COMPLAINTS. WOUND VAC - RIGHT HIP IN PLACE -DRAINING SANGIOUS DRAINAG DRESSING CHANGED TODAY BY ORTHO .11/28/17 Objective - Vital Signs/Intake and Output Vital Signs (last 24 hours): Temp Pulse Resp BP Pulse Ox 98.9 F 69 20 128/60 93 L 11/28/17 15:25 11/28/17 15:25 11/28/17 15:25 11/28/17 15:25 11/28/17 15:25 - Medications Medications: Current Medications Acetaminophen (Tylenol 325mg Tab) 650 mg PO Q4H PRN PRN Reason: Pain, Mild (1-3) Last Admin: 11/28/17 01:48 Dose: 650 mg Acetaminophen (Tylenol 325mg Tab) 650 mg PO Q6 PRN PRN Reason: Pain, moderate (4-7) Last Admin: 11/27/17 19:16 Dose: 650 mg Alprazolam (Xanax) 1 mg PO HS [facility] Alprazolam (Xanax) 0.5 mg PO BID PRN PRN Reason: Anxiety Amlodipine Besylate (Norvasc) 10 mg PO DAILY [facility] Last Admin: 11/28/17 10:47 Dose: 10 mg Aspirin (Ecotrin) 325 mg PO DAILY [facility] Last Admin: 11/28/17 10:47 Dose: 325 mg Carbidopa/Levodopa (Sinemet) 1 tab PO TID [facility] Last Admin: 11/28/17 13:19 Dose: 1 tab Enoxaparin Sodium (Lovenox) 40 mg SC Q24H [facility] Last Admin: 11/27/17 18:09 Dose: 40 mg Famotidine (Pepcid) 20 mg PO DAILY [facility] Last Admin: 11/28/17 10:47 Dose: 20 mg Vancomycin/Sodium Chloride (Vancomycin 1 Gm/Ns 200 Ml) 1 gm in 200 mls @ 133 mls/hr IVPB Q12H [facility] Stop: 12/02/17 04:31 Last Admin: 11/28/17 17:30 Dose: 133 mls/hr Levetiracetam (Keppra) 750 mg PO BID [facility] Last Admin: 11/28/17 10:47 Dose: 750 mg Magnesium Hydroxide (Milk Of Magnesia) 30 ml PO DAILY PRN PRN Reason: Constipation Metoprolol Tartrate (Lopressor) 25 mg PO BID [facility] Last Admin: 11/28/17 10:47 Dose: 25 mg Ondansetron HCl (Zofran Inj) 4 mg IVP Q6H PRN PRN Reason: Nausea/Vomiting Last Admin: 11/24/17 21:06 Dose: 4 mg Tramadol HCl (Ultram) 50 mg PO TID PRN PRN Reason: pain, BREAKTHROUGH Last Admin: 11/28/17 13:19 Dose: 50 mg - Labs Labs: 11/28/17 06:54 11/28/17 06:54 PT 12.5 SECONDS (9.7-12.2) H 11/13/17 19:29 INR 1.1 11/13/17 19:29 APTT 32 SECONDS (21-34) 11/13/17 19:29 - Constitutional Appears: No Acute Distress - Head Exam Head Exam: NORMAL INSPECTION - Eye Exam Eye Exam: EOMI, PERRL - ENT Exam ENT Exam: Normal Oropharynx - Neck Exam Neck Exam: Normal Inspection - Respiratory Exam Respiratory Exam: Clear to Ausculation Bilateral - Cardiovascular Exam Cardiovascular Exam: REGULAR RHYTHM, +S1, +S2 - GI/Abdominal Exam GI & Abdominal Exam: Soft, Normal Bowel Sounds - Extremities Exam Extremities Exam: absent: Calf Tenderness, Pedal Edema (RT .HIP WOUND VAC DRESSING CHANGED.) - Neurological Exam Neurological Exam: Awake, CN II-XII Intact, Oriented x3 - Psychiatric Exam Psychiatric exam: Normal Mood - Skin Skin Exam: Normal Color, Warm Assessment and Plan (1) Abscess and cellulitis of gluteal region Assessment & Plan: POST OPT. 10/21/17/ DAY # 7 CONTINUE iv VANCOMYCIN 1 G EVERY 12 HOURLY.11/14/17 ( day 15.) case to be discussed with orthopedic . Continue IV vancomycin to complete 4 - 6 weeks therapy DEPENDING ON HEALING OF WOUND. PATIENT WITH WOUND VAC PER ORTHO. WILL DISCUSS W ORTHO / MS RALF. Status: Acute (2) UTI (urinary tract infection) Status: Acute (3) Chest pain Status: Acute (4) Dislocation of hip joint prosthesis Status: Acute
[2017-11-29] MEDS: Vancomycin 1 gm/NS 200 ml 1 GM/200 ML BAG IVPB SCH ×2 (04:21→17:32)
[2017-11-29 07:36] LABS: MEAN CELL VOLUME 84.8 fL (81.0-99.0); MEAN PLATELET VOLUME 8.6 fL (7.2-11.7); RBC 3.56 Mil/uL (3.80-5.20); RED CELL DISTRIBUTION WIDTH 17.3 % (11.5-14.5); WHITE BLOOD COUNT 3.6 K/uL (4.8-10.8)
[2017-11-29 07:51] LABS: ALB/GLOB RATIO 1.1 (1.0-2.1); ALBUMIN 2.8 g/dL (3.5-5.0); ALT/SGPT 16 U/L (9-52); AST/SGOT 21 U/L (14-36); BLOOD UREA NITROGEN 7 mg/dL (7-17); CALCIUM 8.3 mg/dl (8.6-10.4); GFR AFRICAN-AMERICAN > 60; GFR NON-AFRICAN AMERICAN > 60
[2017-11-29] MEDS: Aspirin 325 mg EC Tablets PO SCH (09:53)
[2017-11-29] MEDS ORDERED: Potassium Chloride 20 mEq ER Tab PO ONE (10:00)
--- NOTE | 2017-11-29 12:18 | CP.PCM.PCO ---
Physician Communication Note - Physician Communication Note Physician Communication Note: Patient orthopedically stable for d/c to LT[facility]
--- NOTE | 2017-11-29 12:21 | CP.PCM.PN ---
Subjective - Date & Time of Evaluation Date of Evaluation: 11/29/17 Time of Evaluation: 12:18 - Subjective Subjective: Patient orthopedically stable for d/c to LTAC RN to connect prevena dressing to portable device (only one setting, hold button to turn on) This is to remain intact for 7 days Continue partial weight bearing RLE patient to follow up with Dr. Mednosa in office on 12/07 call for appointment time d/w Dr. mendosa, agrees with above cont abx x total 6 weeks per ID Objective - Vital Signs/Intake and Output Vital Signs (last 24 hours): Temp Pulse Resp BP Pulse Ox 99 F 69 20 94/50 L 96 11/29/17 08:49 11/29/17 08:49 11/29/17 08:49 11/29/17 09:53 11/29/17 08:49 Intake and Output: 11/29/17 11/29/17 06:59 18:59 Intake Total 100 Balance 100 - Medications Medications: Current Medications Alprazolam (Xanax) 1 mg PO HS [facility] Last Admin: 11/28/17 21:19 Dose: 1 mg Alprazolam (Xanax) 0.5 mg PO BID PRN PRN Reason: Anxiety Last Admin: 11/29/17 09:53 Dose: 0.5 mg Amlodipine Besylate (Norvasc) 10 mg PO DAILY [facility] Last Admin: 11/29/17 09:53 Dose: Not Given Aspirin (Ecotrin) 325 mg PO DAILY [facility] Last Admin: 11/29/17 09:53 Dose: 325 mg Carbidopa/Levodopa (Sinemet) 1 tab PO TID [facility] Last Admin: 11/29/17 09:53 Dose: 1 tab Enoxaparin Sodium (Lovenox) 40 mg SC Q24H [facility] Last Admin: 11/28/17 17:55 Dose: 40 mg Famotidine (Pepcid) 20 mg PO DAILY [facility] Last Admin: 11/29/17 09:53 Dose: 20 mg Vancomycin/Sodium Chloride (Vancomycin 1 Gm/Ns 200 Ml) 1 gm in 200 mls @ 133 mls/hr IVPB Q12H [facility] Stop: 12/02/17 04:31 Last Admin: 11/29/17 04:21 Dose: 133 mls/hr Potassium Chloride (Potassium Chloride 20 Meq/100 Ml) 20 meq in 100 mls @ 50 mls/hr IVPB Q2 [facility] Stop: 11/29/17 13:59 Last Admin: 11/29/17 12:08 Dose: 50 mls/hr Levetiracetam (Keppra) 750 mg PO BID [facility] Last Admin: 11/29/17 09:53 Dose: 750 mg Metoprolol Tartrate (Lopressor) 25 mg PO BID [facility] Last Admin: 11/29/17 09:53 Dose: Not Given Ondansetron HCl (Zofran Inj) 4 mg IVP Q6H PRN PRN Reason: Nausea/Vomiting Last Admin: 11/24/17 21:06 Dose: 4 mg Tramadol HCl (Ultram) 50 mg PO TID PRN PRN Reason: pain, BREAKTHROUGH Last Admin: 11/29/17 05:45 Dose: 50 mg - Labs Labs: 11/29/17 07:21 11/29/17 07:21 PT 12.5 SECONDS (9.7-12.2) H 11/13/17 19:29 INR 1.1 11/13/17 19:29 APTT 32 SECONDS (21-34) 11/13/17 19:29 Assessment and Plan (1) Postoperative wound infection of right hip Status: Acute (2) UTI (urinary tract infection) Status: Acute
--- NOTE | 2017-11-29 13:51 | CP.PCM.DIS ---
Provider - Provider Date of Admission: 11/13/17 20:48 Attending physician: Jann Morfin MD Time Spent in preparation of Discharge (in minutes): 35 Hospital Course - Lab Results Lab Results: Micro Results 11/21/17 18:00 Other: Please Indicate Gram Stain - Final 11/21/17 18:00 Other: Please Indicate Body Fluid Culture - Final NO GROWTH AFTER 4 DAYS 11/21/17 18:30 Hip - Right Gram Stain - Final 11/21/17 18:30 Hip - Right Wound Culture - Final No growth. 11/21/17 18:30 Hip - Right Gram Stain - Final 11/21/17 18:30 Hip - Right Wound Culture - Final No growth. 11/21/17 18:30 Hip - Right Gram Stain - Final 11/21/17 18:30 Hip - Right Wound Culture - Final No growth. 11/21/17 18:30 Hip - Right Gram Stain - Final 11/21/17 18:30 Hip - Right Wound Culture - Final No growth. 11/21/17 18:30 Hip - Right Gram Stain - Final 11/21/17 18:30 Hip - Right Wound Culture - Final No growth. 11/21/17 18:30 Hip - Right Gram Stain - Final 11/21/17 18:30 Hip - Right Wound Culture - Final No growth. 11/21/17 18:30 Hip - Right Gram Stain - Final 11/21/17 18:30 Hip - Right Wound Culture - Final No growth. 11/21/17 18:30 Hip - Right Gram Stain - Final 11/21/17 18:30 Hip - Right Wound Culture - Final No growth. 11/21/17 10:25 Other: Please Indicate Mycobacterial Culture - Preliminary 11/16/17 21:00 Blood-Venous Blood Culture - Final NO GROWTH AFTER 5 DAYS 11/16/17 21:00 Blood-Venous Gram Stain - Final TEST NOT PERFORMED 11/16/17 20:45 Blood-Venous S.aureus & Coag-Neg Staph PNA FISH - Final 11/16/17 20:45 Blood-Venous Blood Culture - Final Coagulase Neg Staphylococcus 11/16/17 20:45 Blood-Venous Gram Stain - Final 11/15/17 17:18 Hip - Right Gram Stain - Final 11/15/17 17:18 Hip - Right Wound Culture - Final Coagulase Neg Staphylococcus 11/16/17 Unknown Urine,Clean Catch Urine Culture - Final No Growth (<1,000 CFU/ML) 11/15/17 04:06 Urine,Clean Catch Urine Culture - Final Escherichia Coli Most Recent Lab Values WBC 3.6 K/uL (4.8-10.8) L 11/29/17 07:21 RBC 3.56 Mil/uL (3.80-5.20) L 11/29/17 07:21 Hgb 10.0 g/dL (11.0-16.0) L 11/29/17 07:21 Hct 30.2 % (34.0-47.0) L 11/29/17 07:21 MCV 84.8 fL (81.0-99.0) 11/29/17 07:21 MCH 28.0 pg (27.0-31.0) 11/29/17 07:21 MCHC 33.0 g/dL (33.0-37.0) 11/29/17 07:21 RDW 17.3 % (11.5-14.5) H 11/29/17 07:21 Plt Count 161 K/uL (130-400) 11/29/17 07:21 MPV 8.6 fL (7.2-11.7) 11/29/17 07:21 Neut % (Auto) 64.7 % (50.0-75.0) 11/20/17 06:24 Lymph % (Auto) 21.8 % (20.0-40.0) 11/20/17 06:24 [place] % (Auto) 10.5 % (0.0-10.0) H 11/20/17 06:24 Eos % (Auto) 2.3 % (0.0-4.0) 11/20/17 06:24 Baso % (Auto) 0.7 % (0.0-2.0) 11/20/17 06:24 Neut # (Auto) 3.7 K/uL (1.8-7.0) 11/20/17 06:24 Lymph # (Auto) 1.2 K/uL (1.0-4.3) 11/20/17 06:24 [place] # (Auto) 0.6 K/uL (0.0-0.8) 11/20/17 06:24 Eos # (Auto) 0.1 K/uL (0.0-0.7) 11/20/17 06:24 Baso # (Auto) 0.0 K/uL (0.0-0.2) 11/20/17 06:24 PT 12.5 SECONDS (9.7-12.2) H 11/13/17 19:29 INR 1.1 11/13/17 19:29 APTT 32 SECONDS (21-34) 11/13/17 19:29 Sodium 135 mmol/L (132-148) 11/29/17 07:21 Potassium 2.9 mmol/L (3.6-5.2) L 11/29/17 07:21 Chloride 102 mmol/L (98-107) 11/29/17 07:21 Carbon Dioxide 25 mmol/L (22-30) 11/29/17 07:21 Anion Gap 11 (10-20) 11/29/17 07:21 BUN 7 mg/dL (7-17) 11/29/17 07:21 Creatinine 0.6 mg/dL (0.7-1.2) L 11/29/17 07:21 Est GFR ( Amer) > 60 11/29/17 07:21 Est GFR (Non-Af Amer) > 60 11/29/17 07:21 Random Glucose 77 mg/dL (65-105) 11/29/17 07:21 Calcium 8.3 mg/dl (8.6-10.4) L 11/29/17 07:21 Total Bilirubin < 0.1 mg/dL (0.2-1.3) L 11/29/17 07:21 AST 21 U/L (14-36) 11/29/17 07:21 ALT 16 U/L (9-52) 11/29/17 07:21 Alkaline Phosphatase 69 U/L (38-126) 11/29/17 07:21 Total Creatine Kinase 20 U/L (30-135) L 11/14/17 10:49 CK-MB (Mass) < 0.22 ng/mL (0.0-3.38) 11/14/17 10:49 Troponin I < 0.0120 ng/mL (0.00-0.120) 11/14/17 10:49 Total Protein 5.3 g/dL (6.3-8.3) L 11/29/17 07:21 Albumin 2.8 g/dL (3.5-5.0) L 11/29/17 07:21 Globulin 2.5 gm/dL (2.2-3.9) 11/29/17 07:21 Albumin/Globulin Ratio 1.1 (1.0-2.1) 11/29/17 07:21 TSH 3rd Generation 0.78 mIU/L (0.46-4.68) 11/13/17 19:29 Urine Color Yellow (YELLOW) 11/16/17 23:05 Urine Clarity Clear (Clear) 11/16/17 23:05 Urine pH 6.0 (5.0-8.0) 11/16/17 23:05 Ur Specific [place] 1.019 (1.003-1.030) 11/16/17 23:05 Urine Protein Negative mg/dL (NEGATIVE) 11/16/17 23:05 Urine Glucose (UA) Normal mg/dL (Normal) 11/16/17 23: Urine Ketones Trace mg/dL (NEGATIVE) 11/16/17 23:05 Urine Blood 1+ (NEGATIVE) H 11/16/17 23:05 Urine Nitrate Negative (NEGATIVE) 11/16/17 23:05 Urine Bilirubin Negative (NEGATIVE) 11/16/17 23:05 Urine Urobilinogen Normal mg/dL (0.2-1.0) 11/16/17 23:05 Ur Leukocyte Esterase Neg Luciano/uL (Negative) 11/16/17 23:05 Urine WBC (Auto) 7 /hpf (0-5) H 11/16/17 23:05 Urine RBC (Auto) 19 /hpf (0-3) H 11/16/17 23:05 Ur Squamous Epith Cells < 1 /hpf (0-5) 11/16/17 23:05 Fluid Type Synovial fluid 11/21/17 18:00 Synovial WBC 7019.0 /mm3 (0.0-150.0) H 11/21/17 18:00 Synovial RBC 99844.0 /mm3 (0.0-0.0) H 11/21/17 18:00 Synovial Neutrophils 95.0 % (0-0) H 11/21/17 18:00 Synovial Lymphocytes 2.0 % (0-0) H 11/21/17 18:00 Synov Monos/Macrophage 3 % (0-0) H 11/21/17 18:00 Synovial Fluid Comment 11/21/17 18:00 Vancomycin Trough 15.5 ug/mL (5.0-10.0) H 11/27/17 16:34 Blood Type O POSITIVE 11/20/17 06:24 Antibody Screen Negative 11/20/17 06:24 - Hospital Course Hospital Course: PT IS A RESIDENT AT [facility] FOR RECENT SURGERY FOR DISPLACED LEFT HIP PROSTHESIS , DEVELOPED PALPITATION AND CHEST PRESSURE . PT WAS EVALUATED IN ER AND ADMITTED FOR FURTHER W/U PAST HIST. LEFT HIP PROSTHESIS T2DM/ASHD/PARKINSON DISEASE CARDIAC W/P WAS NEG PT HAD SEROSANG. DISCHARGE FROM WOUND AND CT SHOWED COLLECTION PT WENT TO OR FOR I&D AND ON IV AB FOR 6 WEEKS PT ALSO HAS AB VAC TRANSFER TO LTAC Discharge Exam - Head Exam Head Exam: NORMAL INSPECTION Discharge Plan - Discharge Medications Prescriptions: Vancomycin/0.9 % Sod Chloride [Vancomycin 1 G/200Ml-0.9% NaCl] 1 gm IV Q12H 14 Days froz.piggy - Follow Up Plan Condition: FAIR Disposition: HOME/ ROUTINE Additional Instructions: PLEASE PLACE UNDER THE SERVICE OF DR. MORFIN WHILE AT [facility] -- CALL UPON ARRIVAL WITH BED ASSIGNMENT AND FOR ADMITTING ORDERS PICC LINE CARE PER FACILITY PROTOCOL 2 WEEKS OF VANCOMYCIN IV LAB- VANCO LEVEL, CBC WITH DIFF, CMP, SED RATE, CRP WEEKLY CONTINUE ALL MEDICATIONS PER MED REC FALL PRECAUTIONS PER FACILITY PROTOCOL FOR FURTHER ORDERS, CALL DR. MORFIN'S OFFICE Referrals: Cody Mendosa III, MD [Staff Provider] - Gia Saucedo MD [Staff Provider] - Jann Morfin MD [Staff Provider] -
[2017-11-29 16:58] VITALS: BP 106/61; PULSE 61; RESP 18; TEMP 98.3; O2SAT 94
[2017-11-29] MEDS: Enoxaparin 60 mg Syringe SC SCH (17:32)
--- NOTE | 2017-11-29 23:55 | PN ---
DATE: 11/29/2017. SUBJECTIVE: The patient is seen. The patient is still complaining of pain but less persistent about asking for narcotics. The patient according to the nurse will be going for LTACH today for antibiotic treatment. Patient's mental status much improved. She is not asking for narcotics anymore. Patient advised to stay away from Percocet as she became very confused and having psychotics symptoms with it. PHYSICAL EXAMINATION: VITAL SIGNS: Temperature 98.3, pulse is 61, blood pressure now 106/61, respirations 18, oxygen saturation is 94%. 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 SKIN: No diaphoresis. HEENT: No headache, no dizziness. NECK: Supple. RESPIRATORY: No dyspnea. CARDIOVASCULAR: No chest pain. EXTREMITIES: Complaining of pain in her hip, has difficulty walking. MUSCULOSKELETAL Feels weak. NEUROLOGIC: Alert and oriented x3, does not have any new problems. MENTAL STATUS EXAMINATION: An elderly female who looks her stated age in hospital gown, oriented x3. Still somatic, anxious. Affect is reactive. Speech spontaneous. Thought process, coherent. Thought content, patient states she will be going for LTACH at [facility]. No overt psychosis. No suicidal or homicidal ideation or hallucination. Attention and memory seems to be fair. Insight and judgment fair. Impulse control is fair. IMPRESSION: History of delirium, metabolic encephalopathy secondary to her Percocet, much improved, history of hip surgery. PLAN AND RECOMMENDATIONS: The patient is seen. Meds reviewed. Patient to stay away from narcotics. Patient may continue her Xanax as ordered. Patient will be going today to [facility] for LTACH, will continue also her tramadol p.r.n. Patient as stated advised not to take any narcotics, she was asking for Morphine, I told her when they gave her Morphine the patient became very confused and lethargic. Patient does not do well with narcotics. Oscar Longo MD
== END 2017-11-29 19:30 | DRG 981 ==
LOC: C.ER 18:34 → C.9E 20:48 → C.6T 11-14 17:13
PROVIDERS: ADMIT Internal Medicine Cardiovascular Disease; ATTEND Internal Medicine Cardiovascular Disease
PROC: 0KDN0ZZ Extraction of Right Hip Muscle, Open Approach (ICD-10-PCS; 2017-11-21)
PROC: 0SC90ZZ Extirpation of Matter from Right Hip Joint, Open Approach (ICD-10-PCS; 2017-11-21)
PROC: 0SS9XZZ Reposition Right Hip Joint, External Approach (ICD-10-PCS; 2017-11-21)
PROC: 0S990ZX Drainage of Right Hip Joint, Open Approach, Diagnostic (ICD-10-PCS; principal; 2017-11-21 14:00)
DX: I48.91 Unspecified atrial fibrillation (principal); G92 Toxic encephalopathy; G20 Parkinson's disease; L02.415 Cutaneous abscess of right lower limb; T81.4XXA Infection following a procedure, initial encounter; D64.9 Anemia, unspecified; E11.9 Type 2 diabetes mellitus without complications; F41.9 Anxiety disorder, unspecified; N39.0 Urinary tract infection, site not specified; I10 Essential (primary) hypertension; Z90.49 Acquired absence of other specified parts of digestive tract; I25.10 Atherosclerotic heart disease of native coronary artery without angina pectoris; Z87.891 Personal history of nicotine dependence; Y83.8 Other surgical procedures as the cause of abnormal reaction of the patient, or of later complication, without mention of misadventure at the time of the procedure; Z88.0 Allergy status to penicillin; T39.1X5A Adverse effect of 4-Aminophenol derivatives, initial encounter

== ENCOUNTER 2017-12-21 06:49 | Emergency (ER) | payer MEDICARE ==
[2017-12-21 06:50] VITALS: BMI 22.6
[2017-12-21] MEDS ORDERED: Oxycodone/Acetaminophen 5/325 mg Tab PO STA ×2 (07:26→08:00)
--- NOTE | 2017-12-21 07:27 | C.PDOC ---
Chief Complaint (Nursing): Hip Pain Past Medical History Vital Signs: Last Vital Signs Temp 97.8 F 12/21/17 06:52 Pulse 74 12/21/17 06:52 Resp 14 12/21/17 06:52 BP 148/71 12/21/17 06:52 Pulse Ox 98 12/21/17 06:52 - Medical History PMH: Anxiety, Arthritis, Atrial Fibrillation, Cardia Arrhythmia ("Fast" - unsure DX - had ablation), Fractures (Left hip fx repair 5 years ago), HTN, Parkinson's Disease (Resting Parkinson's), Pneumonia, Seizures Denies: Chronic Kidney Disease Surgical History: Cholecystectomy (1996) - [facility] Procedures (11/13/17) DRAINAGE OF RIGHT HIP JOINT, OPEN APPROACH, DIAGNOSTIC (11/13/17) EXCISION OF STOMACH, ENDO, DIAGN (04/03/16) EXTIRPATION OF MATTER FROM RIGHT HIP JOINT, OPEN APPROACH (11/13/17) INSPECTION OF LOWER INTESTINAL TRACT, ENDO (04/03/16) RELEASE RIGHT HIP TENDON, OPEN APPROACH (08/28/17) REPLACEMENT OF R ACETABULUM WITH AUTOL SUB, OPEN APPROACH (08/28/17) REPOSITION RIGHT HIP JOINT, EXTERNAL APPROACH (11/13/17) REPOSITION RIGHT UPPER FEMUR WITH INT FIX, OPEN APPROACH (08/28/17) REPOSITION RIGHT UPPER FEMUR, OPEN APPROACH (10/26/17) REVISION OF SYNTH SUB IN R HIP JT, FEMORAL, OPEN APPROACH (10/26/17) SUPPLEMENT RIGHT HIP JOINT WITH RESURF DEV, OPEN APPROACH (08/28/17) TRANSFUSE NONAUT RED BLOOD CELLS IN PERIPH VEIN, PERC (08/28/17) Family History: States: Unknown Family Hx - Social History Hx Tobacco Use: No Hx Alcohol Use: No Hx Substance Use: No - Immunization History Hx Tetanus Toxoid Vaccination: Yes Hx Influenza Vaccination: Yes Hx Pneumococcal Vaccination: Yes (2013) ED Course And Treatment O2 Sat by Pulse Oximetry: 98 Disposition - Disposition
--- NOTE | 2017-12-21 07:31 | C.PDOC ---
History Of Present Illness 77 y/o female with history of right hip fracture 1 month ago presents to ED stating she tried to get out of bed this morning and slipped landing on right knee. Patient states healing hip "gave out" and is currently complaining of pain to right knee. Patient reports residual pain non changed since surgery. Patient denies loc, head injury, numbness, weakness or any other complaints at this time. Chief Complaint (Nursing): Hip Pain History Per: Patient History/Exam Limitations: no limitations Onset/Duration Of Symptoms: Hrs Current Symptoms Are (Timing): Still Present Past Medical History Reviewed: Historical Data, Nursing Documentation, Vital Signs Vital Signs: Last Vital Signs Temp 97.8 F 12/21/17 06:52 Pulse 74 12/21/17 06:52 Resp 14 12/21/17 06:52 BP 148/71 12/21/17 06:52 Pulse Ox 98 12/21/17 07:37 - Medical History PMH: Anxiety, Arthritis, Atrial Fibrillation, Cardia Arrhythmia ("Fast" - unsure DX - had ablation), Fractures (Left hip fx repair 5 years ago), HTN, Parkinson's Disease (Resting Parkinson's), Pneumonia, Seizures Surgical History: Cholecystectomy (1996) - [facility] Procedures (11/13/17) DRAINAGE OF RIGHT HIP JOINT, OPEN APPROACH, DIAGNOSTIC (11/13/17) EXCISION OF STOMACH, ENDO, DIAGN (04/03/16) EXTIRPATION OF MATTER FROM RIGHT HIP JOINT, OPEN APPROACH (11/13/17) INSPECTION OF LOWER INTESTINAL TRACT, ENDO (04/03/16) RELEASE RIGHT HIP TENDON, OPEN APPROACH (08/28/17) REPLACEMENT OF R ACETABULUM WITH AUTOL SUB, OPEN APPROACH (08/28/17) REPOSITION RIGHT HIP JOINT, EXTERNAL APPROACH (11/13/17) REPOSITION RIGHT UPPER FEMUR WITH INT FIX, OPEN APPROACH (08/28/17) REPOSITION RIGHT UPPER FEMUR, OPEN APPROACH (10/26/17) REVISION OF SYNTH SUB IN R HIP JT, FEMORAL, OPEN APPROACH (10/26/17) SUPPLEMENT RIGHT HIP JOINT WITH RESURF DEV, OPEN APPROACH (08/28/17) TRANSFUSE NONAUT RED BLOOD CELLS IN PERIPH VEIN, PERC (08/28/17) Family History: States: No Known Family Hx - Social History Hx Tobacco Use: No Hx Alcohol Use: No Hx Substance Use: No - Immunization History Hx Tetanus Toxoid Vaccination: Yes Hx Influenza Vaccination: Yes Hx Pneumococcal Vaccination: Yes (2013) Review Of Systems Constitutional: Negative for: Fever, Chills Musculoskeletal: Positive for: Leg Pain Skin: Negative for: Rash Neurological: Negative for: Weakness, Numbness Physical Exam - Physical Exam Appears: Non-toxic, No Acute Distress Skin: Warm, Dry, No Rash, Other (13cm repair site to right hip +clear exudate. 1cm Open area to site ) Head: Normacephalic Oral Mucosa: Moist Neck: Normal ROM, Supple Cardiovascular: Rhythm Regular Respiratory: Normal Breath Sounds, No Rales, No Rhonchi, No Wheezing Gastrointestinal/Abdominal: Soft, No Tenderness, No Guarding, No Rebound Extremity: Capillary Refill (<2 seconds), No Deformity, Swelling (Mild soft tissue ), Other (+ecchymosis to right knee) Extremity: Bilateral: Normal ROM Pulses: Left Dorsalis Pedis: Normal, Right Dorsalis Pedis: Normal Neurological/Psych: Oriented x3, Normal Motor, Normal Sensation Gait: Steady ED Course And Treatment O2 Sat by Pulse Oximetry: 98 (RA) Pulse Ox Interpretation: Normal Medical Decision Making Medical Decision Making: Impression: R/o fracture Plan: Image of right hip and right knee PO analgesics Porgress: Patient reports no relief with Motrin, denies allergy to Percocet Disposition - Disposition Referrals: [facility] [Outside] Disposition: HOME/ ROUTINE Disposition Time: 09:35 Condition: GOOD Forms: [facility] (Uzbek) - Clinical Impression Clinical Impression: Contusion of hip, Knee contusion, Fall - Scribe Statement The provider has reviewed the documentation as recorded by the Dinora Cedeño All medical record entries made by the Dinora were at my direction and personally dictated by me. I have reviewed the chart and agree that the record accurately reflects my personal performance of the history, physical exam, medical decision making, and the department course for this patient. I have also personally directed, reviewed, and agree with the discharge instructions and disposition.
[2017-12-21] MEDS ORDERED: Oxycodone/Acetaminophen 5/325 mg Tab ONE (07:41)
[2017-12-21 10:04] VITALS: PULSE 70; RESP 16; TEMP 98
[2017-12-21 11:51] VITALS: BP 121/41
--- NOTE | 2017-12-21 12:48 | RAD ---
PROCEDURE: Pelvis and right hip HISTORY: trauma COMPARISON: 11/15/2017 TECHNIQUE: Standard protocol for this study/examination. FINDINGS: There are no osseous abnormalities to suggest fracture. The pelvic ring is intact. Preserved femoral-acetabular relationship. Negative study for protrusio, subluxation or dislocation. Degenerative changes: Bilateral RHINA is unchanged. IMPRESSION: No acute findings related to/accounting for the clinical presentation. No significant interval change compared to the prior examination(s).
--- NOTE | 2017-12-21 12:50 | RAD ---
PROCEDURE: Right femur HISTORY: trauma COMPARISON: December 20, 2017. TECHNIQUE: Standard protocol for this study/examination. FINDINGS: No significant/acute osseous, articular or soft tissue abnormalities. Status post right RHINA. Femoral, acetabular components in satisfactory position and alignment. IMPRESSION: No acute findings related to/accounting for the clinical presentation. Concordant results with the preliminary interpretation rendered by the emergency department physician procedure.
--- NOTE | 2017-12-21 12:52 | RAD ---
PROCEDURE: Right Knee Radiographs. HISTORY: trauma COMPARISON: None. FINDINGS: BONES: Normal. No fracture. JOINTS: Mild medial/ lateral compartment degenerative change. JOINT EFFUSION: None. OTHER FINDINGS: None. IMPRESSION: No acute findings related to/accounting for the clinical presentation. Concordant results with the preliminary interpretation rendered by the emergency department physician procedure.
[2017-12-21 13:49] VITALS: O2SAT 98
== END 2017-12-21 11:51 | disposition home or self-care (01) ==
LOC: C.ER 06:49
DX: S70.01XA Contusion of right hip, initial encounter (principal); S80.01XA Contusion of right knee, initial encounter; W01.0XXA Fall on same level from slipping, tripping and stumbling without subsequent striking against object, initial encounter; Y92.003 Bedroom of unspecified non-institutional (private) residence as the place of occurrence of the external cause

== ENCOUNTER 2018-01-05 09:38 | Emergency (ER) | payer MEDICARE ==
[2018-01-05 09:39] VITALS: BMI 22.6
[2018-01-05 09:46] VITALS: RESP 18
[2018-01-05] MEDS ORDERED: Lidocaine 5% Patch TD STA (10:34)
[2018-01-05] MEDS ORDERED: Lidocaine 5% Patch TD ONE (10:43)
[2018-01-05 10:46] LABS: BASO % 0.7 % (0.0-2.0); EOS % 0.4 % (0.0-4.0); HEMOGLOBIN 11.8 g/dL (11.0-16.0); LYMPH # 0.7 K/uL (1.0-4.3); LYMPH % 14.2 % (20.0-40.0); MEAN CORPUSCULAR HEMOGLOBIN 26.1 pg (27.0-31.0); MEAN CORPUSCULAR HGB CONC 32.5 g/dL (33.0-37.0); MEAN PLATELET VOLUME 7.8 fL (7.2-11.7); MONO # 0.3 K/uL (0.0-0.8); MONO % 6.1 % (0.0-10.0); NEUT # 3.8 K/uL (1.8-7.0); NEUT % 78.6 % (50.0-75.0); NRBC % 0.1 % (0.0-2.0); RBC 4.51 Mil/uL (3.80-5.20); RED CELL DISTRIBUTION WIDTH 20.9 % (11.5-14.5); WHITE BLOOD COUNT 4.8 K/uL (4.8-10.8)
[2018-01-05 10:48] LABS: MEAN CELL VOLUME 80.3 fL (81.0-99.0)
--- NOTE | 2018-01-05 10:57 | C.PDOC ---
History Of Present Illness Patient is a 77 y/o female who presents to the ED with a complaint of right hip pain s/p hip replacement [address] Blanco. Patient reports to have been discharged from rehab in stable condition but has since experienced pain in lower back radiating down legs and right hip. Patient admits to chronic urinary frequency and being able to ambulate with walker. Denies any new trauma , numbness or weakness, or bowel or bladder incontinence. Notes taking percocet for pain. Patient has no other physical complaints at this time. Time Seen by Provider: 01/05/18 10:00 Chief Complaint (Nursing): Hip Pain History Per: Patient History/Exam Limitations: no limitations Onset/Duration Of Symptoms: Days Current Symptoms Are (Timing): Still Present Recent travel outside of the [place]: No Past Medical History Reviewed: Historical Data, Nursing Documentation, Vital Signs Vital Signs: Last Vital Signs Temp 98 F 01/05/18 15:41 Pulse 78 01/05/18 15:41 Resp 18 01/05/18 15:41 BP 135/69 01/05/18 15:41 Pulse Ox 98 01/05/18 15:41 - Medical History PMH: Anxiety, Arthritis, Atrial Fibrillation, Cardia Arrhythmia ("Fast" - unsure DX - had ablation), Fractures (Left hip fx repair 5 years ago), HTN, Parkinson's Disease (Resting Parkinson's), Pneumonia, Seizures Denies: Chronic Kidney Disease Surgical History: Cholecystectomy (1996) - [facility] Procedures (11/13/17) DRAINAGE OF RIGHT HIP JOINT, OPEN APPROACH, DIAGNOSTIC (11/13/17) EXCISION OF STOMACH, ENDO, DIAGN (04/03/16) EXTIRPATION OF MATTER FROM RIGHT HIP JOINT, OPEN APPROACH (11/13/17) INSPECTION OF LOWER INTESTINAL TRACT, ENDO (04/03/16) RELEASE RIGHT HIP TENDON, OPEN APPROACH (08/28/17) REPLACEMENT OF R ACETABULUM WITH AUTOL SUB, OPEN APPROACH (08/28/17) REPOSITION RIGHT HIP JOINT, EXTERNAL APPROACH (11/13/17) REPOSITION RIGHT UPPER FEMUR WITH INT FIX, OPEN APPROACH (08/28/17) REPOSITION RIGHT UPPER FEMUR, OPEN APPROACH (10/26/17) REVISION OF SYNTH SUB IN R HIP JT, FEMORAL, OPEN APPROACH (10/26/17) SUPPLEMENT RIGHT HIP JOINT WITH RESURF DEV, OPEN APPROACH (08/28/17) TRANSFUSE NONAUT RED BLOOD CELLS IN PERIPH VEIN, PERC (08/28/17) Family History: States: No Known Family Hx - Social History Hx Tobacco Use: No Hx Alcohol Use: No Hx Substance Use: No - Immunization History Hx Tetanus Toxoid Vaccination: Yes Hx Influenza Vaccination: Yes Hx Pneumococcal Vaccination: Yes (2013) Review Of Systems Except As Marked, All Systems Reviewed And Found Negative. Constitutional: Negative for: Fever Genitourinary: Positive for: Frequency. Negative for: Incontinence Musculoskeletal: Positive for: Back Pain (lower back ), Leg Pain (bilateral ), Other (right hip pain) Neurological: Negative for: Weakness, Numbness Physical Exam - Physical Exam Appears: Well, Non-toxic, No Acute Distress Skin: Normal Color, Warm, Dry, Other (right hip surgical wound healed ) Head: Atraumatic, Normacephalic Eye(s): bilateral: Normal Inspection, PERRL, EOMI Oral Mucosa: Moist Chest: Symmetrical Cardiovascular: Rhythm Regular, No Friction Rub, No Murmur Respiratory: Normal Breath Sounds, No Rales, No Rhonchi, No Wheezing Gastrointestinal/Abdominal: Soft, No Tenderness Back: Normal Inspection, No CVA Tenderness Extremity: No Tenderness, No Swelling, Other (pain with internal rotation of right hip; active ROM pain) Neurological/Psych: Oriented x3, Normal Speech, Normal Cognition Gait: Steady ED Course And Treatment - Laboratory Results Result Diagrams: 01/05/18 10:42 01/05/18 10:42 O2 Sat by Pulse Oximetry: 96 (on RA) Pulse Ox Interpretation: Normal Progress Note: Blood work and UA ordered. Toradol, flexeril, and lidoderm administered. Medical Decision Making Medical Decision Making: On first re-exam, the patient reports mild improvement but the pain returned. On second re-exam, the patient reports that she feels well. Abdomen is soft, non -tender and the patient is tolerating PO well. Lungs are CTA, heart is RRR. Ambulatory in the ED with steady gait. Follow up with the medical doctor/clinic within 1-2 days. Return if wrosened. Disposition - Disposition Referrals: [facility] at [facility] [Outside] Disposition: HOME/ ROUTINE Disposition Time: 15:31 Condition: STABLE Additional Instructions: Follow up with the medical doctor/clinic within 1-2 days. Return if wrosened. Prescriptions: Lidocaine 5% [Lidoderm] 1 patch TOP DAILY #10 patch Instructions: Low Back Pain (DC), Bursitis (DC) Forms: [facility] (Greek) - POA Present On Arrival: None - Clinical Impression Clinical Impression: Hip pain, Back pain - Scribe Statement The provider has reviewed the documentation as recorded by the Scribe Dana Arechiga All medical record entries made by the Scribe were at my direction and personally dictated by me. I have reviewed the chart and agree that the record accurately reflects my personal performance of the history, physical exam, medical decision making, and the department course for this patient. I have also personally directed, reviewed, and agree with the discharge instructions and disposition.
[2018-01-05 11:08] LABS: ALB/GLOB RATIO 1.4 (1.0-2.1); ALBUMIN 4.1 g/dL (3.5-5.0); ALT/SGPT 10 U/L (9-52); AST/SGOT 19 U/L (14-36); BLOOD UREA NITROGEN 11 mg/dL (7-17); CALCIUM 9.5 mg/dl (8.6-10.4); GFR AFRICAN-AMERICAN > 60; GFR NON-AFRICAN AMERICAN > 60
[2018-01-05 14:16] VITALS: TEMP 98
[2018-01-05 14:24] LABS: SQUAMOUS EPITHIAL 3 /hpf (0-5); URINE BACTERIA RARE (<OCC); URINE BILIRUBIN NEGATIVE (NEGATIVE); URINE BLOOD NEGATIVE (NEGATIVE); URINE CLARITY Hazy (Clear); URINE COLOR Yellow (YELLOW); URINE GLUCOSE (UA) NORMAL (Normal); URINE LEUKOCYTE ESTERASE TRACE Leu/uL (Negative); URINE PROTEIN NEGATIVE (NEGATIVE); URINE UROBILINOGEN NORMAL mg/dL (0.2-1.0)
[2018-01-05] MEDS ORDERED: Morphine 4 MG/ML VIAL ONE (14:48)
[2018-01-05 15:42] VITALS: BP 135/69; PULSE 78
[2018-01-06 13:46] VITALS: O2SAT 96
== END 2018-01-05 16:11 | disposition home or self-care (01) ==
LOC: C.ER 09:38
DX: M25.551 Pain in right hip (principal); M54.5 Low back pain; Z96.641 Presence of right artificial hip joint; I10 Essential (primary) hypertension; I48.91 Unspecified atrial fibrillation; G20 Parkinson's disease; M19.90 Unspecified osteoarthritis, unspecified site
CPT/HCPCS: 80053; 81001; 85025; 87086; 87181; 96374; 96375; 96376; 99285; J1885; J2270